=== PATIENT | female | born 1945 | race Caucasian/White ===

== ENCOUNTER 2019-02-04 02:02 | Inpatient (IN) | payer MEDICARE, OTHER ==
[2019-02-04] MEDS ORDERED: ACETAMINOPHEN TAB 500 MG TAB PO STA (02:26)
--- NOTE | 2019-02-04 02:30 | ED ---
SOB HPI - General Chief Complaint: Shortness of Breath Stated Complaint: SONJA Time Seen by Provider: 02/04/19 02:26 Source: patient, EMS - History of Present Illness Initial Comments: Bita is a 73 yo female with PMH of CHF and COPD since the emergency department this morning for evaluation of shortness of breath. Patient reports that yesterday should shortness breath progressively worsened throughout the night she developed a productive cough and was concerned that this may be CHF she decided called ambulance bring her in the ER for evaluation. EMS reports that upon their arrival the patient was wheezing and tachypneic. She is given Solu-Medrol and a breathing treatment in route to the hospital. Patient reports bleeding is improving after the breathing treatment. She denies any chest pain or palpitations. She denies any recent weight gain or lower extremity edema. She reports she sexual been losing weight. She denies any fevers chills nausea or vomiting. - Related Data Home Medications Medication Instructions Recorded Confirmed Metoprolol Tartrate [Lopressor] 100 mg PO DAILY 03/08/16 06/18/16 Sertraline [Zoloft] 100 mg PO BID 03/08/16 06/18/16 amLODIPine BESYLATE [Norvasc] 10 mg PO DAILY 03/08/16 06/18/16 ALPRAZolam [Xanax] 0.5 mg PO Q8H PRN 03/09/16 06/18/16 Albuterol Inhaler [Ventolin Hfa 2 puff INHALATION RT-Q6H PRN 03/09/16 06/18/16 Inhaler] Tiotropium 18 Mcg/Puff [Spiriva] 1 cap INHALATION RT-DAILY 03/09/16 06/18/16 Atorvastatin [Lipitor] 40 mg PO DAILY 05/26/16 06/18/16 Cholecalciferol [Vitamin D3 (25 5,000 unit PO DAILY 05/26/16 06/18/16 Mcg = 1000 Iu)] metFORMIN HCL [Glucophage] 500 mg PO BID 05/26/16 06/18/16 Previous Rx's Medication Instructions Recorded Aspirin 325 mg PO DAILY tab 06/19/16 Famotidine [Pepcid] 40 mg PO HS #30 tab 06/19/16 Furosemide [Lasix] 40 mg PO DAILY #30 tab 06/19/16 Lisinopril [Zestril] 10 mg PO BID #60 tab 06/19/16 Allergies Allergy/AdvReac Type Severity Reaction Status Date / Time codeine AdvReac Unknown agitation Verified 06/18/16 04:23 Review of Systems ROS Statement: Those systems with pertinent positive or pertinent negative responses have been documented in the HPI. ROS Other: All systems not noted in ROS Statement are negative. Past Medical History Past Medical History: Chest Pain / Angina, Heart Failure, Diabetes Mellitus, Hyperlipidemia, Hypertension Additional Past Medical History / Comment(s): pt states she has a "leaky heart valve" History of Any Multi-Drug Resistant Organisms: None Reported Past Surgical History: Heart Catheterization, Hysterectomy, Orthopedic Surgery Additional Past Surgical History / Comment(s): Right hip replacement. Lower 3 discs on back are fused together, bilat carpal tunnel Past Anesthesia/Blood Transfusion Reactions: No Reported Reaction Additional Past Anesthesia/Blood Transfusion Reaction / Comment(s): never had blood transfusion Past Psychological History: Depression Smoking Status: Former smoker Past Alcohol Use History: None Reported Past Drug Use History: None Reported - Past Family History Father Family Medical History: Cancer Additional Family Medical History / Comment(s): lung CA Mother Additional Family Medical History / Comment(s): Scolosis General Exam - General Exam Comments Initial Comments: Physical Exam GENERAL: Elderly female, mild respiratory distress HENT: Normocephalic, Atraumatic. EYES: PERRL, EOMI PULMONARY: Tachypnea Decreased breath sound at bilateral bases No crackles or rales CARDIOVASCULAR: RRR ABDOMEN: Obese SKIN: Skin is clear with no lesions or rashes and otherwise unremarkable. : Deferred NEUROLOGIC: Patient is alert and oriented x3. Moving all extremities spontaneously MUSCULOSKELETAL: Normal extremities with adequate strength and full range of motion. No lower extremity swelling or edema. No calf tenderness. PSYCHIATRIC: Normal psychiatric evaluation Course Vital Signs 02/04/19 02/04/19 02:06 02:10 Temperature 100 F H Pulse Rate 92 Respiratory 16 Rate Blood Pressure 202/107 O2 Sat by Pulse 98 95 Oximetry Medical Decision Making - Medical Decision Making Patient was seen and evaluated history was obtained from the patient Elderly female is tachypneic tachycardic oral temp is 100 there is concerned that she may have pneumonia sepsis workup was initiated Labs reveal a lactic acid is elevated, leukocytosis, chest x-ray concerning for pneumonia versus pulmonary vascular congestion given the patient's vital signs we will treat as a pneumonia with Rocephin and azithromycin. Next line patient will be admitted for sepsis secondary to community-acquired pneumonia. - Lab Data Result diagrams: 02/04/19 02:08 02/04/19 02:08 Lab Results 02/04/19 02/04/19 02/04/19 Range/Units 02:08 02:08 02:08 WBC 18.5 H (3.8-10.6) k/uL RBC 4.56 (3.80-5.40) m/uL Hgb 13.9 (11.4-16.0) gm/dL Hct 42.0 (34.0-46.0) % MCV 91.9 (80.0-100.0) fL MCH 30.5 (25.0-35.0) pg MCHC 33.2 (31.0-37.0) g/dL RDW 15.2 (11.5-15.5) % Plt Count 251 (150-450) k/uL Neutrophils % 83 % Lymphocytes % 11 % Monocytes % 4 % Eosinophils % 1 % Basophils % 1 % Neutrophils # 15.3 H (1.3-7.7) k/uL Lymphocytes # 2.0 (1.0-4.8) k/uL Monocytes # 0.8 (0-1.0) k/uL Eosinophils # 0.2 (0-0.7) k/uL Basophils # 0.1 (0-0.2) k/uL PT (9.0-12.0) sec INR (<1.2) APTT (22.0-30.0) sec Sodium 137 (137-145) mmol/L Potassium 4.3 (3.5-5.1) mmol/L Chloride 99 (98-107) mmol/L Carbon Dioxide 30 (22-30) mmol/L Anion Gap 8 mmol/L BUN 17 (7-17) mg/dL Creatinine 0.85 (0.52-1.04) mg/dL Est GFR (CKD-EPI)AfAm 80 (>60 ml/min/1.73 sqM) Est GFR (CKD-EPI)NonAf 69 (>60 ml/min/1.73 sqM) Glucose 182 H (74-99) mg/dL Plasma Lactic Acid Connor (0.7-2.0) mmol/L Calcium 9.5 (8.4-10.2) mg/dL Total Bilirubin 0.5 (0.2-1.3) mg/dL AST 25 (14-36) U/L ALT 19 (9-52) U/L Alkaline Phosphatase 67 (38-126) U/L NT-Pro-B Natriuret Pep 5550 pg/mL Total Protein 6.8 (6.3-8.2) g/dL Albumin 4.2 (3.5-5.0) g/dL Influenza Type A RNA (Not Detectd) Influenza Type B (PCR) (Not Detectd) 02/04/19 02/04/19 02/04/19 Range/Units 02:08 02:08 02:40 WBC (3.8-10.6) k/uL RBC (3.80-5.40) m/uL Hgb (11.4-16.0) gm/dL Hct (34.0-46.0) % MCV (80.0-100.0) fL MCH (25.0-35.0) pg MCHC (31.0-37.0) g/dL RDW (11.5-15.5) % Plt Count (150-450) k/uL Neutrophils % % Lymphocytes % % Monocytes % % Eosinophils % % Basophils % % Neutrophils # (1.3-7.7) k/uL Lymphocytes # (1.0-4.8) k/uL Monocytes # (0-1.0) k/uL Eosinophils # (0-0.7) k/uL Basophils # (0-0.2) k/uL PT 9.4 (9.0-12.0) sec INR 0.9 (<1.2) APTT 22.3 (22.0-30.0) sec Sodium (137-145) mmol/L Potassium (3.5-5.1) mmol/L Chloride (98-107) mmol/L Carbon Dioxide (22-30) mmol/L Anion Gap mmol/L BUN (7-17) mg/dL Creatinine (0.52-1.04) mg/dL Est GFR (CKD-EPI)AfAm (>60 ml/min/1.73 sqM) Est GFR (CKD-EPI)NonAf (>60 ml/min/1.73 sqM) Glucose (74-99) mg/dL Plasma Lactic Acid Connor 2.6 H* (0.7-2.0) mmol/L Calcium (8.4-10.2) mg/dL Total Bilirubin (0.2-1.3) mg/dL AST (14-36) U/L ALT (9-52) U/L Alkaline Phosphatase (38-126) U/L NT-Pro-B Natriuret Pep pg/mL Total Protein (6.3-8.2) g/dL Albumin (3.5-5.0) g/dL Influenza Type A RNA Not Detected (Not Detectd) Influenza Type B (PCR) Not Detected (Not Detectd) Disposition Clinical Impression: Sepsis, Pneumonia, CHF (congestive heart failure), COPD (chronic obstructive pulmonary disease), Obesity Disposition: ADMITTED IP TO THIS HOSP Condition: Stable Is patient prescribed a controlled substance at d/c from ED?: No Referrals: Nonstaff,Physician [REFERRING] - 1-2 days
[2019-02-04 02:44] LABS: Basophils # (A) 0.1 k/uL (0-0.2); Basophils % (A) 1 %; Eosinophils # (A) 0.2 k/uL (0-0.7); Eosinophils % (A) 1 %; HGB 13.9 gm/dL (11.4-16.0); Lymphocytes % (A) 11 %; MCH 30.5 pg (25.0-35.0); MCHC 33.2 g/dL (31.0-37.0); MCV 91.9 fL (80.0-100.0); Mean Platelet Volume 7.8; Monocytes # (A) 0.8 k/uL (0-1.0); Monocytes % (A) 4 %; Neutrophils # (A) 15.3 k/uL (1.3-7.7); Neutrophils % (A) 83 %; Platelet Count 251 k/uL (150-450); RBC 4.56 m/uL (3.80-5.40); RDW 15.2 % (11.5-15.5); WBC 18.5 k/uL (3.8-10.6)
--- NOTE | 2019-02-04 02:55 | XR ---
EXAM: XR Chest, 2 Views CLINICAL HISTORY: ITS.REASON XR Reason: Fever TECHNIQUE: Frontal and lateral views of the chest. COMPARISON: Chest radiograph on 06/18/2016 FINDINGS: Hardware: None. Lungs/pleura: Interstitial opacities throughout the lungs. Heart/mediastinum: Mild enlargement of the cardiac silhouette. Soft tissues: Unremarkable. Bones: No acute fracture. Degenerative changes of the acromio clavicular joints and spine. Upper abdomen: Normal. IMPRESSION: Interstitial opacities throughout the lungs may represent pulmonary vasculature congestion versus infectious/inflammatory process.
[2019-02-04 02:57] LABS: Albumin 4.2 g/dL (3.5-5.0); Calcium 9.5 mg/dL (8.4-10.2); Potassium 4.3 mmol/L (3.5-5.1); Total Bilirubin 0.5 mg/dL (0.2-1.3); Total Protein 6.8 g/dL (6.3-8.2)
[2019-02-04 03:16] LABS: INR 0.9 (<1.2); Prothrombin Time 9.4 sec (9.0-12.0)
[2019-02-04 03:17] LABS: Partial Thromboplastin Time 22.3 sec (22.0-30.0)
[2019-02-04] MEDS: SODIUM CHLORIDE 0.9% 500 ML 500 ML IV SCH ×2 (03:33→03:34)
[2019-02-04] MEDS ORDERED: cefTRIAXone IN SWFI 1,000 MG/10 ML SYRINGE IVP STA (04:18)
[2019-02-04] MEDS ORDERED: AZITHROMYCIN 500 MG in SODIUM CHLORIDE 0.9% 250 ML IVPB STA (04:18)
[2019-02-04] MEDS ORDERED: PNEUMONIA PROTOCOL UTILIZED 1 EACH MISC PO PRN (04:19)
[2019-02-04 04:32] LABS: Appearance,Urine Clear (Clear); Bacteria,Urine Rare /hpf; Bilirubin,Urine Negative (Negative); Blood,Urine Negative (Negative); Color,Urine Light Yellow; Glucose,Urine (UA) Trace (Negative); Ketones,Urine Negative (Negative); Leukocyte Esterase,Urine Negative (Negative); Mucus,Urine Rare /hpf; Nitrite,Urine Negative (Negative); Protein,Urine 1+ (Negative); RBC,Urine 1 /hpf (0-5); Specific Gravity,Urine 1.012 (1.001-1.035); Squamous Epithelial Cell,Urine 2 /hpf (0-4); Urobilinogen,Urine <2.0 mg/dL (<2.0); WBC,Urine 6 /hpf (0-5)
[2019-02-04 06:25] LABS: Glucose,Whole Blood 263 mg/dL (75-99)
[2019-02-04 06:30] VITALS: BMI 42.4
[2019-02-04] MEDS: INSULIN ASPART (NovoLOG) 100 UNIT/ML VIAL SQ SCH ×4 (06:33→20:48)
[2019-02-04] MEDS ORDERED: SODIUM CHLORIDE 0.9% 500 ML 500 ML IV ONE (07:42)
[2019-02-04] MEDS: amLODIPine 10 MG TAB PO SCH (09:03)
[2019-02-04 12:00] LABS: Glucose,Whole Blood 252 mg/dL (75-99)
[2019-02-04] MEDS: ALPRAZolam 0.5 MG TAB PO PRN (12:39)
[2019-02-04] MEDS ORDERED: SODIUM CHLORIDE 0.9% 1,000 ML IV ONE (13:40)
[2019-02-04] MEDS: SODIUM CHLORIDE 0.9% 1,000 ML IV SCH (15:04)
--- NOTE | 2019-02-04 15:26 | P.HPIM ---
History of Present Illness 73-year-old female with past medical history of COPD came in with complaints of cough shortness of breath. I do not have an echocardiogram available there is no history of CHF per the patient. Patient is having fever cough with the dark- colored sputum production patient was started on antibiotics. Blood cultures were obtain patient has elevated lactic acid which continued to go up patient as he didn't receive much of fluids believing that patient has CHF reasonably so as chest x-ray typically looks like CHF with elevated BNP although patient did not have any JVD or pedal edema. Because of which I relieved patient may have atypical pneumonia IV antibiotics will be continued patient will be given a bolus of IV fluid followed by IV fluids at 100 mL per hour that may help her lactic acid will also obtain echocardiogram. Patient shortness of breath improved. No wheezing on exam Review of Systems REVIEW OF SYSTEMS: CONSTITUTIONAL: No fever, no malaise, no fatigue. HEENT: No recent visual problems or hearing problems. Denied any sore throat. CARDIOVASCULAR: No chest pain, orthopnea, PND, no palpitations, no syncope. PULMONARY: no hemoptysis. GASTROINTESTINAL: No diarrhea, no nausea, no vomiting, no abdominal pain. NEUROLOGICAL: No headaches, no weakness, no numbness. HEMATOLOGICAL: Denies any bleeding or petechiae. GENITOURINARY: Denies any burning micturition, frequency, or urgency. MUSCULOSKELETAL/RHEUMATOLOGICAL: Denies any joint pain, swelling, or any muscle pain. ENDOCRINE: Denies any polyuria or polydipsia. The rest of the 14-point review of systems is negative. Past Medical History Past Medical History: Chest Pain / Angina, Heart Failure, Diabetes Mellitus, Hyperlipidemia, Hypertension Additional Past Medical History / Comment(s): pt states she has a "leaky heart valve" History of Any Multi-Drug Resistant Organisms: None Reported Past Surgical History: Heart Catheterization, Hysterectomy, Orthopedic Surgery Additional Past Surgical History / Comment(s): Right hip replacement. Lower 3 discs on back are fused together, bilat carpal tunnel Past Anesthesia/Blood Transfusion Reactions: No Reported Reaction Additional Past Anesthesia/Blood Transfusion Reaction / Comment(s): never had blood transfusion Past Psychological History: Depression Smoking Status: Former smoker Past Alcohol Use History: None Reported Past Drug Use History: None Reported - Past Family History Father Family Medical History: Cancer Additional Family Medical History / Comment(s): lung CA Mother Additional Family Medical History / Comment(s): Scolosis Medications and Allergies Home Medications Medication Instructions Recorded Confirmed Type Metoprolol Tartrate [Lopressor] 100 mg PO HS 03/08/16 02/04/19 History Sertraline [Zoloft] 100 mg PO HS 03/08/16 02/04/19 History amLODIPine BESYLATE [Norvasc] 10 mg PO DAILY 03/08/16 02/04/19 History ALPRAZolam [Xanax] 0.5 mg PO HS PRN 03/09/16 02/04/19 History Albuterol Inhaler [Ventolin Hfa 2 puff INHALATION RT-Q6H PRN 03/09/16 02/04/19 History Inhaler] Tiotropium 18 Mcg/Puff [Spiriva] 1 cap INHALATION RT-HS 03/09/16 02/04/19 History Aspirin EC [Ecotrin Low Dose] 81 mg PO HS 02/04/19 02/04/19 History Isosorbide Mononitrate ER [Imdur] 30 mg PO HS 02/04/19 02/04/19 History Loperamide [Imodium] 1 cap PO Q48H 02/04/19 02/04/19 History Allergies Allergy/AdvReac Type Severity Reaction Status Date / Time codeine AdvReac Unknown agitation Verified 02/04/19 08:01 Physical Exam Vitals: Vital Signs Temp Pulse Pulse Resp BP BP Pulse Ox 02/04/19 14:58 16 02/04/19 06:57 98.4 F 78 16 142/74 94 L 02/04/19 06:09 98.5 F 83 18 156/76 94 L 02/04/19 05:35 97.8 F 02/04/19 05:00 98.6 F 82 20 176/95 96 02/04/19 04:50 86 17 176/95 96 02/04/19 04:40 86 19 174/81 97 02/04/19 04:30 85 15 182/95 98 02/04/19 04:20 91 24 182/95 96 02/04/19 04:10 91 24 182/95 96 02/04/19 04:00 90 17 179/83 96 02/04/19 03:50 89 17 179/83 96 02/04/19 03:40 89 18 179/100 96 02/04/19 03:20 92 22 179/92 96 02/04/19 03:10 92 19 180/91 96 02/04/19 02:50 93 19 185/95 96 02/04/19 02:46 94 22 202/107 96 02/04/19 02:10 95 02/04/19 02:06 100 F H 92 16 202/107 98 Intake and Output 02/04/19 02/04/19 02/04/19 06:59 14:59 22:59 Intake Total 500 1140 Balance 500 1140 Intake: Intake, IV Titration 500 500 Amount Sodium Chloride 0.9% 500 500 ml 500 ml @ 1000 mls/hr IV Q35M [facility] Rx#:[id number] Sodium Chloride 0.9% 500 500 ml 500 ml @ 999 mls/hr IV .Q31M ONE Rx#:[id number] Oral 640 Other: Weight 115.7 kg PHYSICAL EXAMINATION: GENERAL: The patient is alert and oriented x3, not in any acute distress. Well developed, well nourished. HEENT: Pupils are round and equally reacting to light. EOMI. No scleral icterus. No conjunctival pallor. Normocephalic, atraumatic. No pharyngeal erythema. No thyromegaly. CARDIOVASCULAR: S1 and S2 present. No murmurs, rubs, or gallops. PULMONARY: Chest is clear to auscultation, no wheezing or crackles. ABDOMEN: Soft, nontender, nondistended, normoactive bowel sounds. No palpable organomegaly. MUSCULOSKELETAL: No joint swelling or deformity. EXTREMITIES: No cyanosis, clubbing, or pedal edema. NEUROLOGICAL: Gross neurological examination did not reveal any focal deficits. SKIN: No rashes. Results CBC & Chem 7: 02/04/19 02:08 02/04/19 02:08 Labs: Abnormal Lab Results - Last 24 Hours (Table) 02/04/19 02/04/19 02/04/19 Range/Units 02:08 02:08 02:08 WBC 18.5 H (3.8-10.6) k/uL Neutrophils # 15.3 H (1.3-7.7) k/uL Glucose 182 H (74-99) mg/dL POC Glucose (mg/dL) (75-99) mg/dL Plasma Lactic Acid Connor 2.6 H* (0.7-2.0) mmol/L Urine Protein (Negative) Urine Glucose (UA) (Negative) Urine WBC (0-5) /hpf Urine Bacteria (None) /hpf Urine Mucus (None) /hpf 02/04/19 02/04/19 02/04/19 Range/Units 04:16 06:15 06:29 WBC (3.8-10.6) k/uL Neutrophils # (1.3-7.7) k/uL Glucose (74-99) mg/dL POC Glucose (mg/dL) 263 H (75-99) mg/dL Plasma Lactic Acid Connor 4.5 H* (0.7-2.0) mmol/L Urine Protein 1+ H (Negative) Urine Glucose (UA) Trace H (Negative) Urine WBC 6 H (0-5) /hpf Urine Bacteria Rare H (None) /hpf Urine Mucus Rare H (None) /hpf 02/04/19 02/04/19 Range/Units 11:45 12:30 WBC (3.8-10.6) k/uL Neutrophils # (1.3-7.7) k/uL Glucose (74-99) mg/dL POC Glucose (mg/dL) 252 H (75-99) mg/dL Plasma Lactic Acid Connor 4.7 H* (0.7-2.0) mmol/L Urine Protein (Negative) Urine Glucose (UA) (Negative) Urine WBC (0-5) /hpf Urine Bacteria (None) /hpf Urine Mucus (None) /hpf Microbiology - Last 24 Hours (Table) 02/04/19 04:16 Urine Culture - Preliminary Urine,Voided Thrombosis Risk Factor Assmnt - Choose All That Apply Each Factor Represents 1 point: Abnormal pulmonary function (COPD), Heart failure (<1month), Obesity (BMI >25) Each Risk Factor Represents 2 Points: Age 61-74 years Thrombosis Risk Factor Assessment Total Risk Factor Score: 5 Thrombosis Risk Factor Assessment Level: High Risk Assessment and Plan Plan: - possible severe sepsis from pneumonia may be atypical pneumonia patient will be continue on Rocephin and is from azithromycin and IV fluids as mentioned above because of lactic acidosis. Echocardiogram will be obtained. Patient does take metformin may be contributing to lactic acidosis as well. -Hypertension next and-type 2 diabetes mellitus -Coronary artery disease -Depression -Patient will need the GI prophylaxis and DVT prophylaxis
[2019-02-04] MEDS: HEPARIN SODIUM,PORCINE 5,000 UNIT/ML 1 ML VIAL SQ SCH ×2 (16:10→23:35)
[2019-02-04 17:18] LABS: Glucose,Whole Blood 185 mg/dL (75-99)
[2019-02-04 20:48] LABS: Glucose,Whole Blood 175 mg/dL (75-99)
[2019-02-04] MEDS: ISOSORBIDE MONONITRATE ER 30 MG TAB.ER.24H PO SCH (20:48)
[2019-02-04] MEDS: FAMOTIDINE 20 MG TAB PO SCH (20:48)
[2019-02-04] MEDS: METOPROLOL TARTRATE 50 MG TAB PO SCH (20:48)
[2019-02-04] MEDS: SERTRALINE 100 MG TAB PO SCH (20:48)
[2019-02-04] MEDS: ASPIRIN 81 MG PO SCH (20:48)
[2019-02-05] MEDS: SODIUM CHLORIDE 0.9% 1,000 ML IV SCH (00:19)
[2019-02-05] MEDS: ALPRAZolam 0.5 MG TAB PO PRN (00:59)
[2019-02-05] MEDS: IPRATROPIUM-ALBUTEROL 3 ML NEB INHALATION PRN ×3 (01:16→11:52)
[2019-02-05] MEDS ORDERED: FUROSEMIDE 10 MG/ML 4 ML VIAL IV STA ×2 (01:39→11:47)
--- NOTE | 2019-02-05 06:50 | XR ---
EXAMINATION TYPE: XR chest 1V portable DATE OF EXAM: 02/05/2019 HISTORY: Increased Sob . REFERENCE: Previous study dated 02/04/2019. FINDINGS: Patient has taken a poor inspiration. Heart size projects upper limits of normal. There is vascular congestion and mild interstitial change. I could not exclude small effusions. IMPRESSION: 1. FINDINGS CONSISTENT WITH MILD HEART FAILURE. 2. I COULD NOT EXCLUDE SMALL EFFUSIONS.
[2019-02-05 07:05] LABS: Glucose,Whole Blood 177 mg/dL (75-99)
[2019-02-05] MEDS: INSULIN ASPART (NovoLOG) 100 UNIT/ML VIAL SQ SCH ×4 (08:22→22:10)
[2019-02-05] MEDS: amLODIPine 10 MG TAB PO SCH (08:23)
[2019-02-05] MEDS: FAMOTIDINE 20 MG TAB PO SCH ×2 (08:23→19:54)
[2019-02-05] MEDS: HEPARIN SODIUM,PORCINE 5,000 UNIT/ML 1 ML VIAL SQ SCH ×3 (08:23→23:26)
[2019-02-05] MEDS ORDERED: AZITHROMYCIN 500 MG in SODIUM CHLORIDE 0.9% 250 ML IVPB SCH (09:00)
[2019-02-05] MEDS: ACETAMINOPHEN TAB 325 MG TAB PO PRN ×2 (10:03→19:54)
[2019-02-05 11:36] LABS: Glucose,Whole Blood 173 mg/dL (75-99)
[2019-02-05 13:03] LABS: Basophils # (A) 0.1 k/uL (0-0.2); Basophils % (A) 0 %; Eosinophils # (A) 0.1 k/uL (0-0.7); Eosinophils % (A) 0 %; HCT 39.8 % (34.0-46.0); HGB 12.5 gm/dL (11.4-16.0); Lymphocytes # (A) 1.5 k/uL (1.0-4.8); Lymphocytes % (A) 9 %; MCH 30.3 pg (25.0-35.0); MCHC 31.5 g/dL (31.0-37.0); MCV 96.3 fL (80.0-100.0); Mean Platelet Volume 7.9; Monocytes # (A) 0.7 k/uL (0-1.0); Monocytes % (A) 4 %; Neutrophils # (A) 14.9 k/uL (1.3-7.7); Neutrophils % (A) 87 %; Platelet Count 236 k/uL (150-450); RBC 4.14 m/uL (3.80-5.40); RDW 14.3 % (11.5-15.5); WBC 17.3 k/uL (3.8-10.6)
--- NOTE | 2019-02-05 13:03 | P.PN ---
Subjective Patient was admitted for sepsis initially thought to have pneumonia although there is no evidence of focal infiltrate's demise will be discontinued patient urine cultures are positive for gram-negative bacilli patient probably has UTI Patient will be can you done ceftriaxone. Patient does have symmetric and pulmonary edema patient will be given a dose of Lasix, lactic acid is around 2.5 and repeated tomorrow morning. Patient is quite short short of breath because of which in spite of lactic acid outgoing give her Lasix and will monitor clini desmond. Cardiac exam is pending Constitutional: She is quite a bit weak short of breath Cardio vascular: denied any chest pain, palpitations Gastrointestinal denied any nausea vomiting Pulmonary: As mentioned above Neurologic denied any new focal deficits All inpatient medications were reviewed and appropriate changes in these medications as dictated in the interval history and assessment and plan. Objective - Vital Signs Vital signs: Vital Signs Temp 99.3 F 02/05/19 09:44 Pulse 88 02/05/19 12:05 Resp 18 02/05/19 07:00 BP 164/75 02/05/19 07:00 Pulse Ox 95 02/05/19 07:00 Intake & Output 02/04/19 02/05/19 02/05/19 18:59 06:59 18:59 Intake Total 1140 350 Output Total 225 Balance 1140 350 -225 Intake: Intake, IV Titration 500 350 Amount Sodium Chloride 0.9% 1, 350 000 ml @ 100 mls/hr IV . Q10H [facility] Rx#:[id number] Sodium Chloride 0.9% 500 500 ml 500 ml @ 999 mls/hr IV .Q31M [facility] Rx#:[id number] Oral 640 Output: Urine 225 Uretheral (Roe) 225 Other: Voiding Method Toilet Toilet # Voids 1 - Exam PHYSICAL EXAMINATION: GENERAL: The patient is alert and oriented x3, is in mild respiratory distress at rest. Well developed, well nourished. Obese HEENT: Pupils are round and equally reacting to light. EOMI. No scleral icterus. No conjunctival pallor. Normocephalic, atraumatic. No pharyngeal erythema. No thyromegaly. CARDIOVASCULAR: S1 and S2 present. No murmurs, rubs, . She does have elevated JVD PULMONARY: Crackles in posterior bilateral lung bases ABDOMEN: Soft, nontender, nondistended, normoactive bowel sounds. No palpable organomegaly. MUSCULOSKELETAL: No joint swelling or deformity. EXTREMITIES: No cyanosis, clubbing, 1+ pitting pedal edema extending up to both knees NEUROLOGICAL: Gross neurological examination did not reveal any focal deficits. SKIN: No rashes. - Labs CBC & Chem 7: 02/04/19 02:08 02/04/19 02:08 Labs: Abnormal Lab Results - Last 24 Hours (Table) 02/04/19 02/04/19 02/04/19 Range/Units 12:30 16:46 17:06 POC Glucose (mg/dL) 185 H (75-99) mg/dL Plasma Lactic Acid Connor 4.7 H* 2.4 H* (0.7-2.0) mmol/L 02/04/19 02/05/19 02/05/19 Range/Units 20:36 06:54 09:38 POC Glucose (mg/dL) 175 H 177 H (75-99) mg/dL Plasma Lactic Acid Connor 2.9 H* (0.7-2.0) mmol/L 02/05/19 Range/Units 11:25 POC Glucose (mg/dL) 173 H (75-99) mg/dL Plasma Lactic Acid Connor (0.7-2.0) mmol/L Microbiology - Last 24 Hours (Table) 02/04/19 04:16 Urine Culture - Preliminary Urine,Voided Gram Neg Bacilli 02/04/19 03:34 Blood Culture - Preliminary Blood No Growth after 24 hours Assessment and Plan Plan: - possible severe sepsis from urinary tract infection possibly of pneumonia is low azithromycin will be discontinued continue with the Rocephin echocardiac gram is pending . Continues to have mild lactic acidosis Patient does take metformin may be contributing to lactic acidosis as well. -Congestive heart failure ejection fraction is not known in acute exacerbation may have diastolic dysfunction patient will be started on Lasix in spite of lactic acidosis because of her acute respiratory failure from heart failure -Acute hypoxic respiratory failure secondary to CHF exacerbation -Hypertension -type 2 diabetes mellitus -Coronary artery disease -Depression -Patient will need the GI prophylaxis and DVT prophylaxis
[2019-02-05 13:08] LABS: Calcium 8.8 mg/dL (8.4-10.2); Potassium 4.1 mmol/L (3.5-5.1)
[2019-02-05 17:09] LABS: Glucose,Whole Blood 189 mg/dL (75-99)
[2019-02-05] MEDS: ISOSORBIDE MONONITRATE ER 30 MG TAB.ER.24H PO SCH (19:54)
[2019-02-05] MEDS: METOPROLOL TARTRATE 50 MG TAB PO SCH (19:54)
[2019-02-05] MEDS: ASPIRIN 81 MG PO SCH (19:54)
[2019-02-05] MEDS: SERTRALINE 100 MG TAB PO SCH (19:54)
[2019-02-05 22:05] LABS: Glucose,Whole Blood 134 mg/dL (75-99)
[2019-02-06] MEDS: IPRATROPIUM-ALBUTEROL 3 ML NEB INHALATION PRN ×2 (03:26→10:59)
[2019-02-06 06:23] LABS: Glucose,Whole Blood 151 mg/dL (75-99)
[2019-02-06 06:29] LABS: HCT 37.3 % (34.0-46.0); HGB 12.3 gm/dL (11.4-16.0); MCH 30.7 pg (25.0-35.0); MCHC 32.9 g/dL (31.0-37.0); MCV 93.5 fL (80.0-100.0); Mean Platelet Volume 7.9; Platelet Count 200 k/uL (150-450); RBC 3.99 m/uL (3.80-5.40); RDW 14.8 % (11.5-15.5); WBC 12.6 k/uL (3.8-10.6)
[2019-02-06 06:35] LABS: Calcium 8.9 mg/dL (8.4-10.2); Potassium 3.8 mmol/L (3.5-5.1)
[2019-02-06] MEDS: INSULIN ASPART (NovoLOG) 100 UNIT/ML VIAL SQ SCH ×4 (06:37→21:59)
[2019-02-06] MEDS: ACETAMINOPHEN TAB 325 MG TAB PO PRN (09:32)
[2019-02-06] MEDS: HEPARIN SODIUM,PORCINE 5,000 UNIT/ML 1 ML VIAL SQ SCH ×2 (09:33→16:58)
[2019-02-06] MEDS: FAMOTIDINE 20 MG TAB PO SCH ×2 (09:33→21:59)
[2019-02-06] MEDS: amLODIPine 10 MG TAB PO SCH (09:33)
--- NOTE | 2019-02-06 10:55 | P.PN ---
Subjective Patient was admitted for sepsis initially thought to have pneumonia although there is no evidence of focal infiltrate's demise will be discontinued patient urine cultures are positive for gram-negative bacilli patient probably has UTI Patient will be can you done ceftriaxone. Patient does have symmetric and pulmonary edema patient will be given a dose of Lasix, lactic acid is around 2.5 and repeated tomorrow morning. Patient is quite short short of breath because of which in spite of lactic acid outgoing give her Lasix and will monitor clini desmond. Echocardiogram pending 02/06/2019 Echocardiac M pending. Patient the heart failure significant improved lactic acidosis improved and can you with antibiotic patient blood pressure started go ing up because her sepsis is improving at this time. Patient will be started on Lasix for a day IV and will be switched to oral tomorrow we'll check the kidney function patient was started on low-dose of RYDER inhibitor as well and patient metoprolol will be changed to Coreg with these changes her blood pressure is expected to come down. Patient is feeling much better today. Constitutional: She is quite a bit weak short of breath Cardio vascular: denied any chest pain, palpitations Gastrointestinal denied any nausea vomiting Pulmonary: As mentioned above Neurologic denied any new focal deficits All inpatient medications were reviewed and appropriate changes in these medications as dictated in the interval history and assessment and plan. Objective - Vital Signs Vital signs: Vital Signs Temp 98.5 F 02/06/19 09:16 Pulse 87 02/06/19 09:16 Resp 18 02/06/19 09:16 BP 190/84 02/06/19 09:16 Pulse Ox 95 02/06/19 09:16 Intake & Output 02/05/19 02/06/19 02/06/19 18:59 06:59 18:59 Intake Total 300 120 Output Total 1475 1500 Balance -1175 -1380 Weight 110 kg Intake: Intake, IV Titration 300 Amount Azithromycin 500 mg In 250 Sodium Chloride 0.9% 250 ml @ 250 mls/hr IVPB DAILY [facility] Rx#:[id number] cefTRIAXone 1 gm In 50 Sodium Chloride 0.9% 50 ml @ 100 mls/hr IVPB Q24H [facility] Rx#:[id number] Oral 120 Output: Urine 1475 1500 Uretheral (Roe) 225 Other: Voiding Method Toilet Indwelling Catheter Indwelling Catheter # Voids 1 - Exam PHYSICAL EXAMINATION: GENERAL: The patient is alert and oriented x3, not in respiratory distress Well developed, well nourished. Obese HEENT: Pupils are round and equally reacting to light. EOMI. No scleral icterus. No conjunctival pallor. Normocephalic, atraumatic. No pharyngeal erythema. No thyromegaly. CARDIOVASCULAR: S1 and S2 present. No murmurs, rubs, . He'll have JVD with improved PULMONARY: Crackles in posterior bilateral lung bases ABDOMEN: Soft, nontender, nondistended, normoactive bowel sounds. No palpable organomegaly. MUSCULOSKELETAL: No joint swelling or deformity. EXTREMITIES: No cyanosis, clubbing, 1+ pitting pedal edema extending up to both knees NEUROLOGICAL: Gross neurological examination did not reveal any focal deficits. SKIN: No rashes. - Labs CBC & Chem 7: 02/06/19 06:02/06/19 06:09 Labs: Abnormal Lab Results - Last 24 Hours (Table) 02/05/19 02/05/19 02/05/19 Range/Units 10: 10: 11:25 WBC 17.3 H (3.8-10.6) k/uL Neutrophils # 14.9 H (1.3-7.7) k/uL BUN 19 H (7-17) mg/dL Glucose 186 H (74-99) mg/dL POC Glucose (mg/dL) 173 H (75-99) mg/dL Plasma Lactic Acid Connor (0.7-2.0) mmol/L 02/05/19 02/05/19 02/05/19 Range/Units 13:30 16:59 22:03 WBC (3.8-10.6) k/uL Neutrophils # (1.3-7.7) k/uL BUN (7-17) mg/dL Glucose (74-99) mg/dL POC Glucose (mg/dL) 189 H 134 H (75-99) mg/dL Plasma Lactic Acid Connor 4.3 H* (0.7-2.0) mmol/L 02/06/19 02/06/19 02/06/19 Range/Units 06:09 06:09 06:22 WBC 12.6 H (3.8-10.6) k/uL Neutrophils # (1.3-7.7) k/uL BUN (7-17) mg/dL Glucose 149 H (74-99) mg/dL POC Glucose (mg/dL) 151 H (75-99) mg/dL Plasma Lactic Acid Connor (0.7-2.0) mmol/L Microbiology - Last 24 Hours (Table) 02/04/19 04:16 Urine Culture - Final Urine,Voided Klebsiella pneumoniae 02/04/19 03:34 Blood Culture - Preliminary Blood No Growth after 48 hours Assessment and Plan Plan: - possible severe sepsis from urinary tract infection possibly of pneumonia is low azithromycin will be discontinued continue with the Rocephin echocardiac gram is pending . Because those resolved -Congestive heart failure ejection fraction is not known, in acute exacerbation may have diastolic dysfunction patient will be started on Lasix in spite of lactic acidosis because of her acute respiratory failure from heart failure -Acute hypoxic respiratory failure secondary to CHF exacerbation -Hypertension -blood pressure started going up above-mentioned medication c eli -type 2 diabetes mellitus -Coronary artery disease -Depression -Patient will need the GI prophylaxis and DVT prophylaxis
[2019-02-06 11:55] LABS: Glucose,Whole Blood 157 mg/dL (75-99)
[2019-02-06] MEDS: CARVEDILOL 6.25 MG TAB PO SCH ×2 (12:05→16:59)
[2019-02-06] MEDS: LISINOPRIL 5 MG TAB PO SCH (12:06)
[2019-02-06 17:13] LABS: Glucose,Whole Blood 120 mg/dL (75-99)
[2019-02-06] MEDS ORDERED: CARVEDILOL 6.25 MG TAB PO SCH (17:30)
--- NOTE | 2019-02-06 19:06 | ECHOF ---
Referral Reason:CHF MEASUREMENTS -------- HEIGHT: 165.1 cm WEIGHT: 109.8 kg BP: 131/65 IVSd: 2.0 cm (0.6 - 1.1) LVIDd: 2.7 cm (3.9 - 5.3) LVPWd: 1.9 cm (0.6 - 1.1) IVSs: 2.2 cm LVIDs: 1.6 cm LVPWs: 2.2 cm RVIDd: 2.4 cm (< 3.3) LAESV Index (A-L): 66.13 ml/m Ao Diam: 2.8 cm (2.0 - 3.7) LA Diam: 4.8 cm (2.7 - 3.8) AV Cusp: 1.8 cm (1.5 - 2.6) EPSS: 0.1 cm MV E Elivn: 1.51 m/s MV DecT: 188 ms MV A Elvin: 1.12 m/s MV E/A Ratio: 1.35 AV maxP.78 mmHg AV meanP.00 mmHg AR PHT: 643 ms RAP: 5.00 mmHg RVSP: 29.08 mmHg MV EF SLOPE: 41.79 mm/s (70 - 150) MV EXCURSION: 19.44 mm (> 18.000) FINDINGS -------- Sinus rhythm. This was a technically adequate study. The cavity size is decreased. There is severe concentric left ventricular hypertrophy. Overall le ft ventricular systolic function is normal with, an EF between 60 - 65 %. The right ventricle is normal in size. LA is severely dilated >40 ml/m2 The right atrial size is normal. Aortic valve is trileaflet and is mildly thickened. There is mild aortic valve sclerosis. There i s moderate aortic regurgitation. Peak/mean gradient across the Aortic Valve is 14.78mmHg / 7.00mmHg . Sdeemhwh-ku-wsgpch mitral regurgitation is present. Mild tricuspid regurgitation present. There is no evidence of pulmonary hypertension. The right v entricular systolic pressure, as measured by Doppler, is 29.08mmHg. Trace/mild (physiologic) pulmonic regurgitation. The aortic root size is normal. IVC Not well visulized. There is no pericardial effusion. CONCLUSIONS -------- 1. Sinus rhythm. 2. This was a technically adequate study. 3. The cavity size is decreased. 4. There is severe concentric left ventricular hypertrophy. 5. Overall left ventricular systolic function is normal with, an EF between 60 - 65 %. 6. The right ventricle is normal in size. 7. LA is severely dilated >40 ml/m2 8. The right atrial size is normal. 9. Aortic valve is trileaflet and is mildly thickened. 10. There is mild aortic valve sclerosis. 11. There is moderate aortic regurgitation. 12. Peak/mean gradient across the Aortic Valve is 14.78mmHg / 7.00mmHg. 13. Mboxumsv-tc-jyurgx mitral regurgitation is present. 14. Mild tricuspid regurgitation present. 15. There is no evidence of pulmonary hypertension. 16. The right ventricular systolic pressure, as measured by Doppler, is 29.08mmHg. 17. Trace/mild (physiologic) pulmonic regurgitation. 18. The aortic root size is normal. 19. IVC Not well visulized. 20. There is no pericardial effusion. BRIM PRESSER: Gila Marquis RDCS
[2019-02-06] MEDS ORDERED: METOPROLOL SUCCINATE (ER) 100 MG TAB.ER.24H PO SCH (21:00)
[2019-02-06 21:04] LABS: Glucose,Whole Blood 155 mg/dL (75-99)
[2019-02-06] MEDS ORDERED: SODIUM CHLORIDE 0.65% NASAL SPRAY 44 ML BTL NASAL PRN (21:28)
[2019-02-06] MEDS: ISOSORBIDE MONONITRATE ER 30 MG TAB.ER.24H PO SCH (21:59)
[2019-02-06] MEDS: ASPIRIN 81 MG PO SCH (21:59)
[2019-02-06] MEDS: FUROSEMIDE 10 MG/ML 4 ML VIAL IV SCH (21:59)
[2019-02-06] MEDS: SERTRALINE 100 MG TAB PO SCH (22:14)
[2019-02-07] MEDS: HEPARIN SODIUM,PORCINE 5,000 UNIT/ML 1 ML VIAL SQ SCH ×2 (00:43→08:11)
[2019-02-07 04:46] VITALS: BP 149/66; TEMP 98.1
[2019-02-07 07:02] LABS: Glucose,Whole Blood 163 mg/dL (75-99)
[2019-02-07] MEDS: FUROSEMIDE 10 MG/ML 4 ML VIAL IV SCH (08:08)
[2019-02-07] MEDS: INSULIN ASPART (NovoLOG) 100 UNIT/ML VIAL SQ SCH ×2 (08:10→12:54)
[2019-02-07] MEDS: LISINOPRIL 5 MG TAB PO SCH (08:11)
[2019-02-07] MEDS: CARVEDILOL 6.25 MG TAB PO SCH (08:11)
[2019-02-07] MEDS: FAMOTIDINE 20 MG TAB PO SCH (08:11)
[2019-02-07] MEDS: amLODIPine 10 MG TAB PO SCH (08:11)
[2019-02-07] MEDS: IPRATROPIUM-ALBUTEROL 3 ML NEB INHALATION PRN (08:51)
[2019-02-07 08:55] VITALS: RESP 16
[2019-02-07 09:04] VITALS: PULSE 74
[2019-02-07 09:36] LABS: Calcium 9.2 mg/dL (8.4-10.2); Potassium 3.7 mmol/L (3.5-5.1)
[2019-02-07 11:06] LABS: Glucose,Whole Blood 170 mg/dL (75-99)
--- NOTE | 2019-02-07 11:42 | P.DS ---
Providers Date of admission: 02/04/19 04:21 Attending physician: Ramírez Mandujano Primary care physician: Jacques Huizar MD Hospital Course: Patient was admitted for sepsis initially thought to have pneumonia although there is no evidence of focal infiltrate's demise will be discontinued patient urine cultures are positive for gram-negative bacilli patient probably has UTI Patient will be can you done ceftriaxone. Patient does have symmetric and pulmonary edema patient will be given a dose of Lasix, lactic acid is around 2.5 and repeated tomorrow morning. Patient is quite short short of breath because of which in spite of lactic acid outgoing give her Lasix and will monitor clinically. Echocardiogram pending 02/06/2019 Echocardiac M pending. Patient the heart failure significant improved lactic acidosis improved and can you with antibiotic patient blood pressure started going up because her sepsis is improving at this time. Patient will be started on Lasix for a day IV and will be switched to oral tomorrow we'll check the kidney function patient was started on low-dose of RYDER inhibitor as well and patient metoprolol will be changed to Coreg with these changes her blood pressure is expected to come down. Patient is feeling much better today. 02/07/2019 Patient is clinically doing well echocardiac exam showed possible diastolic dysfunction with concentric left ventricular hypertrophy multiple medication changes were made and patient is doing well and patient will be discharged on Ceftin for 5 more days. PHYSICAL EXAMINATION: GENERAL: The patient is alert and oriented x3, not in respiratory distress Well developed, well nourished. Obese HEENT: Pupils are round and equally reacting to light. EOMI. No scleral icterus. No conjunctival pallor. Normocephalic, atraumatic. No pharyngeal erythema. No thyromegaly. CARDIOVASCULAR: S1 and S2 present. No murmurs, rubs, . He'll have JVD with improved PULMONARY: Crackles in posterior bilateral lung bases ABDOMEN: Soft, nontender, nondistended, normoactive bowel sounds. No palpable organomegaly. MUSCULOSKELETAL: No joint swelling or deformity. EXTREMITIES: No cyanosis, clubbing, 1+ pitting pedal edema extending up to both knees NEUROLOGICAL: Gross neurological examination did not reveal any focal deficits. SKIN: No rashes. Assessment and Plan Plan: - possible severe sepsis from urinary tract infection possibly of pneumonia is low azithromycin will be discontinued continue with the Rocephin -Congestive heart failure ejection fraction 60-65%, in acute exacerbation may have diastolic dysfunction -Acute hypoxic respiratory failure secondary to CHF exacerbation -Hypertension -type 2 diabetes mellitus -Coronary artery disease -Depression Patient Condition at Discharge: Stable Plan - Discharge Summary Discharge Rx Participant: Yes New Discharge Prescriptions: New Carvedilol [Coreg] 6.25 mg PO BID-W/MEALS #60 tab Furosemide [Lasix] 40 mg PO BID #60 tablet Lisinopril [Zestril] 10 mg PO DAILY #30 tab Continue amLODIPine BESYLATE [Norvasc] 10 mg PO DAILY Sertraline [Zoloft] 100 mg PO HS Tiotropium 18 Mcg/Puff [Spiriva] 1 cap INHALATION RT-HS ALPRAZolam [Xanax] 0.5 mg PO HS PRN PRN Reason: Anxiety Albuterol Inhaler [Ventolin Hfa Inhaler] 2 puff INHALATION RT-Q6H PRN PRN Reason: Shortness Of Breath Loperamide [Imodium] 1 cap PO Q48H Aspirin EC [Ecotrin Low Dose] 81 mg PO HS Isosorbide Mononitrate ER [Imdur] 30 mg PO HS Discontinued Metoprolol Tartrate [Lopressor] 100 mg PO HS Discharge Medication List Sertraline [Zoloft] 100 mg PO HS 03/08/16 [History] amLODIPine BESYLATE [Norvasc] 10 mg PO DAILY 03/08/16 [History] ALPRAZolam [Xanax] 0.5 mg PO HS PRN 03/09/16 [History] Albuterol Inhaler [Ventolin Hfa Inhaler] 2 puff INHALATION RT-Q6H PRN 03/09/16 [History] Tiotropium 18 Mcg/Puff [Spiriva] 1 cap INHALATION RT-HS 03/09/16 [History] Aspirin EC [Ecotrin Low Dose] 81 mg PO HS 02/04/19 [History] Isosorbide Mononitrate ER [Imdur] 30 mg PO HS 02/04/19 [History] Loperamide [Imodium] 1 cap PO Q48H 02/04/19 [History] Carvedilol [Coreg] 6.25 mg PO BID-W/MEALS #60 tab 02/07/19 [Rx] Furosemide [Lasix] 40 mg PO BID #60 tablet 02/07/19 [Rx] Lisinopril [Zestril] 10 mg PO DAILY #30 tab 02/07/19 [Rx] Follow up Appointment(s)/Referral(s): Jacques Huizar MD [Primary Care Provider] - 1 Week Patient Instructions/Handouts: Lisinopril (By mouth), Furosemide (By mouth), Carvedilol (By mouth), Heart Failure (DC), Urinary Tract Infection in Women (DC), Sepsis (GEN) Discharge Disposition: HOME SELF-CARE
[2019-02-08] MEDS ORDERED: FAMOTIDINE 20 MG TAB PO SCH (09:00)
== END 2019-02-07 14:35 | disposition home or self-care (01) | DRG 871 ==
LOC: SUPCPDRO 02:02 → EC 02:02 → 4SSUR 04:21 → 3SCARD 02-05 16:24 → 3NMEDONC 02-06 12:29
PROVIDERS: ADMIT Hospitalist; ATTEND Hospitalist
DX: A41.9 Sepsis, unspecified organism (principal); J96.01 Acute respiratory failure with hypoxia; I50.33 Acute on chronic diastolic (congestive) heart failure; J44.0 Chronic obstructive pulmonary disease with (acute) lower respiratory infection; E87.2 Acidosis; N39.0 Urinary tract infection, site not specified; R65.20 Severe sepsis without septic shock; I25.10 Atherosclerotic heart disease of native coronary artery without angina pectoris; I11.0 Hypertensive heart disease with heart failure; E11.9 Type 2 diabetes mellitus without complications; F32.9 Major depressive disorder, single episode, unspecified; Z96.641 Presence of right artificial hip joint; B96.89 Other specified bacterial agents as the cause of diseases classified elsewhere; E66.9 Obesity, unspecified; E78.5 Hyperlipidemia, unspecified; Z79.82 Long term (current) use of aspirin; Z90.710 Acquired absence of both cervix and uterus; Z79.899 Other long term (current) drug therapy; Z80.1 Family history of malignant neoplasm of trachea, bronchus and lung; Z87.891 Personal history of nicotine dependence; Z79.84 Long term (current) use of oral hypoglycemic drugs; Z88.5 Allergy status to narcotic agent
CPT/HCPCS: 36415; 71045; 71046; 80048; 80053; 81001; 83605; 83880; 85025; 85027; 85610; 85730; 87040; 87077; 87086; 87186; 87502; 93005; 93306; 94640; 94760; 96361; 96374; 99285

== ENCOUNTER 2024-10-18 12:56 | Inpatient (IN) | payer MEDICARE ==
--- NOTE | 2024-10-18 13:21 | ED ---
General Adult HPI - General Chief complaint: Weakness Stated complaint: weakness Time Seen by Provider: 10/18/24 13:00 Source: patient, EMS, RN notes reviewed, old records reviewed Mode of arrival: EMS Limitations: no limitations - History of Present Illness Initial comments: 78-year-old female presents from home with generalized weakness. Patient was found by [facility] and paramedics were called for evaluation. There was no fall or trauma. The patient states that just today she has felt more weak and had difficult time getting up. She denies associated chest pain. No vomiting. No diarrhea. No fever. She reports a mild cough. No headache. No focal numbness or weakness. No difficulty breathing. Patient denies daily medication or chronic medical issues. - Related Data Home Medications Medication Instructions Recorded Confirmed No Known Home Medications 10/18/24 10/18/24 Allergies Allergy/AdvReac Type Severity Reaction Status Date / Time codeine AdvReac Unknown agitation Verified 10/18/24 13:42 Penicillins AdvReac "Makes me Verified 10/18/24 13:42 cranky" Review of Systems ROS Statement: Those systems with pertinent positive or pertinent negative responses have been documented in the HPI. ROS Other: All systems not noted in ROS Statement are negative. Past Medical History Past Medical History: Chest Pain / Angina, Heart Failure, Diabetes Mellitus, Hyperlipidemia, Hypertension Additional Past Medical History / Comment(s): pt states she has a "leaky heart valve", pacemaker History of Any Multi-Drug Resistant Organisms: None Reported Past Surgical History: Heart Catheterization, Hysterectomy, Orthopedic Surgery Additional Past Surgical History / Comment(s): Right hip replacement. Lower 3 discs on back are fused together, bilat carpal tunnel Past Anesthesia/Blood Transfusion Reactions: No Reported Reaction Additional Past Anesthesia/Blood Transfusion Reaction / Comment(s): never had blood transfusion Past Psychological History: Depression Smoking Status: Former smoker Past Alcohol Use History: None Reported Past Drug Use History: None Reported - Past Family History Father Family Medical History: Cancer Additional Family Medical History / Comment(s): lung CA Mother Family Medical History: Cancer Additional Family Medical History / Comment(s): Scolosis, colon cancer General Exam Limitations: no limitations General appearance: alert, in no apparent distress Head exam: Present: atraumatic, normocephalic Eye exam: Present: normal appearance, PERRL ENT exam: Present: mucous membranes dry Neck exam: Present: normal inspection. Absent: tenderness, meningismus Respiratory exam: Present: normal lung sounds bilaterally. Absent: respiratory distress, wheezes Cardiovascular Exam: Present: regular rate, normal rhythm GI/Abdominal exam: Present: soft. Absent: distended, tenderness, guarding Neurological exam: Present: alert, oriented X3, CN II-XII intact. Absent: motor sensory deficit Psychiatric exam: Present: normal affect, normal mood Skin exam: Present: warm, dry, intact. Absent: cyanosis, diaphoretic Course Vital Signs 10/18/24 12:58 Temperature 98.1 F Pulse Rate 62 Respiratory 18 Rate Blood Pressure 186/75 O2 Sat by Pulse 98 Oximetry Medical Decision Making - Medical Decision Making Was pt. sent in by a medical professional or institution (, JACEK, PHARMACY TEACHER, urgent care, hospital, or custodial...) When possible be specific @ -No Did you speak to anyone other than the patient for history (EMS, parent, family, police, friend...)? What history was obtained from this source @ -No Did you review nursing and triage notes (agree or disagree)? Why? @ -I reviewed and agree with nursing and triage notes Were old charts reviewed (outside hosp., previous admission, EMS record, old EKG, old radiological studies, urgent care reports/EKG's, custodial records)? Report findings @ -No old charts were reviewed Differential Weakness: Hypoglycemia, shock, sepsis, hyponatremia, anemia, infection, [place], ETOH, adverse medicine reaction, overdose, stroke, this is not meant to be an all-inclusive list. EKG interpreted by me (3pts min.). @ -[Paced rhythm rate 49, QRS duration 185, QTc 553 X-rays interpreted by me (1pt min.). @Chest x-ray negative for acute cardiopulmonary disease CT interpreted by me (1pt min.). @ -None done U/S interpreted by me (1pt. min.). @ -None done What testing was considered but not performed or refused? (CT, X-rays, U/S, labs)? Why? @ -None What meds were considered but not given or refused? Why? @ -None Did you discuss the management of the patient with other professionals (professionals i.e. , JACEK, PHARMACY TEACHER, lab, RT, psych nurse, social studies teacher, medical authorization specialist, teacher, special weapons and tactics officer, continuous pillowcase cutter)? Give summary @ -Case discussed with [facility]. Was smoking cessation discussed for >3mins.? @ -No Was critical care preformed (if so, how long)? @ -No Were there social determinants of health that impacted care today? How? (Homelessness, low income, unemployed, alcoholism, drug addiction, transportation, low edu. Level, literacy, decrease access to med. care, alf, rehab)? @ -No Was there de-escalation of care discussed even if they declined (Discuss DNR or withdrawal of care, Hospice)? DNR status @ -No What co-morbidities impacted this encounter? (DM, HTN, Smoking, COPD, CAD, Cancer, CVA, ARF, Chemo, Hep., AIDS, mental health diagnosis, sleep apnea, morbid obesity)? @ -None Was patient admitted / discharged? Hospital course, mention meds given and route, prescriptions, significant lab abnormalities, going to OR and other pertinent info. @ -year-old female with weakness, mild cough, no chest pain, no headache.78 Pat is in paced rhythm. Chest x-ray is clear. She has a mild leukocytosis. Urinalysis is positive for ketones without significant signs of infection. She has a minimally elevated troponin. This level will be trended. She will be admitted for IV hydration and serial cardiac enzymes ient Undiagnosed new problem with uncertain prognosis? @ -No Drug Therapy requiring intensive monitoring for toxicity (Heparin, Nitro, Insulin, Cardizem)? @ -No Were any procedures done? @ -No Diagnosis/symptom? @Generalized weakness, dehydration, troponin elevation Acute, or Chronic, or Acute on Chronic? @Acute Uncomplicated (without systemic symptoms) or Complicated (systemic symptoms)? @ -Default Side effects of treatment? @ -No Exacerbation, Progression, or Severe Exacerbation? @ -No Poses a threat to life or bodily function? How? (Chest pain, [place], [place], pneumonia, PE, COPD, DKA, ARF, appy, cholecystitis, CVA, Diverticulitis, Homicidal, Suicidal, threat to staff... and all critical care pts) @ low risk - Lab Data Result diagrams: 10/18/24 13:28 10/18/24 13:28 Lab Results 10/18/24 10/18/24 10/18/24 Range/Units 13:28 13:28 13:28 WBC 13.3 H (3.8-10.6) k/uL RBC 4.18 (3.80-5.40) m/uL Hgb 13.9 (11.4-16.0) gm/dL Hct 42.3 (34.0-46.0) % MCV 101.1 H (80.0-100.0) fL MCH 33.3 (25.0-35.0) pg MCHC 33.0 (31.0-37.0) g/dL RDW 13.2 (11.5-15.5) % Plt Count 312 (150-450) k/uL MPV 7.3 Neutrophils % 84 % Lymphocytes % 9 % Monocytes % 4 % Eosinophils % 1 % Basophils % 1 % Neutrophils # 11.2 H (1.3-7.7) k/uL Lymphocytes # 1.2 (1.0-4.8) k/uL Monocytes # 0.5 (0-1.0) k/uL Eosinophils # 0.1 (0-0.7) k/uL Basophils # 0.1 (0-0.2) k/uL Hypochromasia Slight PT 11.9 (10.0-12.5) sec INR 1.1 (<1.2) APTT 21.3 L (22.0-30.0) sec Sodium 143 (137-145) mmol/L Potassium 4.3 (3.5-5.1) mmol/L Chloride 106 (98-107) mmol/L Carbon Dioxide 18 L (22-30) mmol/L Anion Gap 19 mmol/L BUN 30 H (7-17) mg/dL Creatinine 1.13 H (0.52-1.04) mg/dL Est GFR (CKD-EPI)AfAm 55 (>60 ml/min/1.73 sqM) Est GFR (CKD-EPI)NonAf 47 (>60 ml/min/1.73 sqM) Glucose 78 (74-99) mg/dL Plasma Lactic Acid Connor (0.7-2.0) mmol/L Calcium 9.3 (8.4-10.2) mg/dL Magnesium 2.1 (1.6-2.3) mg/dL Total Bilirubin 1.0 (0.2-1.3) mg/dL AST 22 (14-36) U/L ALT 11 (4-34) U/L Alkaline Phosphatase 51 (38-126) U/L Troponin I (0.000-0.034) ng/mL Total Protein 7.0 (6.3-8.2) g/dL Albumin 4.2 (3.5-5.0) g/dL Urine Color Urine Appearance (Clear) Urine pH (5.0-8.0) Ur Specific [place] (1.001-1.035) Urine Protein (Negative) Urine Glucose (UA) (Negative) Urine Ketones (Negative) Urine Blood (Negative) Urine Nitrite (Negative) Urine Bilirubin (Negative) Urine Urobilinogen (<2.0) mg/dL Ur Leukocyte Esterase (Negative) Urine RBC (0-5) /hpf Urine WBC (0-5) /hpf Ur Squamous Epith Cells (0-4) /hpf Urine Bacteria (None) /hpf Hyaline Casts (0-2) /lpf Urine Mucus (None) /hpf Influenza Type A (PCR) (Not Detectd) Influenza Type B (PCR) (Not Detectd) RSV (PCR) (Not Detectd) SARS-CoV-2 (PCR) (Not Detectd) 10/18/24 10/18/24 10/18/24 Range/Units 13:28 13:28 13:28 WBC (3.8-10.6) k/uL RBC (3.80-5.40) m/uL Hgb (11.4-16.0) gm/dL Hct (34.0-46.0) % MCV (80.0-100.0) fL MCH (25.0-35.0) pg MCHC (31.0-37.0) g/dL RDW (11.5-15.5) % Plt Count (150-450) k/uL MPV Neutrophils % % Lymphocytes % % Monocytes % % Eosinophils % % Basophils % % Neutrophils # (1.3-7.7) k/uL Lymphocytes # (1.0-4.8) k/uL Monocytes # (0-1.0) k/uL Eosinophils # (0-0.7) k/uL Basophils # (0-0.2) k/uL Hypochromasia PT (10.0-12.5) sec INR (<1.2) APTT (22.0-30.0) sec Sodium (137-145) mmol/L Potassium (3.5-5.1) mmol/L Chloride (98-107) mmol/L Carbon Dioxide (22-30) mmol/L Anion Gap mmol/L BUN (7-17) mg/dL Creatinine (0.52-1.04) mg/dL Est GFR (CKD-EPI)AfAm (>60 ml/min/1.73 sqM) Est GFR (CKD-EPI)NonAf (>60 ml/min/1.73 sqM) Glucose (74-99) mg/dL Plasma Lactic Acid Connor 1.7 (0.7-2.0) mmol/L Calcium (8.4-10.2) mg/dL Magnesium (1.6-2.3) mg/dL Total Bilirubin (0.2-1.3) mg/dL AST (14-36) U/L ALT (4-34) U/L Alkaline Phosphatase (38-126) U/L Troponin I 0.059 H* (0.000-0.034) ng/mL Total Protein (6.3-8.2) g/dL Albumin (3.5-5.0) g/dL Urine Color Urine Appearance (Clear) Urine pH (5.0-8.0) Ur Specific [place] (1.001-1.035) Urine Protein (Negative) Urine Glucose (UA) (Negative) Urine Ketones (Negative) Urine Blood (Negative) Urine Nitrite (Negative) Urine Bilirubin (Negative) Urine Urobilinogen (<2.0) mg/dL Ur Leukocyte Esterase (Negative) Urine RBC (0-5) /hpf Urine WBC (0-5) /hpf Ur Squamous Epith Cells (0-4) /hpf Urine Bacteria (None) /hpf Hyaline Casts (0-2) /lpf Urine Mucus (None) /hpf Influenza Type A (PCR) Not Detected (Not Detectd) Influenza Type B (PCR) Not Detected (Not Detectd) RSV (PCR) Not Detected (Not Detectd) SARS-CoV-2 (PCR) Not Detected (Not Detectd) 10/18/24 Range/Units 14:50 WBC (3.8-10.6) k/uL RBC (3.80-5.40) m/uL Hgb (11.4-16.0) gm/dL Hct (34.0-46.0) % MCV (80.0-100.0) fL MCH (25.0-35.0) pg MCHC (31.0-37.0) g/dL RDW (11.5-15.5) % Plt Count (150-450) k/uL MPV Neutrophils % % Lymphocytes % % Monocytes % % Eosinophils % % Basophils % % Neutrophils # (1.3-7.7) k/uL Lymphocytes # (1.0-4.8) k/uL Monocytes # (0-1.0) k/uL Eosinophils # (0-0.7) k/uL Basophils # (0-0.2) k/uL Hypochromasia PT (10.0-12.5) sec INR (<1.2) APTT (22.0-30.0) sec Sodium (137-145) mmol/L Potassium (3.5-5.1) mmol/L Chloride (98-107) mmol/L Carbon Dioxide (22-30) mmol/L Anion Gap mmol/L BUN (7-17) mg/dL Creatinine (0.52-1.04) mg/dL Est GFR (CKD-EPI)AfAm (>60 ml/min/1.73 sqM) Est GFR (CKD-EPI)NonAf (>60 ml/min/1.73 sqM) Glucose (74-99) mg/dL Plasma Lactic Acid Connor (0.7-2.0) mmol/L Calcium (8.4-10.2) mg/dL Magnesium (1.6-2.3) mg/dL Total Bilirubin (0.2-1.3) mg/dL AST (14-36) U/L ALT (4-34) U/L Alkaline Phosphatase (38-126) U/L Troponin I (0.000-0.034) ng/mL Total Protein (6.3-8.2) g/dL Albumin (3.5-5.0) g/dL Urine Color Yellow Urine Appearance Clear (Clear) Urine pH 5.5 (5.0-8.0) Ur Specific [place] 1.028 (1.001-1.035) Urine Protein 1+ H (Negative) Urine Glucose (UA) Negative (Negative) Urine Ketones 3+ H (Negative) Urine Blood Negative (Negative) Urine Nitrite Negative (Negative) Urine Bilirubin 1+ H (Negative) Urine Urobilinogen 3.0 (<2.0) mg/dL Ur Leukocyte Esterase Negative (Negative) Urine RBC <1 (0-5) /hpf Urine WBC 1 (0-5) /hpf Ur Squamous Epith Cells 5 H (0-4) /hpf Urine Bacteria Rare H (None) /hpf Hyaline Casts 3 H (0-2) /lpf Urine Mucus Occasional H (None) /hpf Influenza Type A (PCR) (Not Detectd) Influenza Type B (PCR) (Not Detectd) RSV (PCR) (Not Detectd) SARS-CoV-2 (PCR) (Not Detectd) Disposition Clinical Impression: Weakness, Dehydration, Troponin level elevated Disposition: ADMITTED IP TO THIS [facility] Condition: Stable Is patient prescribed a controlled substance at d/c from ED?: No Referrals: None,Stated [Primary Care Provider] - 1-2 days Time of Disposition: 15:21
[2024-10-18] MEDS: SODIUM CHLORIDE 0.9% 1,000 ML IV STA (13:37)
[2024-10-18 13:55] LABS: ALT 11 U/L (4-34); AST 22 U/L (14-36); African American GFR (CKD) 55 (>60 ml/min/1.73 sqM); Albumin 4.2 g/dL (3.5-5.0); Alkaline Phosphatase 51 U/L (38-126); Anion Gap 19 mmol/L; Blood Urea Nitrogen 30 mg/dL (7-17); Calcium 9.3 mg/dL (8.4-10.2); Carbon Dioxide 18 mmol/L (22-30); Chloride 106 mmol/L (98-107); Glucose 78 mg/dL (74-99); Magnesium 2.1 mg/dL (1.6-2.3); Non-African American GFR(CKD) 47 (>60 ml/min/1.73 sqM); Potassium 4.3 mmol/L (3.5-5.1); Sodium 143 mmol/L (137-145)
[2024-10-18 14:00] LABS: Basophils # (A) 0.1 k/uL (0-0.2); Basophils % (A) 1 %; Eosinophils # (A) 0.1 k/uL (0-0.7); Eosinophils % (A) 1 %; HCT 42.3 % (34.0-46.0); HGB 13.9 gm/dL (11.4-16.0); Hypochromasia Slight; Lymphocytes # (A) 1.2 k/uL (1.0-4.8); Lymphocytes % (A) 9 %; MCH 33.3 pg (25.0-35.0); MCV 101.1 fL (80.0-100.0); Mean Platelet Volume 7.3; Monocytes # (A) 0.5 k/uL (0-1.0); Monocytes % (A) 4 %; Neutrophils # (A) 11.2 k/uL (1.3-7.7); Neutrophils % (A) 84 %; Platelet Count 312 k/uL (150-450); RBC 4.18 m/uL (3.80-5.40); RDW 13.2 % (11.5-15.5); WBC 13.3 k/uL (3.8-10.6)
[2024-10-18 14:08] LABS: INR 1.1 (<1.2); Prothrombin Time 11.9 sec (10.0-12.5)
[2024-10-18 14:15] LABS: Influenza A Not Detected (Not Detectd); Influenza B Not Detected (Not Detectd); RSV Not Detected (Not Detectd)
--- NOTE | 2024-10-18 14:16 | XR ---
EXAMINATION TYPE: XR chest 2V DATE OF EXAM: 10/18/2024 2:11 PM COMPARISON: Chest radiographs from 10/07/2022 TECHNIQUE: XR chest 2V Frontal and lateral views of the chest. CLINICAL INDICATION:Female, 78 years old with history of Weakness; FINDINGS: Lungs/Pleura: There is no evidence of pleural effusion, focal consolidation, or pneumothorax. Chroni c senescent parenchymal change. Pulmonary vascularity: Unremarkable. Heart/mediastinum: Cardiomediastinal silhouette is enlarged and stable. Two lead cardiac conduction d evice overlying the left hemithorax with lead tips projecting over the right ventricle and right atri um. Musculoskeletal: Multiple level degenerative disc disease changes seen throughout the spine. IMPRESSION: No acute cardiopulmonary disease/process. [facility], , 10/18/2024 2:13 PM
[2024-10-18 14:28] LABS: Partial Thromboplastin Time 21.3 sec (22.0-30.0)
[2024-10-18 15:05] LABS: Appearance,Urine Clear (Clear); Bacteria,Urine Rare /hpf; Bilirubin,Urine 1+ (Negative); Blood,Urine Negative (Negative); Color,Urine Yellow; Glucose,Urine (UA) Negative (Negative); Hyaline Casts,Urine 3 /lpf (0-2); Ketones,Urine 3+ (Negative); Leukocyte Esterase,Urine Negative (Negative); Mucus,Urine Occasional /hpf; Nitrite,Urine Negative (Negative); PH, Urine 5.5 (5.0-8.0); Protein,Urine 1+ (Negative); RBC,Urine <1 /hpf (0-5); Specific Gravity,Urine 1.028 (1.001-1.035); Squamous Epithelial Cell,Urine 5 /hpf (0-4); WBC,Urine 1 /hpf (0-5)
[2024-10-18] MEDS ORDERED: NALOXONE 0.4 MG/ML 1 ML VIAL IV PRN (15:16)
[2024-10-18] MEDS ORDERED: ACETAMINOPHEN TAB 325 MG TAB PO PRN (15:16)
--- NOTE | 2024-10-18 15:46 | P.HPIM ---
History of Present Illness H&P Date: 10/18/24 History of Presenting Illness: Patient is a pleasant 78-year-old female with a past medical history of CAD, symptomatic bradycardia with multiple cardiac pauses resulted in permanent pacemaker placement 10/07/2022, valvular heart disease, diastolic heart failure, hypertension, hyperlipidemia. 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 She presented to the emergency department today with a chief complaint of generalized weakness and fatigue. Patient reports generalized weakness progressively worsening over the past week and states she is no longer able to walk to the restroom without stopping to take a break. She reports today her weakness was so bad she was unable to even get up. She denies having any fevers, chills, diaphoresis, headache, lightheadedness, dizziness, chest pain, palpitations, shortness of breath, cough or congestion, abdominal pain, nausea, vomiting, experiencing any changes in or difficulties with her urinary or bowel function or having any focal weakness, numbness, or tingling. Patient reports normal appetite but does admit to possible decreased appetite over the past few days secondary to the worsening generalized weakness and fatigue.. Upon arrival to our facility, patient underwent evaluation in the emergency department. Vital signs upon arrival show blood pressure 186/75, heart rate 62, respiratory rate 18, temp 98.1 F, and SpO2 of 98% on room air. EKG completed showing a ventricular paced rhythm with underlying atrial flutter and T wave inversion in lateral leads I and aVL upon personal review and i nterpretation. Chest x-ray negative for acute cardiopulmonary process. Labs completed and reviewed. CBC showing leukocytosis with WBC count of 13.3 and mild macrocytosis with MCV of 101.1. Coagulation profile showing low PTT of 21.3 otherwise normal findings. BMP showing high anion gap metabolic acidosis with chloride of 106, bicarb of 18 and anion gap of 19 slightly elevated renal function with BUN of 30, creatinine 1.13, GFR 47 which appears to be at baseline. Blood glucose 78. Lactic acid 1.7. Magnesium 2.1. Liver profile unremarkable. Troponin was elevated at 0.059. Urinalysis negative for infection. Influenza A, influenza B, RSV, and COVID PCR negative. Patient admitted under services with consultation to cardiology. Review of systems: Pertinent positives and negatives as discussed in HPI, a complete review of systems was performed and all other systems are negative. Physical exam: Vital signs reviewed and stable. General: Nontoxic, no distress and appears stated age. Derm: Skin warm and dry, normal coloration for ethnicity. Head: Atraumatic, normocephalic and symmetric. Eyes: EOM's intact, no lid lag, and anicteric sclera Mouth: no lip lesions, mucus membranes moist Cardiovascular: regular rate and rhythm with normal S1S2, grade 4 systolic murmur, positive posterior tibial pulses bilaterally, and cap refill < 2 seconds. Lungs: Respirations even, regular, and unlabored on room air. Lungs CTA bilaterally, no rhonchi, no rales, no wheezing, and no accessory muscle usage. Abdominal: soft, nontender to palpation, no guarding, no appreciable organomegaly Ext: ROM intact. No gross muscle atrophy, no edema, no contractures Neuro: Speech clear, face symmetrical and CN II-XII grossly intact with no noted focal neuro deficits Psych: Alert and oriented to person, place, time, and situation. Appropriate and pleasant affect. Assessment and Plan of Care: NSTEMI Generalized weakness and fatigue Hypertension History of CAD Status post permanent pacemaker placement 10/07/2022 Valvular heart disease Chronic diastolic heart failure -Cardiology consulted, appreciate recommendations -Repeat troponin uptrending 0.071. Patient started on heparin infusion for treatment of NSTEMI and concerns of possible underlying atrial flutter, awaiting confirmation by cardiology.. -Low intensity heparin infusion with close monitoring of PTT every 6 hours for goal therapeutic range of 45 to 79 seconds. -Telemetry monitoring -Cardiac diet, NPO at midnight -Patient started on aspirin 81 mg daily, atorvastatin 40 mg nightly and will likely start patient on antihypertensive pending repeat vitals as patient was hypertensive upon arrival and does have history but will await for repeat vital signs. -Continue to trend troponins, obtain TSH with reflex free T4 and proBNP. Lipid profile with a.m. labs. -Echocardiogram to be completed. -Consult also placed to physical and Occupational Therapy secondary to reports of generalized weakness and fatigue. -Maintain fall precautions -Orthostatic vitals to be completed. Data and imaging reviewed: As stated above in HPI The patient is admitted with an anticipated greater than 2 midnight stay for evaluation of NSTEMI. CODE STATUS: Full code DVT prophylaxis: Heparin infusion Discussed with: Patient, RN, and ED physician Anticipated discharge date: Pending clinical course Anticipated discharge place: Pending clinical course Patient was seen independently by Nurse Practitioner. This document was prepared using [id number] dictation software. Please allow for errors in painter maintenance while rare they do occur. Enzo Pond NP rendered care for this patient independently, reviewed the findings and plan as documented in the note above and agree with plan. I did not physically speak with or examine the patient on this date. Past Medical History Past Medical History: Chest Pain / Angina, Heart Failure, Diabetes Mellitus, Hyperlipidemia, Hypertension Additional Past Medical History / Comment(s): pt states she has a "leaky heart valve", pacemaker History of Any Multi-Drug Resistant Organisms: None Reported Past Surgical History: Heart Catheterization, Hysterectomy, Orthopedic Surgery Additional Past Surgical History / Comment(s): Right hip replacement. Lower 3 discs on back are fused together, bilat carpal tunnel Past Anesthesia/Blood Transfusion Reactions: No Reported Reaction Additional Past Anesthesia/Blood Transfusion Reaction / Comment(s): never had blood transfusion Past Psychological History: Depression Smoking Status: Former smoker Past Alcohol Use History: None Reported Past Drug Use History: None Reported - Past Family History Father Family Medical History: Cancer Additional Family Medical History / Comment(s): lung CA Mother Family Medical History: Cancer Additional Family Medical History / Comment(s): Scolosis, colon cancer Medications and Allergies Home Medications Medication Instructions Recorded Confirmed Type No Known Home Medications 10/18/24 10/18/24 History Allergies Allergy/AdvReac Type Severity Reaction Status Date / Time codeine AdvReac Unknown agitation Verified 10/18/24 13:42 Penicillins AdvReac "Makes me Verified 10/18/24 13:42 cranky" Physical Exam Vitals: Vital Signs Temp Pulse Resp BP Pulse Ox 10/18/24 12:58 98.1 F 62 18 186/75 98 Intake and Output 10/18/24 10/18/24 10/18/24 06:59 14:59 22:59 Output Total 400 Balance -400 Output: Urine 400 Uretheral (Roe) 400 Other: Weight 72.575 kg Results CBC & Chem 7: 10/18/24 13:28 10/18/24 13:28 Labs: Abnormal Lab Results - Last 24 Hours (Table) 10/18/24 10/18/24 10/18/24 Range/Units 13:28 13:28 13:28 WBC 13.3 H (3.8-10.6) k/uL MCV 101.1 H (80.0-100.0) fL Neutrophils # 11.2 H (1.3-7.7) k/uL APTT 21.3 L (22.0-30.0) sec Carbon Dioxide 18 L (22-30) mmol/L BUN 30 H (7-17) mg/dL Creatinine 1.13 H (0.52-1.04) mg/dL Troponin I (0.000-0.034) ng/mL Urine Protein (Negative) Urine Ketones (Negative) Urine Bilirubin (Negative) Ur Squamous Epith Cells (0-4) /hpf Urine Bacteria (None) /hpf Hyaline Casts (0-2) /lpf Urine Mucus (None) /hpf 10/18/24 10/18/24 Range/Units 13:28 14:50 WBC (3.8-10.6) k/uL MCV (80.0-100.0) fL Neutrophils # (1.3-7.7) k/uL APTT (22.0-30.0) sec Carbon Dioxide (22-30) mmol/L BUN (7-17) mg/dL Creatinine (0.52-1.04) mg/dL Troponin I 0.059 H* (0.000-0.034) ng/mL Urine Protein 1+ H (Negative) Urine Ketones 3+ H (Negative) Urine Bilirubin 1+ H (Negative) Ur Squamous Epith Cells 5 H (0-4) /hpf Urine Bacteria Rare H (None) /hpf Hyaline Casts 3 H (0-2) /lpf Urine Mucus Occasional H (None) /hpf
[2024-10-18] MEDS: ASPIRIN 325 MG TAB PO STA (16:01)
[2024-10-18] MEDS: SODIUM CHLORIDE 0.9% 1,000 ML IV SCH (16:01)
[2024-10-18] MEDS ORDERED: HEPARIN SODIUM 1,000 UN/ML (10ML VL) IV PRN (18:20)
[2024-10-18] MEDS: HEPARIN SOD,PORK IN 0.45% NACL 25,000 UNIT in 0.45% NACL 1 250ML.BAG IV SCH (19:03)
[2024-10-18] MEDS: HEPARIN SODIUM 1,000 UN/ML (10ML VL) IV ONE (19:03)
[2024-10-18] MEDS: LOSARTAN 25 MG TAB PO SCH (22:15)
[2024-10-18] MEDS: amLODIPine 5 MG TAB PO SCH (22:15)
[2024-10-18] MEDS: ATORVASTATIN 40 MG TAB PO SCH (22:15)
[2024-10-19] MEDS: hydrALAZINE HCL 50 MG TAB PO STA (03:00)
[2024-10-19 06:38] LABS: Glucose,Whole Blood 55 mg/dL (70-110)
[2024-10-19] MEDS: DEXTROSE 50% SYRINGE 50 ML IVP STA (06:42)
[2024-10-19 06:57] LABS: Glucose,Whole Blood 92 mg/dL (70-110)
[2024-10-19 07:56] LABS: Glucose,Whole Blood 83 mg/dL (70-110)
[2024-10-19 08:23] LABS: Basophils # (A) 0.1 k/uL (0-0.2); Basophils % (A) 1 %; Eosinophils # (A) 0.3 k/uL (0-0.7); Eosinophils % (A) 2 %; HCT 39.9 % (34.0-46.0); HGB 12.9 gm/dL (11.4-16.0); Hypochromasia Moderate; Lymphocytes # (A) 1.7 k/uL (1.0-4.8); Lymphocytes % (A) 15 %; MCH 33.3 pg (25.0-35.0); MCHC 32.3 g/dL (31.0-37.0); MCV 103.3 fL (80.0-100.0); Macrocytosis Slight; Mean Platelet Volume 7.4; Monocytes # (A) 0.7 k/uL (0-1.0); Monocytes % (A) 6 %; Neutrophils # (A) 8.6 k/uL (1.3-7.7); Neutrophils % (A) 74 %; Platelet Count 324 k/uL (150-450); RBC 3.86 m/uL (3.80-5.40); RDW 13.3 % (11.5-15.5); WBC 11.6 k/uL (3.8-10.6)
[2024-10-19 08:33] LABS: INR 1.1 (<1.2); Partial Thromboplastin Time 41.7 sec (22.0-30.0); Prothrombin Time 12.2 sec (10.0-12.5)
[2024-10-19 08:38] LABS: ALT 10 U/L (4-34); AST 25 U/L (14-36); African American GFR (CKD) 64 (>60 ml/min/1.73 sqM); Albumin 4.1 g/dL (3.5-5.0); Alkaline Phosphatase 47 U/L (38-126); Anion Gap 16 mmol/L; Blood Urea Nitrogen 28 mg/dL (7-17); Calcium 8.8 mg/dL (8.4-10.2); Carbon Dioxide 17 mmol/L (22-30); Chloride 106 mmol/L (98-107); Glucose 93 mg/dL (74-99); Magnesium 2.2 mg/dL (1.6-2.3); Non-African American GFR(CKD) 55 (>60 ml/min/1.73 sqM); Potassium 4.1 mmol/L (3.5-5.1); Sodium 139 mmol/L (137-145); Total Bilirubin 0.9 mg/dL (0.2-1.3); Total Protein 6.8 g/dL (6.3-8.2)
[2024-10-19 08:57] LABS: Glucose,Whole Blood 77 mg/dL (70-110)
[2024-10-19] MEDS: ASPIRIN 81 MG PO SCH (09:15)
[2024-10-19] MEDS: LOSARTAN 50 MG TAB PO SCH (09:34)
[2024-10-19] MEDS: FUROSEMIDE 10 MG/ML 4 ML VIAL IV STA (09:47)
[2024-10-19] MEDS: LOSARTAN 25 MG TAB PO STA (09:47)
--- NOTE | 2024-10-19 11:08 | P.CRDCN ---
History of Present Illness History of present illness: HISTORY OF PRESENT ILLNESS: This is a 78-year-old female with a past medical history significant for hypertension, severe LVH, valvular heart disease, and dual-chamber pacemaker implantation in 2022 ([employer]). Patient follows in the office with Dr. Rosenberg but has not been seen since September 2022. We have been asked to see the patient in consultation for weakness and elevated troponin. Patient examined at the bedside in the emergency room. Patient presented to the hospital to chief complaint of generalized weakness for the past 2 months. She denies any chest pain or pressure. She denies any shortness of breath. No episodes of syncope. Patient does report she has not followed up with a physician in a few years. She also reports she has not been taking any of her medications. DIAGNOSTICS: - EKG reveals paced rhythm with underlying atrial flutter. - Chest xray negative for acute process. - Laboratory data: WBC 11.6. Hemoglobin 12.9. Platelet count 324. Sodium 139. Potassium 4.1. BUN 28. Creatinine 1.0. Troponin 0.059. 0.071. 0.074. BNP 7670. - Current home cardiac medications include none - Most recent echocardiogram obtained in September 2022 revealed ejection fraction 55 to 60%, moderate MR, moderate AI, mild , mild TR - Cardiac catheterization history: Unknown REVIEW OF SYSTEMS: At the time of my exam: CONSTITUTIONAL: Denies fever or chills. HEENT: Denies blurred vision, vision changes, or eye pain. Denies hemoptysis CARDIOVASCULAR: Denies chest pain. Denies orthopnea. Denies PND. Denies palpitations RESPIRATORY: Denies shortness of breath. GASTROINTESTINAL: Denies abdominal pain. Denies nausea or vomiting. HEMATOLOGIC: Denies bleeding disorders. GENITOURINARY: Denies any blood in urine. SKIN: Denies pruitis. Denies rash. PHYSICAL EXAM: VITAL SIGNS: Reviewed. GENERAL: Well-developed in no acute distress. HEENT: Head is normocephalic. Pupils are equal, round. Sclerae anicteric. Mucous membranes of the mouth are moist. Neck supple. No JVD or thyromegaly. Left carotid bruit auscultated. LUNGS: Respirations even and unlabored. Lungs essentially clear to auscultation bilaterally. HEART: Bradycardic. Regular rate and rhythm. S1 and S2 heard. Holosystolic murmur noted and systolic ejection murmur noted. ABDOMEN: Soft. Nondistended. Nontender. EXTREMITIES: Normal range of motion. No clubbing or cyanosis. Peripheral pulse s intact. No lower extremity edema NEUROLOGIC: Awake and alert. Oriented x 3. ASSESSMENT: Generalized weakness New onset atrial flutter with slow ventricular rate History of dual-chamber pacemaker implantation, 2022, currently pacemaker dependent Severe concentric LVH Hypertension Acute heart failure with preserved EF Elevated troponins, likely type II OK secondary to oxygen supply and demand mismatch Valvular heart disease including moderate MR, moderate AI, mild , mild TR Medication noncompliance PLAN: Obtain 2D echo to assess cardiac structure and function Continue IV heparin Discontinue amlodipine Increase losartan to 50 mg daily Give 1 dose of IV Lasix 40 mg now then begin 20 mg oral starting tomorrow Interrogate pacemaker Avoid any AV alejandro blocking agents Check TSH Continue to monitor blood pressure Repeat labs in a.m. Further recommendations pending patient course Nurse practitioner note has been reviewed by physician. Signing provider agrees with the documented findings, assessment, and plan of care documented by [employer] as a scribe. Past Medical History Past Medical History: Chest Pain / Angina, Heart Failure, Diabetes Mellitus, Hyperlipidemia, Hypertension Additional Past Medical History / Comment(s): pt states she has a "leaky heart valve", pacemaker History of Any Multi-Drug Resistant Organisms: None Reported Past Surgical History: Heart Catheterization, Hysterectomy, Orthopedic Surgery Additional Past Surgical History / Comment(s): Right hip replacement. Lower 3 discs on back are fused together, bilat carpal tunnel Past Anesthesia/Blood Transfusion Reactions: No Reported Reaction Additional Past Anesthesia/Blood Transfusion Reaction / Comment(s): never had blood transfusion Past Psychological History: Depression Smoking Status: Former smoker Past Alcohol Use History: None Reported Past Drug Use History: None Reported - Past Family History Father Family Medical History: Cancer Additional Family Medical History / Comment(s): lung CA Mother Family Medical History: Cancer Additional Family Medical History / Comment(s): Scolosis, colon cancer Medications and Allergies Home Medications Medication Instructions Recorded Confirmed Type No Known Home Medications 10/18/24 10/18/24 History Allergies Allergy/AdvReac Type Severity Reaction Status Date / Time codeine AdvReac Unknown agitation Verified 10/18/24 13:42 Penicillins AdvReac "Makes me Verified 10/18/24 13:42 cranky" Physical Exam Vitals: Vital Signs Temp Pulse Resp BP Pulse Ox 10/19/24 08:23 95 10/19/24 07:56 49 L 21 163/64 100 10/19/24 06:00 49 L 15 180/72 99 10/19/24 05:00 49 L 19 171/63 99 10/19/24 04:24 49 L 17 195/63 99 10/19/24 03:00 49 L 16 178/67 100 10/19/24 02:00 49 L 16 173/73 95 10/19/24 01:00 49 L 16 192/66 95 10/19/24 00:00 49 L 16 190/74 95 10/18/24 22:00 49 L 16 194/73 97 10/18/24 20:00 49 L 16 181/71 97 10/18/24 19:06 49 L 18 179/86 10/18/24 16:00 97.8 F 50 L 17 187/72 98 10/18/24 12:58 98.1 F 62 18 186/75 98 Intake and Output 10/18/24 10/19/24 10/19/24 22:59 06:59 14:59 Intake Total 64.882 Balance 64.882 Intake: Intake, IV Titration 64.882 Amount Heparin Sod,Pork in 0.45% 64.882 NaCl 25,000 unit In 0.45 % NaCl 1 250ml.bag @ 12 UNITS/KG/HR 8.709 mls/hr IV .Q24H [facility] Rx#: [id number] Results 10/19/24 08:00 10/19/24 08:00 Cardiac Enzymes 10/18/24 10/18/24 10/18/24 Range/Units 13:28 13:28 16:48 AST 22 (14-36) U/L Troponin I 0.059 H* 0.071 H* (0.000-0.034) ng/mL 10/18/24 10/19/24 Range/Units 20:27 08:00 AST 25 (14-36) U/L Troponin I 0.074 H* (0.000-0.034) ng/mL Coagulation 10/18/24 10/19/24 10/19/24 Range/Units 13:28 00:27 08:00 PT 11.9 12.2 (10.0-12.5) sec APTT 21.3 L 146.4 H* 41.7 H (22.0-30.0) sec CBC 10/18/24 10/19/24 Range/Units 13:28 08:00 WBC 13.3 H 11.6 H (3.8-10.6) k/uL RBC 4.18 3.86 (3.80-5.40) m/uL Hgb 13.9 12.9 (11.4-16.0) gm/dL Hct 42.3 39.9 (34.0-46.0) % Plt Count 312 324 (150-450) k/uL Comprehensive Metabolic Panel 10/18/24 10/19/24 Range/Units 13: 08:00 Sodium 143 139 (137-145) mmol/L Potassium 4.3 4.1 (3.5-5.1) mmol/L Chloride 106 106 (98-107) mmol/L Carbon Dioxide 18 L 17 L (22-30) mmol/L BUN 30 H 28 H (7-17) mg/dL Creatinine 1.13 H 1.00 (0.52-1.04) mg/dL Glucose 78 93 (74-99) mg/dL Calcium 9.3 8.8 (8.4-10.2) mg/dL AST 22 25 (14-36) U/L ALT 11 10 (4-34) U/L Alkaline Phosphatase 51 47 (38-126) U/L Total Protein 7.0 6.8 (6.3-8.2) g/dL Albumin 4.2 4.1 (3.5-5.0) g/dL Current Medications Generic Name Dose Route Start Last Admin Trade Name Freq PRN Reason Stop Dose Admin Acetaminophen 650 mg 10/18/24 15:16 Acetaminophen Tab 325 Mg Tab PO Q6HR PRN Mild Pain or Fever > 100.5 Amlodipine Besylate 5 mg 10/18/24 22:00 10/18/24 22:15 Amlodipine 5 Mg Tab PO 5 mg DAILY [facility] Administration Aspirin 81 mg 10/19/24 09:00 Aspirin 81 Mg PO DAILY [facility] Atorvastatin Calcium 40 mg 10/18/24 21:00 10/18/24 22:15 Atorvastatin 40 Mg Tab PO 40 mg HS [facility] Administration Dextrose/Water 25 ml 10/19/24 08:11 Dextrose 50% Syringe 50 Ml IVP PER PROTOCOL PRN Hypoglycemia Protocol Dextrose/Water 50 ml 10/19/24 08:11 Dextrose 50% Syringe 50 Ml IVP PER PROTOCOL PRN Hypoglycemia Protocol Heparin Sodium (Porcine) 0 unit 10/18/24 18:20 Heparin Sodium 1,000 Un/Ml (10ml Vl) IV PER PROTOCOL PRN Low PTT Protocol Heparin Sodium/Sodium Chloride 250 mls @ 8.709 mls/hr 10/18/24 18:30 10/19/24 03:30 25,000 unit/ Sodium Chloride IV 9 units/kg/hr .Q24H [facility] 6.532 mls/hr Titration Protocol 12 UNITS/KG/HR Losartan Potassium 25 mg 10/18/24 22:00 10/18/24 22:15 Losartan 25 Mg Tab PO 25 mg DAILY [facility] Administration Naloxone HCl 0.2 mg 10/18/24 15:16 Naloxone 0.4 Mg/Ml 1 Ml Vial IV Q2M PRN Opioid Reversal Intake and Output 10/18/24 10/19/24 10/19/24 22:59 06:59 14:59 Intake Total 64.882 Balance 64.882 Intake: Intake, IV Titration 64.882 Amount Heparin Sod,Pork in 0.45% 64.882 NaCl 25,000 unit In 0.45 % NaCl 1 250ml.bag @ 12 UNITS/KG/HR 8.709 mls/hr IV .Q24H [facility] Rx#: [id number] 10/19/24 08:00 10/19/24 08:00
[2024-10-19 13:04] LABS: Glucose,Whole Blood 49 mg/dL (70-110)
[2024-10-19] MEDS: DEXTROSE 50% SYRINGE 50 ML IVP PRN (13:08)
--- NOTE | 2024-10-19 13:19 | CA ---
Transthoracic Echo Report Name: Bita Pelayo Age: 78 Gender: F : 1945 Exam Date: 10/19/2024 11:51 Exam Location: [facility] Ht (in): 60 Wt (lb): 160 Ordering Physician: Enzo Pond Attending/Referring Phys: Recapper Ricarda Sanders RDCS Procedure CPT: Indications: elevated trop, weakness hx HFpEF perm pacemaker Cardiac Hx: pacemaker Technical Quality: Fair Contrast 1: Total Dose (mL): Contrast 2: Total Dose (mL): MEASUREMENTS (Male / Female) Normal Values 2D ECHO LV Diastolic Diameter PLAX 3.5 cm 4.2 - 5.9 / 3.9 - 5.3 cm LV Systolic Diameter PLAX 2.9 cm IVS Diastolic Thickness 1.7 cm 0.6 - 1.0 / 0.6 - 0.9 cm LVPW Diastolic Thickness 1.8 cm 0.6 - 1.0 / 0.6 - 0.9 cm LV Relative Wall Thickness 1.0 RV Internal Dim ED PLAX 3.3 cm LVOT Diameter 2.1 cm LA Systolic Diameter LX 3.8 cm 3.0 - 4.0 / 2.7 - 3.8 cm LV Diastolic Volume MOD 4C 73.7 cm??? LV Systolic Volume MOD 4C 30.8 cm??? LV Ejection Fraction MOD 4C 58.2 % LV Cardiac Index MOD 4C 1203.4 cm???/min???m??? LV Diastolic Length 4C 7.5 cm LV Systolic Length 4C 6.9 cm LV Diastolic Volume MOD 2C 147.7 cm??? LV Systolic Volume MOD 2C 74.6 cm??? LV Ejection Fraction MOD 2C 49.5 % LV Cardiac Index MOD 2C 2048.7 cm???/min???m??? LV Diastolic Length 2C 8.0 cm LV Systolic Length 2C 7.5 cm LA Volume 140.7 cm??? 18 - 58 / 22 - 52 cm??? LA Volume Index 78.9 cm???/m??? 16 - 28 cm???/m??? M-MODE Aortic Root Diameter MM 3.4 cm DOPPLER AV Peak Velocity 381.5 cm/s AV Peak Gradient 58.2 mmHg AV Mean Velocity 287.5 cm/s AV Mean Gradient 36.1 mmHg AV Velocity Time Integral 76.9 cm AI Peak Velocity 475.0 cm/s AI Peak Gradient 90.2 mmHg AI Pressure Half Time 744.0 ms LVOT Peak Velocity 144.0 cm/s LVOT Peak Gradient 8.3 mmHg LVOT Velocity Time Integral 29.2 cm LVOT Stroke Volume 101.8 cm??? LVOT Stroke Volume Index 59.9 ml/m??? LVOT Cardiac Index 2854.5 cm???/min???m??? AV Area Cont Eq vti 1.3 cm??? AV Area Cont Eq pk 1.3 cm??? TR Peak Velocity 213.8 cm/s TR Peak Gradient 18.3 mmHg Right Ventricular Systolic Press 23.3 mmHg FINDINGS Left Ventricle Left ventricular ejection fraction is estimated at 55-60 %. Severely increased septal wall thickness. Severely increased posterior wall thickness. Small left ventricular cavity. Right Ventricle Mild right ventricular dilatation. Right ventricular systolic pressure within normal limits. Right Atrium Normal right atrial size. No right atrial thrombus or mass seen. Left Atrium Severely increased left atrial volume. Moderately increased left atrial area. No left atrial thrombus or mass present. Mitral Valve Moderate thickening/calcification of the anterior mitral valve leaflet. Moderate thickening/calcification of the posterior mitral valve leaflet. Mild mitral annular calcification. Aortic Valve Trileaflet aortic valve. Aortic valve sclerosis. Moderate aortic stenosis with a peak gradient of 58__ mmHg and a mean gradient of 36 mmHg. Moderate aortic regurgitation. Tricuspid Valve Structurally normal tricuspid valve. Mild tricuspid regurgitation. Pulmonic Valve Pulmonic valve not well visualized. No pulmonic regurgitation. Pericardium No pericardial effusion. Aorta Normal size aortic root and proximal ascending aorta. CONCLUSIONS Normal LV systolic function. Left ventricular hypertrophy Trileaflet aortic valve with severe aortic sclerosis and moderate to severe stenosis with a mean gradient of 36 mmHg with moderate AI Thickened mitral valve leaflets Normal pulmonary artery systolic pressure Mildly enlarged RV No pericardial effusion Previewed by: Dr. Jh Torres MD (Electronically Signed) Final Date: 19 October 2024 13:18
[2024-10-19 13:31] LABS: Glucose,Whole Blood 89 mg/dL (70-110)
[2024-10-19 14:36] LABS: Glucose,Whole Blood 97 mg/dL (70-110)
--- NOTE | 2024-10-19 16:42 | P.PN ---
Subjective Progress Note Date: 10/19/24 Hospital course: Patient is a pleasant 78-year-old female with a past medical history of CAD, symptomatic bradycardia with multiple cardiac pauses resulted in permanent pacemaker placement 10/07/2022, valvular heart disease, diastolic heart failure, hypertension, hyperlipidemia. Patient reports she does not take any home medications, does not follow with a primary care doctor, and has not seen her human resources representative in years. She presented to the emergency department today with a chief complaint of generalized weakness and fatigue. Patient reports generalized weakness progressively worsening over the past week and states she is no longer able to walk to the restroom without stopping to take a break. She reports today her weakness was so bad she was unable to even get up. She denies having any fevers, chills, diaphoresis, headache, lightheadedness, dizziness, chest pain, palpitations, shortness of breath, cough or congestion, abdominal pain, nausea, vomiting, experiencing any changes in or difficulties with her urinary or bowel function or having any focal weakness, numbness, or tingling. Patient reports normal appetite but does admit to possible decreased appetite over the past few days secondary to the worsening generalized weakness and fatigue.. Upon arrival to our facility, patient underwent evaluation in the emergency department. Vital signs upon arrival show blood pressure 186/75, heart rate 62, respiratory rate 18, temp 98.1 F, and SpO2 of 98% on room air. EKG completed showing a ventricular paced rhythm with underlying atrial flutter and T wave inversion in lateral leads I and aVL upon personal review and interpretation. Chest x-ray negative for acute cardiopulmonary process. Labs completed and reviewed. CBC showing leukocytosis with WBC count of 13.3 and mild macrocytosis with MCV of 101.1. Coagulation profile showing low PTT of 21.3 otherwise normal findings. BMP showing high anion gap metabolic acidosis with chloride of 106, bicarb of 18 and anion gap of 19 slightly elevated renal function with BUN of 30, creatinine 1.13, GFR 47 which appears to be at baseline. Blood glucose 78. Lactic acid 1.7. Magnesium 2.1. Liver profile unremarkable. Troponin was elevated at 0.059. Urinalysis negative for infectio n. Influenza A, influenza B, RSV, and COVID PCR negative. Patient admitted under services with consultation to cardiology. Physical exam: Patient seen and fully evaluated at bedside this morning, she reports continued fatigue/weakness. Echocardiogram currently being completed at this time. Patient continues to deny having any chest pain, palpitations, shortness of breath, or any other complaints at this time. She did have episode of hypoglycemia this morning but has been n.p.o. pending cardiology evaluation. Discussed with human resources representative, no plans for cardiac cath at this time continue heparin infusion and diet being advanced to heart healthy. Vital signs reviewed and stable. General: Nontoxic, no distress and appears stated age. Derm: Skin warm and dry, normal coloration for ethnicity. Head: Atraumatic, normocephalic and symmetric. Eyes: EOM's intact, no lid lag, and anicteric sclera Mouth: no lip lesions, mucus membranes moist Cardiovascular: regular rate and rhythm with normal S1S2, grade 4 systolic murmur, positive posterior tibial pulses bilaterally, and cap refill < 2 seconds. Lungs: Respirations even, regular, and unlabored on room air. Lungs CTA bilaterally, no rhonchi, no rales, no wheezing, and no accessory muscle usage. Abdominal: soft, nontender to palpation, no guarding, no appreciable organomegaly Ext: ROM intact. No gross muscle atrophy, no edema, no contractures Neuro: Speech clear, face symmetrical and CN II-XII grossly intact with no noted focal neuro deficits Psych: Alert and oriented to person, place, time, and situation. Appropriate and pleasant affect. Assessment and Plan of Care: NSTEMI Newly diagnosed atrial flutter Generalized weakness and fatigue, likely secondary to atrial flutter with a slowed ventricular rate Hypertension History of CAD Status post permanent pacemaker placement 10/07/2022 Valvular heart disease Chronic diastolic heart failure -Cardiology following, discussed plan of care with cardiac RN X RAY. Patient being given a single dose of IV Lasix and states per [employer] report patient has been in persistent atrial flutter for the last month. Pacemaker setting is set at minimum of 45 and [employer] hospital insurance representative to come to facility later this evening to increase minimum rate to 65. -Troponins trended resulting at 0.059, 0.071, and 0.074. proBNP 7670 -Continue low intensity heparin infusion with close monitoring of PTT every 6 hours for goal therapeutic range of 45 to 79 seconds. -Patient to remain on continuous telemetry monitoring -Resume cardiac diet. -Continue daily medication regimen with aspirin 81 mg daily, atorvastatin 40 mg nightly and patient started on losartan 50 mg daily and Lasix 20 mg daily. -TSH normal findings at 1.400. Lipid profile pending. -Echocardiogram completed and pending results. -Consult also placed to physical and Occupational Therapy secondary to reports of generalized weakness and fatigue. -Maintain fall precautions -Orthostatic vitals to be completed. Hypoglycemia -Patient had isolated episode of hypoglycemia with blood glucose of 55, likely secondary to n.p.o. status. Patient placed on [id number] Accu-Cheks every 4 hours with glycemic protocol in place. Diet also being advanced at this time by human resources representative to heart healthy as no plans for interventions at this time. Data and imaging reviewed: Labs completed and reviewed. Troponins trended resulting at 0.059, 0.071, and 0.074. proBNP 7670. TSH 1.400. CBC showing WBC count of 11.6 and macrocytosis with MCV of 103.3. PTT showing subtherapeutic INR of 41.7. BMP showing bicarb of 17 and elevated anion gap of 16 with BUN of 28. Blood glucose currently 93. Vital signs reviewed. Blood pressure 163/64, heart rate 49, respiratory rate 20, and SpO2 of 100% on room air. Patient's temperature not updated in chart as of this time. CODE STATUS: Full code DVT prophylaxis: Heparin infusion Discussed with: Patient, RN, and cardiology RN X RAY Anticipated discharge date: Pending clinical course Anticipated discharge place: Pending clinical course Patient was seen independently by Nurse Practitioner. This document was prepared using [employer] dictation software. Please allow for errors in sweater designer while rare they do occur. Enzo Pond NP rendered care for this patient independently, reviewed the find ings and plan as documented in the note above and agree with plan. I did not physically speak with or examine the patient on this date. Objective - Vital Signs Vital signs: Vital Signs Temp 97.8 F 10/18/24 16:00 Pulse 49 L 10/19/24 07:56 Resp 21 10/19/24 07:56 BP 163/64 10/19/24 07:56 Pulse Ox 95 10/19/24 08:23 FiO2 Intake & Output 10/18/24 10/19/24 10/19/24 18:59 06:59 18:59 Intake Total 64.882 Output Total 400 Balance -400 64.882 Weight 72.575 kg Intake: Intake, IV Titration 64.882 Amount Heparin Sod,Pork in 0.45% 64.882 NaCl 25,000 unit In 0.45 % NaCl 1 250ml.bag @ 12 UNITS/KG/HR 8.709 mls/hr IV .Q24H [facility] Rx#: [id number] Output: Urine 400 Uretheral (Roe) 400 - Labs CBC & Chem 7: 10/19/24 08:00 10/19/24 08:00 Labs: Abnormal Lab Results - Last 24 Hours (Table) 10/18/24 10/18/24 10/18/24 Range/Units 13:28 13:28 13:28 WBC 13.3 H (3.8-10.6) k/uL MCV 101.1 H (80.0-100.0) fL Neutrophils # 11.2 H (1.3-7.7) k/uL APTT 21.3 L (22.0-30.0) sec Carbon Dioxide 18 L (22-30) mmol/L BUN 30 H (7-17) mg/dL Creatinine 1.13 H (0.52-1.04) mg/dL POC Glucose (mg/dL) (70-110) mg/dL Troponin I (0.000-0.034) ng/mL Urine Protein (Negative) Urine Ketones (Negative) Urine Bilirubin (Negative) Ur Squamous Epith Cells (0-4) /hpf Urine Bacteria (None) /hpf Hyaline Casts (0-2) /lpf Urine Mucus (None) /hpf 10/18/24 10/18/24 10/18/24 Range/Units 13:28 14:50 16:48 WBC (3.8-10.6) k/uL MCV (80.0-100.0) fL Neutrophils # (1.3-7.7) k/uL APTT (22.0-30.0) sec Carbon Dioxide (22-30) mmol/L BUN (7-17) mg/dL Creatinine (0.52-1.04) mg/dL POC Glucose (mg/dL) (70-110) mg/dL Troponin I 0.059 H* 0.071 H* (0.000-0.034) ng/mL Urine Protein 1+ H (Negative) Urine Ketones 3+ H (Negative) Urine Bilirubin 1+ H (Negative) Ur Squamous Epith Cells 5 H (0-4) /hpf Urine Bacteria Rare H (None) /hpf Hyaline Casts 3 H (0-2) /lpf Urine Mucus Occasional H (None) /hpf 10/18/24 10/19/24 10/19/24 Range/Units 20:27 00:27 06:26 WBC (3.8-10.6) k/uL MCV (80.0-100.0) fL Neutrophils # (1.3-7.7) k/uL APTT 146.4 H* (22.0-30.0) sec Carbon Dioxide (22-30) mmol/L BUN (7-17) mg/dL Creatinine (0.52-1.04) mg/dL POC Glucose (mg/dL) 55 L (70-110) mg/dL Troponin I 0.074 H* (0.000-0.034) ng/mL Urine Protein (Negative) Urine Ketones (Negative) Urine Bilirubin (Negative) Ur Squamous Epith Cells (0-4) /hpf Urine Bacteria (None) /hpf Hyaline Casts (0-2) /lpf Urine Mucus (None) /hpf 10/19/24 10/19/24 10/19/24 Range/Units 08:00 08:00 08:00 WBC 11.6 H (3.8-10.6) k/uL MCV 103.3 H (80.0-100.0) fL Neutrophils # 8.6 H (1.3-7.7) k/uL APTT 41.7 H (22.0-30.0) sec Carbon Dioxide 17 L (22-30) mmol/L BUN 28 H (7-17) mg/dL Creatinine (0.52-1.04) mg/dL POC Glucose (mg/dL) (70-110) mg/dL Troponin I (0.000-0.034) ng/mL Urine Protein (Negative) Urine Ketones (Negative) Urine Bilirubin (Negative) Ur Squamous Epith Cells (0-4) /hpf Urine Bacteria (None) /hpf Hyaline Casts (0-2) /lpf Urine Mucus (None) /hpf
[2024-10-19 17:28] LABS: LDL Cholesterol,Calculated 140.7 mg/dL (0.0-131.0)
[2024-10-19 18:40] LABS: Glucose,Whole Blood 83 mg/dL (70-110)
[2024-10-19 20:05] LABS: Glucose,Whole Blood 100 mg/dL (70-110)
[2024-10-20 01:54] LABS: Glucose,Whole Blood 87 mg/dL (70-110)
[2024-10-20 06:12] LABS: Glucose,Whole Blood 66 mg/dL (70-110)
[2024-10-20 06:45] LABS: Glucose,Whole Blood 65 mg/dL (70-110)
[2024-10-20] MEDS: DEXTROSE 50% SYRINGE 50 ML IVP PRN (06:50)
[2024-10-20 06:59] LABS: HCT 44.8 % (34.0-46.0); HGB 14.5 gm/dL (11.4-16.0); Hypochromasia Slight; MCH 32.6 pg (25.0-35.0); MCHC 32.4 g/dL (31.0-37.0); MCV 100.6 fL (80.0-100.0); Mean Platelet Volume 7.5; Platelet Count 368 k/uL (150-450); RBC 4.45 m/uL (3.80-5.40); RDW 13.4 % (11.5-15.5); WBC 12.5 k/uL (3.8-10.6)
[2024-10-20 07:09] LABS: ALT 11 U/L (4-34); AST 30 U/L (14-36); African American GFR (CKD) 72 (>60 ml/min/1.73 sqM); Albumin 4.5 g/dL (3.5-5.0); Alkaline Phosphatase 50 U/L (38-126); Anion Gap 13 mmol/L; Blood Urea Nitrogen 24 mg/dL (7-17); Calcium 9.3 mg/dL (8.4-10.2); Carbon Dioxide 25 mmol/L (22-30); Chloride 103 mmol/L (98-107); Glucose 94 mg/dL (74-99); Magnesium 1.9 mg/dL (1.6-2.3); Non-African American GFR(CKD) 62 (>60 ml/min/1.73 sqM); Potassium 3.7 mmol/L (3.5-5.1); Sodium 141 mmol/L (137-145); Total Bilirubin 0.9 mg/dL (0.2-1.3); Total Protein 7.5 g/dL (6.3-8.2)
[2024-10-20 07:16] LABS: Glucose,Whole Blood 112 mg/dL (70-110)
[2024-10-20 07:17] LABS: NT-Pro-B-Type Natriuretic Pept 6220 pg/mL
[2024-10-20] MEDS: FUROSEMIDE 20 MG TAB PO SCH (09:14)
[2024-10-20] MEDS: LOSARTAN 50 MG TAB PO STA (11:11)
[2024-10-20 11:33] LABS: Glucose,Whole Blood 115 mg/dL (70-110)
[2024-10-20] MEDS: APIXABAN 5 MG TAB PO SCH (12:09)
--- NOTE | 2024-10-20 12:42 | P.PN ---
Subjective HISTORY OF PRESENT ILLNESS: This is a 78-year-old female with a past medical history significant for hypertension, severe LVH, valvular heart disease, and dual-chamber pacemaker implantation in 2022 ([employer]). Patient follows in the office with Dr. Rosenberg but has not been seen since September 2022. We have been asked to see the patient in consultation for weakness and elevated troponin. Patient examined at the bedside in the emergency room. Patient presented to the hospital to chief complaint of generalized weakness for the past 2 months. She denies any chest pain or pressure. She denies any shortness of breath. No episodes of syncope. Patient does report she has not followed up with a physician in a few years. She also reports she has not been taking any of her medications. DIAGNOSTICS: - EKG reveals paced rhythm with underlying atrial flutter. - Chest xray negative for acute process. - Laboratory data: WBC 11.6. Hemoglobin 12.9. Platelet count 324. Sodium 139. Potassium 4.1. BUN 28. Creatinine 1.0. Troponin 0.059. 0.071. 0.074. BNP 7670. - Current home cardiac medications include none - Most recent echocardiogram obtained in September 2022 revealed ejection fraction 55 to 60%, moderate MR, moderate AI, mild , mild TR - Cardiac catheterization history: Unknown 10/20/2024 Patient examined this morning at the bedside. Patient is more awake at the time of examination today compared to yesterday. She denies chest pain or pressure. Denies shortness of breath. Patient's pacemaker was interrogated yesterday revealing that patient has been in atrial flutter almost 100% of the time since August. [employer] rep adjusted patient's pacemaker yesterday and increased heart rate to 70. Patient's blood pressures are elevated with a systolic tween [id number]. Echocardiogram completed revealing ejection fraction 55 to 60%, moderate aortic stenosis with peak gradient 58 mmHg and mean gradient 36 mmHg, moderate aortic regurgitation, mild tricuspid regurgitation PHYSICAL EXAM: VITAL SIGNS: Reviewed. GENERAL: Well-developed in no acute distress. HEENT: Head is normocephalic. Pupils are equal, round. Sclerae anicteric. Mucous membranes of the mouth are moist. Neck supple. No JVD or thyromegaly. Left car otid bruit auscultated. LUNGS: Respirations even and unlabored. Lungs essentially clear to auscultation bilaterally. HEART: Regular rate and rhythm. S1 and S2 heard. Holosystolic murmur noted and systolic ejection murmur noted. ABDOMEN: Soft. Nondistended. Nontender. EXTREMITIES: Normal range of motion. No clubbing or cyanosis. Peripheral pulses intact. No lower extremity edema NEUROLOGIC: Awake and alert. Oriented x 3. ASSESSMENT: Generalized weakness New onset atrial flutter with slow ventricular rate History of dual-chamber pacemaker implantation, 2022, currently pacemaker dependent Severe concentric LVH Hypertension Acute heart failure with preserved EF Elevated troponins, likely type II CT secondary to oxygen supply and demand mismatch Valvular heart disease including moderate aortic stenosis, moderate aortic regurgitation and mild tricuspid regurgitation Medication noncompliance PLAN: Increase losartan to 100 mg daily. Given additional 50 mg now. Continue additional cardiac medications Continue to monitor blood pressure Continue telemetry monitoring Discontinue IV heparin. Begin Eliquis 5 mg twice a day. Discontinue aspirin. Further recommendations pending patient course Nurse practitioner note has been reviewed by physician. Signing provider agrees with the documented findings, assessment, and plan of care documented by PRODUCTION SUPERINTENDENT HYDRO as a scribe. Objective - Vital Signs Vital signs: Vital Signs Temp 97.8 F 10/20/24 07:50 Pulse 76 10/20/24 07:50 Resp 17 10/20/24 07:50 BP 173/75 10/20/24 07:50 Pulse Ox 99 10/20/24 04:00 FiO2 Intake & Output 10/19/24 10/20/24 10/20/24 18:59 06:59 18:59 Weight 61.5 kg Other: Voiding Method External Catheter External Catheter - Labs CBC & Chem 7: 10/20/24 06:38 10/20/24 06:38 Labs: Abnormal Lab Results - Last 24 Hours (Table) 10/19/24 10/19/24 10/20/24 Range/Units 08:00 13:02 06:08 WBC (3.8-10.6) k/uL MCV (80.0-100.0) fL APTT (22.0-30.0) sec BUN (7-17) mg/dL POC Glucose (mg/dL) 49 L* 66 L (70-110) mg/dL Triglycerides 212.00 H (0.00-149.00) mg/dL Cholesterol 237.00 H (0.00-200.00) mg/dL LDL Cholesterol, Calc 140.7 H (0.0-131.0) mg/dL VLDL Cholesterol, Calc 42.40 H (5.00-40.00) mg/dL 10/20/24 10/20/24 10/20/24 Range/Units 06:38 06:38 06:42 WBC 12.5 H (3.8-10.6) k/uL MCV 100.6 H (80.0-100.0) fL APTT (22.0-30.0) sec BUN 24 H (7-17) mg/dL POC Glucose (mg/dL) 65 L (70-110) mg/dL Triglycerides (0.00-149.00) mg/dL Cholesterol (0.00-200.00) mg/dL LDL Cholesterol, Calc (0.0-131.0) mg/dL VLDL Cholesterol, Calc (5.00-40.00) mg/dL 10/20/24 10/20/24 Range/Units 07:14 07:22 WBC (3.8-10.6) k/uL MCV (80.0-100.0) fL APTT 49.1 H (22.0-30.0) sec BUN (7-17) mg/dL POC Glucose (mg/dL) 112 H (70-110) mg/dL Triglycerides (0.00-149.00) mg/dL Cholesterol (0.00-200.00) mg/dL LDL Cholesterol, Calc (0.0-131.0) mg/dL VLDL Cholesterol, Calc (5.00-40.00) mg/dL
--- NOTE | 2024-10-20 14:03 | P.PN ---
Progress Note - Text Progress Note Date: 10/20/24 Received notification from spring encaser at 1:40 pm that patient with new f inding of left-sided weakness. Patient initially presented with general weakness but was initially moving bilateral lower extremities and now unable to move left lower extremity it was also reported that physical therapy stated patient with a coughing episode after drinking some water earlier. Up until this point patient has been swallowing pills and food without reported difficulties. Order placed for stat CT scan head, [id number] glucose, CTA head and neck, consult to neurology, NIH stroke scale to be completed, and consult to speech and language pathology. Patient seen and examined again at bedside. Patient leaning towards the right side of the bed. Her speech was clear and she was answering questions appropriately. Patient did have noted left lower extremity weakness as she was unable to bend her leg up in bed like she was previously. Patient with slight weakness in left upper extremity but sensation and movement remains intact. Vital signs reviewed and stable. General: Nontoxic, no distress and appears stated age. Derm: Skin warm and dry, normal coloration for ethnicity. Head: Atraumatic, normocephalic and symmetric. Eyes: EOM's intact, no lid lag, and anicteric sclera Mouth: no lip lesions, mucus membranes moist Cardiovascular: regular rate and rhythm with normal S1S2, grade 4 systolic murmur, positive posterior tibial pulses bilaterally, and cap refill < 2 seconds. Lungs: Respirations even, regular, and unlabored on room air. Lungs CTA bilaterally, no rhonchi, no rales, no wheezing, and no accessory muscle usage. Abdominal: soft, nontender to palpation, no guarding, no appreciable organomegaly Ext: No gross muscle atrophy, scant edema, no contractures. Sensation intact in upper and lower extremities. Patient with left lower extremity weakness. She is able to wiggle toes and move foot but unable to lift leg as she was previously. Left upper extremity slightly weaker than right. Neuro: Speech clear, face symmetrical and CN II-XII grossly intact with no noted focal neuro deficits Psych: Alert and oriented to person, place, time, and situation. Appropriate and pleasant affect. Assessment and plan: Acute left lower extremity weakness, concerns for acute CVA Concerns of dysphagia secondary to reports of episode of coughing on water -Consult neurology -CT brain and stat CTA head and neck -NIH stroke scale with neuro checks as directed -Daily aspirin and atorvastatin. -Resume {BP medication} tomorrow a.m, as we will allow for permissive hypertension over next 24 hours. -PT/OT following -Speech and language pathologist consulted for swallow evaluation. -Fall precautions and provide pt with assistance as needed Called and discussed findings with neurologist, Dr. Amato stated he is on the unit and will go to bedside to evaluate prior to making the determination of whether or not to hold any further administration of anticoagulant and antihypertensive medications. A Total of 31 minutes of critical care time was spent on the complex care of this patient.
[2024-10-20 14:24] LABS: Glucose,Whole Blood 117 mg/dL (70-110)
--- NOTE | 2024-10-20 14:31 | CT ---
EXAMINATION TYPE: CT brain wo con DATE OF EXAM: 10/20/2024 2:14 PM COMPARISON: 10/05/2022. CLINICAL INDICATION: Female, 79 years old with history of r/o CVA, Code stroke. TECHNIQUE: Brain: Axial CT images of the brain were obtained with coronal and sagittal reformats created and rev iewed. Contrast used: None. Oral contrast used: None. CT DLP: 1232.9 mGycm, Automated exposure control for dose reduction was used. FINDINGS: Brain: Extra-axial spaces: No abnormal extra-axial fluid collections. Ventricular system: Within normal limits Cerebral parenchyma: Hypodense area in the right thalamus and left marshall radiata are more conspicuou s compared to prior on 10/05/2022..No acute intraparenchymal hemorrhage or mass effect. The remainder of the persaud-white junctions are well differentiated. Scattered hypoattenuating areas are seen within the white matter. Cerebellum: Unremarkable. Mass effect: No evidence of midline shift. Intracranial vasculature: Atherosclerotic calcifications of the intracranial vessels. Soft tissues: Normal. Calvarium/osseous structures: No depressed skull fracture. Paranasal sinuses and mastoid air cells: Mild scattered paranasal sinus disease. Visualized orbits: Orbital contents are intact. IMPRESSION: Hypodense area in the right thalamus/basal ganglia and left marshall radiata are new findings could rep resent acute/subacute CVA correlate with MRI. Findings communicated to [facility] team on 10/20/2024 2:[address] Ha Plata. [facility], , 10/20/2024 2:28 PM
--- NOTE | 2024-10-20 14:32 | P.PN ---
Subjective Progress Note Date: 10/20/24 Hospital course: Patient is a pleasant 78-year-old female with a past medical history of CAD, symptomatic bradycardia with multiple cardiac pauses resulted in permanent pacemaker placement 10/07/2022, valvular heart disease, diastolic heart failure, hypertension, hyperlipidemia. Patient reports she does not take any home medications, does not follow with a primary care doctor, and has not seen her luggage attendant in years. She presented to the emergency department today with a chief complaint of generalized weakness and fatigue. Patient reports generalized weakness progressively worsening over the past week and states she is no longer able to walk to the restroom without stopping to take a break. She reports today her weakness was so bad she was unable to even get up. She denies having any fevers, chills, diaphoresis, headache, lightheadedness, dizziness, chest pain, palpitations, shortness of breath, cough or congestion, abdominal pain, nausea, vomiting, experiencing any changes in or difficulties with her urinary or bowel function or having any focal weakness, numbness, or tingling. Patient reports normal appetite but does admit to possible decreased appetite over the past few days secondary to the worsening generalized weakness and fatigue.. Upon arrival to our facility, patient underwent evaluation in the emergency department. Vital signs upon arrival show blood pressure 186/75, heart rate 62, respiratory rate 18, temp 98.1 F, and SpO2 of 98% on room air. EKG completed showing a ventricular paced rhythm with underlying atrial flutter and T wave inversion in lateral leads I and aVL upon personal review and interpretation. Chest x-ray negative for acute cardiopulmonary process. Labs completed and reviewed. CBC showing leukocytosis with WBC count of 13.3 and mild macrocytosis with MCV of 101.1. Coagulation profile showing low PTT of 21.3 otherwise normal findings. BMP showing high anion gap metabolic acidosis with chloride of 106, bicarb of 18 and anion gap of 19 slightly elevated renal function with BUN of 30, creatinine 1.13, GFR 47 which appears to be at baseline. Blood glucose 78. Lactic acid 1.7. Magnesium 2.1. Liver profile unremarkable. Troponin was elevated at 0.059. Urinalysis negative for infectio n. Influenza A, influenza B, RSV, and COVID PCR negative. Patient admitted under services with consultation to cardiology. Physical exam: Patient seen and fully evaluated at bedside this morning, she reports continued fatigue/weakness. She does admit to decreased appetite but states that she is trying to eat her applesauce this morning. Patient continues to deny having any dizziness, lightheadedness, chest pain, palpitations, shortness of breath, n ausea, vomiting or any other complaints at this time. Patient did have another episode of asymptomatic hypoglycemia this morning. Encouraged oral intake and patient verbalized understanding. Will also consult silk screen processor and placed patient on protein supplements 3 times daily between meals. Vital signs reviewed and stable. General: Nontoxic, no distress and appears stated age. Derm: Skin warm and dry, normal coloration for ethnicity. Head: Atraumatic, normocephalic and symmetric. Eyes: EOM's intact, no lid lag, and anicteric sclera Mouth: no lip lesions, mucus membranes moist Cardiovascular: regular rate and rhythm with normal S1S2, grade 4 systolic murmur, positive posterior tibial pulses bilaterally, and cap refill < 2 seconds. Lungs: Respirations even, regular, and unlabored on room air. Lungs CTA bilaterally, no rhonchi, no rales, no wheezing, and no accessory muscle usage. Abdominal: soft, nontender to palpation, no guarding, no appreciable organomegaly Ext: ROM intact. No gross muscle atrophy, no edema, no contractures Neuro: Speech clear, face symmetrical and CN II-XII grossly intact with no noted focal neuro deficits Psych: Alert and oriented to person, place, time, and situation. Appropriate and pleasant affect. Assessment and Plan of Care: NSTEMI Newly diagnosed atrial flutter Generalized weakness and fatigue, likely secondary to atrial flutter with a slowed ventricular rate Hypertension History of CAD Status post permanent pacemaker placement 10/07/2022 Valvular heart disease Chronic diastolic heart failure -Cardiology following, discussed plan of care with cardiac SIMPLEX OPERATOR. -Troponins trended resulting at 0.059, 0.071, and 0.074. proBNP 7670. TSH normal findings at 1.400. Lipid profile showing elevated triglycerides of 212, total cholesterol of 237, LDL of 140.7, and VLDL of 42.40. -Echocardiogram showing a preserved EF of 55 to 60% with severe aortic sclerosis and moderate to severe stenosis with a near gradient of 36 mmHg with moderate aortic insufficiency reported, thickened mitral valve leaflets, mildly enlarged right ventricle, and no pericardial effusion. -Continue low intensity heparin infusion with close monitoring of PTT every 6 hours for goal therapeutic range of 45 to 79 seconds. PTT currently therapeutic at 49.1 seconds. -Patient to remain on continuous telemetry monitoring -Continue daily medication regimen with aspirin 81 mg daily, atorvastatin 40 mg nightly and patient started on losartan 50 mg daily and Lasix 20 mg daily. -Consult also placed to physical and Occupational Therapy secondary to reports of generalized weakness and fatigue. -Maintain fall precautions -Orthostatic vitals to be completed. -PT/OT consulted secondary to generalized weakness Hypoglycemia -Continue atlyp-zf-zegl Accu-Cheks every 6 hours with glycemic protocol in place. -Cardiac diet with protein supplements 3 times daily between meals. -Consult placed to dietary for poor oral intake Data and imaging reviewed: Labs completed and reviewed. CBC showing mild leukocytosis with WBC count of 12.5 and macrocytosis with MCV of 100.6. BMP showing mild prerenal azotemia with BUN of 24 otherwise normal findings. Blood glucose 94. Magnesium 1.9. proBNP was 6220. Liver profile unremarkable. Patient did have episode of hypoglycemia this morning with blood glucose resulting at 65. Vital signs reviewed. Blood pressure 173/75, heart rate 76, respiratory rate 17, temp 97.8 F, and SpO2 of 95% on room air. CODE STATUS: Full code DVT prophylaxis: Heparin infusion Discussed with: Patient, RN, and cardiology SIMPLEX OPERATOR Anticipated discharge date: Pending clinical course Anticipated discharge place: Pending clinical course Patient was seen independently by Nurse Practitioner. This document was prepared using [employer] dictation software. Please allow for errors in intake worker while rare they do occur. Enzo Pond NP rendered care for this patient independently, reviewed the findings and plan as documented in the note above and agree with plan. I did not physically speak with or examine the patient on this date. Objective - Vital Signs Vital signs: Vital Signs Temp 97.8 F 10/20/24 07:50 Pulse 76 10/20/24 07:50 Resp 17 10/20/24 07:50 BP 173/75 10/20/24 07:50 Pulse Ox 99 10/20/24 04:00 FiO2 Intake & Output 10/19/24 10/20/24 10/20/24 18:59 06:59 18:59 Weight 61.5 kg Other: Voiding Method External Catheter External Catheter - Labs CBC & Chem 7: 10/20/24 06:38 10/20/24 06:38 Labs: Abnormal Lab Results - Last 24 Hours (Table) 10/19/24 10/19/24 10/20/24 Range/Units 08:00 13:02 06:08 WBC (3.8-10.6) k/uL MCV (80.0-100.0) fL APTT (22.0-30.0) sec BUN (7-17) mg/dL POC Glucose (mg/dL) 49 L* 66 L (70-110) mg/dL Triglycerides 212.00 H (0.00-149.00) mg/dL Cholesterol 237.00 H (0.00-200.00) mg/dL LDL Cholesterol, Calc 140.7 H (0.0-131.0) mg/dL VLDL Cholesterol, Calc 42.40 H (5.00-40.00) mg/dL 10/20/24 10/20/24 10/20/24 Range/Units 06:38 06:38 06:42 WBC 12.5 H (3.8-10.6) k/uL MCV 100.6 H (80.0-100.0) fL APTT (22.0-30.0) sec BUN 24 H (7-17) mg/dL POC Glucose (mg/dL) 65 L (70-110) mg/dL Triglycerides (0.00-149.00) mg/dL Cholesterol (0.00-200.00) mg/dL LDL Cholesterol, Calc (0.0-131.0) mg/dL VLDL Cholesterol, Calc (5.00-40.00) mg/dL 10/20/24 10/20/24 Range/Units 07:14 07:22 WBC (3.8-10.6) k/uL MCV (80.0-100.0) fL APTT 49.1 H (22.0-30.0) sec BUN (7-17) mg/dL POC Glucose (mg/dL) 112 H (70-110) mg/dL Triglycerides (0.00-149.00) mg/dL Cholesterol (0.00-200.00) mg/dL LDL Cholesterol, Calc (0.0-131.0) mg/dL VLDL Cholesterol, Calc (5.00-40.00) mg/dL
--- NOTE | 2024-10-20 14:58 | CT ---
EXAMINATION TYPE: CODE STROKE: CTA head neck DATE OF EXAM: 10/20/2024 2:31 PM COMPARISON: 10/20/2024. CLINICAL INDICATION: Female, 79 years old with history of Rule out CVA, left-sided deficits; PHH, Rul e out CVA, left-sided deficits. TECHNIQUE: Axially acquired helical CT angiogram of the head and neck was obtained with contrast. Axi al images are supplemented with 3D reconstructions and MIP images which were post-processed at an in dependent workstation. NASCET criteria used. Contrast used:65 ml mL of Isovue 370 with IV Contrast, Oral contrast used: None. CT DLP: 389.90 mGycm, Automated exposure control for dose reduction was used. FINDINGS: CTA HEAD: No evidence of acute intracranial hemorrhage, mass effect, or midline shift. The ventricles, sulci, a nd cisterns are unremarkable. Vertebral arteries: Left vertebral artery is patent. Vertebral artery dominance: Left dominant, the right is occluded with reconstitution from backflow. Basilar artery: The basilar artery is intact. The basilar artery bifurcation is normal. Internal Carotid arteries: The cervical, petrous, cavernous and supraclinoid segments are normal. YANI: Patent with no evidence of aneurysm. ACOM: Present without evidence of aneurysm. MCA: Patent with no evidence of aneurysm. DOWNSTREAM BIOMANUFACTURING TECHNICIAN: Patent with no evidence of aneurysm. PCOM: Hypoplastic bilaterally. Dural sinuses: Patent. CTA NECK: Right Carotid System: The common carotid and external carotid arteries are patent. There 50 stenosis at the carotid bifurca tion secondary to calcified/noncalcified plaque. The rest of the internal carotid artery is patent. Left Carotid System: The common carotid artery and external carotid artery are patent. The carotid bifurcation demonstrate s no evidence of hemodynamically significant stenosis. The remaining portions of the internal carotid artery demonstrate normal size without significant narrowing. The left vertebral artery is dominant. The right vertebral artery is occluded with nonvisualization f rom its origin to the superior [id number]. Backflow reconstitution series 9 image 13 near the orig in of the basilar artery. There is a three-vessel aortic arch. The origins of the great vessels are patent. No evidence of hemo dynamically significant stenosis. Upper thorax: Cardiac conduction leads terminating in the superior vena cava out of the [id number] inferiorly. IMPRESSION: 1. 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 2. Calcified plaque at the proximal right internal carotid artery with 50% stenosis. 3. No evidence of dissection of the cervical internal carotid arteries or vertebral arteries. 4. No evidence of intracranial high-grade stenosis or intracranial aneurysm. 5. No evidence for high-grade stenosis of the left carotid bifurcation. [facility], , 10/20/2024 2:55 PM
[2024-10-20 15:52] VITALS: BMI 26.4
[2024-10-20 18:18] LABS: Glucose,Whole Blood 114 mg/dL (70-110)
[2024-10-20 20:11] LABS: Glucose,Whole Blood 118 mg/dL (70-110)
[2024-10-20] MEDS: MELATONIN 5 MG TABLET PO SCH (20:49)
[2024-10-21 00:05] LABS: Glucose,Whole Blood 150 mg/dL (70-110)
[2024-10-21 06:10] LABS: Glucose,Whole Blood 131 mg/dL (70-110)
[2024-10-21 08:34] LABS: HCT 39.9 % (34.0-46.0); HGB 12.8 gm/dL (11.4-16.0); Hypochromasia Slight; MCH 32.5 pg (25.0-35.0); MCHC 32.1 g/dL (31.0-37.0); Mean Platelet Volume 7.6; Platelet Count 275 k/uL (150-450); RBC 3.95 m/uL (3.80-5.40); RDW 13.4 % (11.5-15.5); WBC 10.3 k/uL (3.8-10.6)
[2024-10-21 08:44] LABS: ALT 10 U/L (4-34); AST 22 U/L (14-36); African American GFR (CKD) 68 (>60 ml/min/1.73 sqM); Albumin 3.6 g/dL (3.5-5.0); Alkaline Phosphatase 46 U/L (38-126); Anion Gap 8 mmol/L; Blood Urea Nitrogen 21 mg/dL (7-17); Calcium 9.2 mg/dL (8.4-10.2); Carbon Dioxide 30 mmol/L (22-30); Chloride 101 mmol/L (98-107); Glucose 99 mg/dL (74-99); Magnesium 1.9 mg/dL (1.6-2.3); Non-African American GFR(CKD) 59 (>60 ml/min/1.73 sqM); Potassium 3.4 mmol/L (3.5-5.1); Sodium 139 mmol/L (137-145); Total Bilirubin 0.6 mg/dL (0.2-1.3); Total Protein 6.1 g/dL (6.3-8.2)
[2024-10-21] MEDS: LOSARTAN 50 MG TAB PO SCH (08:49)
--- NOTE | 2024-10-21 09:25 | P.CNNES ---
History of Present Illness Consult date: 10/20/24 Requesting physician: Enzo Pond Reason for Consult: r/o cva History of Present Illness: Patient is a 79-year-old right-handed female with history of hypertension, came to the hospital by ambulance 2 days ago, 10/18/2024 at 12:56 PM with chief complaints of tiredness, generalized weakness. Patient was found to have elevated cardiac enzymes. Patient has history of dual-chamber pacemaker implantation 2022, currently pacemaker dependent. Interrogation of the pacemaker revealed new onset atrial flutter with slow ventricular rate. Patient was started on IV heparin. Patient has been on heparin drip for last 2 days since she came to the hospital. Just today it was switched from heparin to Eliquis patient received the first dose today at 12:09 PM. Heparin infusion was discontinued an hour later after she started Eliquis. Apparently physical therapy worked with the patient, who noticed patient has left-sided neglect. Physical therapist informed this piece of information to the counter caser, not t o the patient's nurse. At 12:30 PM today, the nurse went and saw patient eating and drinking as usual and her speech was clear. She did not do a full assessment as patient was okay otherwise. At 1:40 PM the counter caser informed the patient's nurse of the physical therapist report. She went in to see the patient, and noticed patient has left arm and leg drift, with NIH SS of 4. Patient was not a candidate for TPA, as she was on heparin drip, and started Eliquis. CT, CTA of head and neck was initiated by primary team. Neurology was consulted. I came to see the patient immediately. Patient denied any numbness, tingling, focal weakness, any headache, dizziness, diplopia, speech difficulty any nausea or vomiting. Patient says that she had a stroke in fall of 2023 when she came with chest pain and was called "mild stroke". Patient states she has trouble walking, as she fall so much and legs are weak for last 1 year. Vital signs on arrival blood pressure 173/73, pulse rate 49 temperature 97.6. Blood test showed WBC 13.3, hemoglobin 13.9 with elevated MCV 101.1. Platelets are normal. PT PTT normal. Electrolytes normal, BUN 30 creatinine 1.13. Hepatic panel normal troponin was elevated. UA negative. Influenza, RSV and coronavirus PCR negative. Chest x-ray showed no acute cardiopulmonary process. EKG showed electronic ventricular pacemaker. CT head performed today showed hypodense area in the right thalamus/basal ganglia and left marshall radiator are new findings, could represent acute/subacute CVA. Correlate with MRI. This comparison was from 10/05/2022 CAT scan. I personally reviewed CT head, agree with the findings regarding comparison, however to me these appear somewhat late subacute to chronic Patient denies diabetes. She has history of hypertension about 5 years ago. She used to be on medication for hypertension and hyperlipidemia, but patient states she stopped taking medication for hypertension and hyperlipidemia about a year ago, because she could not afford it. At home she is not on any medications. She smoked about 1-1-1/2 pack per day for 1 year, quit 5 years ago. Denies any alcohol use. Patient states that she takes aspirin full dose, but twice a week for chest pain. She has been having off and on chest pain for last 1 year and takes aspirin as needed. Denies any alcohol use. She lives by herself and has no children. She walks by herself and uses cane only occasionally. Also has a walker but does not use it. Review of Systems All pertinent positive and negative review of systems mentioned in the HPI. Past Medical History Past Medical History: Chest Pain / Angina, Heart Failure, Hyperlipidemia, Hypertension Additional Past Medical History / Comment(s): pt states she has a "leaky heart valve", pacemaker History of Any Multi-Drug Resistant Organisms: None Reported Past Surgical History: Heart Catheterization, Hysterectomy, Orthopedic Surgery Additional Past Surgical History / Comment(s): Right hip replacement. Lower 3 discs on back are fused together, bilat carpal tunnel Past Anesthesia/Blood Transfusion Reactions: No Reported Reaction Additional Past Anesthesia/Blood Transfusion Reaction / Comment(s): never had blood transfusion Past Psychological History: Depression Smoking Status: Former smoker Past Alcohol Use History: None Reported Past Drug Use History: None Reported - Past Family History Father Family Medical History: Cancer Additional Family Medical History / Comment(s): lung CA Mother Family Medical History: Cancer Additional Family Medical History / Comment(s): Scolosis, colon cancer Medications and Allergies Home Medications Medication Instructions Recorded Confirmed Type No Known Home Medications 10/18/24 10/18/24 History Allergies Allergy/AdvReac Type Severity Reaction Status Date / Time codeine AdvReac Unknown agitation Verified 10/18/24 13:42 Penicillins AdvReac "Makes me Verified 10/18/24 13:42 cranky" Physical Examination - Vital Signs Vital Signs: Vital Signs Temp Pulse Pulse Resp BP BP Pulse Ox 10/20/24 14:27 70 16 131/60 98 10/20/24 11:12 97.3 F L 71 17 137/73 95 10/20/24 07:50 97.8 F 76 17 173/75 10/20/24 04:00 97.6 F 70 16 157/78 99 10/20/24 02:00 16 10/20/24 00:00 97.8 F 71 16 160/83 97 10/19/24 20:00 97.8 F 68 15 156/75 98 10/19/24 19:10 70 15 164/77 98 10/19/24 18:40 71 20 155/90 97 10/19/24 17:11 97.6 F 70 20 159/83 99 Intake and Output 10/20/24 10/20/24 10/20/24 06:59 14:59 22:59 Other: Voiding Method External Catheter External Catheter Weight 61.5 kg Patient is an elderly female, in no acute distress. Patient is not hygienically in best shape. Patient is alert awake oriented to time place and person. Speech and language functions are normal. Patient can name all objects presented and repeat very well. No aphasia or dysarthria. Attention, concentration and fund of knowledge is adequate. Patient was able to provide very adequate history as above. On cranial nerve examination, pupils are equal, round and reacting to light, visual ellis are full on confrontation, with no neglect on double simultaneous stimulation. Extraocular muscles are intact with no nystagmus. Face is symmetric, tongue protrudes to the midline. Palatal elevation and sensation normal, hearing and shoulder shrug normal, facial sensation normal. On muscle strength testing, there is left pronator drift about 30 and the strength is normal in arms distally and proximally. In the lower limbs, (right/left) hip flexion 4-/2, knee extension 5/5, ankle dorsiflexion 5/5. Patient able to lift her right leg off the bed about 30 and give minimal resistance. The left leg not able to lift off the bed. Deep tendon reflexes are (right/left) biceps 2/2, brachioradialis 2/1, knees 2/2 and plantar is downgoing on the right, up on the left. Sensory to touch is equal with no neglect on double simultaneous stimulation. Cerebellar function showed no ataxia for [id number] testing. No dysdiadochokinesia. Cannot check for ataxia in the lower limbs. Tone and bulk of muscles normal. Gait deferred.. On general examination, there is no carotid bruit or murmur, S1-S2 audible. Chest is clear on auscultation. Abdomen is soft nontender. No organomegaly, bowel sounds present. Peripheral pulses are present. No peripheral edema. Results - Laboratory Findings CBC and BMP: 10/21/24 07:37 10/21/24 07:37 Abnormal Lab Findings: Abnormal Labs 10/18/24 10/18/24 10/18/24 13:28 13:28 13:28 WBC 13.3 H MCV 101.1 H Neutrophils # 11.2 H APTT 21.3 L Carbon Dioxide 18 L BUN 30 H Creatinine 1.13 H POC Glucose (mg/dL) Troponin I Triglycerides Cholesterol LDL Cholesterol, Calc VLDL Cholesterol, Calc Urine Protein Urine Ketones Urine Bilirubin Ur Squamous Epith Cells Urine Bacteria Hyaline Casts Urine Mucus 10/18/24 10/18/24 10/18/24 13:28 14:50 16:48 WBC MCV Neutrophils # APTT Carbon Dioxide BUN Creatinine POC Glucose (mg/dL) Troponin I 0.059 H* 0.071 H* Triglycerides Cholesterol LDL Cholesterol, Calc VLDL Cholesterol, Calc Urine Protein 1+ H Urine Ketones 3+ H Urine Bilirubin 1+ H Ur Squamous Epith Cells 5 H Urine Bacteria Rare H Hyaline Casts 3 H Urine Mucus Occasional H 10/18/24 10/19/24 10/19/24 20:27 00:27 06:26 WBC MCV Neutrophils # APTT 146.4 H* Carbon Dioxide BUN Creatinine POC Glucose (mg/dL) 55 L Troponin I 0.074 H* Triglycerides Cholesterol LDL Cholesterol, Calc VLDL Cholesterol, Calc Urine Protein Urine Ketones Urine Bilirubin Ur Squamous Epith Cells Urine Bacteria Hyaline Casts Urine Mucus 10/19/24 10/19/24 10/19/24 08:00 08:00 08:00 WBC 11.6 H MCV 103.3 H Neutrophils # 8.6 H APTT 41.7 H Carbon Dioxide 17 L BUN 28 H Creatinine POC Glucose (mg/dL) Troponin I Triglycerides 212.00 H Cholesterol 237.00 H LDL Cholesterol, Calc 140.7 H VLDL Cholesterol, Calc 42.40 H Urine Protein Urine Ketones Urine Bilirubin Ur Squamous Epith Cells Urine Bacteria Hyaline Casts Urine Mucus 10/19/24 10/20/24 10/20/24 13:02 06:08 06:38 WBC 12.5 H MCV 100.6 H Neutrophils # APTT Carbon Dioxide BUN Creatinine POC Glucose (mg/dL) 49 L* 66 L Troponin I Triglycerides Cholesterol LDL Cholesterol, Calc VLDL Cholesterol, Calc Urine Protein Urine Ketones Urine Bilirubin Ur Squamous Epith Cells Urine Bacteria Hyaline Casts Urine Mucus 10/20/24 10/20/24 10/20/24 06:38 06:42 07:14 WBC MCV Neutrophils # APTT Carbon Dioxide BUN 24 H Creatinine POC Glucose (mg/dL) 65 L 112 H Troponin I Triglycerides Cholesterol LDL Cholesterol, Calc VLDL Cholesterol, Calc Urine Protein Urine Ketones Urine Bilirubin Ur Squamous Epith Cells Urine Bacteria Hyaline Casts Urine Mucus 10/20/24 10/20/24 10/20/24 07:22 11:29 14:23 WBC MCV Neutrophils # APTT 49.1 H Carbon Dioxide BUN Creatinine POC Glucose (mg/dL) 115 H 117 H Troponin I Triglycerides Cholesterol LDL Cholesterol, Calc VLDL Cholesterol, Calc Urine Protein Urine Ketones Urine Bilirubin Ur Squamous Epith Cells Urine Bacteria Hyaline Casts Urine Mucus Assessment and Plan Assessment: * Possible stroke/TIA manifesting with left-sided weakness. * New onset atrial flutter with slow ventricular response * Elevated cardiac enzymes * Heart failure * Hypertension * Hyperlipidemia * Noncompliance (stopped taking medication year ago because of not able to afford) Plan: * Patient cannot have MRI because of presence of pacemaker. * 2-D echo revealed normal LV systolic function, LDH with LV EF 55-60%. Severely increased septal wall thickness. Severely increased posterior wall thickness. Severely increased left atrial volume. No left atrial thrombus or mass present. Moderate thickening/calcification of the anterior and the posterior mitral valve leaflet. Trileaflet aortic valve with severe aortic sclerosis and moderate to severe stenosis the mean gradient of 36 mm edgy. Moderate AI. * Cardiology on board. We will defer to cardiology. 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 Slight plaque at the proximal right ICA with 50% stenosis. No evidence of dissection of the cervical internal carotid arteries or vertebral arteries. No evidence of intracranial high-grade stenosis or intracranial aneurysm. No evidence of high-grade stenosis in the left carotid bifurcation. * Fasting a.m. lipid panel with cholesterol 237, LDL 140, HDL 53 and triglycerides 212. Agree with starting high-intensity statins with Lipitor 40 mg. * Hemoglobin A1c * Permissive hypertension for next 24-48 hours * Continue Eliquis 5 mg twice a day for atrial flutter. Consider adding aspirin 81 mg daily, if no medical contraindications for vascular disease. * Neuro checks every 4 hours. * Telemetry monitoring rule out any arrhythmia * PT, OT, speech therapy * DVT prophylaxis: Patient on Eliquis * Discussed with primary team. * Neurology will continue to follow. Thank you for the consult. Time with Patient: Greater than 30
[2024-10-21] MEDS: POTASSIUM CHLORIDE ER 20 MEQ TAB.ER PO STA (11:33)
[2024-10-21 11:50] LABS: Glucose,Whole Blood 96 mg/dL (70-110)
--- NOTE | 2024-10-21 13:26 | P.PN ---
Subjective HISTORY OF PRESENT ILLNESS: This is a 78-year-old female with a past medical history significant for hypertension, severe LVH, valvular heart disease, and dual-chamber pacemaker implantation in 2022 ([employer]). Patient follows in the office with Dr. Rosenberg but has not been seen since September 2022. We have been asked to see the patient in consultation for weakness and elevated troponin. Patient examined at the bedside in the emergency room. Patient presented to the hospital to chief complaint of generalized weakness for the past 2 months. She denies any chest pain or pressure. She denies any shortness of breath. No episodes of syncope. Patient does report she has not followed up with a physician in a few years. She also reports she has not been taking any of her medications. DIAGNOSTICS: - EKG reveals paced rhythm with underlying atrial flutter. - Chest xray negative for acute process. - Laboratory data: WBC 11.6. Hemoglobin 12.9. Platelet count 324. Sodium 139. Potassium 4.1. BUN 28. Creatinine 1.0. Troponin 0.059. 0.071. 0.074. BNP 7670. - Current home cardiac medications include none - Most recent echocardiogram obtained in September 2022 revealed ejection fraction 55 to 60%, moderate MR, moderate AI, mild , mild TR - Cardiac catheterization history: Unknown 10/20/2024 Patient examined this morning at the bedside. Patient is more awake at the time of examination today compared to yesterday. She denies chest pain or pressure. Denies shortness of breath. Patient's pacemaker was interrogated yesterday revealing that patient has been in atrial flutter almost 100% of the time since August. [employer] rep adjusted patient's pacemaker yesterday and increased heart rate to 70. Patient's blood pressures are elevated with a systolic tween [id number]. Echocardiogram completed revealing ejection fraction 55 to 60%, moderate aortic stenosis with peak gradient 58 mmHg and mean gradient 36 mmHg, moderate aortic regurgitation, mild tricuspid regurgitation 10/21/2024 Patient examined this morning at the bedside. Patient currently denies chest pain or pressure. She denies shortness of breath. Telemetry reveals paced rhythm at 70. Vital signs stable. Blood pressure ranging with a systolic between [id number]. Patient developed left-sided weakness yesterday. She underwent CT of the brain revealing hypodense area in the right thalamus/basal ganglia and left coronary radiata which are new findings. Neurology has been consulted for evaluation. PHYSICAL EXAM: VITAL SIGNS: Reviewed. GENERAL: Well-developed in no acute distress. HEENT: Head is normocephalic. Pupils are equal, round. Sclerae anicteric. Mucous membranes of the mouth are moist. Neck supple. No JVD or thyromegaly. Left carotid bruit auscultated. LUNGS: Respirations even and unlabored. Lungs essentially clear to auscultation bilaterally. HEART: Regular rate and rhythm. S1 and S2 heard. Holosystolic murmur noted and systolic ejection murmur noted. ABDOMEN: Soft. Nondistended. Nontender. EXTREMITIES: Normal range of motion. No clubbing or cyanosis. Peripheral pulses intact. No lower extremity edema NEUROLOGIC: Awake and alert. Oriented x 3. ASSESSMENT: Generalized weakness New onset atrial flutter with slow ventricular rate New onset left-sided weakness, CT of the brain revealing hypodense area in the right thalamus/basal ganglia and left coronary radiata History of dual-chamber pacemaker implantation, 2022, currently pacemaker dependent Severe concentric LVH Hypertension Acute heart failure with preserved EF Elevated troponins, likely type II NV secondary to oxygen supply and demand mismatch Valvular heart disease including moderate aortic stenosis, moderate aortic regurgitation and mild tricuspid regurgitation Medication noncompliance PLAN: Continue anticoagulation with Eliquis Continue additional cardiac medications Continue telemetry monitoring Continue to monitor blood pressure Further recommendations pending patient course Nurse practitioner note has been reviewed by physician. Signing provider agrees with the documented findings, assessment, and plan of care documented by [facility] as a scribe. Objective - Vital Signs Vital signs: Vital Signs Temp 97.8 F 10/21/24 08:44 Pulse 75 10/21/24 11:31 Resp 15 10/21/24 11:31 BP 160/66 10/21/24 11:31 Pulse Ox 93 L 10/21/24 11:31 FiO2 Intake & Output 10/20/24 10/21/24 10/21/24 18:59 06:59 18:59 Intake Total 118 Output Total 300 Balance -300 118 Weight 61.5 kg Intake: Oral 118 Output: Urine 300 Other: Voiding Method External Catheter External Catheter External Catheter - Labs CBC & Chem 7: 10/21/24 07:37 10/21/24 07:37 Labs: Abnormal Lab Results - Last 24 Hours (Table) 02/10/20/24 10/20/24 Range/Units 14:23 18:16 20:09 MCV (80.0-100.0) fL Potassium (3.5-5.1) mmol/L BUN (7-17) mg/dL POC Glucose (mg/dL) 117 H 114 H 118 H (70-110) mg/dL Total Protein (6.3-8.2) g/dL 10/21/24 10/21/24 10/21/24 Range/Units 00:04 06:08 07:37 MCV 101.0 H (80.0-100.0) fL Potassium (3.5-5.1) mmol/L BUN (7-17) mg/dL POC Glucose (mg/dL) 150 H 131 H (70-110) mg/dL Total Protein (6.3-8.2) g/dL 10/21/24 Range/Units 07:37 MCV (80.0-100.0) fL Potassium 3.4 L (3.5-5.1) mmol/L BUN 21 H (7-17) mg/dL POC Glucose (mg/dL) (70-110) mg/dL Total Protein 6.1 L (6.3-8.2) g/dL
[2024-10-21] MEDS ORDERED: ZINC OXIDE PASTE (Z-GUARD) 1 APPLIC TOPICAL PRN (15:18)
--- NOTE | 2024-10-21 18:32 | P.PN ---
Subjective Progress Note Date: 10/21/24 Hospital course: Patient is a pleasant 78-year-old female with a past medical history of CAD, symptomatic bradycardia with multiple cardiac pauses resulted in permanent pacemaker placement 10/07/2022, valvular heart disease, diastolic heart failure, hypertension, hyperlipidemia. Patient reports she does not take any home medications, does not follow with a primary care doctor, and has not seen her human resources executive in years. She presented to the emergency department today with a chief complaint of generalized weakness and fatigue. Patient reports generalized weakness progressively worsening over the past week and states she is no longer able to walk to the restroom without stopping to take a break. She reports today her weakness was so bad she was unable to even get up. She denies having any fevers, chills, diaphoresis, headache, lightheadedness, dizziness, chest pain, palpitations, shortness of breath, cough or congestion, abdominal pain, nausea, vomiting, experiencing any changes in or difficulties with her urinary or bowel function or having any focal weakness, numbness, or tingling. Patient reports normal appetite but does admit to possible decreased appetite over the past few days secondary to the worsening generalized weakness and fatigue.. Upon arrival to our facility, patient underwent evaluation in the emergency department. Vital signs upon arrival show blood pressure 186/75, heart rate 62, respiratory rate 18, temp 98.1 F, and SpO2 of 98% on room air. EKG completed showing a ventricular paced rhythm with underlying atrial flutter and T wave inversion in lateral leads I and aVL upon personal review and interpretation. Chest x-ray negative for acute cardiopulmonary process. Labs completed and reviewed. CBC showing leukocytosis with WBC count of 13.3 and mild macrocytosis with MCV of 101.1. Coagulation profile showing low PTT of 21.3 otherwise normal findings. BMP showing high anion gap metabolic acidosis with chloride of 106, bicarb of 18 and anion gap of 19 slightly elevated renal function with BUN of 30, creatinine 1.13, GFR 47 which appears to be at baseline. Blood glucose 78. Lactic acid 1.7. Magnesium 2.1. Liver profile unremarkable. Troponin was elevated at 0.059. Urinalysis negative for infectio n. Influenza A, influenza B, RSV, and COVID PCR negative. Patient admitted under services with consultation to cardiology. Troponins trended resulting at 0.059, 0.071, and 0.074. proBNP 7670. TSH normal findings at 1.400. Lipid profile showing elevated triglycerides of 212, total cholesterol of 237, LDL of 140.7, and VLDL of 42.40. Echocardiogram showing a preserved EF of 55 to 60% with severe aortic sclerosis and moderate to severe stenosis with a near gradient of 36 mmHg with moderate aortic insufficiency reported, thickened mitral valve leaflets, mildly enlarged right ventricle, and no pericardial effusion. On 10/20/2024 was notified that patient now with concerns of left-sided deficits. CT brain was completed showing a new finding of hypodense area in the right thalamus/basal ganglia and left marshall radiata concerning for acute/subacute CVA. 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 Physical exam: Patient seen and fully evaluated at bedside this morning, she was sleeping but easily awoken via verbal stimuli. Patient has much more movement today of left lower extremity and left upper extremity. She does still have noted left arm droop and bilateral lower extremities are weak but left is slightly weaker. Patient continues to deny having any headache, lightheadedness, dizziness, chest pain, palpitations, or any other complaints at this time. Vital signs reviewed and stable. General: Nontoxic, no distress and appears stated age. Derm: Skin warm and dry, normal coloration for ethnicity. Head: Atraumatic, normocephalic and symmetric. Eyes: EOM's intact, no lid lag, and anicteric sclera Mouth: no lip lesions, mucus membranes moist Cardiovascular: regular rate and rhythm with normal S1S2, grade 4 systolic murmur, positive posterior tibial pulses bilaterally, and cap refill < 2 seconds. Lungs: Respirations even, regular, and unlabored on room air. Lungs CTA bilaterally, no rhonchi, no rales, no wheezing, and no accessory muscle usage. Abdominal: soft, nontender to palpation, no guarding, no appreciable organomegaly Ext: ROM intact. No gross muscle atrophy, no edema, no contractures Neuro: Speech clear, face symmetrical and CN II-XII grossly intact with no noted focal neuro deficits Psych: Alert and oriented to person, place, time, and situation. Appropriate and pleasant affect. Assessment and Plan of Care: Acute ischemic CVA -Neurology consulted and discussed CT and CTA results in detail with neurologist Dr. Amato. -NIH stroke scale with neuro checks every 4 hours and as needed -Daily aspirin and atorvastatin. -PT/OT consult -Swallow evaluation. -Fall precautions and provide pt with assistance as needed NSTEMI Newly diagnosed atrial flutter Generalized weakness and fatigue, likely secondary to atrial flutter with a slowed ventricular rate Hypertension History of CAD Status post permanent pacemaker placement 10/07/2022 Valvular heart disease Chronic diastolic heart failure -Cardiology following, discussed plan of care with cardiac SOFTWARE ENGINEER INTERN. -Echocardiogram showing a preserved EF of 55 to 60% with severe aortic sclerosis and moderate to severe stenosis with a near gradient of 36 mmHg with moderate aortic insufficiency reported, thickened mitral valve leaflets, mildly enlarged right ventricle, and no pericardial effusion. -Patient to remain on continuous telemetry monitoring -Continue daily medication regimen with atorvastatin 40 mg nightly, losartan 100 mg daily, and Lasix 20 mg daily. Discussed with neurologist and patient cleared to continue Eliquis 5 mg twice daily at this time. -Consult also placed to physical and Occupational Therapy secondary to reports of generalized weakness and fatigue. -Maintain fall precautions -PT/OT following, speech and language pathologist following, and consult placed for evaluation for [facility] for rehab Hypoglycemia -No further episodes of hypoglycemia over the past 24 hours. Will continue to monitor closely. -Continue [id number] Accu-Cheks every 6 hours with glycemic protocol in place. -Cardiac diet with protein supplements 3 times daily between meals. -Consult placed to dietary for poor oral intake Data and imaging reviewed: Labs completed and reviewed. CBC showing mild macrocytosis with MCV of 101.0. BMP showing mild hypokalemia with potassium of 3.4 otherwise normal findings. Magnesium 1.9. Liver profile unremarkable. Blood glucose 99. Vital signs reviewed. Blood pressure 156/72, heart rate 77, respiratory rate 15, temp 97.8 F, and SpO2 of 97% on room air. CODE STATUS: Full code DVT prophylaxis: Heparin infusion Discussed with: Patient, RN, and cardiology SOFTWARE ENGINEER INTERN Anticipated discharge date: Pending clinical course Anticipated discharge place: Pending clinical course Patient was seen independently by Nurse Practitioner. This document was prepared using Dragon dictation software. Please allow for errors in venture capital analyst while rare they do occur. Enzo Pond NP rendered care for this patient independently, reviewed the findings and plan as documented in the note above and agree with plan. I did not physically speak with or examine the patient on this date. Objective - Vital Signs Vital signs: Vital Signs Temp 97.8 F 10/21/24 08:44 Pulse 77 10/21/24 08:44 Resp 15 10/21/24 08:44 BP 156/72 10/21/24 08:44 Pulse Ox 97 10/21/24 08:44 FiO2 Intake & Output 10/20/24 10/21/24 10/21/24 18:59 06:59 18:59 Output Total 300 Balance -300 Weight 61.5 kg Output: Urine 300 Other: Voiding Method External Catheter External Catheter - Labs CBC & Chem 7: 10/21/24 07:37 10/21/24 07:37 Labs: Abnormal Lab Results - Last 24 Hours (Table) 10/20/24 10/20/24 10/20/24 Range/Units 11:29 14:23 18:16 MCV (80.0-100.0) fL Potassium (3.5-5.1) mmol/L BUN (7-17) mg/dL POC Glucose (mg/dL) 115 H 117 H 114 H (70-110) mg/dL Total Protein (6.3-8.2) g/dL 10/20/24 10/21/24 10/21/24 Range/Units 20:09 00:04 06:08 MCV (80.0-100.0) fL Potassium (3.5-5.1) mmol/L BUN (7-17) mg/dL POC Glucose (mg/dL) 118 H 150 H 131 H (70-110) mg/dL Total Protein (6.3-8.2) g/dL 10/21/24 10/21/24 Range/Units 07:37 07:37 MCV 101.0 H (80.0-100.0) fL Potassium 3.4 L (3.5-5.1) mmol/L BUN 21 H (7-17) mg/dL POC Glucose (mg/dL) (70-110) mg/dL Total Protein 6.1 L (6.3-8.2) g/dL
[2024-10-21 18:39] LABS: Glucose,Whole Blood 80 mg/dL (70-110)
[2024-10-22 00:06] LABS: Glucose,Whole Blood 78 mg/dL (70-110)
[2024-10-22 06:02] LABS: Glucose,Whole Blood 87 mg/dL (70-110)
[2024-10-22 07:16] LABS: ALT 10 U/L (4-34); AST 27 U/L (14-36); African American GFR (CKD) 74 (>60 ml/min/1.73 sqM); Albumin 3.4 g/dL (3.5-5.0); Alkaline Phosphatase 35 U/L (38-126); Anion Gap 7 mmol/L; Blood Urea Nitrogen 21 mg/dL (7-17); Calcium 9.3 mg/dL (8.4-10.2); Carbon Dioxide 28 mmol/L (22-30); Chloride 105 mmol/L (98-107); Glucose 82 mg/dL (74-99); Magnesium 1.8 mg/dL (1.6-2.3); Non-African American GFR(CKD) 64 (>60 ml/min/1.73 sqM); Potassium 3.9 mmol/L (3.5-5.1); Sodium 140 mmol/L (137-145); Total Bilirubin 0.8 mg/dL (0.2-1.3)
[2024-10-22 07:24] LABS: HGB 12.1 gm/dL (11.4-16.0); Hypochromasia Slight; MCH 33.2 pg (25.0-35.0); MCHC 32.7 g/dL (31.0-37.0); MCV 101.5 fL (80.0-100.0); Macrocytosis Slight; Mean Platelet Volume 8.1; Platelet Count 261 k/uL (150-450); RBC 3.64 m/uL (3.80-5.40); WBC 7.2 k/uL (3.8-10.6)
--- NOTE | 2024-10-22 11:08 | P.PN ---
Subjective Progress Note Date: 10/21/24 Patient was seen for follow-up. Patient is sleeping at this time. Offers no complaints. Objective - Vital Signs Vital signs: Vital Signs Temp 97.9 F 10/21/24 16:19 Pulse 71 10/21/24 16:19 Resp 17 10/21/24 16:19 BP 158/68 10/21/24 16:19 Pulse Ox 95 10/21/24 16:19 FiO2 Intake & Output 10/20/24 10/21/24 10/21/24 18:59 06:59 18:59 Intake Total 118 Output Total 300 Balance -300 118 Weight 61.5 kg Intake: Oral 118 Output: Urine 300 Other: Voiding Method External Catheter External Catheter External Catheter - Exam Patient was asleep. On waking her up, she did cooperate, and examination remains unchanged. - Labs CBC & Chem 7: 10/22/24 06:05 10/22/24 06:05 Labs: Abnormal Lab Results - Last 24 Hours (Table) 10/20/24 10/20/24 10/21/24 Range/Units 18:16 20:09 00:04 MCV (80.0-100.0) fL Potassium (3.5-5.1) mmol/L BUN (7-17) mg/dL POC Glucose (mg/dL) 114 H 118 H 150 H (70-110) mg/dL Total Protein (6.3-8.2) g/dL 10/21/24 10/21/24 10/21/24 Range/Units 06:08 07:37 07:37 MCV 101.0 H (80.0-100.0) fL Potassium 3.4 L (3.5-5.1) mmol/L BUN 21 H (7-17) mg/dL POC Glucose (mg/dL) 131 H (70-110) mg/dL Total Protein 6.1 L (6.3-8.2) g/dL Assessment and Plan Assessment: * Possible stroke/TIA manifesting with left-sided weakness. * New onset atrial flutter with slow ventricular response * Elevated cardiac enzymes * Heart failure * Hypertension * Hyperlipidemia * Noncompliance (stopped taking medication year ago because of not able to afford) Plan: * Patient cannot have MRI because of presence of pacemaker. * 2-D echo revealed normal LV systolic function, LDH with LV EF 55-60%. Severely increased septal wall thickness. Severely increased posterior wall thickness. Severely increased left atrial volume. No left atrial thrombus or mass present. Moderate thickening/calcification of the anterior and the posterior mitral valve leaflet. Trileaflet aortic valve with severe aortic sclerosis and moderate to severe stenosis the mean gradient of 36 mm edgy. Moderate AI. * Cardiology on board. We will defer to cardiology. 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 Slight plaque at the proximal right ICA with 50% stenosis. No evidence of dissection of the cervical internal carotid arteries or vertebral arteries. No evidence of intracranial high-grade stenosis or intracranial aneurysm. No evidence of high-grade stenosis in the left carotid bifurcation. * Fasting a.m. lipid panel with cholesterol 237, LDL 140, HDL 53 and triglycerides 212. Agree with starting high-intensity statins with Lipitor 40 mg. * Hemoglobin A1c 5.1 * Permissive hypertension for next 24-48 hours * Continue Eliquis 5 mg twice a day for atrial flutter. Consider adding aspirin 81 mg daily, if no medical contraindications for vascular disease. * Neuro checks every 4 hours. * Telemetry monitoring rule out any arrhythmia * PT, OT, speech therapy * DVT prophylaxis: Patient on Eliquis * Dr. Sathya Win to start neurology service from Wednesday.
[2024-10-22 11:51] LABS: Glucose,Whole Blood 78 mg/dL (70-110)
--- NOTE | 2024-10-22 12:29 | P.PN ---
Subjective HISTORY OF PRESENT ILLNESS: This is a 78-year-old female with a past medical history significant for hypertension, severe LVH, valvular heart disease, and dual-chamber pacemaker implantation in 2022 ([employer]). Patient follows in the office with Dr. Rosenberg but has not been seen since September 2022. We have been asked to see the patient in consultation for weakness and elevated troponin. Patient examined at the bedside in the emergency room. Patient presented to the hospital to chief complaint of generalized weakness for the past 2 months. She denies any chest pain or pressure. She denies any shortness of breath. No episodes of syncope. Patient does report she has not followed up with a physician in a few years. She also reports she has not been taking any of her medications. DIAGNOSTICS: - EKG reveals paced rhythm with underlying atrial flutter. - Chest xray negative for acute process. - Laboratory data: WBC 11.6. Hemoglobin 12.9. Platelet count 324. Sodium 139. Potassium 4.1. BUN 28. Creatinine 1.0. Troponin 0.059. 0.071. 0.074. BNP 7670. - Current home cardiac medications include none - Most recent echocardiogram obtained in September 2022 revealed ejection fraction 55 to 60%, moderate MR, moderate AI, mild , mild TR - Cardiac catheterization history: Unknown 10/20/2024 Patient examined this morning at the bedside. Patient is more awake at the time of examination today compared to yesterday. She denies chest pain or pressure. Denies shortness of breath. Patient's pacemaker was interrogated yesterday revealing that patient has been in atrial flutter almost 100% of the time since August. [employer] rep adjusted patient's pacemaker yesterday and increased heart rate to 70. Patient's blood pressures are elevated with a systolic tween [id number]. Echocardiogram completed revealing ejection fraction 55 to 60%, moderate aortic stenosis with peak gradient 58 mmHg and mean gradient 36 mmHg, moderate aortic regurgitation, mild tricuspid regurgitation 10/21/2024 Patient examined this morning at the bedside. Patient currently denies chest pain or pressure. She denies shortness of breath. Telemetry reveals paced rhythm at 70. Vital signs stable. Blood pressure ranging with a systolic between [id number]. Patient developed left-sided weakness yesterday. She underwent CT of the brain revealing hypodense area in the right thalamus/basal ganglia and left coronary radiata which are new findings. Neurology has been consulted for evaluation. 10/22/2024 Patient examined this morning at the bedside. Patient currently denies chest pain or pressure. She denies shortness of breath. Vital signs are stable. Blood pressure 149/84. PHYSICAL EXAM: VITAL SIGNS: Reviewed. GENERAL: Well-developed in no acute distress. HEENT: Head is normocephalic. Pupils are equal, round. Sclerae anicteric. Mucous membranes of the mouth are moist. Neck supple. No JVD or thyromegaly. Left carotid bruit auscultated. LUNGS: Respirations even and unlabored. Lungs essentially clear to auscultation bilaterally. HEART: Regular rate and rhythm. S1 and S2 heard. Holosystolic murmur noted and systolic ejection murmur noted. ABDOMEN: Soft. Nondistended. Nontender. EXTREMITIES: Normal range of motion. No clubbing or cyanosis. Peripheral pulses intact. No lower extremity edema NEUROLOGIC: Awake and alert. Oriented x 3. ASSESSMENT: Generalized weakness New onset atrial flutter with slow ventricular rate, PPM rate increased from 50 to 70 New onset left-sided weakness, CT of the brain revealing hypodense area in the right thalamus/basal ganglia and left coronary radiata History of dual-chamber pacemaker implantation, 2022, currently pacemaker dependent Severe concentric LVH Hypertension Acute heart failure with preserved EF Elevated troponins, likely type II PA secondary to oxygen supply and demand mismatch Valvular heart disease including moderate aortic stenosis, moderate aortic regurgitation and mild tricuspid regurgitation Medication noncompliance PLAN: Continue anticoagulation with Eliquis Continue additional cardiac medications Continue telemetry monitoring Continue to monitor blood pressure Further recommendations pending patient course Nurse practitioner note has been reviewed by physician. Signing provider agrees with the documented findings, assessment, and plan of care documented by DIRECTOR SALES as a scribe. Objective - Vital Signs Vital signs: Vital Signs Temp 97.6 F 10/22/24 11:06 Pulse 72 10/22/24 11:06 Resp 16 10/22/24 11:06 BP 149/84 10/22/24 11:06 Pulse Ox 93 L 10/22/24 11:06 FiO2 Intake & Output 10/21/24 10/22/24 10/22/24 18:59 06:59 18:59 Intake Total 118 240 Balance 118 240 Intake: Oral 118 240 Other: Voiding Method External Catheter External Catheter External Catheter # Voids 2 - Labs CBC & Chem 7: 10/22/24 06:05 10/22/24 06:05 Labs: Abnormal Lab Results - Last 24 Hours (Table) 10/22/24 10/22/24 Range/Units 06:05 06:05 RBC 3.64 L (3.80-5.40) m/uL MCV 101.5 H (80.0-100.0) fL BUN 21 H (7-17) mg/dL Alkaline Phosphatase 35 L (38-126) U/L Total Protein 6.0 L (6.3-8.2) g/dL Albumin 3.4 L (3.5-5.0) g/dL
[2024-10-22 16:49] LABS: Glucose,Whole Blood 113 mg/dL (70-110)
--- NOTE | 2024-10-22 16:54 | P.PN ---
Subjective Progress Note Date: 10/22/24 Hospital course: Patient is a pleasant 78-year-old female with a past medical history of CAD, symptomatic bradycardia with multiple cardiac pauses resulted in permanent pacemaker placement 10/07/2022, valvular heart disease, diastolic heart failure, hypertension, hyperlipidemia. 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 She presented to the emergency department today with a chief complaint of generalized weakness and fatigue. Patient reports generalized weakness progressively worsening over the past week and states she is no longer able to walk to the restroom without stopping to take a break. She reports today her weakness was so bad she was unable to even get up. She denies having any fevers, chills, diaphoresis, headache, lightheadedness, dizziness, chest pain, palpitations, shortness of breath, cough or congestion, abdominal pain, nausea, vomiting, experiencing any changes in or difficulties with her urinary or bowel function or having any focal weakness, numbness, or tingling. Patient reports normal appetite but does admit to possible decreased appetite over the past few days secondary to the worsening generalized weakness and fatigue.. Upon arrival to our facility, patient underwent evaluation in the emergency department. Vital signs upon arrival show blood pressure 186/75, heart rate 62, respiratory rate 18, temp 98.1 F, and SpO2 of 98% on room air. EKG completed showing a ventricular paced rhythm with underlying atrial flutter and T wave inversion in lateral leads I and aVL upon personal review and interpretation. Chest x-ray negative for acute cardiopulmonary process. Labs completed and reviewed. CBC showing leukocytosis with WBC count of 13.3 and mild macrocytosis with MCV of 101.1. Coagulation profile showing low PTT of 21.3 otherwise normal findings. BMP showing high anion gap metabolic acidosis with chloride of 106, bicarb of 18 and anion gap of 19 slightly elevated renal function with BUN of 30, creatinine 1.13, GFR 47 which appears to be at baseline. Blood glucose 78. Lactic acid 1.7. Magnesium 2.1. Liver profile unremarkable. Troponin was elevated at 0.059. Urinalysis negative for infectio n. Influenza A, influenza B, RSV, and COVID PCR negative. Patient admitted under services with consultation to cardiology. Troponins trended resulting at 0.059, 0.071, and 0.074. proBNP 7670. TSH normal findings at 1.400. Lipid profile showing elevated triglycerides of 212, total cholesterol of 237, LDL of 140.7, and VLDL of 42.40. Echocardiogram showing a preserved EF of 55 to 60% with severe aortic sclerosis and moderate to severe stenosis with a near gradient of 36 mmHg with moderate aortic insufficiency reported, thickened mitral valve leaflets, mildly enlarged right ventricle, and no pericardial effusion. On 10/20/2024 was notified that patient now with concerns of left-sided deficits. CT brain was completed showing a new finding of hypodense area in the right thalamus/basal ganglia and left marshall radiata concerning for acute/subacute CVA. 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 Physical exam: Patient seen and fully evaluated at bedside this morning. She was lying in bed awake and reports no complaints this morning. Left-sided deficits continue to improve. Patient with full movement of left upper extremity but continues to have mild left arm drop. Vital signs reviewed and stable. General: Nontoxic, no distress and appears stated age. Derm: Skin warm and dry, normal coloration for ethnicity. Head: Atraumatic, normocephalic and symmetric. Eyes: EOM's intact, no lid lag, and anicteric sclera Mouth: no lip lesions, mucus membranes moist Cardiovascular: regular rate and rhythm with normal S1S2, grade 4 systolic murmur, positive posterior tibial pulses bilaterally, and cap refill < 2 seconds. Lungs: Respirations even, regular, and unlabored on room air. Lungs CTA bilaterally, no rhonchi, no rales, no wheezing, and no accessory muscle usage. Abdominal: soft, nontender to palpation, no guarding, no appreciable organomeg maryanne Ext: ROM intact. No gross muscle atrophy, no edema, no contractures Neuro: Speech clear, face symmetrical and CN II-XII grossly intact with no noted focal neuro deficits Psych: Alert and oriented to person, place, time, and situation. Appropriate and pleasant affect. Assessment and Plan of Care: Acute ischemic CVA left-sided deficits deficits are improving -Neurology following, reviewed documentation in chart. -NIH stroke scale with neuro checks every 4 hours and as needed -Daily aspirin and atorvastatin. 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 -Echocardiogram showing a preserved EF of 55 to 60% with severe aortic sclerosis and moderate to severe stenosis with a near gradient of 36 mmHg with moderate aortic insufficiency reported, thickened mitral valve leaflets, mildly enlarged right ventricle, and no pericardial effusion. -Patient to remain on continuous telemetry monitoring -Continue daily medication regimen with atorvastatin 40 mg nightly, losartan 100 mg daily, and Lasix 20 mg daily. Discussed with neurologist and patient cleared to continue Eliquis 5 mg twice daily at this time. -Maintain fall precautions Hypoglycemia -No further episodes of hypoglycemia over the past 48 hours. Will continue to monitor closely. -Continue [id number] Accu-Cheks every 6 hours with glycemic protocol in place. -Cardiac diet with protein supplements 3 times daily between meals. -Consult placed to dietary for poor oral intake Data and imaging reviewed: Labs completed and reviewed. CBC showing mild macrocytosis with MCV of 101.5. BMP unremarkable with exception of mild prerenal azotemia with BUN of 21. Blood glucose 82. Magnesium 1.8. Liver profile showing a low alkaline phosphatase of 35 and low albumin of 3.4. Vital signs reviewed. Blood pressure 143/83, heart rate 70, respiratory rate 15, temp 98.0 F, and SpO2 of 96% on room air. CODE STATUS: Full code DVT prophylaxis: Eliquis Anticipated discharge date: Pending clinical course Anticipated discharge place: Inpatient rehab versus SNF Patient was seen independently by Nurse Practitioner. This document was prepared using [employer] dictation software. Please allow for errors in sponge packer while rare they do occur. Enzo Pond AUTOMOBILE SERVICE STATION MECHANIC rendered care for this patient independently, reviewed the findings and plan as documented in the note above and agree with plan. I did not physically speak with or examine the patient on this date. Objective - Vital Signs Vital signs: Vital Signs Temp 98.0 F 10/22/24 07:44 Pulse 70 10/22/24 07:44 Resp 15 10/22/24 07:44 BP 143/83 10/22/24 07:44 Pulse Ox 96 10/22/24 07:44 FiO2 Intake & Output 10/21/24 10/22/24 10/22/24 18:59 06:59 18:59 Intake Total 118 Balance 118 Intake: Oral 118 Other: Voiding Method External Catheter External Catheter External Catheter # Voids 2 - Labs CBC & Chem 7: 10/22/24 06:05 10/22/24 06:05 Labs: Abnormal Lab Results - Last 24 Hours (Table) 10/22/24 10/22/24 Range/Units 06:05 06:05 RBC 3.64 L (3.80-5.40) m/uL MCV 101.5 H (80.0-100.0) fL BUN 21 H (7-17) mg/dL Alkaline Phosphatase 35 L (38-126) U/L Total Protein 6.0 L (6.3-8.2) g/dL Albumin 3.4 L (3.5-5.0) g/dL
[2024-10-22 19:57] LABS: Glucose,Whole Blood 121 mg/dL (70-110)
[2024-10-22 21:07] VITALS: RESP 16
--- NOTE | 2024-10-22 22:45 | P.PN ---
Subjective Progress Note Date: 10/22/24 Patient was seen for follow-up. Patient is alert and awake. Patient is having dinner at this time. Patient offers no new complaints. Objective - Vital Signs Vital signs: Vital Signs Temp 98 F 10/22/24 20:00 Pulse 70 10/22/24 20:00 Resp 16 10/22/24 20:00 BP 139/85 10/22/24 20:00 Pulse Ox 97 10/22/24 20:00 FiO2 Intake & Output 10/22/24 10/22/24 10/23/24 06:59 18:59 06:59 Intake Total 476 Balance 476 Intake: Oral 476 Other: Voiding Method External Catheter External Catheter External Catheter # Voids 2 - Exam Patient is alert and awake. Speech and language functions are normal. Visual ellis are full. On muscle strength testing, is left-sided drift. The muscle strength is normal in the arms. Sensations are equal with no neglect. - Labs CBC & Chem 7: 10/22/24 06:05 10/22/24 06:05 Labs: Abnormal Lab Results - Last 24 Hours (Table) 10/22/24 10/22/24 10/22/24 Range/Units 06:05 06:05 16:47 RBC 3.64 L (3.80-5.40) m/uL MCV 101.5 H (80.0-100.0) fL BUN 21 H (7-17) mg/dL POC Glucose (mg/dL) 113 H (70-110) mg/dL Alkaline Phosphatase 35 L (38-126) U/L Total Protein 6.0 L (6.3-8.2) g/dL Albumin 3.4 L (3.5-5.0) g/dL 10/22/24 Range/Units 19:56 RBC (3.80-5.40) m/uL MCV (80.0-100.0) fL BUN (7-17) mg/dL POC Glucose (mg/dL) 121 H (70-110) mg/dL Alkaline Phosphatase (38-126) U/L Total Protein (6.3-8.2) g/dL Albumin (3.5-5.0) g/dL Assessment and Plan Assessment: * Possible stroke/TIA manifesting with left-sided weakness. * New onset atrial flutter with slow ventricular response * Elevated cardiac enzymes * Heart failure * Hypertension * Hyperlipidemia * Noncompliance (stopped taking medication year ago because of not able to afford) Plan: * Patient cannot have MRI because of presence of pacemaker. * 2-D echo revealed normal LV systolic function, LDH with LV EF 55-60%. Severely increased septal wall thickness. Severely increased posterior wall thickness. Severely increased left atrial volume. No left atrial thrombus or mass present. Moderate thickening/calcification of the anterior and the posterior mitral valve leaflet. Trileaflet aortic valve with severe aortic sclerosis and moderate to severe stenosis the mean gradient of 36 mm edgy. Moderate AI. * Cardiology on board. We will defer to cardiology. 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 Slight plaque at the proximal right ICA with 50% steno sis. No evidence of dissection of the cervical internal carotid arteries or vertebral arteries. No evidence of intracranial high-grade stenosis or intracranial aneurysm. No evidence of high-grade stenosis in the left carotid bifurcation. * Fasting a.m. lipid panel with cholesterol 237, LDL 140, HDL 53 and triglycerides 212. Agree with starting high-intensity statins with Lipitor 40 mg. * Hemoglobin A1c 5.1 * Permissive hypertension for next 24-48 hours * Continue Eliquis 5 mg twice a day for atrial flutter. Consider adding aspirin 81 mg daily, if no medical contraindications for vascular disease. * Neuro checks every 4 hours. * Telemetry monitoring rule out any arrhythmia * PT, OT, speech therapy * DVT prophylaxis: Patient on Eliquis * Neurologically clear. Dr. Sathya Win to start neurology service from Wednesday.
[2024-10-23 00:21] LABS: Glucose,Whole Blood 111 mg/dL (70-110)
[2024-10-23 05:59] LABS: Glucose,Whole Blood 95 mg/dL (70-110)
[2024-10-23 06:41] LABS: HCT 38.6 % (34.0-46.0); HGB 12.5 gm/dL (11.4-16.0); MCH 32.4 pg (25.0-35.0); MCHC 32.3 g/dL (31.0-37.0); MCV 100.2 fL (80.0-100.0); Mean Platelet Volume 8.4; Platelet Count 258 k/uL (150-450); RBC 3.85 m/uL (3.80-5.40); RDW 13.9 % (11.5-15.5); WBC 7.4 k/uL (3.8-10.6)
[2024-10-23 06:50] LABS: ALT 11 U/L (4-34); AST 31 U/L (14-36); African American GFR (CKD) 79 (>60 ml/min/1.73 sqM); Albumin 3.3 g/dL (3.5-5.0); Alkaline Phosphatase 37 U/L (38-126); Anion Gap 5 mmol/L; Blood Urea Nitrogen 22 mg/dL (7-17); Calcium 9.3 mg/dL (8.4-10.2); Carbon Dioxide 28 mmol/L (22-30); Chloride 103 mmol/L (98-107); Glucose 85 mg/dL (74-99); Magnesium 1.8 mg/dL (1.6-2.3); Non-African American GFR(CKD) 69 (>60 ml/min/1.73 sqM); Potassium 3.9 mmol/L (3.5-5.1); Sodium 136 mmol/L (137-145); Total Bilirubin 0.7 mg/dL (0.2-1.3); Total Protein 5.8 g/dL (6.3-8.2)
[2024-10-23 09:21] VITALS: TEMP 97.9
--- NOTE | 2024-10-23 10:32 | P.CONS ---
History of Present Illness - Reason for Consult Consult date: 10/23/24 rehab recommendations - Chief Complaint weakness, CVA - History of Present Illness Ms Bita Pelayo is a 79 y/o right handed female who lives alone in an apartment. She ambulates with a walker. She cooks, she gets assistance from friends for driving. Her sister lives near by. Gets Meals on wheels. She has a cane and a walker. She cannot Patient presented to the Hospital on 10/18/24 from home with generalized weakness. Patient was found at home by meals on wheels and they called paramedics for assistance. Troponins were elevated, cardiology consulted. EKG with paced rhythm with underlying atrial flutter. BNP 7670. UA negative, Influenza B, RSV, and COVID negative. Patient was transitioned from heparin drip to Eliquis. Therapy noted that patient had left side neglect. CT, CTA of head and neck ordered. Neurology consulted. Per neurology, patient had a stroke in fall of 2023. CT head showed hypodense area in the right thalamus/basal ganglia and left marshall radiata suggesting acute/subacute CVA. MRI recommended but cannot undergo due to pacemaker. Per records, patient stopped taking her medication for HTN and HLD due to cost. PM&R consulted for rehab recommendations. Patient was seen by therapy on 10/20/24; needing max assist with bathing, total assist with dressing, mod assist with eating, bed mobility total assist, sit to stand total assist, not able to ambulate. BORING MACHINE SET UP OPERATOR JIG noted mild to moderate dysphagia and recommended Dysphagia 2 diet with thin liquids. 10/23/24: Patient states she is doing 'ok'. She denies CP,SOB,and abdominal pain. She had a BM on admission. She has a mendez catheter. She has no complaints of pain. She denies numbness and tingling. She admits to generalized weakness, left side greater than right. She denies changes to vision. Review of Systems Reviewed, negative unless stated above in HPI Past Medical History Past Medical History: Chest Pain / Angina, Heart Failure, Hyperlipidemia, Hypertension Additional Past Medical History / Comment(s): pt states she has a "leaky heart valve", pacemaker History of Any Multi-Drug Resistant Organisms: None Reported Past Surgical History: Heart Catheterization, Hysterectomy, Orthopedic Surgery Additional Past Surgical History / Comment(s): Right hip replacement. Lower 3 discs on back are fused together, bilat carpal tunnel Past Anesthesia/Blood Transfusion Reactions: No Reported Reaction Additional Past Anesthesia/Blood Transfusion Reaction / Comm: never had blood transfusion Past Psychological History: Depression Smoking Status: Former smoker Past Alcohol Use History: None Reported Past Drug Use History: None Reported - Past Family History Father Family Medical History: Cancer Additional Family Medical History / Comment(s): lung CA Mother Family Medical History: Cancer Additional Family Medical History / Comment(s): Scolosis, colon cancer Medications and Allergies Home Medications Medication Instructions Recorded Confirmed Type No Known Home Medications 10/18/24 10/18/24 History Allergies Allergy/AdvReac Type Severity Reaction Status Date / Time codeine AdvReac Unknown agitation Verified 10/18/24 13:42 Penicillins AdvReac "Makes me Verified 10/18/24 13:42 cranky" Physical Exam Vitals: Vital Signs Temp Pulse Resp BP Pulse Ox 10/23/24 03:31 97.8 F 67 16 154/84 96 10/22/24 23:03 71 16 134/85 98 10/22/24 20:00 98 F 70 16 139/85 97 10/22/24 16:00 86 18 156/84 97 10/22/24 11:06 97.6 F 72 16 149/84 93 L Intake and Output 10/22/24 10/23/24 10/23/24 22:59 06:59 14:59 Intake Total 118 Balance 118 Intake: Oral 118 Other: Voiding Method External Catheter External Catheter Weight 50.5 kg General: alert, WDWN elderly female, laying in bed, NAD HEENT: head normocephalic, atraumatic; moist mucous membranes, external ears intact with hearing intact to conversational speech, left ear lobe mass Neck: supple CV: no acute cardiac distress Lungs: even and non labored respirations on RA Abdomen: soft, NT, ND MSK: generalized weakness, left hemiparesis LE > UE MMT: R SABD/EF/EE/HG 4+/5; L SABD/EF/EE/HG 4/5 R HF/KE 4/5, DF and EHL 5/5; L HF, KE 2/5, DF 3/5 Neuro: Alert, conversational, speech is clear and fluent CN 2-12 grossly intact Sensation intact to light touch bilateral UE and LEs Psych: mood calm, affect appropriate, A&O x 3 Extremities: calves supple, non tender, no LE edema Skin: intact where exposed, ecchymosis UE Results CBC & Chem 7: 10/23/24 05:36 10/23/24 05:36 Labs: Abnormal Lab Results - Last 24 Hours (Table) 10/22/24 10/22/24 10/23/24 Range/Units 16:47 19:56 00:20 MCV (80.0-100.0) fL Sodium (137-145) mmol/L BUN (7-17) mg/dL POC Glucose (mg/dL) 113 H 121 H 111 H (70-110) mg/dL Alkaline Phosphatase (38-126) U/L Total Protein (6.3-8.2) g/dL Albumin (3.5-5.0) g/dL 10/23/24 10/23/24 Range/Units 05:36 05:36 MCV 100.2 H (80.0-100.0) fL Sodium 136 L (137-145) mmol/L BUN 22 H (7-17) mg/dL POC Glucose (mg/dL) (70-110) mg/dL Alkaline Phosphatase 37 L (38-126) U/L Total Protein 5.8 L (6.3-8.2) g/dL Albumin 3.3 L (3.5-5.0) g/dL Assessment and Plan Assessment: #Left hemiparesis and neglect secondary to acute ischemic CVA affecting right thalamus/basal ganglia and left marshall radiata, dominant side -Lipitor, Eliquis # New onset Atrial flutter with slow ventricular rate #acute heart failure with preserved EF #NSTEMI #Dysphagia -Dysphagia II, thin liquids #Severe concentric LVH #History of CVA in Fall 2023 #Pain Management -Tylenol prn #DVT Proph-Eliquis 5 mg BID #Comorbidities: HTN. Valvular heart disease, history of pacemaker placement in 2022, HTN #Your medical dx and management Dispo: Patient seen and examined. She is performing below her baseline level of function, recommending IPR for rehab but patient prefers [facility]. Patient seen and examined in coordination with Dr Cronin. Thank you for consulting our services.
[2024-10-23 11:29] LABS: Glucose,Whole Blood 108 mg/dL (70-110)
--- NOTE | 2024-10-23 11:29 | CDI ---
Documentation Clarification Form Date: 10/23/2024 10:52:25 AM From: Angi Rainey RN, CCDS Phone: [phone] Admit Date: 10/18/2024 03:17:00 PM Patient Name: Bita Pelayo Visit Number: [id number] Discharge Date: ATTENTION: The Clinical Documentation Specialists (CDI) and [facility] Coding Staff appreciate your assistance in clarifying documentation. Please respond to the clarification below the line at the bottom and electronically sign. The CDI & [facility] Coding staff will review the response and follow-up if needed. Please note: Queries are made part of the Legal Health Record. If you have any questions, please contact the author of this message via ITS. Doctor. Ericka Dave Conflicting documentation has been found in the medical record. As attending physician, please provide clarification. 10/19 Cardiology consult and subsequent progress notes: Elevated troponins, likely type II MT secondary to oxygen supply and demand mismatch. 2. H/P and subsequent progress notes: NSTEMI History/Risk Factors: dual-chamber pacemaker implantation, 2022, currently pacemaker dependent Clinical Indicators: New onset atrial flutter with slow ventricular rate, Valvular heart disease including moderate MR, moderate AI, mild , mild TR, Medication noncompliance 10/18 Troponin I 0.059, 0.071, 0.074 ECHO: revealing ejection fraction 55 to 60%, moderate aortic stenosis with peak gradient 58 mmHg and mean gradient 36 mmHg, moderate aortic regurgitation, mild tricuspid regurgitation Treatment: Cardiac Monitoring/Telemetry IV Lasix 40MG x1 THE 40 MG PO Daily Eliquis 5 MG PO BID, Cozaar 100 MG PO Daily, Lipitor 40MG PO HS Interrogate pacemaker, avoid any AV alejandro blocking agents Monitor blood pressure Please clarify which diagnosis is most appropriate: [ x ] Elevated troponins, likely type II MT secondary to oxygen supply and demand mismatch. [ ] NSTEMI (non-ST elevated MT) [ ] Other (please specify) [ ] Unable to determine (Template Last Revised: October 2020) MTDD
--- NOTE | 2024-10-23 11:58 | P.DS ---
Providers Date of admission: 10/18/24 15:17 Expected date of discharge: 10/23/24 Attending physician: Chan Alvarado Consults: 10/18/24 15:16 Consult Physician Routine Consulting Provider: Bairon Blakely Consult Reason/Comments: weakness, troponin elevation Do you want consulting provider notified?: Yes 10/20/24 13:39 Consult Physician Routine Consulting Provider: Ector Amato Consult Reason/Comments: r/o cva Do you want consulting provider notified?: Yes 10/21/24 09:25 Consult Physician Routine Consulting Provider: Daron Kline Consult Reason/Comments: in patient rehab, pt lives independently admitted with NSTEMI later had CVA Do you want consulting provider notified?: Yes Primary care physician: Stated None Hospital Course: Discharge Diagnosis: Acute ischemic CVA left-sided deficits deficits are improving NSTEMI, likely type II NSTEMI secondary to oxygen supply/demand mismatch Newly diagnosed persistent atrial flutter Generalized weakness and fatigue, likely secondary to above Hypertension History of CAD Status post permanent pacemaker placement 10/07/2022 Valvular heart disease Chronic diastolic heart failure Hypoglycemia, resolved Hospital course: Patient is a pleasant 78-year-old female with a past medical history of CAD, symptomatic bradycardia with multiple cardiac pauses resulted in permanent pacemaker placement 10/07/2022, valvular heart disease, diastolic heart failure, hypertension, hyperlipidemia. Patient reports she does not take any home medications, does not follow with a primary care doctor, and has not seen her estate planner in years. She presented to the emergency department today with a chief complaint of generalized weakness and fatigue. Patient reports generalized weakness progressively worsening over the past week and states she is no longer able to walk to the restroom without stopping to take a break. She reports today her weakness was so bad she was unable to even get up. She denies having any fevers, chills, diaphoresis, headache, lightheadedness, dizziness, chest pain, palpitations, shortness of breath, cough or congestion, abdominal pain, nausea, vomiting, experiencing any changes in or difficulties with her urinary or bowel function or having any focal weakness, numbness, or tingling. Patient reports normal appetite but does admit to possible decreased appetite over the past few days secondary to the worsening generalized weakness and fatigue.. Upon arrival to our facility, patient underwent evaluation in the emergency department. Vital signs upon arrival show blood pressure 186/75, heart rate 62, respiratory rate 18, temp 98.1 F, and SpO2 of 98% on room air. EKG completed showing a ventricular paced rhythm with underlying atrial flutter and T wave inversion in lateral leads I and aVL upon personal review and interpretation. Chest x-ray negative for acute cardiopulmonary process. Labs completed and reviewed. CBC showing leukocytosis with WBC count of 13.3 and mild macrocytosis with MCV of 101.1. Coagulation profile showing low PTT of 21.3 otherwise normal findings. BMP showing high anion gap metabolic acidosis with chloride of 106, bicarb of 18 and anion gap of 19 slightly elevated renal function with BUN of 30, creatinine 1.13, GFR 47 which appears to be at baseline. Blood glucose 78. Lactic acid 1.7. Magnesium 2.1. Liver profile unremarkable. Troponin was elevated at 0.059. Urinalysis negative for infection. Influenza A, influenza B, RSV, and COVID PCR negative. Patient admitted under services with consultation to cardiology. Troponins trended resulting at 0.059, 0.071, and 0.074. proBNP 7670. TSH normal findings at 1.400. Lipid profile showing elevated triglycerides of 212, total cholesterol of 237, LDL of 140.7, and VLDL of 42.40. Echocardiogram showing a preserved EF of 55 to 60% with severe aortic sclerosis and moderate to severe stenosis with a near gradient of 36 mmHg with moderate aortic insufficiency reported, thickened mitral valve leaflets, mildly enlarged right ventricle, and no pericardial effusion. On 10/20/2024 was notified that patient now with concerns of left-sided deficits. CT brain was completed showing a new finding of hypodense area in the right thalamus/basal ganglia and left marshall radiata concerning for acute/subacute CVA. 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 Multiple medication changes made during this admission as patient was started on Lasix 20 mg daily, atorvastatin 40 mg daily, losartan 100 mg daily, and Eliquis 5 mg twice daily. She was evaluated and cleared both by cardiology and neurology. Patient is medically optimized at this time and was evaluated by PT/OT recommending SNF placement. Patient was accepted to [facility] and medically optimized for discharge at this time. Physical exam: Vital signs reviewed and stable. General: Nontoxic, no distress and appears stated age. Derm: Skin warm and dry, normal coloration for ethnicity. Head: Atraumatic, normocephalic and symmetric. Eyes: EOM's intact, no lid lag, and anicteric sclera Mouth: no lip lesions, mucus membranes moist Cardiovascular: regular rate and rhythm with normal S1S2, grade 4 systolic murmur, positive posterior tibial pulses bilaterally, and cap refill < 2 seconds. Lungs: Respirations even, regular, and unlabored on room air. Lungs CTA bilaterally, no rhonchi, no rales, no wheezing, and no accessory muscle usage. Abdominal: soft, nontender to palpation, no guarding, no appreciable organomegaly Ext: ROM intact. No gross muscle atrophy, no edema, no contractures Neuro: Speech clear, face symmetrical and CN II-XII grossly intact. Continues to have mild left arm drop, but strength is improved. Slightly decreased strength in left lower extremity when compared to right. Psych: Alert and oriented to person, place, time, and situation. Appropriate and pleasant affect. A total of 37 minutes of time were spent preparing this complex discharge summary. Pt was discharged on 10/23/2024 at 11:53 AM. Patient was seen independently by Nurse Practitioner. This document was prepared using [employer] dictation software. Please allow for errors in transplant registered nurse while rare they do occur. Enzo Pond NP rendered care for this patient independently, reviewed the findings and plan as documented in the note above. I did not physically speak with or examine the patient on this date. Patient Condition at Discharge: Stable Plan - Discharge Summary New Discharge Prescriptions: New Furosemide [Lasix] 20 mg PO DAILY tab Atorvastatin [Lipitor] 40 mg PO HS tab Losartan [Cozaar] 100 mg PO DAILY tab Apixaban [Eliquis] 5 mg PO BID tab Melatonin 5 mg PO HS tab Acetaminophen Tab [Tylenol] 650 mg PO Q6HR PRN tab PRN Reason: Mild Pain Or Fever > 100.5 Discharge Medication List Acetaminophen Tab [Tylenol] 650 mg PO Q6HR PRN tab 02/24/25 [Rx] Apixaban [Eliquis] 5 mg PO BID tab 10/23/24 [Rx] Atorvastatin [Lipitor] 40 mg PO HS tab 10/23/24 [Rx] Furosemide [Lasix] 20 mg PO DAILY tab 10/23/24 [Rx] Losartan [Cozaar] 100 mg PO DAILY tab 10/23/24 [Rx] Melatonin 5 mg PO HS tab 10/23/24 [Rx] Follow up Appointment(s)/Referral(s): Desirae Rosenberg MD [STAFF PHYSICIAN] - 1 Week Pool Internal Med,[facility] [NON-STAFF] - 1-2 Days (Please call and schedule first available appointment as patient will need to establish care with PCP and needs to be evaluated post discharge.) Vanessa Mercado MD [REFERRING] - 1 Week Patient Instructions/Handouts: Atrial Flutter (DC), Ischemic Stroke (DC) Activity/Diet/Wound Care/Special Instructions: Patient is medically optimized for discharge to [facility] Activity: As tolerated. Take breaks as needed. Diet: Heart healthy and carb consistent diet. Avoid salts, or foods with hidden salts such as canned or boxed foods and frozen dinners. Extra salt makes your heart work harder and traps the fluid in your body for longer. Special Instructions: Take all of your medications as directed and remember to keep all of your doctor's appointments and follow-up as needed. Thank you for allowing us to participate in your care, it was truly a pleasure having you for our patient!!! Discharge Disposition: TRANSFER TO SNF/ECF
--- NOTE | 2024-10-23 12:06 | CDI ---
Documentation Clarification Form Date: 10/23/2024 11:31:08 AM From: Angi Rainey RN, CCDS Phone: [phone] Admit Date: 10/18/2024 03:17:00 PM Patient Name: Bita Pelayo Visit Number: [id number] Discharge Date: ATTENTION: The Clinical Documentation Specialists (CDI) and [facility] Coding Staff appreciate your assistance in clarifying documentation. Please respond to the clarification below the line at the bottom and electronically sign. The CDI & [facility] Coding staff will review the response and follow-up if needed. Please note: Queries are made part of the Legal Health Record. If you have any questions, please contact the author of this message via ITS. Doctor. Ericka Dave Conflicting documentation has been found in the medical record. As attending physician, please provide clarification. 10/19 Cardiology consult and subsequent progress note: Acute heart failure with preserved EF H/P and subsequent progress notes: Chronic diastolic heart failure History/Risk Factors: dual-chamber pacemaker implantation, 2022, currently pacemaker dependent Clinical Indicators: New onset atrial flutter with slow ventricular rate, Valvular heart disease including moderate MR, moderate AI, mild , mild TR, Medication noncompliance. Hypertension 10/18 Troponin I 0.059, 0.071, 0.074 10/18 BNP: 7670 10/18 CXR: No acute cardiopulmonary disease/process. ECHO: revealing ejection fraction 55 to 60%, moderate aortic stenosis with peak gradient 58 mmHg and mean gradient 36 mmHg, moderate aortic regurgitation, mild tricuspid regurgitation Treatment: Cardiac Monitoring/Telemetry IV Lasix 40MG x1 THE 40 MG PO Daily Eliquis 5 MG PO BID, Cozaar 100 MG PO Daily, Lipitor 40MG PO HS Interrogate pacemaker, avoid any AV alejandro blocking agents Monitor blood pressure Please clarify which diagnosis is most appropriate: [ x ] Acute heart failure with preserved EF [ ] Chronic diastolic heart failure [ ] Acute on Chronic Diastolic heart failure [ ] Other (please specify) [ ] Unable to determine (Template Last Revised: October 2020) MTDD
[2024-10-23 12:25] VITALS: BP 151/76; PULSE 75
--- NOTE | 2024-10-23 13:36 | P.PN ---
Subjective Progress Note Date: 10/23/24 HISTORY OF PRESENT ILLNESS: This is a 78-year-old female with a past medical history significant for hy pertension, severe LVH, valvular heart disease, and dual-chamber pacemaker implantation in 2022 ([employer]). Patient follows in the office with Dr. Rosenberg but has not been seen since September 2022. We have been asked to see the patient in consultation for weakness and elevated troponin. Patient examined at the bedside in the emergency room. Patient presented to the hospital to chief complaint of generalized weakness for the past 2 months. She denies any chest pain or pressure. She denies any shortness of breath. No episodes of syncope. Patient does report she has not followed up with a physician in a few years. She also reports she has not been taking any of her medications. DIAGNOSTICS: - EKG reveals paced rhythm with underlying atrial flutter. - Chest xray negative for acute process. - Laboratory data: WBC 11.6. Hemoglobin 12.9. Platelet count 324. Sodium 139. Potassium 4.1. BUN 28. Creatinine 1.0. Troponin 0.059. 0.071. 0.074. BNP 7670. - Current home cardiac medications include none - Most recent echocardiogram obtained in September 2022 revealed ejection fraction 55 to 60%, moderate MR, moderate AI, mild , mild TR - Cardiac catheterization history: Unknown 10/20/2024 Patient examined this morning at the bedside. Patient is more awake at the time of examination today compared to yesterday. She denies chest pain or pressure. Denies shortness of breath. Patient's pacemaker was interrogated yesterday revealing that patient has been in atrial flutter almost 100% of the time since August. [employer] rep adjusted patient's pacemaker yesterday and increased heart rate to 70. Patient's blood pressures are elevated with a systolic tween [id number]. Echocardiogram completed revealing ejection fraction 55 to 60%, moderate aortic stenosis with peak gradient 58 mmHg and mean gradient 36 mmHg, moderate aortic regurgitation, mild tricuspid regurgitation 10/21/2024 Patient examined this morning at the bedside. Patient currently denies chest pain or pressure. She denies shortness of breath. Telemetry reveals paced rhythm at 70. Vital signs stable. Blood pressure ranging with a systolic between [id number]. Patient developed left-sided weakness yesterday. She underwent CT of the brain revealing hypodense area in the right thalamus/basal ganglia and left coronary radiata which are new findings. Neurology has been consulted for evaluation. 10/22/2024 Patient examined this morning at the bedside. Patient currently denies chest pain or pressure. She denies shortness of breath. Vital signs are stable. Blood pressure 149/84. 10/23 Patient seen and exmined. She denies chest pain or pressure. The left-sided weakness is improving. Blood pressure 152/70, heart rate 73, pulse ox 97% on room air. Repeat blood work reveals WBC 7.4, hemoglobin 12.5, sodium 136, potassium 3.9, BUN 22 and creatinine 0.55. No medication changes made today. PHYSICAL EXAM: VITAL SIGNS: Reviewed. GENERAL: Well-developed in no acute distress. HEENT: Head is normocephalic. Pupils are equal, round. Sclerae anicteric. Mucous membranes of the mouth are moist. Neck supple. No JVD or thyromegaly. Left carotid bruit auscultated. LUNGS: Respirations even and unlabored. Lungs essentially clear to auscultation bilaterally. HEART: Regular rate and rhythm. S1 and S2 heard. Holosystolic murmur noted and systolic ejection murmur noted. ABDOMEN: Soft. Nondistended. Nontender. EXTREMITIES: Normal range of motion. No clubbing or cyanosis. Peripheral pulses intact. No lower extremity edema NEUROLOGIC: Awake and alert. Oriented x 3. ASSESSMENT: Generalized weakness New onset atrial flutter with slow ventricular rate, PPM rate increased from 50 to 70 New onset left-sided weakness, CT of the brain revealing hypodense area in the right thalamus/basal ganglia and left coronary radiata History of dual-chamber pacemaker implantation, 2022, currently pacemaker dependent Severe concentric LVH Hypertension Acute heart failure with preserved EF Elevated troponins, likely type II OH secondary to oxygen supply and demand mismatch Valvular heart disease including moderate aortic stenosis, moderate aortic regurgitation and mild tricuspid regurgitation Medication noncompliance PLAN: Continue anticoagulation with Eliquis Continue additional cardiac medications No further cardiac workup at this time Cardiology will sign off this case and follow on an as-needed basis. Please reconsult for any new concerns. Patient may follow-up in the office in one to 2 weeks. Nurse practitioner note has been reviewed by physician. Signing provider agrees with the documented findings, assessment, and plan of care documented by CRYSTAL MOUNTER as a scribe. Objective - Vital Signs Vital signs: Vital Signs Temp 97.9 F 10/23/24 08:00 Pulse 73 10/23/24 08:00 Resp 16 10/23/24 08:00 BP 152/70 10/23/24 08:00 Pulse Ox 97 10/23/24 08:00 FiO2 Intake & Output 10/22/24 10/23/24 10/23/24 18:59 06:59 18:59 Intake Total 476 Balance 476 Weight 50.5 kg Intake: Oral 476 Other: Voiding Method External Catheter External Catheter - Labs CBC & Chem 7: 10/23/24 05:36 10/23/24 05:36 Labs: Abnormal Lab Results - Last 24 Hours (Table) 10/22/24 10/22/24 10/23/24 Range/Units 16:47 19:56 00:20 MCV (80.0-100.0) fL Sodium (137-145) mmol/L BUN (7-17) mg/dL POC Glucose (mg/dL) 113 H 121 H 111 H (70-110) mg/dL Alkaline Phosphatase (38-126) U/L Total Protein (6.3-8.2) g/dL Albumin (3.5-5.0) g/dL 10/23/24 10/23/24 Range/Units 05:36 05:36 MCV 100.2 H (80.0-100.0) fL Sodium 136 L (137-145) mmol/L BUN 22 H (7-17) mg/dL POC Glucose (mg/dL) (70-110) mg/dL Alkaline Phosphatase 37 L (38-126) U/L Total Protein 5.8 L (6.3-8.2) g/dL Albumin 3.3 L (3.5-5.0) g/dL
[2024-10-23 13:46] LABS: Glucose,Whole Blood 70 mg/dL (70-110)
== END 2024-10-23 13:39 | DRG 64 ==
LOC: EC 12:56 → 3SCARD 15:17
PROVIDERS: ADMIT Student in an Organized Health Care Education/Training Program; ATTEND Student in an Organized Health Care Education/Training Program
DX: I63.9 Cerebral infarction, unspecified (principal); I21.A1 Myocardial infarction type 2; I50.31 Acute diastolic (congestive) heart failure; E87.20 Acidosis, unspecified; G81.94 Hemiplegia, unspecified affecting left nondominant side; R13.10 Dysphagia, unspecified; I11.0 Hypertensive heart disease with heart failure; E11.649 Type 2 diabetes mellitus with hypoglycemia without coma; I70.0 Atherosclerosis of aorta; I08.2 Rheumatic disorders of both aortic and tricuspid valves; I65.01 Occlusion and stenosis of right vertebral artery; I48.92 Unspecified atrial flutter; I25.10 Atherosclerotic heart disease of native coronary artery without angina pectoris; E86.0 Dehydration; E78.1 Pure hyperglyceridemia; Z95.0 Presence of cardiac pacemaker; Z88.5 Allergy status to narcotic agent; Z88.0 Allergy status to penicillin; Z91.128 Patient's intentional underdosing of medication regimen for other reason; Z91.148 Patient's other noncompliance with medication regimen for other reason; Z87.891 Personal history of nicotine dependence; Z91.09 Other allergy status, other than to drugs and biological substances; Z79.82 Long term (current) use of aspirin; Z79.899 Other long term (current) drug therapy; Z90.710 Acquired absence of both cervix and uterus; Z96.641 Presence of right artificial hip joint
CPT/HCPCS: 36415; 51702; 70450; 70496; 70498; 71046; 80053; 80061; 81001; 83036; 83605; 83735; 83880; 84443; 84484; 85025; 85027; 85610; 85730; 87636; 93005; 93306; 94760; 96361; 96365; 96366; 96375; 99285

== ENCOUNTER 2024-11-05 10:17 | Inpatient (IN) | payer MEDICARE ==
[2024-11-05 10:25] LABS: Glucose,Whole Blood 189 mg/dL (70-110)
[2024-11-05] MEDS: ONDANSETRON 4 MG/2 ML VIAL IVP STA (10:25)
--- NOTE | 2024-11-05 10:36 | XR ---
EXAMINATION TYPE: XR chest 1V portable DATE OF EXAM: 11/05/2024 COMPARISON: 10/18/2024 CLINICAL INDICATION: Female, 79 years old with history of respiratory distress; TECHNIQUE: Single frontal view of the chest is obtained. FINDINGS: There is a 2-lead cardiac pacemaker unchanged in position There is mild prominence of cardiac silhouette. There is stable mild diffuse interstitial opacity likely reflecting mild chronic interstitial changes . There is no airspace consolidation There is no pleural effusion or pneumothorax. The pulmonary vasculature does not appear congested. IMPRESSION: 1. Possibly mild cardiomegaly with 2-lead cardiac pacemaker. 2. Probable mild chronic interstitial changes throughout both lungs. 3. No definite acute cardiopulmonary disease. [facility], , 11/05/2024 10:34 AM
[2024-11-05] MEDS ORDERED: VANCOMYCIN IV PER PHARMACY 1 EACH MISC MISCELLANE PRN (10:37)
[2024-11-05 10:44] LABS: Basophils # (A) 0.1 k/uL (0-0.2); Basophils % (A) 1 %; Eosinophils # (A) 0.1 k/uL (0-0.7); Eosinophils % (A) 0 %; HCT 43.4 % (34.0-46.0); HGB 13.5 gm/dL (11.4-16.0); Lymphocytes # (A) 1.3 k/uL (1.0-4.8); Lymphocytes % (A) 7 %; MCH 31.7 pg (25.0-35.0); MCHC 31.1 g/dL (31.0-37.0); MCV 101.9 fL (80.0-100.0); Macrocytosis Slight; Mean Platelet Volume 9.1; Monocytes % (A) 5 %; Neutrophils # (A) 16.8 k/uL (1.3-7.7); Neutrophils % (A) 87 %; Platelet Count 147 k/uL (150-450); RBC 4.26 m/uL (3.80-5.40); RDW 14.4 % (11.5-15.5); WBC 19.4 k/uL (3.8-10.6)
--- NOTE | 2024-11-05 10:46 | ED ---
General Adult HPI - General Chief complaint: Shortness of Breath Stated complaint: respiratory distress Time Seen by Provider: 11/05/24 10:18 Source: patient, EMS, RN notes reviewed, old records reviewed Mode of arrival: EMS Limitations: altered mental status - History of Present Illness Initial comments: Patient is a 79-year-old female presents emergency department complaining of shortness of breath, altered mental status. Has a history of heart failure, hypertension, hyperlipidemia, stroke. Currently being treated for UTI apparently at her nursing facility. Patient was found this morning hypoxic. Was placed on a nonrebreather but patient was lethargic and not responding much. EMS gave the patient nitro, DuoNeb, Atrovent and route. When the EMS called, I did instruct them to place patient on CPAP. Patient is unable to provide much history. Presents for further evaluation at this time. Patient is on blood thinners. - Related Data Home Medications Medication Instructions Recorded Confirmed Acetaminophen Tab [Tylenol] 650 mg PO Q6HR PRN 11/05/24 11/05/24 Apixaban [Eliquis] 5 mg PO BID@0700,1900 11/05/24 11/05/24 Atorvastatin [Lipitor] 40 mg PO HS@199911/05/24 11/05/24 Melatonin 5 mg PO HS@199911/05/24 11/05/24 Nitrofurantoin Monohyd/M-Cryst 100 mg PO BID@0700,1600 11/05/24 11/05/24 [Macrobid] Potassium Chloride ER [K-Dur 20] 20 meq PO DAILY 11/05/24 11/05/24 Previous Rx's Medication Instructions Recorded Furosemide [Lasix] 20 mg PO DAILY tab 10/23/24 Losartan [Cozaar] 100 mg PO DAILY tab 10/23/24 Allergies Allergy/AdvReac Type Severity Reaction Status Date / Time codeine AdvReac Unknown agitation Verified 11/05/24 13:38 Penicillins AdvReac "Makes me Verified 11/05/24 13:38 cranky" Review of Systems ROS Statement: Those systems with pertinent positive or pertinent negative responses have been documented in the HPI. ROS Other: All systems not noted in ROS Statement are negative. Past Medical History Past Medical History: Chest Pain / Angina, Heart Failure, Hyperlipidemia, Hypertension Additional Past Medical History / Comment(s): pt states she has a "leaky heart valve", pacemaker History of Any Multi-Drug Resistant Organisms: None Reported Past Surgical History: Heart Catheterization, Hysterectomy, Orthopedic Surgery Additional Past Surgical History / Comment(s): Right hip replacement. Lower 3 discs on back are fused together, bilat carpal tunnel Past Anesthesia/Blood Transfusion Reactions: No Reported Reaction Additional Past Anesthesia/Blood Transfusion Reaction / Comment(s): never had blood transfusion Past Psychological History: Depression Smoking Status: Former smoker Past Alcohol Use History: None Reported Past Drug Use History: None Reported - Past Family History Father Family Medical History: Cancer Additional Family Medical History / Comment(s): lung CA Mother Family Medical History: Cancer Additional Family Medical History / Comment(s): Scolosis, colon cancer General Exam - General Exam Comments Initial Comments: General: Appears in no acute distress. HEAD: Normal with no signs of head trauma. EYES: PERRLA, EOMI, conjunctiva normal, no discharge. ENT: Hearing grossly intact, normal oropharynx. RESPIRATORY: Coarse breath sounds bilaterally. Increased work of breathing. Hypoxic to 90% on CPAP as we are transitioning to BiPAP. Improved on BiPAP to mid 90%. C/V: Regular rate and rhythm. S1 and S2 auscultated,No significant peripheral edema, peripheral pulses 2+ and intact throughout ABD: Abd is soft, nontender, nondistended EXT: Normal range of motion, no obvious deformity SKIN: No rashes or lesions observed on exposed skin. NEURO: And oriented x 1. No focal acute deficits. Does have residual left- sided deficits from prior stroke. Limitations: altered mental status Course Vital Signs 11/05/24 11/05/24 11/05/24 10:18 10:23 11:50 Temperature 97.9 F Pulse Rate 87 Respiratory 34 H Rate Blood Pressure 95/60 O2 Sat by Pulse 90 L Oximetry Fraction of 100 100 Inspired Oxygen (FIO2) 11/05/24 11/05/24 11/05/24 12:00 14:00 15:00 Temperature 97.5 F L Pulse Rate 74 75 76 Respiratory 34 H 30 H 30 H Rate Blood Pressure 98/73 122/75 139/67 O2 Sat by Pulse 100 100 100 Oximetry Fraction of Inspired Oxygen (FIO2) 11/05/24 16:00 Temperature Pulse Rate 79 Respiratory 30 H Rate Blood Pressure 125/71 O2 Sat by Pulse 100 Oximetry Fraction of Inspired Oxygen (FIO2) Medical Decision Making - Medical Decision Making Was pt. sent in by a medical professional or institution (JACEK Quiroz, [facility], urgent care, hospital, or skilled nursing...) When possible be specific @ -Sent from [facility]. Did you speak to anyone other than the patient for history (EMS, parent, family, police, friend...)? What history was obtained from this source @ -No Did you review nursing and triage notes (agree or disagree)? Why? @ -I reviewed and agree with nursing and triage notes Were old charts reviewed (outside hosp., previous admission, EMS record, old EKG, old radiological studies, urgent care reports/EKG's, skilled nursing records)? Report findings @ -Reviewed charts from nursing facility showing patient recently diagnosed with UTI and placed on antibiotics. Differential Diagnosis (chest pain, altered mental status, abdominal pain women, abdominal pain men, vaginal bleeding, weakness, fever, dyspnea, syncope, headache, dizziness, GI bleed, back pain, seizure, CVA, palpatations, mental health, musculoskeletal)? @ -Differential Dyspnea: Coronary syndrome, arrhythmia, tamponade, asthma, COPD, pulmonary embolism, pneumonia, pneumothorax, pulmonary effusion, anaphylaxis, diabetic ketoacidosis, flailed chest, pulmonary contusion, diaphragmatic rupture, anemia, neuromuscular, this is not meant to be an all-inclusive list. EKG interpreted by me (3pts min.). @ -As above X-rays interpreted by me (1pt min.). @ -Chest x-ray shows no significant pulmonary vascular congestion. Chronic in terstitial changes throughout both lungs. Pacemaker in place. CT interpreted by me (1pt min.). @ -CT brain shows no obvious acute intracranial process. Chest CT angiogram shows no evidence of PE but does show bilateral lower lobe pneumonia. Patient does have old stable lacunar infarcts present on CT brain. CT abdomen pelvis shows no obvious acute intra-abdominal process. U/S interpreted by me (1pt. min.). @ -None done What testing was considered but not performed or refused? (CT, X-rays, U/S, labs)? Why? @ -None What meds were considered but not given or refused? Why? @ -None Did you discuss the management of the patient with other professionals (professionals i.e. JACEK Quiroz, [facility], lab, RT, psych nurse, social worker school, steward/stewardess railroad dining car, teacher, chief innovation officer, major case detective)? Give summary @ -Spoke with pulmonology, Dr. Win who is in agreement management in agreement with admission to the ICU. Spoke with admitting team, MARLENE Giraldo [facility] who accepted the admission. Was smoking cessation discussed for >3mins.? @ -No Was critical care preformed (if so, how long)? @ -Yes, 43 minutes. Were there social determinants of health that impacted care today? How? (Homelessness, low income, unemployed, alcoholism, drug addiction, transportation, low edu. Level, literacy, decrease access to med. care, snf, rehab)? @ -No Was there de-escalation of care discussed even if they declined (Discuss DNR or withdrawal of care, Hospice)? DNR status @ -Nursing staff discussed with lizett who is unaware of CODE STATUS for the patient. Patient's documentation from nursing facility shows that she is a full code at this time. What co-morbidities impacted this encounter? (DM, HTN, Smoking, COPD, CAD, Cancer, CVA, ARF, Chemo, Hep., AIDS, mental health diagnosis, sleep apnea, morbi d obesity)? @ -CHF, recently diagnosed UTI on antibiotics, left-sided deficits that are chronic from prior CVA Was patient admitted / discharged? Hospital course, mention meds given and route, prescriptions, significant lab abnormalities, going to OR and other pertinent info. @ -Patient presents emergency department for lethargy, hypoxic respiratory failure. Has a history of CHF. Apparently was found this morning with these findings. Patient immediately placed on BiPAP upon arrival. Oxygenation improved. Was hypoxic to 50%'s per EMS at her facility. She presents tachypneic. Stable blood pressures. Coarse breath sounds on evaluation. Will obtain broad workup. Will monitor for any improvement. According to paperwork, patient is a full code. EKG shows a paced rhythm with chronic findings. With Sgarbossa's criteria, does not meet minimum threshold for STEMI, and does have chronic nonspecific ST segment elevations and depressions in the paced rhythm based on prior EKGs from September 2024. Chest x-ray revealed no obvious acute cardiopulmonary process. No significant CHF present. Clinically does not present like CHF either. At this time, patient does meet criteria for sepsis. Patient meets sepsis criteria at 1035. Blood cultures obtained and sent. Patient placed on broad- spectrum vancomycin and cefepime. Urinalysis and urine culture will be obtained and sent. With her history of CHF, as well as her hypoxic respiratory failure, as well as concern for this possibly being CHF as the source of her hypoxic respiratory failure patient will not receive the 30 cc/kg fluid bolus but rather we will closely watch the patient's IV fluid hydration. Laboratory studies returned remarkable for leukocytosis of 19.4. Patient has a slight TAYLOR with elevated BUN and creatinine 34 and 1.29. Lactic acid is elevated 3.9 likely probably factorial from hypoxia as well as infection, troponin is elevated to 0.395 also likely secondary to an underlying infection. BNP is elevated however I do believe this is likely secondary to pneumonia, as patient clinically does not present as CHF. Urinalysis is significant for UTI. CT PE was obtained which showed bilateral lower lobe pneumonia and CT abdomen pelvis revealed no obvious acute intra-abdominal process. CT brain was obtained due to her altered mental status which revealed no evidence of any acute intracranial process. ABG is significant for hypoxia with a decreased PaO2 however otherwise is adequate considering her presentation. Will continue with BiPAP therapy. Patient's mentation is also improved as she is communicating well. Is now alert and oriented x 2-3 rather than alert and oriented x 1. At this time, patient will be admitted for her sepsis likely secondary from pneumonia and UTI. Patient is placed on maintenance lactated ringer fluids however we will not provide any more boluses at that this time. Will continue IV hydration with the maintenance fluids, IV antibiotics. Patient was in agre ement this plan. Cardiology consulted. Will trend the troponin.Patient given rectal aspirin. Spoke with pulmonology, Dr. Win who is in agreement management in agreement with admission to the ICU. Spoke with admitting team, MARLENE Giraldo [facility] who accepted the admission. Undiagnosed new problem with uncertain prognosis? @ -No Drug Therapy requiring intensive monitoring for toxicity (Heparin, Nitro, Insulin, Cardizem)? @ -No Were any procedures done? @ -No Diagnosis/symptom? @ -Hypoxic respiratory failure likely secondary to septic pneumonia, UTI. Encephalopathy from septic pneumonia and UTI as well as hypoxia. NSTEMI. Acute, or Chronic, or Acute on Chronic? @ -Acute Uncomplicated (without systemic symptoms) or Complicated (systemic symptoms)? @ -Complicated Side effects of treatment? @ -No Exacerbation, Progression, or Severe Exacerbation? @ -No Poses a threat to life or bodily function? How? (Chest pain, [place], [place], pneumonia, PE, COPD, DKA, ARF, appy, cholecystitis, CVA, Diverticulitis, Homicidal, Suicidal, threat to staff... and all critical care pts) @ -Yes - Lab Data Result diagrams: 11/05/24 10:28 11/05/24 10:28 Lab Results 11/05/24 11/05/24 11/05/24 Range/Units 10:23 10:28 10:28 WBC 19.4 H (3.8-10.6) k/uL RBC 4.26 (3.80-5.40) m/uL Hgb 13.5 (11.4-16.0) gm/dL Hct 43.4 (34.0-46.0) % MCV 101.9 H (80.0-100.0) fL MCH 31.7 (25.0-35.0) pg MCHC 31.1 (31.0-37.0) g/dL RDW 14.4 (11.5-15.5) % Plt Count 147 L (150-450) k/uL MPV 9.1 Neutrophils % 87 % Lymphocytes % 7 % Monocytes % 5 % Eosinophils % 0 % Basophils % 1 % Neutrophils # 16.8 H (1.3-7.7) k/uL Lymphocytes # 1.3 (1.0-4.8) k/uL Monocytes # 1.0 (0-1.0) k/uL Eosinophils # 0.1 (0-0.7) k/uL Basophils # 0.1 (0-0.2) k/uL Macrocytosis Slight PT 12.7 H (10.0-12.5) sec INR 1.2 H (<1.2) APTT 28.0 (22.0-30.0) sec Sample Site ABG pH (7.35-7.45) ABG pCO2 (35-45) mmHg ABG pO2 (83-108) mmHg ABG HCO3 (21-25) mmol/L ABG Total CO2 (19-24) mmol/L ABG O2 Saturation (94-97) % ABG Base Excess mmol/L Finn Test Hemoglobin (11.4-16.0) gm/dL FiO2 % Sodium (137-145) mmol/L Potassium (3.5-5.1) mmol/L Chloride (98-107) mmol/L Carbon Dioxide (22-30) mmol/L Anion Gap mmol/L BUN (7-17) mg/dL Creatinine (0.52-1.04) mg/dL Est GFR (CKD-EPI)AfAm (>60 ml/min/1.73 sqM) Est GFR (CKD-EPI)NonAf (>60 ml/min/1.73 sqM) Glucose (74-99) mg/dL POC Glucose (mg/dL) 189 H (70-110) mg/dL POC Glu Slate Splitter ID MEDIC MIK Lactic Ac Sepsis Rflx Plasma Lactic Acid Connor (0.7-2.0) mmol/L Calcium (8.4-10.2) mg/dL Magnesium (1.6-2.3) mg/dL Total Bilirubin (0.2-1.3) mg/dL AST (14-36) U/L ALT (4-34) U/L Alkaline Phosphatase (38-126) U/L Troponin I (0.000-0.034) ng/mL NT-Pro-B Natriuret Pep pg/mL Total Protein (6.3-8.2) g/dL Albumin (3.5-5.0) g/dL Urine Color Urine Appearance (Clear) Urine pH (5.0-8.0) Ur Specific [place] (1.001-1.035) Urine Protein (Negative) Urine Glucose (UA) (Negative) Urine Ketones (Negative) Urine Blood (Negative) Urine Nitrite (Negative) Urine Bilirubin (Negative) Urine Urobilinogen (<2.0) mg/dL Ur Leukocyte Esterase (Negative) Urine RBC (0-5) /hpf Urine WBC (0-5) /hpf Urine WBC Clumps (None) /hpf Ur Squamous Epith Cells (0-4) /hpf Urine Bacteria (None) /hpf Urine Mucus (None) /hpf Influenza Type A (PCR) (Not Detectd) Influenza Type B (PCR) (Not Detectd) RSV (PCR) (Not Detectd) SARS-CoV-2 (PCR) (Not Detectd) 11/05/24 11/05/24 11/05/24 Range/Units 10:28 10:28 10:28 WBC (3.8-10.6) k/uL RBC (3.80-5.40) m/uL Hgb (11.4-16.0) gm/dL Hct (34.0-46.0) % MCV (80.0-100.0) fL MCH (25.0-35.0) pg MCHC (31.0-37.0) g/dL RDW (11.5-15.5) % Plt Count (150-450) k/uL MPV Neutrophils % % Lymphocytes % % Monocytes % % Eosinophils % % Basophils % % Neutrophils # (1.3-7.7) k/uL Lymphocytes # (1.0-4.8) k/uL Monocytes # (0-1.0) k/uL Eosinophils # (0-0.7) k/uL Basophils # (0-0.2) k/uL Macrocytosis PT (10.0-12.5) sec INR (<1.2) APTT (22.0-30.0) sec Sample Site ABG pH (7.35-7.45) ABG pCO2 (35-45) mmHg ABG pO2 (83-108) mmHg ABG HCO3 (21-25) mmol/L ABG Total CO2 (19-24) mmol/L ABG O2 Saturation (94-97) % ABG Base Excess mmol/L Finn Test Hemoglobin (11.4-16.0) gm/dL FiO2 % Sodium 138 (137-145) mmol/L Potassium 3.9 (3.5-5.1) mmol/L Chloride 102 (98-107) mmol/L Carbon Dioxide 21 L (22-30) mmol/L Anion Gap 15 mmol/L BUN 34 H (7-17) mg/dL Creatinine 1.29 H (0.52-1.04) mg/dL Est GFR (CKD-EPI)AfAm 46 (>60 ml/min/1.73 sqM) Est GFR (CKD-EPI)NonAf 40 (>60 ml/min/1.73 sqM) Glucose 192 H (74-99) mg/dL POC Glucose (mg/dL) (70-110) mg/dL POC Glu Slate Splitter ID Lactic Ac Sepsis Rflx Plasma Lactic Acid Connor 3.9 H* (0.7-2.0) mmol/L Calcium 9.0 (8.4-10.2) mg/dL Magnesium 2.1 (1.6-2.3) mg/dL Total Bilirubin 1.4 H (0.2-1.3) mg/dL AST 272 H (14-36) U/L ALT 116 H (4-34) U/L Alkaline Phosphatase 76 (38-126) U/L Troponin I 0.395 H* (0.000-0.034) ng/mL NT-Pro-B Natriuret Pep 59017 pg/mL Total Protein 6.8 (6.3-8.2) g/dL Albumin 4.0 (3.5-5.0) g/dL Urine Color Urine Appearance (Clear) Urine pH (5.0-8.0) Ur Specific [place] (1.001-1.035) Urine Protein (Negative) Urine Glucose (UA) (Negative) Urine Ketones (Negative) Urine Blood (Negative) Urine Nitrite (Negative) Urine Bilirubin (Negative) Urine Urobilinogen (<2.0) mg/dL Ur Leukocyte Esterase (Negative) Urine RBC (0-5) /hpf Urine WBC (0-5) /hpf Urine WBC Clumps (None) /hpf Ur Squamous Epith Cells (0-4) /hpf Urine Bacteria (None) /hpf Urine Mucus (None) /hpf Influenza Type A (PCR) (Not Detectd) Influenza Type B (PCR) (Not Detectd) RSV (PCR) (Not Detectd) SARS-CoV-2 (PCR) (Not Detectd) 11/05/24 11/05/24 11/05/24 Range/Units 10:28 10:44 11:08 WBC (3.8-10.6) k/uL RBC (3.80-5.40) m/uL Hgb (11.4-16.0) gm/dL Hct (34.0-46.0) % MCV (80.0-100.0) fL MCH (25.0-35.0) pg MCHC (31.0-37.0) g/dL RDW (11.5-15.5) % Plt Count (150-450) k/uL MPV Neutrophils % % Lymphocytes % % Monocytes % % Eosinophils % % Basophils % % Neutrophils # (1.3-7.7) k/uL Lymphocytes # (1.0-4.8) k/uL Monocytes # (0-1.0) k/uL Eosinophils # (0-0.7) k/uL Basophils # (0-0.2) k/uL Macrocytosis PT (10.0-12.5) sec INR (<1.2) APTT (22.0-30.0) sec Sample Site Right Brachial ABG pH 7.32 L (7.35-7.45) ABG pCO2 46 H (35-45) mmHg ABG pO2 72 L (83-108) mmHg ABG HCO3 24 (21-25) mmol/L ABG Total CO2 25 H (19-24) mmol/L ABG O2 Saturation 92.9 L (94-97) % ABG Base Excess -2.8 mmol/L Finn Test Yes Hemoglobin 12.7 (11.4-16.0) gm/dL FiO2 100 % Sodium (137-145) mmol/L Potassium (3.5-5.1) mmol/L Chloride (98-107) mmol/L Carbon Dioxide (22-30) mmol/L Anion Gap mmol/L BUN (7-17) mg/dL Creatinine (0.52-1.04) mg/dL Est GFR (CKD-EPI)AfAm (>60 ml/min/1.73 sqM) Est GFR (CKD-EPI)NonAf (>60 ml/min/1.73 sqM) Glucose (74-99) mg/dL POC Glucose (mg/dL) (70-110) mg/dL POC Glu Slate Splitter ID Lactic Ac Sepsis Rflx Plasma Lactic Acid Connor (0.7-2.0) mmol/L Calcium (8.4-10.2) mg/dL Magnesium (1.6-2.3) mg/dL Total Bilirubin (0.2-1.3) mg/dL AST (14-36) U/L ALT (4-34) U/L Alkaline Phosphatase (38-126) U/L Troponin I (0.000-0.034) ng/mL NT-Pro-B Natriuret Pep pg/mL Total Protein (6.3-8.2) g/dL Albumin (3.5-5.0) g/dL Urine Color Dark Brown Urine Appearance Turbid H (Clear) Urine pH 5.5 (5.0-8.0) Ur Specific [place] 1.017 (1.001-1.035) Urine Protein 2+ H (Negative) Urine Glucose (UA) Negative (Negative) Urine Ketones Trace H (Negative) Urine Blood Large H (Negative) Urine Nitrite Negative (Negative) Urine Bilirubin Negative (Negative) Urine Urobilinogen <2.0 (<2.0) mg/dL Ur Leukocyte Esterase Moderate H (Negative) Urine RBC >182 H (0-5) /hpf Urine WBC >182 H (0-5) /hpf Urine WBC Clumps Many H (None) /hpf Ur Squamous Epith Cells 27 H (0-4) /hpf Urine Bacteria Few H (None) /hpf Urine Mucus Many H (None) /hpf Influenza Type A (PCR) Not Detected (Not Detectd) Influenza Type B (PCR) Not Detected (Not Detectd) RSV (PCR) Not Detected (Not Detectd) SARS-CoV-2 (PCR) Not Detected (Not Detectd) 11/05/24 Range/Units 11:51 WBC (3.8-10.6) k/uL RBC (3.80-5.40) m/uL Hgb (11.4-16.0) gm/dL Hct (34.0-46.0) % MCV (80.0-100.0) fL MCH (25.0-35.0) pg MCHC (31.0-37.0) g/dL RDW (11.5-15.5) % Plt Count (150-450) k/uL MPV Neutrophils % % Lymphocytes % % Monocytes % % Eosinophils % % Basophils % % Neutrophils # (1.3-7.7) k/uL Lymphocytes # (1.0-4.8) k/uL Monocytes # (0-1.0) k/uL Eosinophils # (0-0.7) k/uL Basophils # (0-0.2) k/uL Macrocytosis PT (10.0-12.5) sec INR (<1.2) APTT (22.0-30.0) sec Sample Site ABG pH (7.35-7.45) ABG pCO2 (35-45) mmHg ABG pO2 (83-108) mmHg ABG HCO3 (21-25) mmol/L ABG Total CO2 (19-24) mmol/L ABG O2 Saturation (94-97) % ABG Base Excess mmol/L Finn Test Hemoglobin (11.4-16.0) gm/dL FiO2 % Sodium (137-145) mmol/L Potassium (3.5-5.1) mmol/L Chloride (98-107) mmol/L Carbon Dioxide (22-30) mmol/L Anion Gap mmol/L BUN (7-17) mg/dL Creatinine (0.52-1.04) mg/dL Est GFR (CKD-EPI)AfAm (>60 ml/min/1.73 sqM) Est GFR (CKD-EPI)NonAf (>60 ml/min/1.73 sqM) Glucose (74-99) mg/dL POC Glucose (mg/dL) (70-110) mg/dL POC Glu Slate Splitter ID Lactic Ac Sepsis Rflx Y Plasma Lactic Acid Connor (0.7-2.0) mmol/L Calcium (8.4-10.2) mg/dL Magnesium (1.6-2.3) mg/dL Total Bilirubin (0.2-1.3) mg/dL AST (14-36) U/L ALT (4-34) U/L Alkaline Phosphatase (38-126) U/L Troponin I (0.000-0.034) ng/mL NT-Pro-B Natriuret Pep pg/mL Total Protein (6.3-8.2) g/dL Albumin (3.5-5.0) g/dL Urine Color Urine Appearance (Clear) Urine pH (5.0-8.0) Ur Specific [place] (1.001-1.035) Urine Protein (Negative) Urine Glucose (UA) (Negative) Urine Ketones (Negative) Urine Blood (Negative) Urine Nitrite (Negative) Urine Bilirubin (Negative) Urine Urobilinogen (<2.0) mg/dL Ur Leukocyte Esterase (Negative) Urine RBC (0-5) /hpf Urine WBC (0-5) /hpf Urine WBC Clumps (None) /hpf Ur Squamous Epith Cells (0-4) /hpf Urine Bacteria (None) /hpf Urine Mucus (None) /hpf Influenza Type A (PCR) (Not Detectd) Influenza Type B (PCR) (Not Detectd) RSV (PCR) (Not Detectd) SARS-CoV-2 (PCR) (Not Detectd) - EKG Data -: EKG Interpreted by Me EKG Comments: 12-lead Electrocardiogram Interpretation Note EKG was reviewed and interpreted by myself. 12-lead ECG performed at 1052 is interpreted by me as revealing paced rhythm at a rate of 69 beats per minute. Indeterminate axis. CA interval is 180 ms, QRS durations 176 ms, QTc is 481 ms.. Patient does have some mild ST segment elevations however per Sgarbossa's criteria, does not meet threshold for STEMI.. R wave progression across the precordium was delayed. By my interpretation this EKG is non-diagnostic for acute ischemia. Overall this EKG does have a baseline artifact which does make interpretation somewhat difficult. Critical Care Time Critical Care Time: Yes Total Critical Care Time: 43 Disposition Clinical Impression: Sepsis, Pneumonia, UTI (urinary tract infection), Hypoxic respiratory failure, Encephalopathy, NSTEMI (non-ST elevated myocardial infarction) Disposition: ADMITTED IP TO THIS HOSP Condition: Serious Time of Disposition: 14:10
[2024-11-05 10:48] LABS: ABG Base Excess -2.8 mmol/L; ABG HCO3 24 mmol/L (21-25); ABG Oxygen Saturation 92.9 % (94-97); ABG PCO2 46 mmHg (35-45); ABG PH 7.32 (7.35-7.45); ABG PO2 72 mmHg (83-108); ABG TCO2 25 mmol/L (19-24); Allen Test Performed? Yes
[2024-11-05 10:53] LABS: ALT 116 U/L (4-34); AST 272 U/L (14-36); African American GFR (CKD) 46 (>60 ml/min/1.73 sqM); Alkaline Phosphatase 76 U/L (38-126); Anion Gap 15 mmol/L; Blood Urea Nitrogen 34 mg/dL (7-17); Carbon Dioxide 21 mmol/L (22-30); Chloride 102 mmol/L (98-107); Magnesium 2.1 mg/dL (1.6-2.3); Non-African American GFR(CKD) 40 (>60 ml/min/1.73 sqM); Potassium 3.9 mmol/L (3.5-5.1); Sodium 138 mmol/L (137-145); Total Bilirubin 1.4 mg/dL (0.2-1.3); Total Protein 6.8 g/dL (6.3-8.2)
[2024-11-05] MEDS: CEFEPIME 2 GM in SODIUM CHLORIDE 0.9% 100 ML IVPB SCH ×2 (10:57→23:11)
[2024-11-05 11:03] LABS: INR 1.2 (<1.2); Prothrombin Time 12.7 sec (10.0-12.5)
[2024-11-05] MEDS: VANCOMYCIN 1,000 MG in SODIUM CHLORIDE 0.9% 250 ML IVPB ONE (11:13)
[2024-11-05 11:20] LABS: Influenza A Not Detected (Not Detectd); Influenza B Not Detected (Not Detectd); RSV Not Detected (Not Detectd)
[2024-11-05 11:24] LABS: Appearance,Urine Turbid (Clear); Bacteria,Urine Few /hpf; Bilirubin,Urine Negative (Negative); Blood,Urine Large (Negative); Color,Urine Dark Brown; Glucose,Urine (UA) Negative (Negative); Ketones,Urine Trace (Negative); Leukocyte Esterase,Urine Moderate (Negative); Mucus,Urine Many /hpf; Nitrite,Urine Negative (Negative); PH, Urine 5.5 (5.0-8.0); Protein,Urine 2+ (Negative); RBC,Urine >182 /hpf (0-5); Specific Gravity,Urine 1.017 (1.001-1.035); Squamous Epithelial Cell,Urine 27 /hpf (0-4); Urobilinogen,Urine <2.0 mg/dL (<2.0); WBC,Urine >182 /hpf (0-5)
[2024-11-05 11:28] LABS: Glucose 192 mg/dL (74-99)
[2024-11-05 11:38] LABS: NT-Pro-B-Type Natriuretic Pept 29200 pg/mL
--- NOTE | 2024-11-05 11:52 | CT ---
EXAMINATION TYPE: CT brain wo con DATE OF EXAM: 11/05/2024 COMPARISON: 10/20/2024 CLINICAL INDICATION: Female, 79 years old with history of dyspnea; PHH, AMS CT DLP: 1230.4 mGycm Automated exposure control for dose reduction was used. Findings: Ventricles, basal cisterns and sulci with convexities are moderately enlarged consistent with moderat e generalized atrophy. There is mild decreased density in the periventricular white matter consistent with mild chronic isch emic white matter demyelination. There are stable remote lacunar infarcts in the left centrum semiovale and in the region of the right basal ganglia. There is no acute intra or extra-axial hemorrhage. The posterior fossa including the brainstem, fourth ventricle and cerebellopontine angles appear norm al. The intraorbital contents appear normal and symmetric. Visualized paranasal sinuses and mastoid air cells are well aerated. Impression: 1. No acute bleed or mass effect. 2. Stable remote lacunar infarcts as described above. 3. Moderate generalized age-appropriate atrophy [facility], Workstation: [email or web address] 11/05/2024 11:50 AM
--- NOTE | 2024-11-05 12:27 | CT ---
EXAMINATION TYPE: CT chest angio for PE DATE OF EXAM: 11/05/2024 COMPARISON: None CLINICAL INDICATION: Female, 79 years old with history of dyspnea; PHH, DYSPNEA, SOB or PAIN TECHNIQUE: Ct angiogram of the chest performed with with IV Contrast, patient injected with 80 mL of Isovue 370. MIP images are created and reviewed. 3-D postprocessing was performed. CT DLP: 308.[address] CTDI: mGy Automated exposure control for dose reduction was used. FINDINGS: There are scattered partially consolidative opacities primarily in the lower lobes posteriorly suspic ious for acute pneumonia. There is a small left pleural effusion. There are no filling defects within the pulmonary arterial circulation to suggest pulmonary emboli. There is no mediastinal, hilar or axillary adenopathy. There is no thoracic aortic aneurysm. Limited scanning through the upper abdomen reveals multiple large gallstones. There is a small nonobs tructing right renal calculus. There are no focal osseous lesions. IMPRESSION: 1. No evidence of pulmonary embolism. 2. Bilateral consolidative opacities primarily in the lower lobes suspicious for acute pneumonia. 3. Small left pleural effusion. 4. Cholelithiasis. [facility], , 11/05/2024 12:24 PM
--- NOTE | 2024-11-05 12:32 | CT ---
EXAMINATION TYPE: CT abdomen pelvis w con DATE OF EXAM: 11/05/2024 COMPARISON: None CLINICAL INDICATION: Female, 79 years old with history of dyspnea; PHH, DYSPNEA/ ABD PAIN TECHNIQUE: Performed without Oral Contrast and with IV Contrast, patient injected with 80 mL of Isovue 370. CT DLP: 946.[address] CTDI: mGy Automated exposure control for dose reduction was used. FINDINGS: There are moderate bibasilar consolidation suspicious for pneumonia. There is a small left pleural ef fusion. There are multiple large gallstones but no gallbladder distention or pericholecystic fluid. There is no biliary ductal dilatation. There is no focal mass or organomegaly involving the liver, pancreas, spleen or adrenal glands. There is no solid renal mass or hydronephrosis and there is homogeneous contrast enhancement of the r enal parenchyma. The caliber the abdominal aorta is normal is no retroperitoneal adenopathy or hemorrhage. The bowel loops are normal in caliber and there is no evidence of dilatation or obstruction. No infla mmatory changes are identified in the bowel wall or mesentery. There is a large amount of stool withi n the rectum and sigmoid colon. There is no free intraperitoneal air or fluid. No pelvic mass, free fluid, abscess or adenopathy. 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 There is wide laminectomy and posterior metallic fusion from L4 through S1. There is a grade 2 pasha listhesis of L5 on S1 and grade 1 anterolisthesis of L4 on L5. There is a right hip prosthesis. There are no focal osseous lesions. IMPRESSION: 1. Bibasilar pneumonias and small left effusion. 2. Cholelithiasis. 3. No bowel obstruction but a large amount stool within the rectum and sigmoid colon. 4. Extensive postsurgical changes and degenerative changes in the lower lumbar spine as described abo ve [facility], , 11/05/2024 12:30 PM
[2024-11-05] MEDS: LACTATED RINGERS 500 ML IV ONE (12:39)
[2024-11-05] MEDS: LACTATED RINGERS 1,000 ML IV SCH ×2 (12:40→21:24)
[2024-11-05] MEDS ORDERED: PNEUMONIA PROTOCOL UTILIZED 1 EACH MISC PO PRN (13:49)
[2024-11-05] MEDS ORDERED: IPRATROPIUM-ALBUTEROL 3 ML NEB INHALATION PRN (13:49)
--- NOTE | 2024-11-05 14:13 | P.HPIM ---
History of Present Illness H&P Date: 11/05/24 Patient is on continuous BiPAP. Communication is limited. Most information is obtained from chart review. 78-year-old female with history of CAD, symptomatic bradycardia with multiple cardiac pauses resulted in permanent pacemaker placement 10/07/2022, valvular heart disease, diastolic heart failure, hypertension, hyperlipidemia, atrial flutter on Eliquis presents to the ED for lethargy and shortness of breath. Recently hospitalized for CVA and discharged to [facility] on 10/23. In the ED she underwent extensive evaluation. BP 95/60, RR 34, T 97.9F, HR 87, 90% on BiPAP FiO2 of 100%. CBC, Coag panel, CMP significant for WBC 19.4, MCV 101.9, Plt 149, PT 12.7, INR 1.2, bicarb 21, BUN 34, Cr 1.29, glu 192, T. Bili 1.4, AST 272, ALT 116. BNP 84804. Trop 0.395. Lactic acid 3.9. Mag 2.1. ABG pH 7.32, pCO2 46, pO2 72 on FiO2 100%. UA moderate LE and large blood. COVID, RSV, Flu neg. CXR cardiomegaly with pacemaker, chronic interstitial changes with no acute process. CT brain no acute process. CTA chest no PE, bilateral opacities, small L pleural effusion, cholelithiasis. CT AP large stool burden, post surgical lumbar spine changes. EKG atrial and ventricular paced rhythm. Patient is ad mitted to ICU secondary to sepsis due to PNA and need for continuous BiPAP. General: toxic, severe distress, appears at stated age, on BiPAP Derm: warm, dry Head: atraumatic, normocephalic, symmetric Eyes: EOMI, no lid lag, anicteric sclera Mouth: no lip lesion, mucus membranes moist Cardiovascular: S1S2 reg, no murmur Lungs: Coarse BS bilateral, no rhonchi, no rales , + accessory muscle use Abdominal: soft, nontender to palpation, no guarding, no appreciable organomegaly Ext: no gross muscle atrophy, no edema, no contractures Neuro: no focal neuro deficits Psych: lethargic Based on my assessment of this patient, this patient meets a high complexity level of care. Acute hypoxic respiratory failure and sepsis secondary to PNA: Start Vancomycin dosed per pharmacy and Cefepime 2g IV TID for HCAP. Procal ordered. Sputum + BCx ordered. Legionella Ag ordered. LR at 100 cc/hr. Supplemental O2 to maintain O2 sat > 92%. Telemetry monitoring. Pulmonary on board. NSTEMI: Likely Type II. Eliquis and Lipitor as below. No beta russ due to symptomatic bradycardia. Trend Trop/EKG to rule out ACS. Echo ordered. Cardiology consulted. TAYLOR on CKD with metabolic acidosis: Likely prerenal from hypotension and sepsis. Hold Losartan and Lasix. IV hydration as above. Transaminitis: Obtain Liver and GB US. History of CVA: Eliquis and Lipitor as above. Severe : As per previous Echo. Cardiology consulted. Diastolic CHF: Status post Lasix 40 mg IV x 1. Not in acute exacerbation. Repeat Echo ordered. Cardiology consulted. Hypertension: Now hypotensive. Hold Losartan and Lasix. Dyslipidemia: Lipitor 40 mg PO QHS. Atrial flutter: Eliquis 5 mg PO BID. CODE STATUS: FULL CODE DVT Prophylaxis: Eliquis. GI Prophylaxis: Protonix IV Designated medical POA if patient is not able to make medical decisions for themselves: I have reviewed the following organizational development consultant notes: ED note I have reviewed the results of the following tests: above. I have ordered the following tests: As above. I have discussed the care of this patient with the following independent historian: I have independently interpreted the following test below: EKG I have discussed the management of this patient with the following physician: Past Medical History Past Medical History: Chest Pain / Angina, Heart Failure, Hyperlipidemia, Hypertension Additional Past Medical History / Comment(s): pt states she has a "leaky heart valve", pacemaker History of Any Multi-Drug Resistant Organisms: None Reported Past Surgical History: Heart Catheterization, Hysterectomy, Orthopedic Surgery Additional Past Surgical History / Comment(s): Right hip replacement. Lower 3 discs on back are fused together, bilat carpal tunnel Past Anesthesia/Blood Transfusion Reactions: No Reported Reaction Additional Past Anesthesia/Blood Transfusion Reaction / Comment(s): never had blood transfusion Past Psychological History: Depression Smoking Status: Former smoker Past Alcohol Use History: None Reported Past Drug Use History: None Reported - Past Family History Father Family Medical History: Cancer Additional Family Medical History / Comment(s): lung CA Mother Family Medical History: Cancer Additional Family Medical History / Comment(s): Sawyersis, colon cancer Medications and Allergies Home Medications Medication Instructions Recorded Confirmed Type Furosemide [Lasix] 20 mg PO DAILY tab 10/23/24 11/05/24 Rx Losartan [Cozaar] 100 mg PO DAILY tab 10/23/24 11/05/24 Rx Acetaminophen Tab [Tylenol] 650 mg PO Q6HR PRN 11/05/24 11/05/24 History Apixaban [Eliquis] 5 mg PO BID@0700,1900 11/05/24 11/05/24 History Atorvastatin [Lipitor] 40 mg PO HS@199911/05/24 11/05/24 History Melatonin 5 mg PO HS@199911/05/24 11/05/24 History Nitrofurantoin Monohyd/M-Cryst 100 mg PO BID@0700,1600 11/05/24 11/05/24 History [Macrobid] Potassium Chloride ER [K-Dur 20] 20 meq PO DAILY 11/05/24 11/05/24 History Allergies Allergy/AdvReac Type Severity Reaction Status Date / Time codeine AdvReac Unknown agitation Verified 11/05/24 13:38 Penicillins AdvReac "Makes me Verified 11/05/24 13:38 cranky" Physical Exam Vitals: Vital Signs Temp Pulse Resp BP Pulse Ox FiO2 11/05/24 12:00 74 34 H 98/73 100 11/05/24 11:50 100 11/05/24 10:23 100 11/05/24 10:18 97.9 F 87 34 H 95/60 90 L Intake and Output 11/04/24 11/05/24 11/05/24 21:59 06:59 14:59 Other: Weight 60.01 kg Results CBC & Chem 7: 11/05/24 10:28 11/05/24 10:28 Labs: Abnormal Lab Results - Last 24 Hours (Table) 11/05/24 11/05/24 11/05/24 Range/Units 10:23 10:28 10:28 WBC 19.4 H (3.8-10.6) k/uL MCV 101.9 H (80.0-100.0) fL Plt Count 147 L (150-450) k/uL Neutrophils # 16.8 H (1.3-7.7) k/uL PT 12.7 H (10.0-12.5) sec INR 1.2 H (<1.2) ABG pH (7.35-7.45) ABG pCO2 (35-45) mmHg ABG pO2 (83-108) mmHg ABG Total CO2 (19-24) mmol/L ABG O2 Saturation (94-97) % Carbon Dioxide (22-30) mmol/L BUN (7-17) mg/dL Creatinine (0.52-1.04) mg/dL Glucose (74-99) mg/dL POC Glucose (mg/dL) 189 H (70-110) mg/dL Plasma Lactic Acid Connor (0.7-2.0) mmol/L Total Bilirubin (0.2-1.3) mg/dL AST (14-36) U/L ALT (4-34) U/L Troponin I (0.000-0.034) ng/mL Urine Appearance (Clear) Urine Protein (Negative) Urine Ketones (Negative) Urine Blood (Negative) Ur Leukocyte Esterase (Negative) Urine RBC (0-5) /hpf Urine WBC (0-5) /hpf Urine WBC Clumps (None) /hpf Ur Squamous Epith Cells (0-4) /hpf Urine Bacteria (None) /hpf Urine Mucus (None) /hpf 11/05/24 11/05/24 11/05/24 Range/Units 10:28 10:28 10:28 WBC (3.8-10.6) k/uL MCV (80.0-100.0) fL Plt Count (150-450) k/uL Neutrophils # (1.3-7.7) k/uL PT (10.0-12.5) sec INR (<1.2) ABG pH (7.35-7.45) ABG pCO2 (35-45) mmHg ABG pO2 (83-108) mmHg ABG Total CO2 (19-24) mmol/L ABG O2 Saturation (94-97) % Carbon Dioxide 21 L (22-30) mmol/L BUN 34 H (7-17) mg/dL Creatinine 1.29 H (0.52-1.04) mg/dL Glucose 192 H (74-99) mg/dL POC Glucose (mg/dL) (70-110) mg/dL Plasma Lactic Acid Connor 3.9 H* (0.7-2.0) mmol/L Total Bilirubin 1.4 H (0.2-1.3) mg/dL AST 272 H (14-36) U/L ALT 116 H (4-34) U/L Troponin I 0.395 H* (0.000-0.034) ng/mL Urine Appearance (Clear) Urine Protein (Negative) Urine Ketones (Negative) Urine Blood (Negative) Ur Leukocyte Esterase (Negative) Urine RBC (0-5) /hpf Urine WBC (0-5) /hpf Urine WBC Clumps (None) /hpf Ur Squamous Epith Cells (0-4) /hpf Urine Bacteria (None) /hpf Urine Mucus (None) /hpf 11/05/24 11/05/24 Range/Units 10:44 11:08 WBC (3.8-10.6) k/uL MCV (80.0-100.0) fL Plt Count (150-450) k/uL Neutrophils # (1.3-7.7) k/uL PT (10.0-12.5) sec INR (<1.2) ABG pH 7.32 L (7.35-7.45) ABG pCO2 46 H (35-45) mmHg ABG pO2 72 L (83-108) mmHg ABG Total CO2 25 H (19-24) mmol/L ABG O2 Saturation 92.9 L (94-97) % Carbon Dioxide (22-30) mmol/L BUN (7-17) mg/dL Creatinine (0.52-1.04) mg/dL Glucose (74-99) mg/dL POC Glucose (mg/dL) (70-110) mg/dL Plasma Lactic Acid Connor (0.7-2.0) mmol/L Total Bilirubin (0.2-1.3) mg/dL AST (14-36) U/L ALT (4-34) U/L Troponin I (0.000-0.034) ng/mL Urine Appearance Turbid H (Clear) Urine Protein 2+ H (Negative) Urine Ketones Trace H (Negative) Urine Blood Large H (Negative) Ur Leukocyte Esterase Moderate H (Negative) Urine RBC >182 H (0-5) /hpf Urine WBC >182 H (0-5) /hpf Urine WBC Clumps Many H (None) /hpf Ur Squamous Epith Cells 27 H (0-4) /hpf Urine Bacteria Few H (None) /hpf Urine Mucus Many H (None) /hpf
[2024-11-05] MEDS: ASPIRIN 300 MG SUPP RECTAL STA (14:44)
[2024-11-05] MEDS: IPRATROPIUM-ALBUTEROL 3 ML NEB INHALATION SCH (17:07)
[2024-11-05] MEDS: HEPARIN SODIUM 1,000 UN/ML (10ML VL) IV ONE (17:43)
[2024-11-05] MEDS: HEPARIN SOD,PORK IN 0.45% NACL 25,000 UNIT in 0.45% NACL 1 250ML.BAG IV SCH (17:47)
[2024-11-05 18:35] LABS: Basophils # (A) 0.1 k/uL (0-0.2); Basophils % (A) 0 %; Eosinophils # (A) 0.1 k/uL (0-0.7); Eosinophils % (A) 1 %; HCT 37.8 % (34.0-46.0); Hypochromasia Slight; Lymphocytes # (A) 0.8 k/uL (1.0-4.8); Lymphocytes % (A) 4 %; MCH 32.5 pg (25.0-35.0); MCHC 31.7 g/dL (31.0-37.0); MCV 102.4 fL (80.0-100.0); Macrocytosis Slight; Mean Platelet Volume 9.5; Monocytes # (A) 0.9 k/uL (0-1.0); Monocytes % (A) 5 %; Neutrophils % (A) 89 %; Platelet Count 116 k/uL (150-450); RBC 3.69 m/uL (3.80-5.40); RDW 14.2 % (11.5-15.5); WBC 18.1 k/uL (3.8-10.6)
[2024-11-05 18:55] LABS: INR 1.3 (<1.2); Prothrombin Time 13.4 sec (10.0-12.5)
[2024-11-05] MEDS ORDERED: APIXABAN 5 MG TAB PO SCH (19:00)
[2024-11-05 19:09] LABS: Partial Thromboplastin Time >200.0 sec (22.0-30.0)
[2024-11-05] MEDS: FUROSEMIDE 10 MG/ML 4 ML VIAL IV STA (21:24)
[2024-11-05] MEDS: ASPIRIN 81 MG PO STA (21:24)
[2024-11-05] MEDS: ATORVASTATIN 40 MG TAB PO SCH (23:10)
[2024-11-06 03:48] LABS: INR 1.2 (<1.2); Prothrombin Time 12.9 sec (10.0-12.5)
[2024-11-06 04:09] LABS: Basophils # (A) 0.1 k/uL (0-0.2); Basophils % (A) 0 %; Eosinophils # (A) 0.1 k/uL (0-0.7); Eosinophils % (A) 0 %; HCT 33.9 % (34.0-46.0); HGB 10.7 gm/dL (11.4-16.0); Hypochromasia Slight; Lymphocytes # (A) 1.3 k/uL (1.0-4.8); Lymphocytes % (A) 9 %; MCH 32.2 pg (25.0-35.0); MCHC 31.6 g/dL (31.0-37.0); MCV 101.9 fL (80.0-100.0); Macrocytosis Slight; Mean Platelet Volume 9.1; Monocytes # (A) 0.7 k/uL (0-1.0); Monocytes % (A) 5 %; Neutrophils # (A) 11.2 k/uL (1.3-7.7); Neutrophils % (A) 83 %; Platelet Count 105 k/uL (150-450); RBC 3.33 m/uL (3.80-5.40); RDW 14.1 % (11.5-15.5); WBC 13.5 k/uL (3.8-10.6)
--- NOTE | 2024-11-06 04:56 | P.CNPUL ---
History of Present Illness Consult date: 11/06/24 Requesting physician: Jeyson Mosquera Reason for consult: pneumonia Chief complaint: Shortness of breath History of present illness: Patient is 79 female with past medical history significant for hypertension, hyperlipidemia, CAD, heart failure, permanent pacemaker, atrial flutter anticoagulated on Eliquis, and CVA/TIA. Of note, recently hospitalized 10/18/24- 10/23/24 for CVA/TIA and new onset A.flutter. She was discharged on Eliquis to [facility]. Patient was sent in from her ECF, yesterday morning with a chief concern of increasing work of breathing, hypoxia, and altered mental st atus. Originally, placed on CPAP by EMS, this was transitioned to BiPAP in the ED. Of note, patient reported to be treating for UTI at outside facility. Workup in the emergency department including a brain CT which did not show any acute intracranial bleed or mass effect. Stable remote lacunar infarcts. Chest CTA did not show any evidence of filling defects consistent with pulmonary embolism. Bilateral consolidative opacities, predominantly in the lower lobes, suspicious for bilateral pneumonia. Small left pleural effusion. CT abdomen/pelvis did not show any evidence of acute intra-abdominal process. Large stool burden within the rectum and sigmoid colon. Postsurgical changes and degenerative changes in the lower lumbar spine. CBC: WBC count 13.5, hemoglobin 10.7, platelets 105. CMP: Sodium 138, potassium 3.9, chloride 102, serum bicarb 21, BUN 34, creatinine 1.29, glucose 192. Lactic peaked at 4.2 and is down to 2.6. LFTs mildly elevated. Serial troponins elevated 0.4, 0.41, and 0.38 respectively. NT proBNP significantly elevated at 29,200. EKG: Paced rhythm, 69 bpm. Echocardiogram from 10/18/2024 estimating left ventricular ejection fraction of 55 to 60%. Moderate to severe aortic stenosis. UA appears contaminated. Viral screen negative for influenza A/B, RSV, COVID. Patient started on empiric antibiotics in the form of cefepime and vancomycin in the ED. LR infusing at 130 mL/h. Also, previously systemically anticoagulated on heparin. Patient currently being evaluated in the ED. She appears comfortable on BiPAP with settings 12/5 and FiO2 80%. SpO2 is reading 99% on bedside monitor. ABG done previously with a PaO2 of 72, pCO2 of 46, pH of 7.32. Lethargic, however, awakens to verbal questioning then falls back asleep. Communication is limited by BiPAP. Has been afebrile. Blood pressure normotensive. Review of Systems Limited communication due to noninvasive ventilation Past Medical History Past Medical History: Chest Pain / Angina, Heart Failure, Hyperlipidemia, Hypert ension Additional Past Medical History / Comment(s): pt states she has a "leaky heart valve", pacemaker History of Any Multi-Drug Resistant Organisms: None Reported Past Surgical History: Heart Catheterization, Hysterectomy, Orthopedic Surgery Additional Past Surgical History / Comment(s): Right hip replacement. Lower 3 discs on back are fused together, bilat carpal tunnel Past Anesthesia/Blood Transfusion Reactions: No Reported Reaction Additional Past Anesthesia/Blood Transfusion Reaction / Comment(s): never had blood transfusion Past Psychological History: Depression Smoking Status: Former smoker Past Alcohol Use History: None Reported Past Drug Use History: None Reported - Past Family History Father Family Medical History: Cancer Additional Family Medical History / Comment(s): lung CA Mother Family Medical History: Cancer Additional Family Medical History / Comment(s): Scolosis, colon cancer Medications and Allergies Home Medications Medication Instructions Recorded Confirmed Type Furosemide [Lasix] 20 mg PO DAILY tab 10/23/24 11/05/24 Rx Losartan [Cozaar] 100 mg PO DAILY tab 10/23/24 11/05/24 Rx Acetaminophen Tab [Tylenol] 650 mg PO Q6HR PRN 11/05/24 11/05/24 History Apixaban [Eliquis] 5 mg PO BID@0700,1900 11/05/24 11/05/24 History Atorvastatin [Lipitor] 40 mg PO HS@199911/05/24 11/05/24 History Melatonin 5 mg PO HS@199911/05/24 11/05/24 History Nitrofurantoin Monohyd/M-Cryst 100 mg PO BID@0700,1600 11/05/24 11/05/24 History [Macrobid] Potassium Chloride ER [K-Dur 20] 20 meq PO DAILY 11/05/24 11/05/24 History Allergies Allergy/AdvReac Type Severity Reaction Status Date / Time codeine AdvReac Unknown agitation Verified 11/05/24 13:38 Penicillins AdvReac "Makes me Verified 11/05/24 13:38 cranky" Physical Exam Vitals: Vital Signs Temp Pulse Resp BP Pulse Ox FiO2 11/06/24 02:17 80 20 98/54 96 11/06/24 01:00 71 20 92/53 98 11/06/24 00:31 80 11/05/24 23:45 98 20 96/57 98 11/05/24 22:00 83 22 95/55 100 11/05/24 21:22 87 11/05/24 21:12 88 80 11/05/24 20:40 71 20 93/55 11/05/24 20:04 97.7 F 85 30 H 97/61 89 L 11/05/24 19:22 70 22 100/53 11/05/24 17:50 98 26 H 104/61 11/05/24 17:17 87 11/05/24 17:10 80 11/05/24 17:07 90 11/05/24 17:03 90 11/05/24 17:00 86 28 H 109/63 100 11/05/24 16:00 79 30 H 125/71 100 11/05/24 15:00 76 30 H 139/67 100 11/05/24 14:00 97.5 F L 75 30 H 122/75 100 11/05/24 12:00 74 34 H 98/73 100 11/05/24 11:50 100 11/05/24 10:23 100 11/05/24 10:18 97.9 F 87 34 H 95/60 90 L Intake and Output 11/05/24 11/05/24 11/06/24 14:59 22:59 06:59 Intake Total 10.561 Balance 10.561 Intake: Intake, IV Titration 10.561 Amount Heparin Sod,Pork in 0.45% 10.561 NaCl 25,000 unit In 0.45 % NaCl 1 250ml.bag @ 12 UNITS/KG/HR 7.201 mls/hr IV .Q24H [facility] Rx#: [id number] Other: Weight 60.01 kg GENERAL EXAM: Lethargic, 79-year-old female on BiPAP, nonlabored breathing, awakens to verbal questioning then falls back asleep. HEAD: Normocephalic and atraumatic EYES: Normal reaction of pupils, equal size. NOSE: Clear with pink turbinates. THROAT: No erythema or exudates. NECK: No masses, no JVD. CHEST: No chest wall deformity. LUNGS: Equal air entry with diminished bibasilar lung sounds. On BiPAP with settings 12/5 FiO2 80%. Respiratory rate 18 breaths/min. Achieving tidal vol umes around 500 mL. SpO2 reading 99% on bedside monitor. No conversational dyspnea or accessory muscle use.. CVS: S1 and S2 normal with no audible murmur, regular rhythm. No extra heart sounds ABDOMEN: No hepatosplenomegaly, active bowel sounds, no guarding or rigidity. SPINE: No scoliosis or deformity SKIN: No rashes CENTRAL NERVOUS SYSTEM: No focal deficits, tone is normal in all 4 extremities. EXTREMITIES: There is no peripheral edema, clubbing, or cyanosis. Peripheral pulses are intact. Results - Laboratory Findings CBC and BMP: 11/06/24 03:11 11/06/24 06:40 ABG ABG pH 7.32 (7.35-7.45) L 11/05/24 10:44 ABG pCO2 46 mmHg (35-45) H 11/05/24 10:44 ABG pO2 72 mmHg (83-108) L 11/05/24 10:44 ABG O2 Saturation 92.9 % (94-97) L 11/05/24 10:44 PT/INR, D-dimer PT 12.9 sec (10.0-12.5) H 11/06/24 03:11 INR 1.2 (<1.2) H 11/06/24 03:11 Abnormal lab findings: Abnormal Labs 11/05/24 11/05/24 11/05/24 10:23 10:28 10:28 WBC 19.4 H RBC MCV 101.9 H Plt Count 147 L Neutrophils # 16.8 H Lymphocytes # PT 12.7 H INR 1.2 H APTT ABG pH ABG pCO2 ABG pO2 ABG Total CO2 ABG O2 Saturation Carbon Dioxide BUN Creatinine Glucose POC Glucose (mg/dL) 189 H Plasma Lactic Acid Connor Total Bilirubin AST ALT Troponin I Urine Appearance Urine Protein Urine Ketones Urine Blood Ur Leukocyte Esterase Urine RBC Urine WBC Urine WBC Clumps Ur Squamous Epith Cells Urine Bacteria Urine Mucus 11/05/24 11/05/24 11/05/24 10:28 10:28 10:28 WBC RBC MCV Plt Count Neutrophils # Lymphocytes # PT INR APTT ABG pH ABG pCO2 ABG pO2 ABG Total CO2 ABG O2 Saturation Carbon Dioxide 21 L BUN 34 H Creatinine 1.29 H Glucose 192 H POC Glucose (mg/dL) Plasma Lactic Acid Connor 3.9 H* Total Bilirubin 1.4 H AST 272 H ALT 116 H Troponin I 0.395 H* Urine Appearance Urine Protein Urine Ketones Urine Blood Ur Leukocyte Esterase Urine RBC Urine WBC Urine WBC Clumps Ur Squamous Epith Cells Urine Bacteria Urine Mucus 11/05/24 11/05/24 11/05/24 10:44 11:08 15:02 WBC RBC MCV Plt Count Neutrophils # Lymphocytes # PT INR APTT ABG pH 7.32 L ABG pCO2 46 H ABG pO2 72 L ABG Total CO2 25 H ABG O2 Saturation 92.9 L Carbon Dioxide BUN Creatinine Glucose POC Glucose (mg/dL) Plasma Lactic Acid Connor Total Bilirubin AST ALT Troponin I 0.414 H* Urine Appearance Turbid H Urine Protein 2+ H Urine Ketones Trace H Urine Blood Large H Ur Leukocyte Esterase Moderate H Urine RBC >182 H Urine WBC >182 H Urine WBC Clumps Many H Ur Squamous Epith Cells 27 H Urine Bacteria Few H Urine Mucus Many H 11/05/24 11/05/24 11/05/24 15:43 18:15 18:15 WBC 18.1 H RBC 3.69 L MCV 102.4 H Plt Count 116 L Neutrophils # 16.0 H Lymphocytes # 0.8 L PT INR APTT ABG pH ABG pCO2 ABG pO2 ABG Total CO2 ABG O2 Saturation Carbon Dioxide BUN Creatinine Glucose POC Glucose (mg/dL) Plasma Lactic Acid Connor 4.2 H* Total Bilirubin AST ALT Troponin I 0.384 H* Urine Appearance Urine Protein Urine Ketones Urine Blood Ur Leukocyte Esterase Urine RBC Urine WBC Urine WBC Clumps Ur Squamous Epith Cells Urine Bacteria Urine Mucus 11/05/24 11/05/24 11/05/24 18:15 19:44 23:19 WBC RBC MCV Plt Count Neutrophils # Lymphocytes # PT 13.4 H INR 1.3 H APTT >200.0 H* 55.2 H ABG pH ABG pCO2 ABG pO2 ABG Total CO2 ABG O2 Saturation Carbon Dioxide BUN Creatinine Glucose POC Glucose (mg/dL) Plasma Lactic Acid Connor 3.8 H* Total Bilirubin AST ALT Troponin I Urine Appearance Urine Protein Urine Ketones Urine Blood Ur Leukocyte Esterase Urine RBC Urine WBC Urine WBC Clumps Ur Squamous Epith Cells Urine Bacteria Urine Mucus 11/05/24 11/06/24 11/06/24 23:19 03:11 03:11 WBC RBC MCV Plt Count Neutrophils # Lymphocytes # PT 12.9 H INR 1.2 H APTT 40.5 H ABG pH ABG pCO2 ABG pO2 ABG Total CO2 ABG O2 Saturation Carbon Dioxide BUN Creatinine Glucose POC Glucose (mg/dL) Plasma Lactic Acid Connor 3.0 H* Total Bilirubin AST ALT Troponin I Urine Appearance Urine Protein Urine Ketones Urine Blood Ur Leukocyte Esterase Urine RBC Urine WBC Urine WBC Clumps Ur Squamous Epith Cells Urine Bacteria Urine Mucus - Diagnostic Findings Chest x-ray: image reviewed CT scan - chest: image reviewed Assessment and Plan Assessment: Acute hypoxemic and hypercapnic respiratory failure, currently on BiPAP, Chest CTA did not show any evidence of filling defects consistent with pulmonary embolism. Bilateral consolidative opacities, predominantly in the lower lobes, suspicious for bilateral pneumonia. Small left pleural effusion. Valvular heart disease with moderate to severe aortic stenosis and moderate aortic insufficiency Bilateral healthcare associated pneumonia Acute leukocytosis, secondary to above Lactic acidosis, improving Elevated troponins, flat, likely secondary to type II NE Acute kidney injury Recent treatment for UTI at outside facility Hypertension History of hyperlipidemia Permanent pacemaker, currently with paced rhythm History of atrial flutter, previously anticoagulated on Eliquis, currently on IV heparin History of CVA/TIA Plan: Continue on BiPAP with current settings, wean FiO2 as tolerated Continue empiric antibiotics Blood cultures and urine cultures pending Urine Legionella antigen ordered Procalcitonin level pending Viral screen negative for influenza A/B, RSV, COVID. Previously started on IV heparin which can likely be discontinued. Eliquis can be restarted. Patient to be admitted to the intensive care unit once bed available, we will continue to follow, and additional recommendations are forthcoming. I have personally seen and examined the patient, performed the documentation and the assessment and plan as written. Number of minutes spent on the visit:20 This is a joint evaluation that was done along with the nurse practitioner. This evaluation was done and 32 minutes. The patient was transferred to us from [facility] for worsening shortness of breath. The patient is known to have coronary artery disease, a flutter and the patient has a permanent pacemaker in place. The patient is also known to have hypertension hyperlipidemia and previous history of CVA. She was hospitalized on 10/18/2024 through 10/23/2024 for complications of a CVA. The patient was quite lethargic and had diminished level of consciousness at time of admission. The patient had a CT of the chest that showed infiltrative process and consolidation in the lung bases and small oral effusions. CAT scan of the abdomen showed no acute intra-abdominal process and the patient had a large stool burden in the rectum and the sigmoid. Accord ingly, the patient was placed on a BiPAP. This morning, the patient remains on BiPAP at a pressure of 12 over 5 cm of water and FiO2 of 60%. Cardiac rhythm is paced. She did have abnormal troponins in the placed on that the patient was started on IV heparin. The lactic acid level is at 3.3. The troponin levels were noted. proBNP level is 29,200. The patient has history of valvular heart disease with moderate degree of aortic stenosis based on earlier echocardiograms. The patient's white cell count of 13.5, it was 10.7. BUN is 42 with a creatinine of 1.2 and a sodium is at 138 with a potassium level of 4.4. Blood gases while on the BiPAP showed a pH of 7.32 with a pCO2 of 46 and pO2 of 72 at the time of admission. Chest x-ray from this morning shows flattening of the diaphragm with increased lucency of the lungs. No evidence of any focal consolidation or airspace disease. The patient was started on IV cefepime and vancomycin as empiric antibiotic coverage. She remains on lactated Ringer at 130 cc an hour. She is on IV heparin. More arousable and the patient will be transferred to the intensive care unit. The viral screen was negative. Time with Patient: Greater than 30
--- NOTE | 2024-11-06 06:17 | P.PN ---
Subjective Progress Note Date: 11/06/24 Patient is on continuous BiPAP. Communication is limited. Most information is obtained from chart review. 78-year-old female with history of CAD, symptomatic bradycardia with multiple cardiac pauses resulted in permanent pacemaker placement 10/07/2022, valvular heart disease, diastolic heart failure, hypertension, hyperlipidemia, atrial flutter on Eliquis presents to the ED for lethargy and shortness of breath. Recently hospitalized for CVA and discharged to [facility] on 10/23. In the ED she underwent extensive evaluation. BP 95/60, RR 34, T 97.9F, HR 87, 90% on BiPAP FiO2 of 100%. CBC, Coag panel, CMP significant for WBC 19.4, MCV 101.9, Plt 149, PT 12.7, INR 1.2, bicarb 21, BUN 34, Cr 1.29, glu 192, T. Bili 1.4, AST 272, ALT 116. BNP 26346. Trop 0.395. Lactic acid 3.9. Mag 2.1. ABG pH 7.32, pCO2 46, pO2 72 on FiO2 100%. UA moderate LE and large blood. COVID, RSV, Flu neg. CXR cardiomegaly with pacemaker, chronic interstitial changes with no acute process. CT brain no acute process. CTA chest no PE, bilateral opacities, small L pleural effusion, cholelithiasis. CT AP large stool burden, post surgical lumbar spine changes. EKG atrial and ventricular paced rhythm. Patient is admitted to ICU secondary to sepsis due to PNA and need for continuous BiPAP. Started on Vancomycin and Cefepime along with heparin drip. 11/06 Patient was seen and examined. Lethargic. Maintained on BiPAP 12/5 FiO2 60%. Started on heparin drip for NSTEMI currently running at 8 units/kg/hr. Antibiotics include Vancomycin dosed per pharmacy and Cefepime 2g IV BID. Fluids include LR at 130 cc/hr. CBC and Coag panel significant for WBC 13.5, RBC 3.33, Hg 10.7, Hct 33.9, MCV 101.9, Plt 105, PT 12.9, INR 1.2, APTT 40.5. Lactic acid 2.6. Trop 0.414, 0.384. Vitals: BP 98/54, HR 80, RR 20, T 97.7F, 96% on BiPAP FiO2 60%. General: toxic, moderate distress, appears at stated age, on BiPAP Derm: warm, dry Head: atraumatic, normocephalic, symmetric Eyes: EOMI, no lid lag, anicteric sclera Mouth: no lip lesion, mucus membranes moist Cardiovascular: S1S2 reg, no murmur Lungs: Coarse BS bilateral, no rhonchi, no rales , + accessory muscle use Ext: no gross muscle atrophy, no edema, no contractures Neuro: no focal neuro deficits Psych: lethargic Based on my assessment of this patient, this patient meets a high complexity level of care. Acute hypoxic respiratory failure and sepsis secondary to PNA: Vancomycin dosed per pharmacy and Cefepime 2g IV TID for HCAP. Procal, Sputum + BCx, Legionella Ag pending. LR at 130 cc/hr. Supplemental O2 to maintain O2 sat > 92%. Telemetry monitoring. Pulmonary on board. NSTEMI: Likely Type II. Continue low intensity heparin drip, monitor APTT. Lipitor as below. No beta russ due to symptomatic bradycardia. Echo pending. Cardiology consulted. TAYLOR on CKD with metabolic acidosis: Likely prerenal from hypotension and sepsis. Hold Losartan and Lasix. IV hydration as above. Transaminitis: Likely due to hypotension and sepsis. CT AP no biliary duct dilatation. Monitor. History of CVA: Heparin drip and Lipitor. Severe : As per previous Echo. Cardiology consulted. Diastolic CHF: Status post Lasix 40 mg IV x 1 11/05. Not in acute exacerbation. Repeat Echo pending. Cardiology consulted. Hypertension: Now hypotensive. Hold Losartan and Lasix. Dyslipidemia: Lipitor 40 mg PO QHS. Atrial flutter: Eliquis 5 mg PO BID. CODE STATUS: FULL CODE DVT Prophylaxis: Heparin drip. GI Prophylaxis: Protonix IV Designated medical POA if patient is not able to make medical decisions for themselves: I have reviewed the following microsoft dynamics ax consultant notes: Pulmonary note I have reviewed the results of the following tests: Trop x 2, Lactic acid, CBC, Coag panel. I have ordered the following tests: As above. I have discussed the care of this patient with the following independent historian: I have independently interpreted the following test below: I have discussed the management of this patient with the following physician: Objective - Vital Signs Vital signs: Vital Signs Temp 97.7 F 11/05/24 20:04 Pulse 80 11/06/24 02:17 Resp 20 11/06/24 02:17 BP 98/54 11/06/24 02:17 Pulse Ox 96 11/06/24 02:17 FiO2 60 11/06/24 04:40 Intake & Output 11/05/24 11/05/24 11/06/24 06:59 18:59 06:59 Intake Total 10.561 Balance 10.561 Weight 60.01 kg Intake: Intake, IV Titration 10.561 Amount Heparin Sod,Pork in 0.45% 10.561 NaCl 25,000 unit In 0.45 % NaCl 1 250ml.bag @ 12 UNITS/KG/HR 7.201 mls/hr IV .Q24H [facility] Rx#: [id number] - Labs CBC & Chem 7: 11/06/24 03:11 11/05/24 10:28 Labs: Abnormal Lab Results - Last 24 Hours (Table) 11/05/24 11/05/24 11/05/24 Range/Units 10:23 10:28 10:28 WBC 19.4 H (3.8-10.6) k/uL RBC (3.80-5.40) m/uL Hgb (11.4-16.0) gm/dL Hct (34.0-46.0) % MCV 101.9 H (80.0-100.0) fL Plt Count 147 L (150-450) k/uL Neutrophils # 16.8 H (1.3-7.7) k/uL Lymphocytes # (1.0-4.8) k/uL PT 12.7 H (10.0-12.5) sec INR 1.2 H (<1.2) APTT (22.0-30.0) sec ABG pH (7.35-7.45) ABG pCO2 (35-45) mmHg ABG pO2 (83-108) mmHg ABG Total CO2 (19-24) mmol/L ABG O2 Saturation (94-97) % Carbon Dioxide (22-30) mmol/L BUN (7-17) mg/dL Creatinine (0.52-1.04) mg/dL Glucose (74-99) mg/dL POC Glucose (mg/dL) 189 H (70-110) mg/dL Plasma Lactic Acid Connor (0.7-2.0) mmol/L Total Bilirubin (0.2-1.3) mg/dL AST (14-36) U/L ALT (4-34) U/L Troponin I (0.000-0.034) ng/mL Urine Appearance (Clear) Urine Protein (Negative) Urine Ketones (Negative) Urine Blood (Negative) Ur Leukocyte Esterase (Negative) Urine RBC (0-5) /hpf Urine WBC (0-5) /hpf Urine WBC Clumps (None) /hpf Ur Squamous Epith Cells (0-4) /hpf Urine Bacteria (None) /hpf Urine Mucus (None) /hpf 11/05/24 11/05/24 11/05/24 Range/Units 10:28 10:28 10:28 WBC (3.8-10.6) k/uL RBC (3.80-5.40) m/uL Hgb (11.4-16.0) gm/dL Hct (34.0-46.0) % MCV (80.0-100.0) fL Plt Count (150-450) k/uL Neutrophils # (1.3-7.7) k/uL Lymphocytes # (1.0-4.8) k/uL PT (10.0-12.5) sec INR (<1.2) APTT (22.0-30.0) sec ABG pH (7.35-7.45) ABG pCO2 (35-45) mmHg ABG pO2 (83-108) mmHg ABG Total CO2 (19-24) mmol/L ABG O2 Saturation (94-97) % Carbon Dioxide 21 L (22-30) mmol/L BUN 34 H (7-17) mg/dL Creatinine 1.29 H (0.52-1.04) mg/dL Glucose 192 H (74-99) mg/dL POC Glucose (mg/dL) (70-110) mg/dL Plasma Lactic Acid Connor 3.9 H* (0.7-2.0) mmol/L Total Bilirubin 1.4 H (0.2-1.3) mg/dL AST 272 H (14-36) U/L ALT 116 H (4-34) U/L Troponin I 0.395 H* (0.000-0.034) ng/mL Urine Appearance (Clear) Urine Protein (Negative) Urine Ketones (Negative) Urine Blood (Negative) Ur Leukocyte Esterase (Negative) Urine RBC (0-5) /hpf Urine WBC (0-5) /hpf Urine WBC Clumps (None) /hpf Ur Squamous Epith Cells (0-4) /hpf Urine Bacteria (None) /hpf Urine Mucus (None) /hpf 11/05/24 11/05/24 11/05/24 Range/Units 10:44 11:08 15:02 WBC (3.8-10.6) k/uL RBC (3.80-5.40) m/uL Hgb (11.4-16.0) gm/dL Hct (34.0-46.0) % MCV (80.0-100.0) fL Plt Count (150-450) k/uL Neutrophils # (1.3-7.7) k/uL Lymphocytes # (1.0-4.8) k/uL PT (10.0-12.5) sec INR (<1.2) APTT (22.0-30.0) sec ABG pH 7.32 L (7.35-7.45) ABG pCO2 46 H (35-45) mmHg ABG pO2 72 L (83-108) mmHg ABG Total CO2 25 H (19-24) mmol/L ABG O2 Saturation 92.9 L (94-97) % Carbon Dioxide (22-30) mmol/L BUN (7-17) mg/dL Creatinine (0.52-1.04) mg/dL Glucose (74-99) mg/dL POC Glucose (mg/dL) (70-110) mg/dL Plasma Lactic Acid Connor (0.7-2.0) mmol/L Total Bilirubin (0.2-1.3) mg/dL AST (14-36) U/L ALT (4-34) U/L Troponin I 0.414 H* (0.000-0.034) ng/mL Urine Appearance Turbid H (Clear) Urine Protein 2+ H (Negative) Urine Ketones Trace H (Negative) Urine Blood Large H (Negative) Ur Leukocyte Esterase Moderate H (Negative) Urine RBC >182 H (0-5) /hpf Urine WBC >182 H (0-5) /hpf Urine WBC Clumps Many H (None) /hpf Ur Squamous Epith Cells 27 H (0-4) /hpf Urine Bacteria Few H (None) /hpf Urine Mucus Many H (None) /hpf 11/05/24 11/05/24 11/05/24 Range/Units 15:43 18:15 18:15 WBC 18.1 H (3.8-10.6) k/uL RBC 3.69 L (3.80-5.40) m/uL Hgb (11.4-16.0) gm/dL Hct (34.0-46.0) % MCV 102.4 H (80.0-100.0) fL Plt Count 116 L (150-450) k/uL Neutrophils # 16.0 H (1.3-7.7) k/uL Lymphocytes # 0.8 L (1.0-4.8) k/uL PT (10.0-12.5) sec INR (<1.2) APTT (22.0-30.0) sec ABG pH (7.35-7.45) ABG pCO2 (35-45) mmHg ABG pO2 (83-108) mmHg ABG Total CO2 (19-24) mmol/L ABG O2 Saturation (94-97) % Carbon Dioxide (22-30) mmol/L BUN (7-17) mg/dL Creatinine (0.52-1.04) mg/dL Glucose (74-99) mg/dL POC Glucose (mg/dL) (70-110) mg/dL Plasma Lactic Acid Connor 4.2 H* (0.7-2.0) mmol/L Total Bilirubin (0.2-1.3) mg/dL AST (14-36) U/L ALT (4-34) U/L Troponin I 0.384 H* (0.000-0.034) ng/mL Urine Appearance (Clear) Urine Protein (Negative) Urine Ketones (Negative) Urine Blood (Negative) Ur Leukocyte Esterase (Negative) Urine RBC (0-5) /hpf Urine WBC (0-5) /hpf Urine WBC Clumps (None) /hpf Ur Squamous Epith Cells (0-4) /hpf Urine Bacteria (None) /hpf Urine Mucus (None) /hpf 11/05/24 11/05/24 11/05/24 Range/Units 18:15 19:44 23:19 WBC (3.8-10.6) k/uL RBC (3.80-5.40) m/uL Hgb (11.4-16.0) gm/dL Hct (34.0-46.0) % MCV (80.0-100.0) fL Plt Count (150-450) k/uL Neutrophils # (1.3-7.7) k/uL Lymphocytes # (1.0-4.8) k/uL PT 13.4 H (10.0-12.5) sec INR 1.3 H (<1.2) APTT >200.0 H* 55.2 H (22.0-30.0) sec ABG pH (7.35-7.45) ABG pCO2 (35-45) mmHg ABG pO2 (83-108) mmHg ABG Total CO2 (19-24) mmol/L ABG O2 Saturation (94-97) % Carbon Dioxide (22-30) mmol/L BUN (7-17) mg/dL Creatinine (0.52-1.04) mg/dL Glucose (74-99) mg/dL POC Glucose (mg/dL) (70-110) mg/dL Plasma Lactic Acid Connor 3.8 H* (0.7-2.0) mmol/L Total Bilirubin (0.2-1.3) mg/dL AST (14-36) U/L ALT (4-34) U/L Troponin I (0.000-0.034) ng/mL Urine Appearance (Clear) Urine Protein (Negative) Urine Ketones (Negative) Urine Blood (Negative) Ur Leukocyte Esterase (Negative) Urine RBC (0-5) /hpf Urine WBC (0-5) /hpf Urine WBC Clumps (None) /hpf Ur Squamous Epith Cells (0-4) /hpf Urine Bacteria (None) /hpf Urine Mucus (None) /hpf 11/05/24 11/06/24 11/06/24 Range/Units 23:19 03:11 03:11 WBC 13.5 H (3.8-10.6) k/uL RBC 3.33 L (3.80-5.40) m/uL Hgb 10.7 L (11.4-16.0) gm/dL Hct 33.9 L (34.0-46.0) % MCV 101.9 H (80.0-100.0) fL Plt Count 105 L (150-450) k/uL Neutrophils # 11.2 H (1.3-7.7) k/uL Lymphocytes # (1.0-4.8) k/uL PT 12.9 H (10.0-12.5) sec INR 1.2 H (<1.2) APTT (22.0-30.0) sec ABG pH (7.35-7.45) ABG pCO2 (35-45) mmHg ABG pO2 (83-108) mmHg ABG Total CO2 (19-24) mmol/L ABG O2 Saturation (94-97) % Carbon Dioxide (22-30) mmol/L BUN (7-17) mg/dL Creatinine (0.52-1.04) mg/dL Glucose (74-99) mg/dL POC Glucose (mg/dL) (70-110) mg/dL Plasma Lactic Acid Connor 3.0 H* (0.7-2.0) mmol/L Total Bilirubin (0.2-1.3) mg/dL AST (14-36) U/L ALT (4-34) U/L Troponin I (0.000-0.034) ng/mL Urine Appearance (Clear) Urine Protein (Negative) Urine Ketones (Negative) Urine Blood (Negative) Ur Leukocyte Esterase (Negative) Urine RBC (0-5) /hpf Urine WBC (0-5) /hpf Urine WBC Clumps (None) /hpf Ur Squamous Epith Cells (0-4) /hpf Urine Bacteria (None) /hpf Urine Mucus (None) /hpf 11/06/24 11/06/24 Range/Units 03:11 03:11 WBC (3.8-10.6) k/uL RBC (3.80-5.40) m/uL Hgb (11.4-16.0) gm/dL Hct (34.0-46.0) % MCV (80.0-100.0) fL Plt Count (150-450) k/uL Neutrophils # (1.3-7.7) k/uL Lymphocytes # (1.0-4.8) k/uL PT (10.0-12.5) sec INR (<1.2) APTT 40.5 H (22.0-30.0) sec ABG pH (7.35-7.45) ABG pCO2 (35-45) mmHg ABG pO2 (83-108) mmHg ABG Total CO2 (19-24) mmol/L ABG O2 Saturation (94-97) % Carbon Dioxide (22-30) mmol/L BUN (7-17) mg/dL Creatinine (0.52-1.04) mg/dL Glucose (74-99) mg/dL POC Glucose (mg/dL) (70-110) mg/dL Plasma Lactic Acid Connor 2.6 H* (0.7-2.0) mmol/L Total Bilirubin (0.2-1.3) mg/dL AST (14-36) U/L ALT (4-34) U/L Troponin I (0.000-0.034) ng/mL Urine Appearance (Clear) Urine Protein (Negative) Urine Ketones (Negative) Urine Blood (Negative) Ur Leukocyte Esterase (Negative) Urine RBC (0-5) /hpf Urine WBC (0-5) /hpf Urine WBC Clumps (None) /hpf Ur Squamous Epith Cells (0-4) /hpf Urine Bacteria (None) /hpf Urine Mucus (None) /hpf
[2024-11-06 07:29] LABS: African American GFR (CKD) 48 (>60 ml/min/1.73 sqM); Anion Gap 9 mmol/L; Blood Urea Nitrogen 42 mg/dL (7-17); Calcium 8.5 mg/dL (8.4-10.2); Carbon Dioxide 24 mmol/L (22-30); Chloride 105 mmol/L (98-107); Glucose 82 mg/dL (74-99); Non-African American GFR(CKD) 42 (>60 ml/min/1.73 sqM); Potassium 4.4 mmol/L (3.5-5.1); Sodium 138 mmol/L (137-145)
--- NOTE | 2024-11-06 07:49 | XR ---
EXAMINATION TYPE: XR chest 1V portable DATE OF EXAM: 11/06/2024 4:56 AM COMPARISON: Chest radiographs from 11/05/2024 CLINICAL INDICATION: Female, 79 years old with history of pneumonia; TECHNIQUE: XR chest 1V portable Frontal view of the chest. FINDINGS: Lungs/Pleura: There is flattening of the diaphragm with increased lucency of the lungs. No evidence o f pneumothorax, pleural effusion or focal consolidation. Pulmonary vascularity: Unremarkable. Heart/mediastinum: Cardiomediastinal silhouette is unremarkable. Two lead cardiac conduction device o verlying the left hemithorax with lead tips projecting over the right ventricle and right atrium. Musculoskeletal: No acute osseous pathology. IMPRESSION: No acute cardiopulmonary disease/process. [facility], , 11/06/2024 7:46 AM
--- NOTE | 2024-11-06 08:44 | CONS ---
CONSULTATION HISTORY OF PRESENT ILLNESS: This is a 79-year-old lady with complex and multiple medical problems including hypertension, dyslipidemia, coronary artery disease, prior congestive heart failure that was probably diastolic, history of permanent pacemaker and atrial flutter, and prior CVA. She is currently a resident of [facility]. From there, she was brought to the [facility] Emergency Room with symptoms of altered mental status, hypoxia, and shortness of breath. We have been consulted for congestive heart failure. The patient is a poor historian and her mental status is impaired. One of the reasons for the consultation is mildly elevated troponin. She underwent extensive workup in the emergency room including a CT scan of the chest that was negative for pulmonary embolism, but had shown bilateral pneumonia. There is mild troponin elevation. EKG shows paced rhythm. BNP is elevated at 29,000. She is currently being treated with antibiotics and IV heparin. The patient was on Eliquis as outpatient for history of atrial fibrillation. The mild elevation in troponin I believe is related to supply-demand mismatch that is a type 2 myocardial infarction related to the pneumonia, heart failure, and other problems. The patient has acute exacerbation of chronic diastolic heart failure. I am going to leave her on heparin for now and once overall clinical condition improves, transitioned her to Eliquis. I will obtain a 2D echo to evaluate her LV function. EKG shows paced rhythm. LABORATORY DATA: Shows that the hemoglobin is 10.7. Potassium is 4.4, creatinine is 1.2, and the lactic acid is elevated. PAST MEDICAL HISTORY: Significant for hypertension, valvular heart disease, permanent pacemaker. MEDICATIONS: At home included; 1. Eliquis. 2. Atorvastatin. 3. Lasix. 4. Cozaar. 5. Macrobid. 6. K-Dur. 7. Tylenol. ALLERGIES: To codeine and penicillin. FAMILY HISTORY: I am unable to obtain from the patient. SOCIAL HISTORY: I am unable to obtain from the patient. REVIEW OF SYSTEMS: I am unable to obtain from the patient. PHYSICAL EXAMINATION: VITAL SIGNS: Heart rate is 70 beats per minute, blood pressure is 120/53, respiratory rate is 18. She is on a BiPAP with O2 saturation of 98%. CHEST: Reveals occasional rhonchi and diminished air entry at the bases. HEART: Reveals first and second heart sounds. Grade 4/6 ejection systolic murmur at the right parasternal border. ABDOMEN: Soft. EXTREMITIES: Reveals mild edema. ASSESSMENT: 1. Altered mental status, probably related to pneumonia. 2. History of atrial fibrillation. 3. Acute on chronic congestive heart failure. 4. Valvular heart disease in the form of aortic stenosis and regurgitation. PLAN: I will start the patient on IV Lasix. The recent echocardiogram showed moderate to severe stenosis with moderate aortic regurgitation and left ventricular hypertrophy. I will alter treatments based on her response. MMJOSHUA / SHOBHAN: [id number] /
[2024-11-06] MEDS: PANTOPRAZOLE 40 MG/10 ML VIAL IVP SCH (09:01)
[2024-11-06] MEDS: VANCOMYCIN 1,000 MG in SODIUM CHLORIDE 0.9% 250 ML IVPB SCH (09:03)
[2024-11-06] MEDS: HEPARIN SODIUM 1,000 UN/ML (10ML VL) IV PRN (14:55)
[2024-11-07 06:27] LABS: HCT 31.2 % (34.0-46.0); HGB 10.1 gm/dL (11.4-16.0); Hypochromasia Slight; MCHC 32.3 g/dL (31.0-37.0); MCV 102.3 fL (80.0-100.0); Macrocytosis Slight; Mean Platelet Volume 8.9; Platelet Count 122 k/uL (150-450); RBC 3.05 m/uL (3.80-5.40); RDW 14.2 % (11.5-15.5); WBC 8.3 k/uL (3.8-10.6)
[2024-11-07 06:54] LABS: ALT 52 U/L (4-34); AST 44 U/L (14-36); African American GFR (CKD) 57 (>60 ml/min/1.73 sqM); Albumin 2.9 g/dL (3.5-5.0); Alkaline Phosphatase 54 U/L (38-126); Anion Gap 8 mmol/L; Blood Urea Nitrogen 37 mg/dL (7-17); Calcium 8.3 mg/dL (8.4-10.2); Carbon Dioxide 23 mmol/L (22-30); Chloride 107 mmol/L (98-107); Glucose 66 mg/dL (74-99); Non-African American GFR(CKD) 50 (>60 ml/min/1.73 sqM); Sodium 138 mmol/L (137-145); Total Bilirubin 1.1 mg/dL (0.2-1.3); Total Protein 5.2 g/dL (6.3-8.2)
[2024-11-07] MEDS ORDERED: DEXTROSE 50% SYRINGE 50 ML IVP PRN ×2 (08:12)
--- NOTE | 2024-11-07 08:22 | XR ---
EXAMINATION TYPE: XR chest 1V portable DATE OF EXAM: 11/07/2024 5:47 AM COMPARISON: Chest radiographs from 11/06/2024 CLINICAL INDICATION: Female, 79 years old with history of acute hypoxemic respiratory failure; [facility] TECHNIQUE: XR chest 1V portable Frontal view of the chest. FINDINGS: Lungs/Pleura: Airspace opacities in the lung bases better appreciated on CT. There is no evidence of pleural effusion, focal consolidation, or pneumothorax. Pulmonary vascularity: Unremarkable. Heart/mediastinum: Cardiomediastinal silhouette is unremarkable. Atherosclerotic calcifications are seen in the aorta. Two lead cardiac conduction device overlying the left hemithorax with lead tips pr ojecting over the right ventricle and right atrium. Musculoskeletal: No acute osseous pathology. Other findings: None IMPRESSION: Airspace opacities in the lung bases better appreciated on CT. [facility], , 11/07/2024 8:19 AM
[2024-11-07] MEDS: FUROSEMIDE 20 MG TAB PO SCH (08:53)
[2024-11-07] MEDS: LOSARTAN 50 MG TAB PO SCH (08:54)
[2024-11-07] MEDS: DEXTROSE 5%-0.9% NACL 1,000 ML IV SCH ×2 (09:12→11:21)
--- NOTE | 2024-11-07 11:02 | PN ---
PROGRESS NOTE SUBJECTIVE: Bita is a 79-year-old lady, who is admitted to hospital with altered mental status. She was on a BiPAP that has improved. This morning, she appears more awake and alert. Her heparin is on hold because of hematuria. Hemoglobin this morning is 10.1, it was 13.5 on the initial admission. The patient was on Eliquis prior to coming in. OBJECTIVE: VITAL SIGNS: Heart rate is 76 beats per minute. Blood pressure is 150/72, respiratory rate is 18. CHEST: Reveals good air entry bilaterally. HEART: Reveals first and second heart sounds. No gallop. EXTREMITIES: Did not reveal any edema. Peripheral pulses are felt. ASSESSMENT AND PLAN: 1. Uncontrolled hypertension. I am going to resume the losartan that she was on. 2. History of atrial fibrillation. 3. Moderate to severe aortic stenosis. PLAN: We will hold the heparin at this stage because of hematuria and anemia. Once those resolved, we will resume the heparin or the Eliquis that she was on. MMODL / IJN: [id number] /
[2024-11-07] MEDS: HEPARIN SODIUM,PORCINE 5,000 UNIT/ML 1 ML VIAL SQ SCH (11:22)
[2024-11-07 13:01] LABS: Glucose,Whole Blood 96 mg/dL (70-110)
--- NOTE | 2024-11-07 13:49 | P.PN ---
Subjective Progress Note Date: 11/07/24 Hospital Course: 78-year-old female with history of CAD, symptomatic bradycardia with multiple cardiac pauses resulted in permanent pacemaker placement 10/07/2022, valvular heart disease, diastolic heart failure, hypertension, hyperlipidemia, atrial flutter on Eliquis presents to the ED for lethargy and shortness of breath. Recently hospitalized for CVA and discharged to [facility] on 10/23. In the ED she underwent extensive evaluation. BP 95/60, RR 34, T 97.9F, HR 87, 90% on BiPAP FiO2 of 100%. CBC, Coag panel, CMP significant for WBC 19.4, MCV 101.9, Plt 149, PT 12.7, INR 1.2, bicarb 21, BUN 34, Cr 1.29, glu 192, T. Bili 1.4, AST 272, ALT 116. BNP 59311. Trop 0.395. Lactic acid 3.9. Mag 2.1. ABG pH 7.32, pCO2 46, pO2 72 on FiO2 100%. UA moderate LE and large blood. COVID, RSV, Flu neg. CXR cardiomegaly with pacemaker, chronic interstitial changes with no acute process. CT brain no acute process. CTA chest no PE, bilateral opacities, small L pleural effusion, cholelithiasis. CT AP large stool burden, post surgical lumbar spine changes. EKG atrial and ventricular paced rhythm. Patient is admitted to ICU secondary to sepsis due to PNA and need for continuous BiPAP. Started on Vancomycin and Cefepime along with heparin. Cardiology consulted. Patient started on losartan 50 daily, Lasix 20 daily oral, D5 normal saline for glucose of 66. TTE pending. Pertinent Imaging: Chest x-ray with bibasilar opacities Subjective: She was seen and examined at bedside, she feels tired, short of breath, denied chest pain, abdominal pain Pertinent positives and negatives as discussed above, a complete review of systems was performed and all other systems are negative. Vitals Signs Reviewed. General: [nontoxic], [no distress], [appears at stated age] Derm: [warm], [dry] Head: [atraumatic], [normocephalic], [symmetric] Eyes: [EOMI], [no lid lag], [anicteric sclera] Mouth: [no lip lesion], [mucus membranes moist] Cardiovascular: [S1S2 reg], [no murmur] Lungs: bibasilar rhonchi , [no accessory muscle use] Abdominal: [soft], [ nontender to palpation], [no guarding], [no appreciable organomegaly] Ext: [no gross muscle atrophy], [no edema], [no contractures] Neuro: [ CN II-XI grossly intact], [no focal neuro deficits] Psych: [Alert], [oriented], [appropriate affect] Data Reviewed Today: Pertinent Labs: No leukocytosis, hemoglobin 10.1, platelet count 122, sodium, p otassium, bicarb normal, creatinine 1.08, glucose 66, AST 44, ALT 52 Assessment and Plan: Acute hypoxic respiratory failure secondary to HCAP -Pulmonology: -Procalcitonin positive -Urine Legionella negative -Continue cefepime and vancomycin, follow-up blood cultures preliminary negative, urine cultures negative NSTEMI: Likely Type II. Continue low intensity heparin drip, monitor APTT. Lipitor as below. No beta russ due to symptomatic bradycardia. Echo pending. Cardiology consulted. TAYLOR on CKD with metabolic acidosis: Likely prerenal from hypotension and sepsis. Hold Losartan and Lasix. IV hydration as above. Transaminitis: Likely due to hypotension and sepsis. CT AP no biliary duct dil atation. Monitor. History of CVA: Heparin drip and Lipitor. Severe : As per previous Echo. Cardiology consulted. Diastolic CHF: Status post Lasix 40 mg IV x 1 11/05. Not in acute exacerbation. Repeat Echo pending. Cardiology consulted. Hypertension: Now hypotensive. Hold Losartan and Lasix. Dyslipidemia: Lipitor 40 mg PO QHS. Atrial flutter: Eliquis 5 mg PO BID. NSTEMI: Likely Type II. Continue low intensity heparin drip, monitor APTT. Lipitor as below. No beta russ due to symptomatic bradycardia. Echo pending. Cardiology consulted. TAYLOR on CKD with metabolic acidosis: Likely prerenal from hypotension and sepsis. Hold Losartan and Lasix. IV hydration as above. Transaminitis: Likely due to hypotension and sepsis. CT AP no biliary duct dilatation. Monitor. History of CVA: Lipitor. Severe : As per previous Echo. Cardiology consulted. Diastolic CHF: Status post Lasix 40 mg IV x 1 11/05.Repeat Echo pending. Cardiology consulted. Lasix 20 oral daily Hypertension: Losartan resumed 50 mg daily Dyslipidemia: Lipitor 40 mg PO QHS. Atrial flutter: Eliquis 5 mg PO BID. Hypoglycemia, continue D5 normal saline, Accu-Cheks Chronic anemia Thrombocytopenia Elevated AST and ALT Code status: full code Anticipated discharge place: tbd Anticipated discharge time: tbd Objective - Vital Signs Vital signs: Vital Signs Temp 98.1 F 11/07/24 13:02 Pulse 86 11/07/24 13:02 Resp 18 11/07/24 13:02 BP 140/75 11/07/24 13:02 Pulse Ox 97 11/07/24 13:02 FiO2 40 11/07/24 09:23 Intake & Output 11/06/24 11/07/24 11/07/24 18:59 06:59 18:59 Intake Total 84.098 1365.511 Output Total 490 340 Balance 84.098 875.511 -340 Intake: Intake, IV Titration 84.098 1365.511 Amount Heparin Sod,Pork in 0.45% 84.098 65.511 NaCl 25,000 unit In 0.45 % NaCl 1 250ml.bag @ 12 UNITS/KG/HR 7.201 mls/hr IV .Q24H [facility] Rx#: [id number] Lactated Ringers 1,000 ml 1300 @ 130 mls/hr IV .Q7H42M [facility] Rx#:[id number] Output: Urine 490 340 Other: Voiding Method Indwelling Catheter # Bowel Movements 1 - Labs CBC & Chem 7: 11/07/24 05:52 11/07/24 05:52 Labs: Abnormal Lab Results - Last 24 Hours (Table) 11/06/24 11/06/24 11/07/24 Range/Units 14:44 21:00 05:52 RBC (3.80-5.40) m/uL Hgb (11.4-16.0) gm/dL Hct (34.0-46.0) % MCV (80.0-100.0) fL Plt Count (150-450) k/uL APTT 53.3 H (22.0-30.0) sec BUN 37 H (7-17) mg/dL Creatinine 1.08 H (0.52-1.04) mg/dL Glucose 66 L (74-99) mg/dL Plasma Lactic Acid Connor 2.4 H* (0.7-2.0) mmol/L Calcium 8.3 L (8.4-10.2) mg/dL AST 44 H (14-36) U/L ALT 52 H (4-34) U/L Total Protein 5.2 L (6.3-8.2) g/dL Albumin 2.9 L (3.5-5.0) g/dL 11/07/24 Range/Units 05:52 RBC 3.05 L (3.80-5.40) m/uL Hgb 10.1 L (11.4-16.0) gm/dL Hct 31.2 L (34.0-46.0) % MCV 102.3 H (80.0-100.0) fL Plt Count 122 L (150-450) k/uL APTT (22.0-30.0) sec BUN (7-17) mg/dL Creatinine (0.52-1.04) mg/dL Glucose (74-99) mg/dL Plasma Lactic Acid Connor (0.7-2.0) mmol/L Calcium (8.4-10.2) mg/dL AST (14-36) U/L ALT (4-34) U/L Total Protein (6.3-8.2) g/dL Albumin (3.5-5.0) g/dL Microbiology - Last 24 Hours (Table) 11/05/24 10:28 Blood Culture - Preliminary Blood 11/05/24 11:08 Urine Culture - Final Urine,Catheterized
[2024-11-07 16:55] LABS: Glucose,Whole Blood 56 mg/dL (70-110)
[2024-11-07 17:31] LABS: Glucose,Whole Blood 66 mg/dL (70-110)
--- NOTE | 2024-11-07 18:18 | P.PN ---
Subjective Progress Note Date: 11/07/24 Patient is 79 female with past medical history significant for hypertension, hyperlipidemia, CAD, heart failure, permanent pacemaker, atrial flutter anticoagulated on Eliquis, and CVA/TIA. Of note, recently hospitalized 10/18/24- 10/23/24 for CVA/TIA and new onset A.flutter. She was discharged on Eliquis to [facility]. Patient was sent in from her ECF, yesterday morning with a chief concern of increasing work of breathing, hypoxia, and altered mental status. Originally, placed on CPAP by EMS, this was transitioned to BiPAP in the ED. Of note, patient reported to be treating for UTI at outside facility. Workup in the emergency department including a brain CT which did not show any acute intracranial bleed or mass effect. Stable remote lacunar infarcts. Chest CTA did not show any evidence of filling defects consistent with pulmonary embolism. Bilateral consolidative opacities, predominantly in the lower lobes, suspicious for bilateral pneumonia. Small left pleural effusion. CT abd omen/pelvis did not show any evidence of acute intra-abdominal process. Large stool burden within the rectum and sigmoid colon. Postsurgical changes and degenerative changes in the lower lumbar spine. CBC: WBC count 13.5, hemoglobin 10.7, platelets 105. CMP: Sodium 138, potassium 3.9, chloride 102, serum bicarb 21, BUN 34, creatinine 1.29, glucose 192. Lactic peaked at 4.2 and is down to 2.6. LFTs mildly elevated. Serial troponins elevated 0.4, 0.41, and 0.38 respectively. NT proBNP significantly elevated at 29,200. EKG: Paced rhythm, 69 bpm. Echocardiogram from 10/18/2024 estimating left ventricular ejection fraction of 55 to 60%. Moderate to severe aortic stenosis. UA appears con taminated. Viral screen negative for influenza A/B, RSV, COVID. Patient started on empiric antibiotics in the form of cefepime and vancomycin in the ED. LR infusing at 130 mL/h. Also, previously systemically anticoagulated on heparin. Patient currently being evaluated in the ED. She appears comfortable on BiPAP with settings 12/5 and FiO2 80%. SpO2 is reading 99% on bedside monitor. ABG done previously with a PaO2 of 72, pCO2 of 46, pH of 7.32. Lethargic, however, awakens to verbal questioning then falls back asleep. Communication is limited by BiPAP. Has been afebrile. Blood pressure normotensive. On 11/07/2024, the patient is being seen for a follow-up. The patient is improved considerably since yesterday. The patient was taken off the BiPAP and the patient is currently on 2 L of oxygen by nasal cannula with a pulse ox of 94%. Repeat chest x-ray was done earlier this morning and it shows airspace opacities in lung bases bilaterally and the patient remains on broad-spectrum antibiotics and the patient is currently on a combination of cefepime and vancomycin. Remains on DuoNeb updrafts. The white cell count is at 8.3 with a hemoglobin of 10.1 and a platelet count of 122. BUN 37 with a creatinine of 1 and a sodium levels at 138 with a potassium level of 4. No other significant events overnight. Based on this significant clinical improvement, the patient is going to be downgraded and sent to a medical floor. She is awake and communicating. She is afebrile and hemodynamically stable. Objective - Vital Signs Vital signs: Vital Signs Temp 98.5 F 11/07/24 07:57 Pulse 76 11/07/24 09:32 Resp 18 11/07/24 07:57 BP 154/73 11/07/24 07:57 Pulse Ox 94 L 11/07/24 09:26 FiO2 40 11/07/24 09:23 Intake & Output 11/06/24 11/07/24 11/07/24 18:59 06:59 18:59 Intake Total 84.098 1365.511 Output Total 490 Balance 84.098 875.511 Intake: Intake, IV Titration 84.098 1365.511 Amount Heparin Sod,Pork in 0.45% 84.098 65.511 NaCl 25,000 unit In 0.45 % NaCl 1 250ml.bag @ 12 UNITS/KG/HR 7.201 mls/hr IV .Q24H ROSCOE Rx#: [id number] Lactated Ringers 1,000 ml 1300 @ 130 mls/hr IV .Q7H42M ROSCOE Rx#:[id number] Output: Urine 490 Other: Voiding Method Indwelling Catheter # Bowel Movements 1 - Exam GENERAL EXAM: Lethargic, 79-year-old female awake and alert and currently on 2 L of oxygen by nasal cannula HEAD: Normocephalic and atraumatic EYES: Normal reaction of pupils, equal size. NOSE: Clear with pink turbinates. THROAT: No erythema or exudates. NECK: No masses, no JVD. CHEST: No chest wall deformity. LUNGS: Equal air entry with diminished bibasilar lung sounds. CVS: S1 and S2 normal with no audible murmur, regular rhythm. No extra heart sounds ABDOMEN: No hepatosplenomegaly, active bowel sounds, no guarding or rigidity. SPINE: No scoliosis or deformity SKIN: No rashes CENTRAL NERVOUS SYSTEM: No focal deficits, tone is normal in all 4 extremities. EXTREMITIES: There is no peripheral edema, clubbing, or cyanosis. Peripheral pulses are intact. - Labs CBC & Chem 7: 11/07/24 05:52 11/07/24 05:52 Labs: Abnormal Lab Results - Last 24 Hours (Table) 11/06/24 11/06/24 11/06/24 Range/Units 10:50 10:50 14:44 RBC (3.80-5.40) m/uL Hgb (11.4-16.0) gm/dL Hct (34.0-46.0) % MCV (80.0-100.0) fL Plt Count (150-450) k/uL APTT 37.9 H (22.0-30.0) sec BUN (7-17) mg/dL Creatinine (0.52-1.04) mg/dL Glucose (74-99) mg/dL Plasma Lactic Acid Connor 2.9 H* 2.4 H* (0.7-2.0) mmol/L Calcium (8.4-10.2) mg/dL AST (14-36) U/L ALT (4-34) U/L Total Protein (6.3-8.2) g/dL Albumin (3.5-5.0) g/dL 11/06/24 11/07/24 11/07/24 Range/Units 21:00 05:52 05:52 RBC 3.05 L (3.80-5.40) m/uL Hgb 10.1 L (11.4-16.0) gm/dL Hct 31.2 L (34.0-46.0) % MCV 102.3 H (80.0-100.0) fL Plt Count 122 L (150-450) k/uL APTT 53.3 H (22.0-30.0) sec BUN 37 H (7-17) mg/dL Creatinine 1.08 H (0.52-1.04) mg/dL Glucose 66 L (74-99) mg/dL Plasma Lactic Acid Connor (0.7-2.0) mmol/L Calcium 8.3 L (8.4-10.2) mg/dL AST 44 H (14-36) U/L ALT 52 H (4-34) U/L Total Protein 5.2 L (6.3-8.2) g/dL Albumin 2.9 L (3.5-5.0) g/dL Microbiology - Last 24 Hours (Table) 11/05/24 10:28 Blood Culture - Preliminary Blood 11/05/24 11:08 Urine Culture - Final Urine,Catheterized Assessment and Plan Assessment: Acute hypoxemic and hypercapnic respiratory failure, consistent with pneumonia. Chest CTA did not show any evidence of filling defects consistent with pulmonary embolism. Bilateral consolidative opacities, predominantly in the lower lobes, suspicious for bilateral pneumonia. Small left pleural effusion. The patient is currently on a combination of cefepime and vancomycin. After BiPAP and the patient is currently on 2 L of O2 nasal cannula. Procalcitonin level was elevated at 4.2 Valvular heart disease with moderate to severe aortic stenosis and moderate aortic insufficiency Bilateral healthcare associated pneumonia Acute leukocytosis, secondary to above, improving Lactic acidosis, improving Elevated troponins, flat, likely secondary to type II RI Acute kidney injury, improving Recent treatment for UTI at outside facility Hypertension History of hyperlipidemia Permanent pacemaker, currently with paced rhythm History of atrial flutter, previously anticoagulated on Eliquis, currently off IV heparin History of CVA/TIA Plan: Discontinue the BiPAP and the patient is currently on 2 L of oxygen nasal cannula Chest x-ray shows stable lower lobe pulmonary infiltrates and consolidations Continue cefepime and vancomycin Procalcitonin level elevated Blood cultures and urine cultures pending Viral screen negative for influenza A/B, RSV, COVID. Discontinuing the IV heparin and hold anticoagulation for now as the patient was having some limited hematuria and put the patient on heparin subcu for DVT prophylaxis Clinically improved and the patient is more awake and comfortable on 2 L of oxygen nasal cannula. The patient will be downgraded to medical floor. Cut down the IV fluids for now and the patient is on D5 half-normal saline at rate of 30 cc an hour Will continue to follow
[2024-11-07 18:26] LABS: Glucose,Whole Blood 94 mg/dL (70-110)
[2024-11-07 20:13] LABS: Glucose,Whole Blood 85 mg/dL (70-110)
[2024-11-08 06:16] LABS: Glucose,Whole Blood 84 mg/dL (70-110)
[2024-11-08] MEDS: METOPROLOL SUCCINATE (ER) 25 MG TAB.ER.24H PO SCH (09:33)
[2024-11-08 10:15] LABS: Basophils # (A) 0.08 X 10*3/uL (0.00-0.10); Basophils % (A) 1.1 %; Eosinophils # (A) 0.31 X 10*3/uL (0.04-0.35); Eosinophils % (A) 4.3 %; HCT 29.7 % (37.2-46.3); HGB 9.6 g/dL (12.0-15.0); Lymphocytes # (A) 0.69 X 10*3/uL (0.90-5.00); Lymphocytes % (A) 9.6 %; MCHC 32.3 g/dL (32.0-37.0); Mean Platelet Volume 11.6 FL (9.5-12.2); Monocytes # (A) 0.59 X 10*3/uL (0.20-1.00); Monocytes % (A) 8.2 %; NRBC Per 100 WBC 0 X 10*3/uL (0.00-0.01); Neutrophils # (A) 5.47 X 10*3/uL (1.80-7.70); Neutrophils % (A) 76.1 %; Platelet Count 124 X 10*3/uL (140-440); RDW 14.1 % (11.5-14.5); WBC 7.19 X 10*3/uL (4.50-10.00)
[2024-11-08 10:27] LABS: Blood Urea Nitrogen 22.4 mg/dL (9.0-27.0); Carbon Dioxide 23.4 mmol/L (21.6-31.8); Chloride 110 mmol/L (96-109); Glucose 104 mg/dL (70-110); Magnesium 1.8 mg/dL (1.5-2.4); Potassium 3.6 mmol/L (3.5-5.5); Sodium 143 mmol/L (135-145)
[2024-11-08] MEDS: VANCOMYCIN 1,250 MG in SODIUM CHLORIDE 0.9% 250 ML IVPB SCH (10:42)
--- NOTE | 2024-11-08 11:01 | P.PN ---
Subjective HISTORY OF PRESENT ILLNESS: Patient examined this morning at the bedside. Patient currently denies shortness of breath. She does report having some occasional wheezing. She denies any cough or fever. She denies any chest pain or pressure. She continues to have indwelling urinary catheter. It appears that her hematuria has resolved this morning. However she remains anemic with a hemoglobin of 9.6, down from 13.5 on admission. Her anticoagulation remains on hold. Patient gives additional history that she has not been taking any of her medications on an outpatient basis. Echocardiogram performed last month revealed ejection fraction 55 to 60%, LVH, moderate to severe aortic stenosis with mean gradient 36 mmHg, moderate aortic insufficiency, mild TR PHYSICAL EXAM: VITAL SIGNS: Reviewed. GENERAL: Well-developed in no acute distress. NECK: Supple. No JVD or thyromegaly LUNGS: Respirations even and unlabored. Lungs essentially clear to auscultation bilaterally. HEART: Regular rate and rhythm. S1 and S2 heard. Systolic murmur noted. EXTREMITIES: Normal range of motion. No clubbing or cyanosis. Peripheral pulses intact. No lower extremity edema ASSESSMENT: Bilateral pneumonia Acute hypoxic and hypercapnic respiratory failure Hematuria with acute blood loss anemia 13.5 on admission, 9.6 today History of typical atrial flutter with slow ventricular rate History of dual-chamber pacemaker implantation, 2022 Severe concentric LVH Hypertension Valvular heart disease including moderate to severe aortic stenosis and moderate AI History of medication noncompliance PLAN: Add metoprolol succinate 25 mg daily Continue additional cardiac medications including atorvastatin, Lasix, and losartan Recommend resuming Eliquis. Will defer to primary medicine. Further recommendations pending patient course Nurse practitioner note has been reviewed by physician. Signing provider agrees with the documented findings, assessment, and plan of care documented by CUSTODIAL OFFICER as a scribe. Objective - Vital Signs Vital signs: Vital Signs Temp 98.9 F 11/08/24 06:59 Pulse 76 11/08/24 09:56 Resp 18 11/08/24 06:59 BP 153/69 11/08/24 06:59 Pulse Ox 94 L 11/08/24 09:48 FiO2 21 11/08/24 09:48 Intake & Output 11/07/24 11/08/24 11/08/24 18:59 06:59 18:59 Intake Total 120 Output Total 740 550 Balance -740 -430 Weight 60.01 kg 70 kg Intake: Oral 120 Output: Urine 740 550 Other: Voiding Method Indwelling Catheter Indwelling Catheter # Bowel Movements 1 1 - Labs CBC & Chem 7: 11/08/24 07:40 11/08/24 07:40 Labs: Abnormal Lab Results - Last 24 Hours (Table) 11/07/24 11/07/24 11/08/24 Range/Units 16:53 17:30 07:40 RBC 3.00 L (4.10-5.20) X 10*6/uL Hgb 9.6 L (12.0-15.0) g/dL Hct 29.7 L (37.2-46.3) % MCV 99.0 H (80.0-97.0) FL Plt Count 124 L (140-440) X 10*3/uL Immature Gran # 0.05 H (0.00-0.04) X 10*3/uL Lymphocytes # 0.69 L (0.90-5.00) X 10*3/uL Chloride (96-109) mmol/L Est GFR (CKD-EPI) (>=60) BUN/Creatinine Ratio (12.00-20.00) Ratio POC Glucose (mg/dL) 56 L 66 L (70-110) mg/dL Calcium (8.7-10.3) mg/dL 11/08/24 Range/Units 07:40 RBC (4.10-5.20) X 10*6/uL Hgb (12.0-15.0) g/dL Hct (37.2-46.3) % MCV (80.0-97.0) FL Plt Count (140-440) X 10*3/uL Immature Gran # (0.00-0.04) X 10*3/uL Lymphocytes # (0.90-5.00) X 10*3/uL Chloride 110 H (96-109) mmol/L Est GFR (CKD-EPI) 58 L (>=60) BUN/Creatinine Ratio 22.40 H (12.00-20.00) Ratio POC Glucose (mg/dL) (70-110) mg/dL Calcium 8.0 L (8.7-10.3) mg/dL Microbiology - Last 24 Hours (Table) 11/05/24 10:28 Blood Culture - Preliminary Blood
[2024-11-08 11:11] LABS: Glucose,Whole Blood 101 mg/dL (70-110)
--- NOTE | 2024-11-08 11:57 | P.PN ---
Subjective Progress Note Date: 11/08/24 Hospital Course: 78-year-old female with history of CAD, symptomatic bradycardia with multiple cardiac pauses resulted in permanent pacemaker placement 10/07/2022, valvular heart disease, diastolic heart failure, hypertension, hyperlipidemia, atrial flutter on Eliquis presents to the ED for lethargy and shortness of breath. Recently hospitalized for CVA and discharged to [facility] on 10/23. In the ED she underwent extensive evaluation. BP 95/60, RR 34, T 97.9F, HR 87, 90% on BiPAP FiO2 of 100%. CBC, Coag panel, CMP significant for WBC 19.4, MCV 101.9, Plt 149, PT 12.7, INR 1.2, bicarb 21, BUN 34, Cr 1.29, glu 192, T. Bili 1.4, AST 272, ALT 116. BNP 03480. Trop 0.395. Lactic acid 3.9. Mag 2.1. ABG pH 7.32, pCO2 46, pO2 72 on FiO2 100%. UA moderate LE and large blood. COVID, RSV, Flu neg. CXR cardiomegaly with pacemaker, chronic interstitial changes with no acute process. CT brain no acute process. CTA chest no PE, bilateral opacities, small L pleural effusion, cholelithiasis. CT AP large stool burden, post surgical lumbar spine changes. EKG atrial and ventricular paced rhythm. Patient is admitted to ICU secondary to sepsis due to PNA and need for continuous BiPAP. Started on Vancomycin and Cefepime along with heparin. Cardiology consulted. Patient started on losartan 50 daily, Lasix 20 daily oral, added metoprolol 25 daily D5 normal saline for glucose of 66. TTE pending. she was noted to have hematuria, hemoglobin dropped to 9.6. Eliquis currently on hold until hemoglobin stabilized, anemia workup requested, urine is clear on 11/08 per mendez. Pertinent Imaging: Subjective: She was seen and examined at bedside, she feels tired, denied shortness of breath today, no chest pain no abdominal pain Pertinent positives and negatives as discussed above, a complete review of systems was performed and all other systems are negative. Vitals Signs Reviewed. General: [nontoxic], [no distress], [appears at stated age] Derm: [warm], [dry] Head: [atraumatic], [normocephalic], [symmetric] Eyes: [EOMI], [no lid lag], [anicteric sclera] Mouth: [no lip lesion], [mucus membranes moist] Cardiovascular: [S1S2 reg], [no murmur] Lungs: bibasilar rhonchi , [no accessory muscle use] Abdominal: [soft], [ nontender to palpation], [no guarding], [no appreciable organomegaly], Mendez in place Ext: [no gross muscle atrophy], [no edema], [no contractures] Neuro: [ CN II-XI grossly intact], [no focal neuro deficits] Psych: [Alert], [oriented], [appropriate affect] Data Reviewed Today: Pertinent Labs: No leukocytosis, hemoglobin 11.6, platelet count 124, sodium and potassium normal, bicarb normal, creatinine 1.0, glucose 100s Assessment and Plan: Acute hypoxic respiratory failure secondary to HCAP -Pulmonology consulted -Procalcitonin positive -Urine Legionella negative -Continue cefepime and vancomycin, follow-up blood cultures preliminary negative, urine cultures negative; MRSA swab pending, plan to deescalate antibiotics once cx are finalized NSTEMI: Likely Type II Cardiology consulted, started on metoprolol succinate 25 daily Lipitor as below. Resumed Lasix 20 daily, losartan 50 daily Acute macrocitic anemia Hematuria Thrombocytopenia -hold eliquis for now, if Hb stable-can resume -urine in clear per Mendez 11/08 -anemia work up orederd: Iron, folate, B12 TAYLOR on CKD with metabolic acidosis: Likely prerenal from hypotension and sepsis, resolved -Resumed Lasix 20 daily, losartan 50 daily Transaminitis: Likely due to hypotension and sepsis. CT AP no biliary duct dilatation. Monitor. History of CVA: Lipitor. Severe : As per previous Echo. Cardiology consulted. Diastolic CHF, not in exacerbation Hypertension -Repeat Echo pending. Cardiology consulted. -Resumed Lasix 20 daily, losartan 50 daily, metoprolol succinate 25 daily Dyslipidemia: Lipitor 40 mg PO QHS. Atrial flutter: Eliquis 5 mg PO BID on hold, if Hb stable-resume. Hypoglycemia, continue D5 normal saline, Accu-Cheks Code status: full code Anticipated discharge place: tbd Anticipated discharge time: tbd Objective - Vital Signs Vital signs: Vital Signs Temp 98.9 F 11/08/24 06:59 Pulse 76 11/08/24 09:56 Resp 18 11/08/24 06:59 BP 153/69 11/08/24 06:59 Pulse Ox 94 L 11/08/24 09:48 FiO2 21 11/08/24 09:48 Intake & Output 11/07/24 11/08/24 11/08/24 18:59 06:59 18:59 Intake Total 120 Output Total 740 550 Balance -740 -430 Weight 60.01 kg 70 kg Intake: Oral 120 Output: Urine 740 550 Other: Voiding Method Indwelling Catheter Indwelling Catheter # Bowel Movements 1 1 - Labs CBC & Chem 7: 11/08/24 07:40 11/08/24 07:40 Labs: Abnormal Lab Results - Last 24 Hours (Table) 11/07/24 11/07/24 11/08/24 Range/Units 16:53 17:30 07:40 RBC 3.00 L (4.10-5.20) X 10*6/uL Hgb 9.6 L (12.0-15.0) g/dL Hct 29.7 L (37.2-46.3) % MCV 99.0 H (80.0-97.0) FL Plt Count 124 L (140-440) X 10*3/uL Immature Gran # 0.05 H (0.00-0.04) X 10*3/uL Lymphocytes # 0.69 L (0.90-5.00) X 10*3/uL Chloride (96-109) mmol/L Est GFR (CKD-EPI) (>=60) BUN/Creatinine Ratio (12.00-20.00) Ratio POC Glucose (mg/dL) 56 L 66 L (70-110) mg/dL Calcium (8.7-10.3) mg/dL 11/08/24 Range/Units 07:40 RBC (4.10-5.20) X 10*6/uL Hgb (12.0-15.0) g/dL Hct (37.2-46.3) % MCV (80.0-97.0) FL Plt Count (140-440) X 10*3/uL Immature Gran # (0.00-0.04) X 10*3/uL Lymphocytes # (0.90-5.00) X 10*3/uL Chloride 110 H (96-109) mmol/L Est GFR (CKD-EPI) 58 L (>=60) BUN/Creatinine Ratio 22.40 H (12.00-20.00) Ratio POC Glucose (mg/dL) (70-110) mg/dL Calcium 8.0 L (8.7-10.3) mg/dL Microbiology - Last 24 Hours (Table) 11/05/24 10:28 Blood Culture - Preliminary Blood
[2024-11-08 14:15] LABS: HCT 33.8 % (34.0-46.0); HGB 10.6 gm/dL (11.4-16.0); MCH 31.7 pg (25.0-35.0); MCHC 31.3 g/dL (31.0-37.0); MCV 101.2 fL (80.0-100.0); Macrocytosis Slight; Platelet Count 142 k/uL (150-450); RBC 3.34 m/uL (3.80-5.40); RDW 14.3 % (11.5-15.5); WBC 7.5 k/uL (3.8-10.6)
[2024-11-08 15:26] LABS: % Iron Saturation 13.97 (12.00-45.00)
[2024-11-08] MEDS: VANCOMYCIN TROUGH DUE 1 EACH MISC MISCELLANE ONE (16:03)
--- NOTE | 2024-11-08 16:12 | CA ---
Transthoracic Echo Report Name: Bita Pelayo Age: 79 Gender: F : 1945 Exam Date: 11/08/2024 14:20 Exam Location: [place] [facility] Ht (in): 63 Wt (lb): 132 Ordering Physician: Karie Rucker MD Attending/Referring Phys: Camp Nurse Dianne Pierson RDCS Procedure CPT: Indications: nstemi Cardiac Hx: Technical Quality: Fair Contrast 1: Total Dose (mL): Contrast 2: Total Dose (mL): MEASUREMENTS (Male / Female) Normal Values 2D ECHO LV Diastolic Diameter PLAX 3.8 cm 4.2 - 5.9 / 3.9 - 5.3 cm LV Systolic Diameter PLAX 1.8 cm IVS Diastolic Thickness 1.6 cm 0.6 - 1.0 / 0.6 - 0.9 cm LVPW Diastolic Thickness 1.6 cm 0.6 - 1.0 / 0.6 - 0.9 cm LV Relative Wall Thickness 0.8 RV Internal Dim ED PLAX 2.6 cm LA Systolic Diameter LX 4.8 cm 3.0 - 4.0 / 2.7 - 3.8 cm LV Diastolic Volume MOD BP 63.9 cm??? 67 - 155 / 56 - 104 cm??? LV Systolic Volume MOD BP 29.2 cm??? 22 - 58 / 19 - 49 cm??? LV Ejection Fraction MOD BP 54.3 % >= 55 % LV Cardiac Index MOD BP 1843.6 cm???/min???m??? LV Diastolic Volume MOD 4C 63.3 cm??? LV Systolic Volume MOD 4C 32.2 cm??? LV Ejection Fraction MOD 4C 49.2 % LV Cardiac Index MOD 4C 1652.9 cm???/min???m??? LV Diastolic Length 4C 6.6 cm LV Systolic Length 4C 6.7 cm LV Diastolic Volume MOD 2C 62.1 cm??? LV Systolic Volume MOD 2C 27.1 cm??? LV Ejection Fraction MOD 2C 56.4 % LV Cardiac Index MOD 2C 1857.7 cm???/min???m??? LV Diastolic Length 2C 6.9 cm LV Systolic Length 2C 6.5 cm LA Volume 180.6 cm??? 18 - 58 / 22 - 52 cm??? LA Volume Index 110.2 cm???/m??? 16 - 28 cm???/m??? DOPPLER AV Peak Velocity 384.6 cm/s AV Peak Gradient 59.2 mmHg AV Mean Velocity 266.3 cm/s AV Mean Gradient 32.1 mmHg AV Velocity Time Integral 71.0 cm LVOT Peak Velocity 96.2 cm/s LVOT Peak Gradient 3.7 mmHg LVOT Velocity Time Integral 18.8 cm FINDINGS Left Ventricle Left ventricular ejection fraction is estimated at 40-45 %. Anteroapical and apical septal severe hypokinesis.Severely increased left ventricular wall thickness. Left ventricular cavity size normal. Right Ventricle Right Atrium Catheter/pacemaker wire in the right atrial cavity. Left Atrium Severely increased left atrial diameter. Severely increased left atrial volume. Severely increased left atrial area. Mitral Valve Mitral annular calcification. Aortic Valve Aortic valve sclerosis. Tricuspid Valve Pulmonic Valve Pericardium No pericardial or pleural effusion. Aorta CONCLUSIONS 1. Moderately impaired left ventricular systolic function with segmental wall motion abnormality consistent with CAD 2. A wire was noted in the right ventricle Limited echo. Previewed by: Dr. Erendira Silver MD (Electronically Signed) Final Date: 08 November 2024 16:11
[2024-11-08 16:53] LABS: Glucose,Whole Blood 139 mg/dL (70-110)
--- NOTE | 2024-11-08 19:45 | P.PN ---
Subjective Progress Note Date: 11/08/24 Patient is 79 female with past medical history significant for hypertension, hyperlipidemia, CAD, heart failure, permanent pacemaker, atrial flutter anticoagulated on Eliquis, and CVA/TIA. Of note, recently hospitalized 10/18/24- 10/23/24 for CVA/TIA and new onset A.flutter. She was discharged on Eliquis to [facility]. Patient was sent in from her ECF, yesterday morning with a chief concern of increasing work of breathing, hypoxia, and altered mental status. Originally, placed on CPAP by EMS, this was transitioned to BiPAP in the ED. Of note, patient reported to be treating for UTI at outside facility. Workup in the emergency department including a brain CT which did not show any acute intracranial bleed or mass effect. Stable remote lacunar infarcts. Chest CTA did not show any evidence of filling defects consistent with pulmonary embolism. Bilateral consolidative opacities, predominantly in the lower lobes, suspicious for bilateral pneumonia. Small left pleural effusion. CT abd omen/pelvis did not show any evidence of acute intra-abdominal process. Large stool burden within the rectum and sigmoid colon. Postsurgical changes and degenerative changes in the lower lumbar spine. CBC: WBC count 13.5, hemoglobin 10.7, platelets 105. CMP: Sodium 138, potassium 3.9, chloride 102, serum bicarb 21, BUN 34, creatinine 1.29, glucose 192. Lactic peaked at 4.2 and is down to 2.6. LFTs mildly elevated. Serial troponins elevated 0.4, 0.41, and 0.38 respectively. NT proBNP significantly elevated at 29,200. EKG: Paced rhythm, 69 bpm. Echocardiogram from 10/18/2024 estimating left ventricular ejection fraction of 55 to 60%. Moderate to severe aortic stenosis. UA appears con taminated. Viral screen negative for influenza A/B, RSV, COVID. Patient started on empiric antibiotics in the form of cefepime and vancomycin in the ED. LR infusing at 130 mL/h. Also, previously systemically anticoagulated on heparin. Patient currently being evaluated in the ED. She appears comfortable on BiPAP with settings 12/5 and FiO2 80%. SpO2 is reading 99% on bedside monitor. ABG done previously with a PaO2 of 72, pCO2 of 46, pH of 7.32. Lethargic, however, awakens to verbal questioning then falls back asleep. Communication is limited by BiPAP. Has been afebrile. Blood pressure normotensive. On 11/07/2024, the patient is being seen for a follow-up. The patient is improved considerably since yesterday. The patient was taken off the BiPAP and the patient is currently on 2 L of oxygen by nasal cannula with a pulse ox of 94%. Repeat chest x-ray was done earlier this morning and it shows airspace opacities in lung bases bilaterally and the patient remains on broad-spectrum antibiotics and the patient is currently on a combination of cefepime and vancomycin. Remains on DuoNeb updrafts. The white cell count is at 8.3 with a hemoglobin of 10.1 and a platelet count of 122. BUN 37 with a creatinine of 1 and a sodium levels at 138 with a potassium level of 4. No other significant events overnight. Based on this significant clinical improvement, the patient is going to be downgraded and sent to a medical floor. She is awake and communicating. She is afebrile and hemodynamically stable. On 11/08/2024, patient is being seen for a follow-up. The patient presented with significant hypoxic respiratory failure with bilateral lower lobe pneumonia, possibly hospital-acquired and the patient was started on a combination of cefepime and vancomycin. The chest x-ray also showed cardiomegaly, and a component of pulmonary vascular congestion was noted. Accordingly, the patient was started on DuoNeb nebulized treatments [id number], cefepime and vancomycin and the patient was also maintained on Lasix 20 mg p.o. daily. Clinically, she is awake and alert and communicating. She is currently on 2 L of oxygen by nasal cannula. She is obviously off the BiPAP. Her blood work shows a WBC count of 7.5, hemoglobin of 10.6 and platelet count of 142. BUN is 22 with a creatinine of 1.0 and a sodium level is at 143 with a potassium level of 3.6, bicarb level is at 23. The viral screen at time of admission was negative. Legionella urine antigen was also negative. Objective - Vital Signs Vital signs: Vital Signs Temp 98.9 F 11/08/24 06:59 Pulse 76 11/08/24 09:56 Resp 18 11/08/24 06:59 BP 153/69 11/08/24 06:59 Pulse Ox 94 L 11/08/24 09:48 FiO2 21 11/08/24 09:48 Intake & Output 11/07/24 11/08/24 11/08/24 18:59 06:59 18:59 Intake Total 120 Output Total 740 550 Balance -740 -430 Weight 60.01 kg 70 kg Intake: Oral 120 Output: Urine 740 550 Other: Voiding Method Indwelling Catheter Indwelling Catheter # Bowel Movements 1 1 - Exam GENERAL EXAM: Lethargic, 79-year-old female awake and alert and currently on 2 L of oxygen by nasal cannula HEAD: Normocephalic and atraumatic EYES: Normal reaction of pupils, equal size. NOSE: Clear with pink turbinates. THROAT: No erythema or exudates. NECK: No masses, no JVD. CHEST: No chest wall deformity. LUNGS: Equal air entry with diminished bibasilar lung sounds. CVS: S1 and S2 normal with no audible murmur, regular rhythm. No extra heart sounds ABDOMEN: No hepatosplenomegaly, active bowel sounds, no guarding or rigidity. SPINE: No scoliosis or deformity SKIN: No rashes CENTRAL NERVOUS SYSTEM: No focal deficits, tone is normal in all 4 extremities. EXTREMITIES: There is no peripheral edema, clubbing, or cyanosis. Peripheral pulses are intact. - Labs CBC & Chem 7: 11/08/24 14:02 11/08/24 07:40 Labs: Abnormal Lab Results - Last 24 Hours (Table) 11/07/24 11/07/24 11/08/24 Range/Units 16:53 17:30 07:40 RBC 3.00 L (4.10-5.20) X 10*6/uL Hgb 9.6 L (12.0-15.0) g/dL Hct 29.7 L (37.2-46.3) % MCV 99.0 H (80.0-97.0) FL Plt Count 124 L (140-440) X 10*3/uL Immature Gran # 0.05 H (0.00-0.04) X 10*3/uL Lymphocytes # 0.69 L (0.90-5.00) X 10*3/uL Chloride (96-109) mmol/L Est GFR (CKD-EPI) (>=60) BUN/Creatinine Ratio (12.00-20.00) Ratio POC Glucose (mg/dL) 56 L 66 L (70-110) mg/dL Calcium (8.7-10.3) mg/dL 11/08/24 Range/Units 07:40 RBC (4.10-5.20) X 10*6/uL Hgb (12.0-15.0) g/dL Hct (37.2-46.3) % MCV (80.0-97.0) FL Plt Count (140-440) X 10*3/uL Immature Gran # (0.00-0.04) X 10*3/uL Lymphocytes # (0.90-5.00) X 10*3/uL Chloride 110 H (96-109) mmol/L Est GFR (CKD-EPI) 58 L (>=60) BUN/Creatinine Ratio 22.40 H (12.00-20.00) Ratio POC Glucose (mg/dL) (70-110) mg/dL Calcium 8.0 L (8.7-10.3) mg/dL Microbiology - Last 24 Hours (Table) 11/05/24 10:28 Blood Culture - Preliminary Blood Assessment and Plan Assessment: Acute hypoxemic and hypercapnic respiratory failure, consistent with pneumonia. Chest CTA did not show any evidence of filling defects consistent with pulmonary embolism. Bilateral consolidative opacities, predominantly in the lower lobes, suspicious for bilateral pneumonia. Small left pleural effusion. The patient is currently on a combination of cefepime and vancomycin. Procalcitonin level was elevated at 4.2. The patient remains on oxygen 2 L/min nasal cannula Valvular heart disease with moderate to severe aortic stenosis and moderate aortic insufficiency Bilateral healthcare associated pneumonia Acute leukocytosis, secondary to above, improving Lactic acidosis, improving Elevated troponins, flat, likely secondary to type II OH Acute kidney injury, improving Recent treatment for UTI at outside facility Hypertension History of hyperlipidemia Permanent pacemaker, currently with paced rhythm History of atrial flutter, previously anticoagulated on Eliquis, currently off IV heparin History of CVA/TIA Plan: Keep the patient on O2 at 2 L/min nasal cannula Continue cefepime and vancomycin Procalcitonin level elevated and this needs to be further monitored Blood cultures and urine cultures pending, negative thus far Viral screen negative for influenza A/B, RSV, COVID. Heparin subcu for DVT prophylaxis Clinically improved and the patient is more awake and comfortable on 2 L of oxygen nasal cannula. b Cut down the IV fluids to KVO Continue oral Lasix Will continue to follow Time with Patient: Greater than 30
[2024-11-08 20:24] LABS: Glucose,Whole Blood 99 mg/dL (70-110)
[2024-11-09 06:13] LABS: Glucose,Whole Blood 99 mg/dL (70-110)
[2024-11-09 08:49] LABS: Blood Urea Nitrogen 18.1 mg/dL (9.0-27.0); Carbon Dioxide 24.5 mmol/L (21.6-31.8); Chloride 110 mmol/L (96-109); Glucose 115 mg/dL (70-110); Magnesium 1.8 mg/dL (1.5-2.4); Potassium 3.7 mmol/L (3.5-5.5); Sodium 144 mmol/L (135-145)
[2024-11-09 09:11] LABS: Basophils # (A) 0.08 X 10*3/uL (0.00-0.10); Basophils % (A) 0.7 %; Eosinophils # (A) 0.53 X 10*3/uL (0.04-0.35); Eosinophils % (A) 4.7 %; HCT 30.2 % (37.2-46.3); HGB 9.6 g/dL (12.0-15.0); Lymphocytes # (A) 1.16 X 10*3/uL (0.90-5.00); Lymphocytes % (A) 10.3 %; MCH 32.2 pg (27.0-32.0); MCHC 31.8 g/dL (32.0-37.0); MCV 101.3 FL (80.0-97.0); Mean Platelet Volume 11.2 FL (9.5-12.2); NRBC Per 100 WBC 0 X 10*3/uL (0.00-0.01); Neutrophils # (A) 8.38 X 10*3/uL (1.80-7.70); Neutrophils % (A) 74.6 %; Platelet Count 145 X 10*3/uL (140-440); RBC 2.98 X 10*6/uL (4.10-5.20); RDW 14.1 % (11.5-14.5); WBC 11.24 X 10*3/uL (4.50-10.00)
[2024-11-09 11:30] LABS: Glucose,Whole Blood 157 mg/dL (70-110)
--- NOTE | 2024-11-09 12:04 | P.PN ---
Subjective HISTORY OF PRESENT ILLNESS: Patient examined this morning at the bedside. Patient currently denies shortness of breath. She does report having some occasional wheezing. She denies any cough or fever. She denies any chest pain or pressure. She continues to have indwelling urinary catheter. It appears that her hematuria has resolved this morning. However she remains anemic with a hemoglobin of 9.6, down from 13.5 on admission. Her anticoagulation remains on hold. Patient gives additional history that she has not been taking any of her medications on an outpatient basis. Echocardiogram performed last month revealed ejection fraction 55 to 60%, LVH, moderate to severe aortic stenosis with mean gradient 36 mmHg, moderate aortic insufficiency, mild TR 11/09/2024 Patient examined this morning the bedside. Patient currently denies chest pain or pressure. She denies shortness of breath. Denies dizziness or lightheadedness. Echocardiogram completed revealing ejection fraction 40 to 45%, anterior apical and apical septal severe hypokinesis, and no pericardial or pleural effusion. PHYSICAL EXAM: VITAL SIGNS: Reviewed. GENERAL: Well-developed in no acute distress. NECK: Supple. No JVD or thyromegaly LUNGS: Respirations even and unlabored. Lungs essentially clear to auscultation bilaterally. HEART: Regular rate and rhythm. S1 and S2 heard. Systolic murmur noted. EXTREMITIES: Normal range of motion. No clubbing or cyanosis. Peripheral pulses intact. No lower extremity edema ASSESSMENT: Bilateral pneumonia Acute hypoxic and hypercapnic respiratory failure Hematuria with acute blood loss anemia 13.5 on admission, 9.6 today History of typical atrial flutter with slow ventricular rate History of dual-chamber pacemaker implantation, 2022 Severe concentric LVH Hypertension Valvular heart disease including moderate to severe aortic stenosis and moderate AI History of medication noncompliance New onset cardiomyopathy, 40 to 45%, ischemic versus nonischemic PLAN: Continue current cardiac medications including atorvastatin, Lasix, metoprolol, and losartan Recommend resuming Eliquis. Will defer to primary medicine. Case discussed yesterday with Dr. Tabby Key. CBC this morning remains pending. Recommend outpatient ischemic evaluation due to cardiomyopathy along with close outpatient follow up regarding aortic valve. No indication for inpatient workup at this time. Further recommendations pending patient course Nurse practitioner note has been reviewed by physician. Signing provider agrees with the documented findings, assessment, and plan of care documented by RIBBON WINDER as a scribe. Objective - Vital Signs Vital signs: Vital Signs Temp 97.9 F 11/09/24 07:05 Pulse 80 11/09/24 09:43 Resp 23 11/09/24 08:56 BP 176/86 11/09/24 07:05 Pulse Ox 97 11/09/24 07:05 FiO2 21 11/08/24 09:48 Intake & Output 11/08/24 11/09/24 11/09/24 18:59 06:59 18:59 Weight 70 kg 70 kg Other: Voiding Method Indwelling Catheter Indwelling Catheter - Labs CBC & Chem 7: 11/09/24 04:35 11/09/24 04:35 Labs: Abnormal Lab Results - Last 24 Hours (Table) 11/08/24 11/08/24 11/08/24 Range/Units 07:24 14:02 16:44 WBC (4.50-10.00) X 10*3/uL RBC 3.34 L (3.80-5.40) m/uL Hgb 10.6 L (11.4-16.0) gm/dL Hct 33.8 L (34.0-46.0) % MCV 101.2 H (80.0-100.0) fL MCH (27.0-32.0) pg MCHC (32.0-37.0) g/dL Plt Count 142 L (150-450) k/uL Immature Gran # (0.00-0.04) X 10*3/uL Neutrophils # (1.80-7.70) X 10*3/uL Eosinophils # (0.04-0.35) X 10*3/uL Chloride (96-109) mmol/L Est GFR (CKD-EPI) (>=60) Glucose (70-110) mg/dL POC Glucose (mg/dL) 139 H (70-110) mg/dL Calcium (8.7-10.3) mg/dL Iron 25 L (50-170) UG/DL TIBC 179 L (228-460) UG/DL Transferrin 128.0 L (204.0-354.0) mg/dL 11/09/24 11/09/24 11/09/24 Range/Units 04:35 04:35 11:28 WBC 11.24 H (4.50-10.00) X 10*3/uL RBC 2.98 L (3.80-5.40) m/uL Hgb 9.6 L (11.4-16.0) gm/dL Hct 30.2 L (34.0-46.0) % MCV 101.3 H (80.0-100.0) fL MCH 32.2 H (27.0-32.0) pg MCHC 31.8 L (32.0-37.0) g/dL Plt Count (150-450) k/uL Immature Gran # 0.19 H (0.00-0.04) X 10*3/uL Neutrophils # 8.38 H (1.80-7.70) X 10*3/uL Eosinophils # 0.53 H (0.04-0.35) X 10*3/uL Chloride 110 H (96-109) mmol/L Est GFR (CKD-EPI) 58 L (>=60) Glucose 115 H (70-110) mg/dL POC Glucose (mg/dL) 157 H (70-110) mg/dL Calcium 8.0 L (8.7-10.3) mg/dL Iron (50-170) UG/DL TIBC (228-460) UG/DL Transferrin (204.0-354.0) mg/dL Microbiology - Last 24 Hours (Table) 11/05/24 10:28 Blood Culture - Preliminary Blood 11/07/24 14:00 Nasal Screen MRSA/MSSA - Final Nasal Swab
--- NOTE | 2024-11-09 13:42 | P.CN ---
Psychiatric Consult - . Consult date: 11/09/24 Consult:: 11/09/24 13:12 IDENTIFYING DATA: This patient is a 79-year-old female, was coming from [facility], she is she has no kids REASON FOR REFERRAL: Psychiatry was consulted for capacity medications, noncompliance HISTORY OF PRESENT ILLNESS: The patient presented to the hospital and was seen initially on 11/05 for shortness of breath altered mental status was found to be hypoxic. Patient has several medical comorbidities including heart failure hypertension stroke. Patient is currently receiving treatment for UTI. White blood cell count was elevated at 19.4, absolute neutrophil count was elevated at 16.8, LFTs were elevated, troponins were also elevated. Patient was admitted to the medical floors for sepsis pneumonia UTI respiratory failure encephalopathy and also NSTEMI. Patient was seen by marketing underwriter today at the bedside, she knew her name and age, did not know her current location believe that it was "October 24". She did not really know why she is in the hospital. Claims that she had a "fall" before coming into the hospital. She was a rather poor historian, cannot give further details. Poor insight into her condition. Claims that she has been feeling "lousy" when asked about her depression and mood. Claims that she is also endorsing anxiety at this time. Her concentration was rather poor. She is endorsing suicidal thoughts at this time however no specific plan, she was peeling off a sticker for her Roe catheter while talking to marketing underwriter, did not listen to directions regarding this. She is also claiming that she hears voices and this is chronic, claims that they are "no good". She denies any visual hallucinations. Denies any homicidal ideations. Claims that her sleep is poor appetite is fair. Any recreational drug use. Due to patient's altered mental status, very little psychiatric history was obtained and very little social history as well. PAST PSYCHIATRIC HISTORY: Patient has a a history of mental illness. Claims that she has been on several different medications in the past. Patient denies any previous psychiatric hospitalizations. Patient denies any psychiatric outpatient follow-up. Claims that she attempted to overdose several times in the past. Past Medical History Past Medical History: Chest Pain / Angina, Heart Failure, Hyperlipidemia, Hypertension Additional Past Medical History / Comment(s): pt states she has a "leaky heart valve", pacemaker History of Any Multi-Drug Resistant Organisms: None Reported Past Surgical History: Heart Catheterization, Hysterectomy, Orthopedic Surgery Additional Past Surgical History / Comment(s): Right hip replacement. Lower 3 discs on back are fused together, bilat carpal tunnel Past Anesthesia/Blood Transfusion Reactions: No Reported Reaction Additional Past Anesthesia/Blood Transfusion Reaction / Comment(s): never had blood transfusion Past Psychological History: Depression Smoking Status: Former smoker Past Alcohol Use History: None Reported Past Drug Use History: None Reported ALLERGIES: as per EMR. CHEMICAL DEPENDENCY HISTORY: as per HPI. FAMILY PSYCHIATRIC/SUBSTANCE USE HISTORY: Unable to obtain SOCIAL HISTORY: Patient currently lives at [facility], she is she has no kids. MENTAL STATUS EXAM: General Appearance: Patient appears to be thin, sitting on bed, getting stated age is alert, limited cooperative. Patient appears to have fair hygiene and grooming wearing hospital gown with poor eye contact. Behavior: Patient is calmly lying in bed without any agitated behavior. Superficial, does not follow directions Speech: Patient's speech is fluent and nonpressured. [place], minimal Mood/Affect: Patient reports their mood is "depressed and lousy", affect is congruent constricted Suicidality/Homicidality: Patient mitts to having suicidal thoughts, no specific plan denies any homicidal ideations Perceptions: Patient denies any visual hallucinations and admits to auditory hallucinations Though content/process: There is no evidence of any delusional thought. No paranoia, fairly concrete, poor historian Memory and concentration: AOX1-2, grossly impaired concentration. Cannot spell "WORLD" backwards Judgment and insight: Poor IMPRESSIONS: Delirium likely etiology multifactorial including infection and toxic metabolic Psychosis unspecified, rule out schizoaffective disorder Suicidal ideations PLAN: -At this time patient DOES NOT meet criteria for inpatient psychiatric admission due to patient's multiple medical comorbidities, she will need to be treated psychiatrically while on the medical floors. -Patient DOES NOT have decision making capacity at this time and is unable to reason through and communicate/appreciate the risks, benefits and alternatives to treatment. -Delirium precautions recommended with patient including - avoiding use of narcotics and BANDING MACHINE OPERATOR sedatives, limit anticholinergic medications when possible, frequent re-orientation, minimize use of restraints, open window shades during the day and close them at night -Would recommend the following medication changes/additions: Zoloft 25 mg daily for mood/anxiety, melatonin 3 mg nightly for sleep, Risperdal 0.5 mg now once with 0.25 mg twice daily for psychosis -Continue 1:1 sitter for safety and suicide precautions -Cannot leave AMA at this time. Patient will need a petition and certification if attempting to leave AMA. -vegetable farmworker to provide patient with outpatient mental health/psychiatry resources for appropriate follow up upon discharge -Communicated plan to patient's nurse -Will continue to follow along as needed -Please contact with any questions. 11/09/24 13:35
[2024-11-09] MEDS: SERTRALINE 25 MG TAB PO SCH (14:32)
[2024-11-09] MEDS: risperiDONE 0.5 MG TAB PO STA (14:33)
--- NOTE | 2024-11-09 14:44 | P.PN ---
Subjective Progress Note Date: 11/09/24 Hospital Course: 78-year-old female with history of CAD, symptomatic bradycardia with multiple cardiac pauses resulted in permanent pacemaker placement 10/07/2022, valvular heart disease, diastolic heart failure, hypertension, hyperlipidemia, atrial flutter on Eliquis presents to the ED for lethargy and shortness of breath. Recently hospitalized for CVA and discharged to [facility] on 10/23. In the ED she underwent extensive evaluation. BP 95/60, RR 34, T 97.9F, HR 87, 90% on BiPAP FiO2 of 100%. CBC, Coag panel, CMP significant for WBC 19.4, MCV 101.9, Plt 149, PT 12.7, INR 1.2, bicarb 21, BUN 34, Cr 1.29, glu 192, T. Bili 1.4, AST 272, ALT 116. BNP 52306. Trop 0.395. Lactic acid 3.9. Mag 2.1. ABG pH 7.32, pCO2 46, pO2 72 on FiO2 100%. UA moderate LE and large blood. COVID, RSV, Flu neg. CXR cardiomegaly with pacemaker, chronic interstitial changes with no acute process. CT brain no acute process. CTA chest no PE, bilateral opacities, small L pleural effusion, cholelithiasis. CT AP large stool burden, post surgical lumbar spine changes. EKG atrial and ventricular paced rhythm. Patient is admitted to ICU secondary to sepsis due to PNA and need for continuous BiPAP. Started on Vancomycin and Cefepime along with heparin. Cardiology consulted. Patient started on losartan 50 daily, Lasix 20 daily oral, added metoprolol 25 daily D5 normal saline for glucose of 66. TTE pending. she was noted to have hematuria, hemoglobin dropped to 9.6. Eliquis currently on hold until hemoglobin stabilized, anemia workup requested, urine is clear on 11/08 per mendez. Psychiatry consulted for capacity evaluation, patient endorsed suicidal ideations. Patient does not have decision-making capacity at this time, recommended Zoloft 25 daily, melatonin 3 mg nightly, Risperdal 0.5 mg once followed by 0.25 twice daily for psychosis, one-to-one sitter, patient cannot leave AMA. Per cardiology, patient will need outpatient ischemic evaluation and close outpatient follow-up regarding her aortic valve disease. MRSA swab negative, vancomycin stopped, cefepime continued, final cultures pen ding 11/09 hemoglobin did not drop further, Eliquis resumed. Attempted to contact patient's family at [phone] and [phone], no response Subjective: She was seen and examined at bedside, she feels tired, denied shortness of breath today, no chest pain no abdominal pain Pertinent positives and negatives as discussed above, a complete review of systems was performed and all other systems are negative. Vitals Signs Reviewed. General: [nontoxic], [no distress], [appears at stated age] Derm: [warm], [dry] Head: [atraumatic], [normocephalic], [symmetric] Eyes: [EOMI], [no lid lag], [anicteric sclera] Mouth: [no lip lesion], [mucus membranes moist] Cardiovascular: [S1S2 reg], [no murmur] Lungs: bibasilar rhonchi , [no accessory muscle use] Abdominal: [soft], [ nontender to palpation], [no guarding], [no appreciable organomegaly], Mendez in place Ext: [no gross muscle atrophy], [no edema], [no contractures] Neuro: [ CN II-XI grossly intact], [no focal neuro deficits] Psych: [Flat affect Data Reviewed Today: Pertinent Labs: WBC 11.24, hemoglobin 9.6, platelet count normal, sodium and potassium normal, bicarb, creatinine normal, glucose 115 Assessment and Plan: Acute hypoxic respiratory failure secondary to HCAP -Pulmonology consulted -Procalcitonin positive -Urine Legionella negative -Continue cefepime, vancomycin stopped on 11/09 MRSA swab negative, follow-up blood cultures preliminary negative, urine cultures negative; Suicidal ideations Psychosis -Psychiatry consulted for capacity evaluation, patient endorsed suicidal ideations. Patient does not have decision-making capacity at this time, recommended Zoloft 25 daily, melatonin 3 mg nightly, Risperdal 0.5 mg once fo llowed by 0.25 twice daily for psychosis, one-to-one sitter, patient cannot leave AMA. NSTEMI: Likely Type II Cardiology consulted, started on metoprolol succinate 25 daily Lipitor as below. Resumed Lasix 20 daily, losartan 50 daily Acute macrocitic anemia Hematuria Thrombocytopenia -hold eliquis for now, if Hb stable-can resume -urine in clear per Mendez -anemia work up orederd: Iron, folate, B12 TAYLOR on CKD with metabolic acidosis: Likely prerenal from hypotension and sepsis, resolved -Resumed Lasix 20 daily, losartan 50 daily Transaminitis: Likely due to hypotension and sepsis. CT AP no biliary duct dilatation. Monitor. History of CVA: Lipitor. Severe : As per previous Echo. Cardiology consulted. Diastolic CHF, not in exacerbation Hypertension -Repeat Echo limited showed segmental wall motion abnormality consistent with CAD -Per cardiology, outpatient ischemic workup and close follow-up for her aortic valve disease -Resumed Lasix 20 daily, losartan 50 daily, metoprolol succinate 25 daily Dyslipidemia: Lipitor 40 mg PO QHS. Atrial flutter: Eliquis 5 mg PO BID on hold, if Hb stable-resume. Hypoglycemia, continue D5 normal saline, Accu-Cheks Code status: full code Anticipated discharge place: tbd Anticipated discharge time: tbd Objective - Vital Signs Vital signs: Vital Signs Temp 98.5 F 11/09/24 13:45 Pulse 70 11/09/24 13:45 Resp 26 H 11/09/24 13:45 BP 137/72 11/09/24 13:45 Pulse Ox 97 11/09/24 13:53 FiO2 21 11/08/24 09:48 Intake & Output 11/08/24 11/09/24 11/09/24 18:59 06:59 18:59 Weight 70 kg 70 kg Other: Voiding Method Indwelling Catheter Indwelling Catheter - Labs CBC & Chem 7: 11/09/24 04:35 11/09/24 04:35 Labs: Abnormal Lab Results - Last 24 Hours (Table) 11/08/24 11/08/24 11/09/24 Range/Units 07:24 16:44 04:35 WBC 11.24 H (4.50-10.00) X 10*3/uL RBC 2.98 L (4.10-5.20) X 10*6/uL Hgb 9.6 L (12.0-15.0) g/dL Hct 30.2 L (37.2-46.3) % MCV 101.3 H (80.0-97.0) FL MCH 32.2 H (27.0-32.0) pg MCHC 31.8 L (32.0-37.0) g/dL Immature Gran # 0.19 H (0.00-0.04) X 10*3/uL Neutrophils # 8.38 H (1.80-7.70) X 10*3/uL Eosinophils # 0.53 H (0.04-0.35) X 10*3/uL Chloride (96-109) mmol/L Est GFR (CKD-EPI) (>=60) Glucose (70-110) mg/dL POC Glucose (mg/dL) 139 H (70-110) mg/dL Calcium (8.7-10.3) mg/dL Iron 25 L (50-170) UG/DL TIBC 179 L (228-460) UG/DL Transferrin 128.0 L (204.0-354.0) mg/dL 11/09/24 11/09/24 Range/Units 04:35 11:28 WBC (4.50-10.00) X 10*3/uL RBC (4.10-5.20) X 10*6/uL Hgb (12.0-15.0) g/dL Hct (37.2-46.3) % MCV (80.0-97.0) FL MCH (27.0-32.0) pg MCHC (32.0-37.0) g/dL Immature Gran # (0.00-0.04) X 10*3/uL Neutrophils # (1.80-7.70) X 10*3/uL Eosinophils # (0.04-0.35) X 10*3/uL Chloride 110 H (96-109) mmol/L Est GFR (CKD-EPI) 58 L (>=60) Glucose 115 H (70-110) mg/dL POC Glucose (mg/dL) 157 H (70-110) mg/dL Calcium 8.0 L (8.7-10.3) mg/dL Iron (50-170) UG/DL TIBC (228-460) UG/DL Transferrin (204.0-354.0) mg/dL Microbiology - Last 24 Hours (Table) 11/05/24 10:28 Blood Culture - Preliminary Blood 11/07/24 14:00 Nasal Screen MRSA/MSSA - Final Nasal Swab
[2024-11-09 16:51] LABS: Glucose,Whole Blood 138 mg/dL (70-110)
[2024-11-09 20:51] LABS: Glucose,Whole Blood 114 mg/dL (70-110)
[2024-11-09] MEDS: risperiDONE 0.25 MG TAB PO SCH (22:23)
[2024-11-09] MEDS: MELATONIN 3 MG TABLET PO SCH (22:24)
[2024-11-09] MEDS: APIXABAN 5 MG TAB PO SCH (22:24)
--- NOTE | 2024-11-09 22:44 | P.PN ---
Subjective Progress Note Date: 11/09/24 Patient is 79 female with past medical history significant for hypertension, hyperlipidemia, CAD, heart failure, permanent pacemaker, atrial flutter anticoagulated on Eliquis, and CVA/TIA. Of note, recently hospitalized 10/18/24- 10/23/24 for CVA/TIA and new onset A.flutter. She was discharged on Eliquis to [facility]. Patient was sent in from her ECF, yesterday morning with a chief concern of increasing work of breathing, hypoxia, and altered mental status. Originally, placed on CPAP by EMS, this was transitioned to BiPAP in the ED. Of note, patient reported to be treating for UTI at outside facility. Workup in the emergency department including a brain CT which did not show any acute intracranial bleed or mass effect. Stable remote lacunar infarcts. Chest CTA did not show any evidence of filling defects consistent with pulmonary embolism. Bilateral consolidative opacities, predominantly in the lower lobes, suspicious for bilateral pneumonia. Small left pleural effusion. CT abd omen/pelvis did not show any evidence of acute intra-abdominal process. Large stool burden within the rectum and sigmoid colon. Postsurgical changes and degenerative changes in the lower lumbar spine. CBC: WBC count 13.5, hemoglobin 10.7, platelets 105. CMP: Sodium 138, potassium 3.9, chloride 102, serum bicarb 21, BUN 34, creatinine 1.29, glucose 192. Lactic peaked at 4.2 and is down to 2.6. LFTs mildly elevated. Serial troponins elevated 0.4, 0.41, and 0.38 respectively. NT proBNP significantly elevated at 29,200. EKG: Paced rhythm, 69 bpm. Echocardiogram from 10/18/2024 estimating left ventricular ejection fraction of 55 to 60%. Moderate to severe aortic stenosis. UA appears con taminated. Viral screen negative for influenza A/B, RSV, COVID. Patient started on empiric antibiotics in the form of cefepime and vancomycin in the ED. LR infusing at 130 mL/h. Also, previously systemically anticoagulated on heparin. Patient currently being evaluated in the ED. She appears comfortable on BiPAP with settings 12/5 and FiO2 80%. SpO2 is reading 99% on bedside monitor. ABG done previously with a PaO2 of 72, pCO2 of 46, pH of 7.32. Lethargic, however, awakens to verbal questioning then falls back asleep. Communication is limited by BiPAP. Has been afebrile. Blood pressure normotensive. On 11/07/2024, the patient is being seen for a follow-up. The patient is improved considerably since yesterday. The patient was taken off the BiPAP and the patient is currently on 2 L of oxygen by nasal cannula with a pulse ox of 94%. Repeat chest x-ray was done earlier this morning and it shows airspace opacities in lung bases bilaterally and the patient remains on broad-spectrum antibiotics and the patient is currently on a combination of cefepime and vancomycin. Remains on DuoNeb updrafts. The white cell count is at 8.3 with a hemoglobin of 10.1 and a platelet count of 122. BUN 37 with a creatinine of 1 and a sodium levels at 138 with a potassium level of 4. No other significant events overnight. Based on this significant clinical improvement, the patient is going to be downgraded and sent to a medical floor. She is awake and communicating. She is afebrile and hemodynamically stable. On 11/08/2024, patient is being seen for a follow-up. The patient presented with significant hypoxic respiratory failure with bilateral lower lobe pneumonia, possibly hospital-acquired and the patient was started on a combination of cefepime and vancomycin. The chest x-ray also showed cardiomegaly, and a component of pulmonary vascular congestion was noted. Accordingly, the patient was started on DuoNeb nebulized treatments [id number], cefepime and vancomycin and the patient was also maintained on Lasix 20 mg p.o. daily. Clinically, she is awake and alert and communicating. She is currently on 2 L of oxygen by nasal cannula. She is obviously off the BiPAP. Her blood work shows a WBC count of 7.5, hemoglobin of 10.6 and platelet count of 142. BUN is 22 with a creatinine of 1.0 and a sodium level is at 143 with a potassium level of 3.6, bicarb level is at 23. The viral screen at time of admission was negative. Legionella urine antigen was also negative. On 11/09/2024, the patient is calm and comfortable on room air oxygen with a pulse ox of 93%. No new complaints. She does mention that she wanted to hurt herself and based on that his psychiatric evaluation was done. Meanwhile, the patient underwent an echocardiogram and the echo showed left ventricle ejection fraction of 40 to 45%. Anteroseptal and apical hypokinesis and severe increase in left ventricular wall thickness. The patient's white cell count is 11, hemoglobin 9.6 and a platelet count of 145. BUN is 18 with a creatinine of 1 and sodium levels at 144 and a potassium level is at 3.7. The patient remains on IV cefepime. The patient is on oral Lasix 20 mg p.o. daily. Rest of medication remains unchanged. She remains on anticoagulation with Eliquis. Objective - Vital Signs Vital signs: Vital Signs Temp 97.9 F 11/09/24 07:05 Pulse 80 11/09/24 09:43 Resp 23 11/09/24 08:56 BP 176/86 11/09/24 07:05 Pulse Ox 97 11/09/24 07:05 FiO2 21 11/08/24 09:48 Intake & Output 11/08/24 11/09/24 11/09/24 18:59 06:59 18:59 Weight 70 kg 70 kg Other: Voiding Method Indwelling Catheter Indwelling Catheter - Exam GENERAL EXAM: Lethargic, 79-year-old female awake and alert and currently on room air oxygen HEAD: Normocephalic and atraumatic EYES: Normal reaction of pupils, equal size. NOSE: Clear with pink turbinates. THROAT: No erythema or exudates. NECK: No masses, no JVD. CHEST: No chest wall deformity. LUNGS: Equal air entry with diminished bibasilar lung sounds. CVS: S1 and S2 normal with no audible murmur, regular rhythm. No extra heart sounds ABDOMEN: No hepatosplenomegaly, active bowel sounds, no guarding or rigidity. SPINE: No scoliosis or deformity SKIN: No rashes CENTRAL NERVOUS SYSTEM: No focal deficits, tone is normal in all 4 extremities. EXTREMITIES: There is no peripheral edema, clubbing, or cyanosis. Peripheral pulses are intact. - Labs CBC & Chem 7: 11/09/24 04:35 11/09/24 04:35 Labs: Abnormal Lab Results - Last 24 Hours (Table) 11/08/24 11/08/24 11/08/24 Range/Units 07:24 14:02 16:44 WBC (4.50-10.00) X 10*3/uL RBC 3.34 L (3.80-5.40) m/uL Hgb 10.6 L (11.4-16.0) gm/dL Hct 33.8 L (34.0-46.0) % MCV 101.2 H (80.0-100.0) fL MCH (27.0-32.0) pg MCHC (32.0-37.0) g/dL Plt Count 142 L (150-450) k/uL Immature Gran # (0.00-0.04) X 10*3/uL Neutrophils # (1.80-7.70) X 10*3/uL Eosinophils # (0.04-0.35) X 10*3/uL Chloride (96-109) mmol/L Est GFR (CKD-EPI) (>=60) Glucose (70-110) mg/dL POC Glucose (mg/dL) 139 H (70-110) mg/dL Calcium (8.7-10.3) mg/dL Iron 25 L (50-170) UG/DL TIBC 179 L (228-460) UG/DL Transferrin 128.0 L (204.0-354.0) mg/dL 11/09/24 11/09/24 11/09/24 Range/Units 04:35 04:35 11:28 WBC 11.24 H (4.50-10.00) X 10*3/uL RBC 2.98 L (3.80-5.40) m/uL Hgb 9.6 L (11.4-16.0) gm/dL Hct 30.2 L (34.0-46.0) % MCV 101.3 H (80.0-100.0) fL MCH 32.2 H (27.0-32.0) pg MCHC 31.8 L (32.0-37.0) g/dL Plt Count (150-450) k/uL Immature Gran # 0.19 H (0.00-0.04) X 10*3/uL Neutrophils # 8.38 H (1.80-7.70) X 10*3/uL Eosinophils # 0.53 H (0.04-0.35) X 10*3/uL Chloride 110 H (96-109) mmol/L Est GFR (CKD-EPI) 58 L (>=60) Glucose 115 H (70-110) mg/dL POC Glucose (mg/dL) 157 H (70-110) mg/dL Calcium 8.0 L (8.7-10.3) mg/dL Iron (50-170) UG/DL TIBC (228-460) UG/DL Transferrin (204.0-354.0) mg/dL Microbiology - Last 24 Hours (Table) 11/05/24 10:28 Blood Culture - Preliminary Blood 11/07/24 14:00 Nasal Screen MRSA/MSSA - Final Nasal Swab Assessment and Plan Assessment: Acute hypoxemic and hypercapnic respiratory failure, consistent with pneumonia. Chest CTA did not show any evidence of filling defects consistent with pulmonary embolism. Bilateral consolidative opacities, predominantly in the lower lobes, suspicious for bilateral pneumonia. Small left pleural effusion. The patient is currently on IV cefepime. Procalcitonin level was elevated at 4.2. The p patient's oxygenation is improved and the patient is currently on room air oxygen Valvular heart disease with moderate to severe aortic stenosis and moderate aortic insufficiency Bilateral healthcare associated pneumonia Acute leukocytosis, secondary to above, improving Lactic acidosis, improving Elevated troponins, flat, likely secondary to type II NC Acute kidney injury, improving Recent treatment for UTI at outside facility Hypertension History of hyperlipidemia Permanent pacemaker, currently with paced rhythm History of atrial flutter, previously anticoagulated on Eliquis, currently off IV heparin History of CVA/TIA Plan: Patient currently on room air oxygen Continue cefepime Procalcitonin level elevated and this needs to be further monitored Blood cultures and urine cultures pending, negative thus far Viral screen negative for influenza A/B, RSV, COVID. Heparin subcu for DVT prophylaxis Lasix 20 mg p.o. daily Repeat chest x-ray within the next 24 hours Will continue to follow Time with Patient: Greater than 30
[2024-11-10 06:08] LABS: Glucose,Whole Blood 113 mg/dL (70-110)
[2024-11-10] MEDS ORDERED: VANCOMYCIN TROUGH DUE 1 EACH MISC MISCELLANE ONE (09:00)
--- NOTE | 2024-11-10 10:24 | XR ---
EXAMINATION TYPE: XR chest 1V portable DATE OF EXAM: 11/10/2024 10:10 AM COMPARISON: Chest radiographs from 11/07/2024 CLINICAL INDICATION: Female, 79 years old with history of follow up , hypoxia; TECHNIQUE: XR chest 1V portable Frontal view of the chest. FINDINGS: Lungs/Pleura: There is no evidence of pleural effusion, focal consolidation, or pneumothorax. Pulmonary vascularity: Unremarkable. Heart/mediastinum: Cardiomediastinal silhouette is unremarkable. Atherosclerotic calcifications are seen in the aorta. Two lead cardiac conduction device overlying the left hemithorax with lead tips pr ojecting over the right ventricle and right atrium. Musculoskeletal: No acute osseous pathology. Other findings: None IMPRESSION: Cardiomegaly and mild pulmonary vascular congestion. Correlate with BNP for congestive heart failure. [facility], , 11/10/2024 10:21 AM
[2024-11-10 11:01] LABS: BUN/Creat Ratio 15.56 Ratio (12.00-20.00); Carbon Dioxide 23.3 mmol/L (21.6-31.8); Chloride 113 mmol/L (96-109); Glucose 115 mg/dL (70-110); Magnesium 1.7 mg/dL (1.5-2.4); Potassium 3.4 mmol/L (3.5-5.5); Sodium 145 mmol/L (135-145)
[2024-11-10 11:56] LABS: Glucose,Whole Blood 159 mg/dL (70-110)
--- NOTE | 2024-11-10 12:19 | P.PN ---
Subjective HISTORY OF PRESENT ILLNESS: Patient examined this morning at the bedside. Patient currently denies shortness of breath. She does report having some occasional wheezing. She denies any cough or fever. She denies any chest pain or pressure. She continues to have indwelling urinary catheter. It appears that her hematuria has resolved this morning. However she remains anemic with a hemoglobin of 9.6, down from 13.5 on admission. Her anticoagulation remains on hold. Patient gives additional history that she has not been taking any of her medications on an outpatient basis. Echocardiogram performed last month revealed ejection fraction 55 to 60%, LVH, moderate to severe aortic stenosis with mean gradient 36 mmHg, moderate aortic insufficiency, mild TR 11/09/2024 Patient examined this morning the bedside. Patient currently denies chest pain or pressure. She denies shortness of breath. Denies dizziness or lightheadedness. Echocardiogram completed revealing ejection fraction 40 to 45%, anterior apical and apical septal severe hypokinesis, and no pericardial or pleural effusion. 11/10/2024 Patient examined this morning the bedside. Patient currently denies chest pain or pressure. She denies shortness of breath. She has been resumed on Eliquis. Hemoglobin stable at 9.6. Vital signs are stable. PHYSICAL EXAM: VITAL SIGNS: Reviewed. GENERAL: Well-developed in no acute distress. NECK: Supple. No JVD or thyromegaly LUNGS: Respirations even and unlabored. Lungs essentially clear to auscultation bilaterally. HEART: Regular rate and rhythm. S1 and S2 heard. Systolic murmur noted. EXTREMITIES: Normal range of motion. No clubbing or cyanosis. Peripheral pulses intact. No lower extremity edema ASSESSMENT: Bilateral pneumonia Acute hypoxic and hypercapnic respiratory failure Hematuria with acute blood loss anemia 13.5 on admission, 9.6 today History of typical atrial flutter with slow ventricular rate History of dual-chamber pacemaker implantation, 2022 Severe concentric LVH Hypertension Valvular heart disease including moderate to severe aortic stenosis and moderate AI History of medication noncompliance New onset cardiomyopathy, 40 to 45%, ischemic versus nonischemic PLAN: Continue current cardiac medications including atorvastatin, Lasix, metoprolol, and losartan Eliquis has been resumed. Continue to monitor hemoglobin. Recommend outpatient ischemic evaluation due to cardiomyopathy along with close outpatient follow up regarding aortic valve. No indication for inpatient workup at this time. Patient is currently stable from a cardiac standpoint with no further inpatient recommendations We will sign off. Please reconsult if needed. Nurse practitioner note has been reviewed by physician. Signing provider agrees with the documented findings, assessment, and plan of care documented by BLOWING ENGINEER as a scribe. Objective - Vital Signs Vital signs: Vital Signs Temp 97.5 F L 11/10/24 08:15 Pulse 72 11/10/24 10:08 Resp 18 11/10/24 08:15 BP 161/70 11/10/24 08:15 Pulse Ox 98 11/10/24 08:15 FiO2 21 11/08/24 09:48 Intake & Output 11/09/24 11/10/24 11/10/24 18:59 06:59 18:59 Output Total 1100 600 Balance -1100 -600 Weight 68.5 kg Output: Urine 1100 600 Other: Voiding Method Indwelling Catheter - Labs CBC & Chem 7: 11/09/24 04:35 11/10/24 06:18 Labs: Abnormal Lab Results - Last 24 Hours (Table) 11/09/24 11/09/24 11/10/24 Range/Units 16:49 20:49 06:06 Potassium (3.5-5.5) mmol/L Chloride (96-109) mmol/L Glucose (70-110) mg/dL POC Glucose (mg/dL) 138 H 114 H 113 H (70-110) mg/dL Calcium (8.7-10.3) mg/dL 11/10/24 11/10/24 Range/Units 06:18 11:54 Potassium 3.4 L (3.5-5.5) mmol/L Chloride 113 H (96-109) mmol/L Glucose 115 H (70-110) mg/dL POC Glucose (mg/dL) 159 H (70-110) mg/dL Calcium 8.0 L (8.7-10.3) mg/dL
--- NOTE | 2024-11-10 14:38 | P.PN ---
Subjective Progress Note Date: 11/10/24 Hospital Course: 78-year-old female with history of CAD, symptomatic bradycardia with multiple cardiac pauses resulted in permanent pacemaker placement 10/07/2022, valvular heart disease, diastolic heart failure, hypertension, hyperlipidemia, atrial flutter on Eliquis presents to the ED for lethargy and shortness of breath. Recently hospitalized for CVA and discharged to [facility] on 10/23. In the ED she underwent extensive evaluation. BP 95/60, RR 34, T 97.9F, HR 87, 90% on BiPAP FiO2 of 100%. CBC, Coag panel, CMP significant for WBC 19.4, MCV 101.9, Plt 149, PT 12.7, INR 1.2, bicarb 21, BUN 34, Cr 1.29, glu 192, T. Bili 1.4, AST 272, ALT 116. BNP 38162. Trop 0.395. Lactic acid 3.9. Mag 2.1. ABG pH 7.32, pCO2 46, pO2 72 on FiO2 100%. UA moderate LE and large blood. COVID, RSV, Flu neg. CXR cardiomegaly with pacemaker, chronic interstitial changes with no acute process. CT brain no acute process. CTA chest no PE, bilateral opacities, small L pleural effusion, cholelithiasis. CT AP large stool burden, post surgical lumbar spine changes. EKG atrial and ventricular paced rhythm. Patient is admitted to ICU secondary to sepsis due to PNA and need for continuous BiPAP. Started on Vancomycin and Cefepime along with heparin. Cardiology consulted. Patient started on losartan 50 daily, Lasix 20 daily oral, added metoprolol 25 daily D5 normal saline for glucose of 66. TTE pending. she was noted to have hematuria, hemoglobin dropped to 9.6. Eliquis was resumed as hemoglobin stabilized, anemia workup revealed low iron and normal folate and B12, defer iron deficiency anemia treatment until active infection is cleared. Psychiatry consulted for capacity evaluation, patient endorsed suicidal ideations. Patient does not have decision-making capacity at this time, recommended Zoloft 25 daily, melatonin 3 mg nightly, Risperdal 0.5 mg once followed by 0.25 twice daily for psychosis, one-to-one sitter, patient cannot leave AMA. Per cardiology, patient will need outpatient ischemic evaluation and close outpatient follow-up regarding her aortic valve disease. MRSA swab negative, vancomycin stopped, cefepime continued, final cultures pending 11/09 hemoglobin did not drop further, Eliquis resumed. Attempted to contact patient's family at [phone] and [phone], no response 11/10 chest x-ray showed cardiomegaly, no consolidation, no signs of pneumothorax, bilateral interstitial opacities interpreted independently. Patient is on nasal cannula 2 L today, no documented hypoxia. CBC pending Subjective: She was seen and examined at bedside, reports nonproductive cough, denies shortness of breath, chest pain, abdominal pain Pertinent positives and negatives as discussed above, a complete review of systems was performed and all other systems are negative. Vitals Signs Reviewed. General: [nontoxic], [no distress], [appears at stated age] Derm: [warm], [dry] Head: [atraumatic], [normocephalic], [symmetric] Eyes: [EOMI], [no lid lag], [anicteric sclera] Mouth: [no lip lesion], [mucus membranes moist] Cardiovascular: [S1S2 reg], [no murmur] Lungs: bibasilar rhonchi , [no accessory muscle use] Abdominal: [soft], [ nontender to palpation], [no guarding], [no appreciable organomegaly], Roe in place Ext: [no gross muscle atrophy], [no edema], [no contractures] Neuro: [ CN II-XI grossly intact], [no focal neuro deficits] Psych: [Flat affect Data Reviewed Today: Pertinent Labs: BMP with normal sodium, potassium 3.4, creatinine normal, blood glucose controlled Assessment and Plan: Acute hypoxic respiratory failure secondary to HCAP -Pulmonology consulted -Procalcitonin positive -Urine Legionella negative -Continue cefepime, vancomycin stopped on 11/09 MRSA swab negative, follow-up blood cultures preliminary negative, urine cultures negative; -CBC pending, on 3 L NC, no documented hypoxia Suicidal ideations Psychosis -Psychiatry consulted for capacity evaluation, patient endorsed suicidal ideations. Patient does not have decision-making capacity at this time, recommended Zoloft 25 daily, melatonin 3 mg nightly, Risperdal 0.5 mg once followed by 0.25 twice daily for psychosis, one-to-one sitter, patient cannot leave AMA. NSTEMI: Likely Type II Cardiology consulted, started on metoprolol succinate 25 daily Lipitor as below. Resumed Lasix 20 daily, losartan 50 daily Acute macrocitic anemia Hematuria Thrombocytopenia -Eliquis resumed -urine clear per Roe -anemia work up orederd: Iron, folate, B12: Iron low 25, defer treatment until a ctive infection is treated TAYLOR on CKD with metabolic acidosis: Likely prerenal from hypotension and sepsis, resolved -Resumed Lasix 20 daily, losartan 50 daily Transaminitis: Likely due to hypotension and sepsis. CT AP no biliary duct dilatation. Monitor. History of CVA: Lipitor. Severe : As per previous Echo. Cardiology consulted. Diastolic CHF, not in exacerbation Hypertension -Repeat Echo limited showed segmental wall motion abnormality consistent with CAD -Per cardiology, outpatient ischemic workup and close follow-up for her aortic valve disease -Resumed Lasix 20 daily, losartan 50 daily, metoprolol succinate 25 daily Dyslipidemia: Lipitor 40 mg PO QHS. Atrial flutter: Eliquis 5 mg PO BID on hold, if Hb stable-resume. Hypoglycemia, continue D5 normal saline, Accu-Cheks Code status: full code Anticipated discharge place: [facility] Anticipated discharge time: tbd Objective - Vital Signs Vital signs: Vital Signs Temp 97.5 F L 11/10/24 08:15 Pulse 72 11/10/24 10:08 Resp 18 11/10/24 08:15 BP 161/70 11/10/24 08:15 Pulse Ox 98 11/10/24 08:15 FiO2 21 11/08/24 09:48 Intake & Output 11/09/24 11/10/24 11/10/24 18:59 06:59 18:59 Intake Total 100 Output Total 1100 600 300 Balance -1100 -600 -200 Weight 68.5 kg Intake: Oral 100 Output: Urine 1100 600 300 Other: Voiding Method Indwelling Catheter - Labs CBC & Chem 7: 11/09/24 04:35 11/10/24 06:18 Labs: Abnormal Lab Results - Last 24 Hours (Table) 11/09/24 11/09/24 11/10/24 Range/Units 16:49 20:49 06:06 Potassium (3.5-5.5) mmol/L Chloride (96-109) mmol/L Glucose (70-110) mg/dL POC Glucose (mg/dL) 138 H 114 H 113 H (70-110) mg/dL Calcium (8.7-10.3) mg/dL 11/10/24 11/10/24 Range/Units 06:18 11:54 Potassium 3.4 L (3.5-5.5) mmol/L Chloride 113 H (96-109) mmol/L Glucose 115 H (70-110) mg/dL POC Glucose (mg/dL) 159 H (70-110) mg/dL Calcium 8.0 L (8.7-10.3) mg/dL
[2024-11-10 14:40] LABS: Basophils # (A) 0.08 X 10*3/uL (0.00-0.10); Basophils % (A) 1.1 %; Eosinophils # (A) 0.38 X 10*3/uL (0.04-0.35); Eosinophils % (A) 5.1 %; HCT 30.7 % (37.2-46.3); HGB 10.1 g/dL (12.0-15.0); Lymphocytes # (A) 1.27 X 10*3/uL (0.90-5.00); Lymphocytes % (A) 16.9 %; MCH 32.9 pg (27.0-32.0); MCHC 32.9 g/dL (32.0-37.0); Mean Platelet Volume 11.3 FL (9.5-12.2); Monocytes # (A) 0.68 X 10*3/uL (0.20-1.00); NRBC Per 100 WBC 0 X 10*3/uL (0.00-0.01); Neutrophils % (A) 63.8 %; Platelet Count 161 X 10*3/uL (140-440); RBC 3.07 X 10*6/uL (4.10-5.20); RBC Morphology Normal (Normal); RDW 14.2 % (11.5-14.5); WBC 7.52 X 10*3/uL (4.50-10.00)
--- NOTE | 2024-11-10 17:46 | P.PN ---
Subjective Progress Note Date: 11/10/24 Patient is 79 female with past medical history significant for hypertension, hyperlipidemia, CAD, heart failure, permanent pacemaker, atrial flutter anticoagulated on Eliquis, and CVA/TIA. Of note, recently hospitalized 10/18/24- 10/23/24 for CVA/TIA and new onset A.flutter. She was discharged on Eliquis to [facility]. Patient was sent in from her ECF, yesterday morning with a chief concern of increasing work of breathing, hypoxia, and altered mental status. Originally, placed on CPAP by EMS, this was transitioned to BiPAP in the ED. Of note, patient reported to be treating for UTI at outside facility. Workup in the emergency department including a brain CT which did not show any acute intracranial bleed or mass effect. Stable remote lacunar infarcts. Chest CTA did not show any evidence of filling defects consistent with pulmonary embolism. Bilateral consolidative opacities, predominantly in the lower lobes, suspicious for bilateral pneumonia. Small left pleural effusion. CT abd omen/pelvis did not show any evidence of acute intra-abdominal process. Large stool burden within the rectum and sigmoid colon. Postsurgical changes and degenerative changes in the lower lumbar spine. CBC: WBC count 13.5, hemoglobin 10.7, platelets 105. CMP: Sodium 138, potassium 3.9, chloride 102, serum bicarb 21, BUN 34, creatinine 1.29, glucose 192. Lactic peaked at 4.2 and is down to 2.6. LFTs mildly elevated. Serial troponins elevated 0.4, 0.41, and 0.38 respectively. NT proBNP significantly elevated at 29,200. EKG: Paced rhythm, 69 bpm. Echocardiogram from 10/18/2024 estimating left ventricular ejection fraction of 55 to 60%. Moderate to severe aortic stenosis. UA appears con taminated. Viral screen negative for influenza A/B, RSV, COVID. Patient started on empiric antibiotics in the form of cefepime and vancomycin in the ED. LR infusing at 130 mL/h. Also, previously systemically anticoagulated on heparin. Patient currently being evaluated in the ED. She appears comfortable on BiPAP with settings 12/5 and FiO2 80%. SpO2 is reading 99% on bedside monitor. ABG done previously with a PaO2 of 72, pCO2 of 46, pH of 7.32. Lethargic, however, awakens to verbal questioning then falls back asleep. Communication is limited by BiPAP. Has been afebrile. Blood pressure normotensive. On 11/07/2024, the patient is being seen for a follow-up. The patient is improved considerably since yesterday. The patient was taken off the BiPAP and the patient is currently on 2 L of oxygen by nasal cannula with a pulse ox of 94%. Repeat chest x-ray was done earlier this morning and it shows airspace opacities in lung bases bilaterally and the patient remains on broad-spectrum antibiotics and the patient is currently on a combination of cefepime and vancomycin. Remains on DuoNeb updrafts. The white cell count is at 8.3 with a hemoglobin of 10.1 and a platelet count of 122. BUN 37 with a creatinine of 1 and a sodium levels at 138 with a potassium level of 4. No other significant events overnight. Based on this significant clinical improvement, the patient is going to be downgraded and sent to a medical floor. She is awake and communicating. She is afebrile and hemodynamically stable. On 11/08/2024, patient is being seen for a follow-up. The patient presented with significant hypoxic respiratory failure with bilateral lower lobe pneumonia, possibly hospital-acquired and the patient was started on a combination of cefepime and vancomycin. The chest x-ray also showed cardiomegaly, and a component of pulmonary vascular congestion was noted. Accordingly, the patient was started on DuoNeb nebulized treatments [id number], cefepime and vancomycin and the patient was also maintained on Lasix 20 mg p.o. daily. Clinically, she is awake and alert and communicating. She is currently on 2 L of oxygen by nasal cannula. She is obviously off the BiPAP. Her blood work shows a WBC count of 7.5, hemoglobin of 10.6 and platelet count of 142. BUN is 22 with a creatinine of 1.0 and a sodium level is at 143 with a potassium level of 3.6, bicarb level is at 23. The viral screen at time of admission was negative. Legionella urine antigen was also negative. On 11/09/2024, the patient is calm and comfortable on room air oxygen with a pulse ox of 93%. No new complaints. She does mention that she wanted to hurt herself and based on that his psychiatric evaluation was done. Meanwhile, the patient underwent an echocardiogram and the echo showed left ventricle ejection fraction of 40 to 45%. Anteroseptal and apical hypokinesis and severe increase in left ventricular wall thickness. The patient's white cell count is 11, hemoglobin 9.6 and a platelet count of 145. BUN is 18 with a creatinine of 1 and sodium levels at 144 and a potassium level is at 3.7. The patient remains on IV cefepime. The patient is on oral Lasix 20 mg p.o. daily. Rest of medication remains unchanged. She remains on anticoagulation with Eliquis. On today's evaluation of 11/10/2024, the patient is feeling well. No specific complaints and she is resting comfortably in bed. She is not conversing a whole lot. Nevertheless, she seems to be comfortable at this point in time and she is on 3 Suboxone by nasal cannula with a pulse ox of 98%. Repeat chest x-ray was done today and it shows a cardiomegaly and left basilar consolidation and mild pulm vessel congestion. Remains on DuoNeb updrafts. Remains on IV cefepime. White cell count is at 7.5, hemoglobin is 10 and a platelet count of 161. Electrolytes are stable with a potassium level of 3.4. Objective - Vital Signs Vital signs: Vital Signs Temp 97.5 F L 11/10/24 08:15 Pulse 72 11/10/24 10:08 Resp 18 11/10/24 08:15 BP 161/70 11/10/24 08:15 Pulse Ox 98 11/10/24 08:15 FiO2 21 11/08/24 09:48 Intake & Output 11/09/24 11/10/24 11/10/24 18:59 06:59 18:59 Output Total 1100 600 300 Balance -1100 -600 -300 Weight 68.5 kg Output: Urine 1100 600 300 Other: Voiding Method Indwelling Catheter - Exam GENERAL EXAM: Lethargic, 79-year-old female awake and alert and currently on room air oxygen HEAD: Normocephalic and atraumatic EYES: Normal reaction of pupils, equal size. NOSE: Clear with pink turbinates. THROAT: No erythema or exudates. NECK: No masses, no JVD. CHEST: No chest wall deformity. LUNGS: Equal air entry with diminished bibasilar lung sounds. CVS: S1 and S2 normal with no audible murmur, regular rhythm. No extra heart s ounds ABDOMEN: No hepatosplenomegaly, active bowel sounds, no guarding or rigidity. SPINE: No scoliosis or deformity SKIN: No rashes CENTRAL NERVOUS SYSTEM: No focal deficits, tone is normal in all 4 extremities. EXTREMITIES: There is no peripheral edema, clubbing, or cyanosis. Peripheral pulses are intact. - Labs CBC & Chem 7: 11/10/24 06:18 11/10/24 06:18 Labs: Abnormal Lab Results - Last 24 Hours (Table) 11/09/24 11/09/24 11/10/24 Range/Units 16:49 20:49 06:06 Potassium (3.5-5.5) mmol/L Chloride (96-109) mmol/L Glucose (70-110) mg/dL POC Glucose (mg/dL) 138 H 114 H 113 H (70-110) mg/dL Calcium (8.7-10.3) mg/dL 11/10/24 11/10/24 Range/Units 06:18 11:54 Potassium 3.4 L (3.5-5.5) mmol/L Chloride 113 H (96-109) mmol/L Glucose 115 H (70-110) mg/dL POC Glucose (mg/dL) 159 H (70-110) mg/dL Calcium 8.0 L (8.7-10.3) mg/dL Assessment and Plan Assessment: Acute hypoxemic and hypercapnic respiratory failure, consistent with pneumonia. Chest CTA did not show any evidence of filling defects consistent with pulmonary embolism. Bilateral consolidative opacities, predominantly in the lower lobes, suspicious for bilateral pneumonia. Small left pleural effusion. The patient is currently on IV cefepime. Procalcitonin level was elevated at 4.2. The p patient's oxygenation is improved and the patient is currently on room air oxygen Valvular heart disease with moderate to severe aortic stenosis and moderate aortic insufficiency Bilateral healthcare associated pneumonia Acute leukocytosis, secondary to above, improving Lactic acidosis, improving Elevated troponins, flat, likely secondary to type II VT Acute kidney injury, improving Recent treatment for UTI at outside facility Hypertension History of hyperlipidemia Permanent pacemaker, currently with paced rhythm History of atrial flutter, previously anticoagulated on Eliquis, currently off IV heparin History of CVA/TIA Plan: Patient currently on 4 L of oxygen by nasal cannula Chest x-ray findings are stable Continue cefepime Procalcitonin level elevated and this needs to be further monitored, will obtain a follow-up level for tomorrow Blood cultures and urine cultures pending, negative thus far Viral screen negative for influenza A/B, RSV, COVID. Heparin subcu for DVT prophylaxis Lasix 20 mg p.o. daily Will continue to follow Time with Patient: Greater than 30
[2024-11-10 20:45] LABS: Glucose,Whole Blood 136 mg/dL (70-110)
[2024-11-11 06:03] LABS: Glucose,Whole Blood 102 mg/dL (70-110)
[2024-11-11 09:22] LABS: HCT 30.1 % (37.2-46.3); HGB 9.7 g/dL (12.0-15.0); MCHC 32.2 g/dL (32.0-37.0); MCV 99.3 FL (80.0-97.0); Mean Platelet Volume 10.9 FL (9.5-12.2); NRBC Per 100 WBC 0 X 10*3/uL (0.00-0.01); Platelet Count 203 X 10*3/uL (140-440); RBC 3.03 X 10*6/uL (4.10-5.20); RDW 13.9 % (11.5-14.5); WBC 7.05 X 10*3/uL (4.50-10.00)
[2024-11-11 09:38] LABS: Blood Urea Nitrogen 11.6 mg/dL (9.0-27.0); Carbon Dioxide 24.5 mmol/L (21.6-31.8); Chloride 112 mmol/L (96-109); Glucose 97 mg/dL (70-110); Sodium 146 mmol/L (135-145)
[2024-11-11 11:01] LABS: Basophils # (M) 0.14 X 10*3/uL (0.00-0.10); Eosinophils # (M) 0.28 X 10*3/uL (0.04-0.35); Lymphocytes # (M) 1.41 X 10*3/uL (0.90-5.00); Metamyelocytes % 2 % (0-0); Monocytes # (M) 0.28 X 10*3/uL (0.20-1.00); Neutrophils # (M) 4.65 X 10*3/uL (1.80-7.70); Neutrophils % (M) 66 %; Promyelocytes # (M) 0.14 k/uL (0); Promyelocytes % 2 %
[2024-11-11 11:40] LABS: Glucose,Whole Blood 145 mg/dL (70-110)
[2024-11-11] MEDS ORDERED: Potassium Replacement Protocol 1 EACH MISC MISCELLANE PRN (11:59)
[2024-11-11] MEDS: POTASSIUM CHLORIDE ER 20 MEQ TAB.ER PO SCH (13:24)
--- NOTE | 2024-11-11 14:35 | P.PN ---
Subjective Progress Note Date: 11/11/24 Patient is 79 female with past medical history significant for hypertension, hyperlipidemia, CAD, heart failure, permanent pacemaker, atrial flutter anticoagulated on Eliquis, and CVA/TIA. Of note, recently hospitalized 10/18/24- 10/23/24 for CVA/TIA and new onset A.flutter. She was discharged on Eliquis to [facility]. Patient was sent in from her ECF, yesterday morning with a chief concern of increasing work of breathing, hypoxia, and altered mental status. Originally, placed on CPAP by EMS, this was transitioned to BiPAP in the ED. Of note, patient reported to be treating for UTI at outside facility. Workup in the emergency department including a brain CT which did not show any acute intracranial bleed or mass effect. Stable remote lacunar infarcts. Chest CTA did not show any evidence of filling defects consistent with pulmonary embolism. Bilateral consolidative opacities, predominantly in the lower lobes, suspicious for bilateral pneumonia. Small left pleural effusion. CT abd omen/pelvis did not show any evidence of acute intra-abdominal process. Large stool burden within the rectum and sigmoid colon. Postsurgical changes and degenerative changes in the lower lumbar spine. CBC: WBC count 13.5, hemoglobin 10.7, platelets 105. CMP: Sodium 138, potassium 3.9, chloride 102, serum bicarb 21, BUN 34, creatinine 1.29, glucose 192. Lactic peaked at 4.2 and is down to 2.6. LFTs mildly elevated. Serial troponins elevated 0.4, 0.41, and 0.38 respectively. NT proBNP significantly elevated at 29,200. EKG: Paced rhythm, 69 bpm. Echocardiogram from 10/18/2024 estimating left ventricular ejection fraction of 55 to 60%. Moderate to severe aortic stenosis. UA appears con taminated. Viral screen negative for influenza A/B, RSV, COVID. Patient started on empiric antibiotics in the form of cefepime and vancomycin in the ED. LR infusing at 130 mL/h. Also, previously systemically anticoagulated on heparin. Patient currently being evaluated in the ED. She appears comfortable on BiPAP with settings 12/5 and FiO2 80%. SpO2 is reading 99% on bedside monitor. ABG done previously with a PaO2 of 72, pCO2 of 46, pH of 7.32. Lethargic, however, awakens to verbal questioning then falls back asleep. Communication is limited by BiPAP. Has been afebrile. Blood pressure normotensive. On 11/07/2024, the patient is being seen for a follow-up. The patient is improved considerably since yesterday. The patient was taken off the BiPAP and the patient is currently on 2 L of oxygen by nasal cannula with a pulse ox of 94%. Repeat chest x-ray was done earlier this morning and it shows airspace opacities in lung bases bilaterally and the patient remains on broad-spectrum antibiotics and the patient is currently on a combination of cefepime and vancomycin. Remains on DuoNeb updrafts. The white cell count is at 8.3 with a hemoglobin of 10.1 and a platelet count of 122. BUN 37 with a creatinine of 1 and a sodium levels at 138 with a potassium level of 4. No other significant events overnight. Based on this significant clinical improvement, the patient is going to be downgraded and sent to a medical floor. She is awake and communicating. She is afebrile and hemodynamically stable. On 11/08/2024, patient is being seen for a follow-up. The patient presented with significant hypoxic respiratory failure with bilateral lower lobe pneumonia, possibly hospital-acquired and the patient was started on a combination of cefepime and vancomycin. The chest x-ray also showed cardiomegaly, and a component of pulmonary vascular congestion was noted. Accordingly, the patient was started on DuoNeb nebulized treatments [id number], cefepime and vancomycin and the patient was also maintained on Lasix 20 mg p.o. daily. Clinically, she is awake and alert and communicating. She is currently on 2 L of oxygen by nasal cannula. She is obviously off the BiPAP. Her blood work shows a WBC count of 7.5, hemoglobin of 10.6 and platelet count of 142. BUN is 22 with a creatinine of 1.0 and a sodium level is at 143 with a potassium level of 3.6, bicarb level is at 23. The viral screen at time of admission was negative. Legionella urine antigen was also negative. On 11/09/2024, the patient is calm and comfortable on room air oxygen with a pulse ox of 93%. No new complaints. She does mention that she wanted to hurt herself and based on that his psychiatric evaluation was done. Meanwhile, the patient underwent an echocardiogram and the echo showed left ventricle ejection fraction of 40 to 45%. Anteroseptal and apical hypokinesis and severe increase in left ventricular wall thickness. The patient's white cell count is 11, hemoglobin 9.6 and a platelet count of 145. BUN is 18 with a creatinine of 1 and sodium levels at 144 and a potassium level is at 3.7. The patient remains on IV cefepime. The patient is on oral Lasix 20 mg p.o. daily. Rest of medication remains unchanged. She remains on anticoagulation with Eliquis. On today's evaluation of 11/10/2024, the patient is feeling well. No specific complaints and she is resting comfortably in bed. She is not conversing a whole lot. Nevertheless, she seems to be comfortable at this point in time and she is on 3 Suboxone by nasal cannula with a pulse ox of 98%. Repeat chest x-ray was done today and it shows a cardiomegaly and left basilar consolidation and mild pulm vessel congestion. Remains on DuoNeb updrafts. Remains on IV cefepime. White cell count is at 7.5, hemoglobin is 10 and a platelet count of 161. Electrolytes are stable with a potassium level of 3.4. On 11/11/2024, the patient is being seen for a follow-up. The patient is resting comfortably in bed. No new complaints. She is on 2 L of oxygen by nasal cannula with a pulse ox of 96%. Labs from today showed a white cell count of 7, hemoglobin 9 and platelet count of 203. Sodium is at 146, BUN is 11 with a creatinine of 0.6. Potassium level is at 3.0. She is on oral Lasix 20 mg p.o. daily. She is on DuoNeb updrafts and she is also on IV cefepime. Oral intake is quite diminished. The patient is extensively debilitated. Objective - Vital Signs Vital signs: Vital Signs Temp 97.5 F L 11/11/24 07:40 Pulse 58 L 11/11/24 09:48 Resp 16 11/11/24 09:48 BP 164/70 11/11/24 07:40 Pulse Ox 97 11/11/24 09:43 FiO2 21 11/08/24 09:48 Intake & Output 11/10/24 11/11/24 11/11/24 18:59 06:59 18:59 Intake Total 350 Output Total 300 600 Balance 50 -600 Intake: Oral 350 Output: Urine 300 600 Uretheral (Roe) 600 Other: Voiding Method Indwelling Catheter - Exam GENERAL EXAM: Lethargic, 79-year-old female awake and alert and currently on room air oxygen HEAD: Normocephalic and atraumatic EYES: Normal reaction of pupils, equal size. NOSE: Clear with pink turbinates. THROAT: No erythema or exudates. NECK: No masses, no JVD. CHEST: No chest wall deformity. LUNGS: Equal air entry with diminished bibasilar lung sounds. CVS: S1 and S2 normal with no audible murmur, regular rhythm. No extra heart sounds ABDOMEN: No hepatosplenomegaly, active bowel sounds, no guarding or rigidity. SPINE: No scoliosis or deformity SKIN: No rashes CENTRAL NERVOUS SYSTEM: No focal deficits, tone is normal in all 4 extremities. EXTREMITIES: There is no peripheral edema, clubbing, or cyanosis. Peripheral pulses are intact. - Labs CBC & Chem 7: 11/11/24 03:36 11/11/24 03:36 Labs: Abnormal Lab Results - Last 24 Hours (Table) 11/10/24 11/10/24 11/10/24 Range/Units 06:18 11:54 20:43 RBC 3.07 L (4.10-5.20) X 10*6/uL Hgb 10.1 L (12.0-15.0) g/dL Hct 30.7 L (37.2-46.3) % MCV 100.0 H (80.0-97.0) FL MCH 32.9 H (27.0-32.0) pg Immature Gran # 0.31 H (0.00-0.04) X 10*3/uL Eosinophils # 0.38 H (0.04-0.35) X 10*3/uL Basophils # (Manual) (0.00-0.10) X 10*3/uL Sodium (135-145) mmol/L Potassium (3.5-5.5) mmol/L Chloride (96-109) mmol/L POC Glucose (mg/dL) 159 H 136 H (70-110) mg/dL Calcium (8.7-10.3) mg/dL Procalcitonin (0.02-0.50) ng/mL 11/11/24 11/11/24 11/11/24 Range/Units 03:36 03:36 03:36 RBC 3.03 L (4.10-5.20) X 10*6/uL Hgb 9.7 L (12.0-15.0) g/dL Hct 30.1 L (37.2-46.3) % MCV 99.3 H (80.0-97.0) FL MCH (27.0-32.0) pg Immature Gran # (0.00-0.04) X 10*3/uL Eosinophils # (0.04-0.35) X 10*3/uL Basophils # (Manual) 0.14 H (0.00-0.10) X 10*3/uL Sodium 146 H (135-145) mmol/L Potassium 3.0 L (3.5-5.5) mmol/L Chloride 112 H (96-109) mmol/L POC Glucose (mg/dL) (70-110) mg/dL Calcium 8.0 L (8.7-10.3) mg/dL Procalcitonin 0.76 H (0.02-0.50) ng/mL Microbiology - Last 24 Hours (Table) 11/05/24 10:28 Blood Culture - Final Blood Assessment and Plan Assessment: Acute hypoxemic and hypercapnic respiratory failure, consistent with pneumonia. Chest CTA did not show any evidence of filling defects consistent with pulmonary embolism. Bilateral consolidative opacities, predominantly in the lower lobes, suspicious for bilateral pneumonia. Small left pleural effusion. The patient is currently on IV cefepime. Procalcitonin level was elevated at 4.2. The p patient's oxygenation is improved and the patient is currently on on 2 L of oxygen by nasal cannula. Repeat procalcitonin level has been downtrending and the level is currently down to 0.76. Valvular heart disease with moderate to severe aortic stenosis and moderate aortic insufficiency Bilateral healthcare associated pneumonia Acute leukocytosis, secondary to above, improving Lactic acidosis, improving Elevated troponins, flat, likely secondary to type II VT Acute kidney injury, improving Recent treatment for UTI at outside facility Hypertension History of hyperlipidemia Permanent pacemaker, currently with paced rhythm History of atrial flutter, previously anticoagulated on Eliquis, currently off IV heparin History of CVA/TIA Plan: Patient currently on 2 L of O2 nasal cannula Chest x-ray findings are stable Continue cefepime Procalcitonin downtrending Blood cultures and urine cultures pending, negative thus far Viral screen negative for influenza A/B, RSV, COVID. Heparin subcu for DVT prophylaxis Lasix 20 mg p.o. daily Discharge planning as per medicine. Pulmonary will sign off
[2024-11-11] MEDS ORDERED: SODIUM CHLORIDE 0.45% 1,000 ML IV SCH (14:45)
--- NOTE | 2024-11-11 15:00 | P.PN ---
Subjective Progress Note Date: 11/11/24 Hospital Course: 78-year-old female with history of CAD, symptomatic bradycardia with multiple cardiac pauses resulted in permanent pacemaker placement 10/07/2022, valvular heart disease, diastolic heart failure, hypertension, hyperlipidemia, atrial flutter on Eliquis presents to the ED for lethargy and shortness of breath. Recently hospitalized for CVA and discharged to [facility] on 10/23. In the ED she underwent extensive evaluation. BP 95/60, RR 34, T 97.9F, HR 87, 90% on BiPAP FiO2 of 100%. CBC, Coag panel, CMP significant for WBC 19.4, MCV 101.9, Plt 149, PT 12.7, INR 1.2, bicarb 21, BUN 34, Cr 1.29, glu 192, T. Bili 1.4, AST 272, ALT 116. BNP 60076. Trop 0.395. Lactic acid 3.9. Mag 2.1. ABG pH 7.32, pCO2 46, pO2 72 on FiO2 100%. UA moderate LE and large blood. COVID, RSV, Flu neg. CXR cardiomegaly with pacemaker, chronic interstitial changes with no acute process. CT brain no acute process. CTA chest no PE, bilateral opacities, small L pleural effusion, cholelithiasis. CT AP large stool burden, post surgical lumbar spine changes. EKG atrial and ventricular paced rhythm. Patient is admitted to ICU secondary to sepsis due to PNA and need for continuous BiPAP. Started on Vancomycin and Cefepime along with heparin. Cardiology consulted. Patient started on losartan 50 daily, Lasix 20 daily oral, added metoprolol 25 daily D5 normal saline for glucose of 66. TTE pending. she was noted to have hematuria, hemoglobin dropped to 9.6. Eliquis was resumed as hemoglobin stabilized, anemia workup revealed low iron and normal folate and B12, defer iron deficiency anemia treatment until active infection is cleared. Psychiatry consulted for capacity evaluation, patient endorsed suicidal ideations. Patient does not have decision-making capacity at this time, recommended Zoloft 25 daily, melatonin 3 mg nightly, Risperdal 0.5 mg once followed by 0.25 twice daily for psychosis, one-to-one sitter, patient cannot leave AMA. Per cardiology, patient will need outpatient ischemic evaluation and close outpatient follow-up regarding her aortic valve disease. MRSA swab negative, vancomycin stopped, cefepime continued, final cultures pending 11/09 hemoglobin did not drop further, Eliquis resumed. Attempted to contact patient's family at [phone] and [phone], no response 11/10 chest x-ray showed cardiomegaly, no consolidation, no signs of pneumothorax, bilateral interstitial opacities interpreted independently. Patient is on nasal cannula 2 L today, no documented hypoxia. 11/11: Patient is on room air, final blood cultures negative, procalcitonin trending down, discussed with pulmonology, patient is medically stable for discharge, should complete her antibiotics with 7 more days of cefdinir to complete 14 total days for HCAP treatment. Patient is still on suicidal precautions, psychiatry was asked to reevaluate the patient, recommended to continue inpatient treatment for now. Subjective: She was seen and examined at bedside, reports nonproductive cough, denies shortness of breath, chest pain, abdominal pain Pertinent positives and negatives as discussed above, a complete review of systems was performed and all other systems are negative. Vitals Signs Reviewed. General: [nontoxic], [no distress], [appears at stated age] Derm: [warm], [dry] Head: [atraumatic], [normocephalic], [symmetric] Eyes: [EOMI], [no lid lag], [anicteric sclera] Mouth: [no lip lesion], [mucus membranes moist] Cardiovascular: [S1S2 reg], [no murmur] Lungs: bibasilar rhonchi , [no accessory muscle use] Abdominal: [soft], [ nontender to palpation], [no guarding], [no appreciable organomegaly], Roe in place Ext: [no gross muscle atrophy], [no edema], [no contractures] Neuro: [ CN II-XI grossly intact], [no focal neuro deficits] Psych: [Flat affect Data Reviewed Today: Pertinent Labs: No leukocytosis, hemoglobin 9.2, platelet count normal, sodium 146, potassium 3.0, creatinine normal, glucose controlled Assessment and Plan: Acute hypoxic respiratory failure secondary to HCAP, resolved -Pulmonology consulted -Procalcitonin positive, trending down -Urine Legionella negative -completed 7 days of cefepime, procalcitonin trended down, afebrile, no leukocy tosis, vancomycin stopped on 11/09 MRSA swab negative, follow-up blood cultures preliminary negative, urine cultures negative; -Started on cefdinir for 7 more days, total antibiotic therapy 14 days -Medically stable for discharge 11/11 Hypokalemia: Provided with 60 mEq of potassium chloride Suicidal ideations Psychosis -Psychiatry consulted for capacity evaluation, patient endorsed suicidal ideations. Patient does not have decision-making capacity at this time, recommended Zoloft 25 daily, melatonin 3 mg nightly, Risperdal 0.5 mg once followed by 0.25 twice daily for psychosis, one-to-one sitter, patient cannot leave AMA. -11/11 psychiatry reevaluated the patient, not ready for discharge from psychiatry standpoint, medication adjustment pending NSTEMI: Likely Type II Cardiology consulted, started on metoprolol succinate 25 daily Lipitor as below. Resumed Lasix 20 daily, losartan 50 daily Acute macrocitic anemia Hematuria Thrombocytopenia -Eliquis resumed -anemia work up orederd: Iron, folate, B12: Iron low 25, defer treatment until active infection is treated TAYLOR on CKD with metabolic acidosis: Likely prerenal from hypotension and sepsis, resolved -Resumed Lasix 20 daily, losartan 50 daily Transaminitis: Likely due to hypotension and sepsis. CT AP no biliary duct dilatation. Monitor. History of CVA: Lipitor. Severe : As per previous Echo. Cardiology consulted. Diastolic CHF, not in exacerbation Hypertension -Repeat Echo limited showed segmental wall motion abnormality consistent with CAD -Per cardiology, outpatient ischemic workup and close follow-up for her aortic valve disease -Resumed Lasix 20 daily, losartan 50 daily, metoprolol succinate 25 daily Dyslipidemia: Lipitor 40 mg PO QHS. Atrial flutter: Eliquis 5 mg PO BID Hypoglycemia, continue D5 normal saline, Accu-Cheks Objective - Vital Signs Vital signs: Vital Signs Temp 97.5 F L 11/11/24 07:40 Pulse 72 11/11/24 12:26 Resp 17 11/11/24 12:26 BP 164/70 11/11/24 07:40 Pulse Ox 96 11/11/24 12:26 FiO2 21 11/08/24 09:48 Intake & Output 11/10/24 11/11/24 11/11/24 18:59 06:59 18:59 Intake Total 350 Output Total 300 600 Balance 50 -600 Intake: Oral 350 Output: Urine 300 600 Uretheral (Roe) 600 Other: Voiding Method Indwelling Catheter Indwelling Catheter - Labs CBC & Chem 7: 11/11/24 03:36 11/11/24 03:36 Labs: Abnormal Lab Results - Last 24 Hours (Table) 11/10/24 11/10/24 11/11/24 Range/Units 06:18 20:43 03:36 RBC 3.07 L (4.10-5.20) X 10*6/uL Hgb 10.1 L (12.0-15.0) g/dL Hct 30.7 L (37.2-46.3) % MCV 100.0 H (80.0-97.0) FL MCH 32.9 H (27.0-32.0) pg Immature Gran # 0.31 H (0.00-0.04) X 10*3/uL Eosinophils # 0.38 H (0.04-0.35) X 10*3/uL Basophils # (Manual) (0.00-0.10) X 10*3/uL Sodium (135-145) mmol/L Potassium (3.5-5.5) mmol/L Chloride (96-109) mmol/L POC Glucose (mg/dL) 136 H (70-110) mg/dL Calcium (8.7-10.3) mg/dL Procalcitonin 0.76 H (0.02-0.50) ng/mL 11/11/24 11/11/24 11/11/24 Range/Units 03:36 03:36 11:36 RBC 3.03 L (4.10-5.20) X 10*6/uL Hgb 9.7 L (12.0-15.0) g/dL Hct 30.1 L (37.2-46.3) % MCV 99.3 H (80.0-97.0) FL MCH (27.0-32.0) pg Immature Gran # (0.00-0.04) X 10*3/uL Eosinophils # (0.04-0.35) X 10*3/uL Basophils # (Manual) 0.14 H (0.00-0.10) X 10*3/uL Sodium 146 H (135-145) mmol/L Potassium 3.0 L (3.5-5.5) mmol/L Chloride 112 H (96-109) mmol/L POC Glucose (mg/dL) 145 H (70-110) mg/dL Calcium 8.0 L (8.7-10.3) mg/dL Procalcitonin (0.02-0.50) ng/mL Microbiology - Last 24 Hours (Table) 11/05/24 10:28 Blood Culture - Final Blood
--- NOTE | 2024-11-11 15:14 | P.CN ---
Psychiatric Consult - . Consult:: IDENTIFYING DATA: This patient is a 79 year old [facility] resident. REASON FOR REFERRAL: Psychiatry was consulted for capacity and medication non- adherence INTERIM HISTORY: Bita Pelayo is a 79 year old woman with a history of multiple chronic medical problems including hypertension, hyperlipidemia, CAD, heart failure, permanent pacemaker, atrial flutter anticoagulated on Eliquis, and CVA/TIA (per review of medical notes) and a reported history of major depressive disorder who presented from her [facility] on 11/05 with altered mental status and was found to have hypoxia, UTI, and bilateral pneumonia. Psychiatry was consulted for capacity evaluation and recommended medication adjustments to address mood symptoms and psychosis, secondary to delirium. Ms. Pelayo was seen at the bedside this afternoon to reevaluate her condition and determine whether she still needs a bedside sitter. Asked what brought her into the hospital she stated she had a "fall" and drove herself here from home. She reports that she lives in "an apartment" though when asked more details she stated "a place like this". She was unsure of where she currently is though when given multiple choice options was able to correctly identify that she is in the hospital. When asked about the date today she stated "I do not know" and then said that it is "the 70s". She was able to correctly state that the month is October. She incorrectly stated the current season as fall. She did state her date of incorrectly; she shared the correct month and date but not the correct year. Regarding other symptoms she describes her mood as "good" though she shared that she did wake up feeling depressed but her mood quickly shifted. She endorses experiencing suicidal ideation "every day". She last had these thoughts last evening but multiple times throughout the day will consider "ways to do it so people will not think she is a weirdo". She has had these thoughts today. When asked directly about some of the identified methods she has considered she would not share. She does recall having attempted suicide "a couple of years ago" but she "does not keep up with that because it is not anyone's business". She denies experiencing any side effects from her medication. She has continued to have difficulty with sleep. She denies homicidal ideation, intent, or plan. She also denies experiencing auditory or visual hallucinations. She did share that sewing and crocheting are 2 hobbies that she enjoys and provide her "an escape" from suicidal thoughts only occur. However she does not have those supplies here in the hospital and has not been able to participate in those activities as much as she would like recently. PAST PSYCHIATRIC HISTORY: Patient reportedly has a longstanding history of depression. Today she endorses having a history of prior suicide attempts. She has been treated with medication in the past though the specifics of this are not presently clear. Unable to obtain additional history secondary to patient's mental status. MENTAL STATUS EXAM: General Appearance: Patient appears to be stated age is alert, pleasant, and cooperative. Patient appears to have fair hygiene and grooming wearing hospital gown with fair eye contact. Behavior: Patient is calmly lying in bed without any agitated behavior. Speech: Patient's speech is fluent and nonpressured. Mood/Affect: Patient reports their mood is "good", affect is constricted, minimally expressive Suicidality/Homicidality: Patient denies having suicidal ideation at this moment; however, she reports having suicidal ideation chronically "everyday" and has considered identified method for self-directed violence today. She has these thoughts often. She denies homicidal ideation, intent, or plan. Perceptions: Patient denies any visual hallucinations and denies any auditory hallucinations Though content/process: There is no evidence of any overtly delusional thought content. However, thought process is tangential. Memory and concentration: Oriented to person. Oriented to place with prompts (able to identify hospital after given choices of [facility]school/hospital). Oriented to Month but not date, day of the week, or year. Attention is impaired. Able to recall 2/3 words after one minute. Unable to recall the purpose of this hospitalization. Judgment and insight: impaired IMPRESSIONS: Delirium likely etiology multifactorial including infection and toxic metabolic, improving Unspecified depressive disorder (consider major depressive disorder) Suicidal ideation Ms. Pelayo continues to experience both delirium and suicidal ideation, though her overall mental status is improving, as compared to assessment from 11/09/24. Of ongoing concern is the suicidal ideation with identified method she experiences. She did not disclose the methods she has considered, but she has put considerable thought into how to end her life without it being easily detectable by others. While she denies suicidal ideation i the moment, the chronicity of the suicidal thoughts in the context of impaired judgment se condary to delirium is of concern. It would be difficult to reliably safety plan with her given her current clinical condition. In light of this, recommend ongoing presence of a bedside sitter to maintain safety. We will continue to evaluate her clinical status and are monitoring her ability to engage in conversation regarding her symptoms and participate in safety planning. PLAN: -At this time patient DOES NOT meet criteria for inpatient psychiatric admission due to patient's multiple medical comorbidities, she will need to be treated psychiatrically while on the medical floors. -Patient DOES NOT have decision making capacity at this time and is unable to reason through and communicate/appreciate the risks, benefits and alternatives to treatment. -Delirium precautions recommended with patient including - avoiding use of narcotics and REFRIGERATING MACHINE OPERATOR sedatives, limit anticholinergic medications when possible, frequent re-orientation, minimize use of restraints, open window shades during the day and close them at night -Would recommend the following medication changes/additions: - Increase Zoloft to 50 mg daily for mood/anxiety - Continue melatonin 3 mg nightly for sleep - Continue Risperdal 0.25 mg twice daily for psychosis secondary to delirium -Continue 1:1 sitter for safety and suicide precautions -Cannot leave AMA at this time. Patient will need a petition and certification if attempting to leave AMA. -location worker to provide patient with outpatient mental health/psychiatry resources for appropriate follow up upon discharge -Communicated plan to patient's nurse -Will continue to follow along as needed -Please contact with any questions.
[2024-11-11 16:34] LABS: Glucose,Whole Blood 124 mg/dL (70-110)
[2024-11-11 20:20] LABS: Glucose,Whole Blood 116 mg/dL (70-110)
[2024-11-12 06:15] LABS: Glucose,Whole Blood 107 mg/dL (70-110)
[2024-11-12 07:21] LABS: Basophils # (A) 0.1 k/uL (0-0.2); Basophils % (A) 1 %; Eosinophils # (A) 0.4 k/uL (0-0.7); Eosinophils % (A) 5 %; HCT 32.3 % (34.0-46.0); HGB 10.4 gm/dL (11.4-16.0); Lymphocytes # (A) 1.8 k/uL (1.0-4.8); Lymphocytes % (A) 22 %; MCH 31.8 pg (25.0-35.0); MCHC 32.2 g/dL (31.0-37.0); MCV 98.7 fL (80.0-100.0); Mean Platelet Volume 8.4; Monocytes # (A) 0.7 k/uL (0-1.0); Monocytes % (A) 8 %; Neutrophils % (A) 61 %; Platelet Count 263 k/uL (150-450); RBC 3.27 m/uL (3.80-5.40); RDW 14.4 % (11.5-15.5); WBC 8.2 k/uL (3.8-10.6)
[2024-11-12 07:38] LABS: African American GFR (CKD) 72 (>60 ml/min/1.73 sqM); Anion Gap 3 mmol/L; Blood Urea Nitrogen 12 mg/dL (7-17); Calcium 8.4 mg/dL (8.4-10.2); Carbon Dioxide 28 mmol/L (22-30); Chloride 109 mmol/L (98-107); Glucose 98 mg/dL (74-99); Non-African American GFR(CKD) 63 (>60 ml/min/1.73 sqM); Potassium 3.7 mmol/L (3.5-5.1); Sodium 140 mmol/L (137-145)
[2024-11-12] MEDS: SERTRALINE 50 MG TAB PO SCH (08:48)
[2024-11-12] MEDS: CEFDINIR 300 MG CAP PO SCH (08:48)
--- NOTE | 2024-11-12 11:39 | P.PN ---
Subjective Progress Note Date: 11/12/24 Hospital Course: 78-year-old female with history of CAD, symptomatic bradycardia with multiple cardiac pauses resulted in permanent pacemaker placement 10/07/2022, valvular heart disease, diastolic heart failure, hypertension, hyperlipidemia, atrial flutter on Eliquis presents to the ED for lethargy and shortness of breath. Recently hospitalized for CVA and discharged to [facility] on 10/23. In the ED she underwent extensive evaluation. BP 95/60, RR 34, T 97.9F, HR 87, 90% on BiPAP FiO2 of 100%. CBC, Coag panel, CMP significant for WBC 19.4, MCV 101.9, Plt 149, PT 12.7, INR 1.2, bicarb 21, BUN 34, Cr 1.29, glu 192, T. Bili 1.4, AST 272, ALT 116. BNP 69550. Trop 0.395. Lactic acid 3.9. Mag 2.1. ABG pH 7.32, pCO2 46, pO2 72 on FiO2 100%. UA moderate LE and large blood. COVID, RSV, Flu neg. CXR cardiomegaly with pacemaker, chronic interstitial changes with no acute process. CT brain no acute process. CTA chest no PE, bilateral opacities, small L pleural effusion, cholelithiasis. CT AP large stool burden, post surgical lumbar spine changes. EKG atrial and ventricular paced rhythm. Patient is admitted to ICU secondary to sepsis due to PNA and need for continuous BiPAP. Started on Vancomycin and Cefepime along with heparin. Cardiology consulted. Patient started on losartan 50 daily, Lasix 20 daily oral, added metoprolol 25 daily D5 normal saline for glucose of 66. TTE pending. she was noted to have hematuria, hemoglobin dropped to 9.6. Eliquis was resumed as hemoglobin stabilized, anemia workup revealed low iron and normal folate and B12, defer iron deficiency anemia treatment until active infection is cleared. Psychiatry consulted for capacity evaluation, patient endorsed suicidal ideations. Patient does not have decision-making capacity at this time, recommended Zoloft 25 daily, melatonin 3 mg nightly, Risperdal 0.5 mg once followed by 0.25 twice daily for psychosis, one-to-one sitter, patient cannot leave AMA. Per cardiology, patient will need outpatient ischemic evaluation and close outpatient follow-up regarding her aortic valve disease. MRSA swab negative, vancomycin stopped, cefepime continued, final cultures pending Patient is on room air, final blood cultures negative, procalcitonin trending down, discussed with pulmonology, should complete her antibiotics with 7 more days of cefdinir to complete 14 total days for HCAP treatment. Patient is still on suicidal precautions, psychiatry was asked to reevaluate the patient, recommended to continue inpatient treatment for now., Zoloft dose increased to 50 mg 11/12, hematuria per Roe again noted, Eliquis on hold, urology consult Subjective: She was seen and examined at bedside, reports nonproductive cough, denies shortness of breath, chest pain, abdominal pain Pertinent positives and negatives as discussed above, a complete review of systems was performed and all other systems are negative. Vitals Signs Reviewed. General: [nontoxic], [no distress], [appears at stated age] Derm: [warm], [dry] Head: [atraumatic], [normocephalic], [symmetric] Eyes: [EOMI], [no lid lag], [anicteric sclera] Mouth: [no lip lesion], [mucus membranes moist] Cardiovascular: [S1S2 reg], [no murmur] Lungs: bibasilar rhonchi , [no accessory muscle use] Abdominal: [soft], [ nontender to palpation], [no guarding], [no appreciable organomegaly], Roe in place Ext: [no gross muscle atrophy], [no edema], [no contractures] Neuro: [ CN II-XI grossly intact], [no focal neuro deficits] Psych: [Flat affect Data Reviewed Today: Pertinent Labs: No leukocytosis, hemoglobin 10.4, platelet count normal, sodium 140, potassium 3.7, creatinine normal Assessment and Plan: Acute hypoxic respiratory failure secondary to HCAP, resolved -Pulmonology consulted -Procalcitonin positive, trending down -Urine Legionella negative -completed 7 days of cefepime, procalcitonin trended down, afebrile, no leukocytosis, vancomycin stopped on 11/09 MRSA swab negative, follow-up blood cultures preliminary negative, urine cultures negative; -Started on cefdinir for 7 more days, total antibiotic therapy 14 days -added mucinex Suicidal ideations Psychosis -Psychiatry consulted for capacity evaluation, patient endorsed suicidal ideations. Patient does not have decision-making capacity at this time, recommended Zoloft 25 daily, melatonin 3 mg nightly, Risperdal 0.5 mg once followed by 0.25 twice daily for psychosis, one-to-one sitter, patient cannot leave AMA. -11/11 psychiatry reevaluated the patient, not ready for discharge from psychiatry standpoint, medication adjustment :: Zoloft increased to 50 mg daily, sitter to be continued for safety and suicide precautions NSTEMI: Likely Type II Cardiology consulted, started on metoprolol succinate 25 daily Lipitor as below. Resumed Lasix 20 daily, losartan 50 daily Acute macrocitic anemia Hematuria Thrombocytopenia -11/12 again noted to have blood per Angela Roe on hold, urology consulted -anemia work up orederd: Iron, folate, B12: Iron low 25, defer treatment until active infection is treated TAYLOR on CKD with metabolic acidosis: Likely prerenal from hypotension and sepsis, resolved -Resumed Lasix 20 daily, losartan 50 daily Transaminitis: Likely due to hypotension and sepsis. CT AP no biliary duct dilatation. Monitor. History of CVA: Lipitor. Severe : As per previous Echo. Cardiology consulted. Diastolic CHF, not in exacerbation Hypertension -Repeat Echo limited showed segmental wall motion abnormality consistent with CAD -Per cardiology, outpatient ischemic workup and close follow-up for her aortic valve disease -Resumed Lasix 20 daily, losartan 50 daily, metoprolol succinate 25 daily Dyslipidemia: Lipitor 40 mg PO QHS. Atrial flutter: Eliquis 5 mg PO BID Hypoglycemia, stopped dextrose normal saline, monitor for for hypoglycemia closely Objective - Vital Signs Vital signs: Vital Signs Temp 98.7 F 11/12/24 07:19 Pulse 72 11/12/24 10:06 Resp 17 11/12/24 07:19 BP 157/74 11/12/24 07:19 Pulse Ox 95 11/12/24 09:57 FiO2 21 11/08/24 09:48 Intake & Output 11/11/24 11/12/24 11/12/24 18:59 06:59 18:59 Intake Total 120 Output Total 1500 1025 Balance -1500 -905 Weight 66.5 kg Intake: Oral 120 Output: Urine 1500 1025 Uretheral (Roe) 275 Other: Voiding Method Indwelling Catheter Indwelling Catheter - Labs CBC & Chem 7: 11/12/24 06:44 11/12/24 06:44 Labs: Abnormal Lab Results - Last 24 Hours (Table) 11/11/24 11/11/24 11/11/24 Range/Units 11:36 14:41 16:27 RBC (3.80-5.40) m/uL Hgb (11.4-16.0) gm/dL Hct (34.0-46.0) % Potassium 3.2 L (3.5-5.1) mmol/L Chloride (98-107) mmol/L POC Glucose (mg/dL) 145 H 124 H (70-110) mg/dL 11/11/24 11/12/24 11/12/24 Range/Units 20:18 06:44 06:44 RBC 3.27 L (3.80-5.40) m/uL Hgb 10.4 L (11.4-16.0) gm/dL Hct 32.3 L (34.0-46.0) % Potassium (3.5-5.1) mmol/L Chloride 109 H (98-107) mmol/L POC Glucose (mg/dL) 116 H (70-110) mg/dL
[2024-11-12 11:49] LABS: Glucose,Whole Blood 156 mg/dL (70-110)
[2024-11-12 16:42] LABS: Glucose,Whole Blood 175 mg/dL (70-110)
[2024-11-12] MEDS: guaiFENesin 600 MG TABLET.ER PO SCH (16:47)
[2024-11-12 20:57] LABS: Glucose,Whole Blood 153 mg/dL (70-110)
[2024-11-13 06:09] LABS: Glucose,Whole Blood 113 mg/dL (70-110)
[2024-11-13 11:41] LABS: Glucose,Whole Blood 161 mg/dL (70-110)
[2024-11-13 11:58] VITALS: BMI 27.1
--- NOTE | 2024-11-13 13:53 | P.PN ---
Progress Note - Text Progress Note Date: 11/13/24 Interval history: Patient was seen today for psychiatric follow-up. Patient was laying in her c hair watching television. She appeared to be fairly pleasant and somewhat concrete. Claims that she is doing well overall denies any issues at this time. States that she slept fairly last night. She continues to have a one-to-one sitter at her side. Claims that she has been taking all her medications not reporting any side effects. Denies any depression or anxiety at this time. Denies any auditory or visual hallucinations denies any suicidal homicidal ideations intent or plan. Has been eating her meals. MENTAL STATUS EXAM: General Appearance: Patient appears to be stated age is alert, pleasant, and cooperative. Patient appears to have fair hygiene and grooming wearing hospital gown with fair eye contact. Behavior: Patient is calmly lying in bed without any agitated behavior. More cooperative Speech: Patient's speech is fluent and nonpressured. Really concrete Mood/Affect: Patient reports their mood is "ok", affect is constricted, improving Suicidality/Homicidality: Patient denies having suicidal ideation. She denies homicidal ideation, intent, or plan. Perceptions: Patient denies any visual hallucinations and denies any auditory hallucinations Though content/process: There is no evidence of any overtly delusional thought content. Fairly concrete Memory and concentration: Oriented to person. Oriented to place. Oriented to Month but not date, day of the week, or year. Attention is being. Judgment and insight: Chronically limited, improving IMPRESSIONS: Delirium likely etiology multifactorial including infection and toxic metabolic, resolved Unspecified depressive disorder (consider major depressive disorder) PLAN: -At this time patient DOES NOT meet criteria for inpatient psychiatric admission -Delirium precautions recommended with patient including - avoiding use of narcotics and LIFT MANAGER sedatives, limit anticholinergic medications when possible, frequent re-orientation, minimize use of restraints, open window shades during the day and close them at night -Would recommend the following medication changes/additions: - Zoloft 50 mg daily for mood/anxiety - Continue melatonin 3 mg nightly for sleep - Continue Risperdal 0.25 mg twice daily for psychosis secondary to delirium -This time can discontinue 1:1 sitter for safety and suicide precautions -Please give patient outpatient follow-up resources and information. -Communicated plan to patient's nurse -at this time psychiatry will sign off. -Please contact with any questions.
--- NOTE | 2024-11-13 14:41 | P.PN ---
Subjective Progress Note Date: 11/13/24 Patient is 79 female with past medical history significant for hypertension, hyperlipidemia, CAD, heart failure, permanent pacemaker, atrial flutter anticoagulated on Eliquis, and CVA/TIA. Of note, recently hospitalized 10/18/24- 10/23/24 for CVA/TIA and new onset A.flutter. She was discharged on Eliquis to [facility]. Patient was sent in from her ECF, yesterday morning with a chief concern of increasing work of breathing, hypoxia, and altered mental status. Originally, placed on CPAP by EMS, this was transitioned to BiPAP in the ED. Of note, patient reported to be treating for UTI at outside facility. Workup in the emergency department including a brain CT which did not show any acute intracranial bleed or mass effect. Stable remote lacunar infarcts. Chest CTA did not show any evidence of filling defects consistent with pulmonary embolism. Bilateral consolidative opacities, predominantly in the lower lobes, suspicious for bilateral pneumonia. Small left pleural effusion. CT abdo men/pelvis did not show any evidence of acute intra-abdominal process. Large stool burden within the rectum and sigmoid colon. Postsurgical changes and degenerative changes in the lower lumbar spine. CBC: WBC count 13.5, hemoglobin 10.7, platelets 105. CMP: Sodium 138, potassium 3.9, chloride 102, serum bicarb 21, BUN 34, creatinine 1.29, glucose 192. Lactic peaked at 4.2 and is down to 2.6. LFTs mildly elevated. Serial troponins elevated 0.4, 0.41, and 0.38 respectively. NT proBNP significantly elevated at 29,200. EKG: Paced rhythm, 69 bpm. Echocardiogram from 10/18/2024 estimating left ventricular ejection fraction of 55 to 60%. Moderate to severe aortic stenosis. UA appears cont aminated. Viral screen negative for influenza A/B, RSV, COVID. Patient started on empiric antibiotics in the form of cefepime and vancomycin in the ED. LR infusing at 130 mL/h. Also, previously systemically anticoagulated on heparin. Patient currently being evaluated in the ED. She appears comfortable on BiPAP with settings 12/5 and FiO2 80%. SpO2 is reading 99% on bedside monitor. ABG done previously with a PaO2 of 72, pCO2 of 46, pH of 7.32. Lethargic, however, awakens to verbal questioning then falls back asleep. Communication is limited by BiPAP. Has been afebrile. Blood pressure normotensive. On 11/07/2024, the patient is being seen for a follow-up. The patient is improved considerably since yesterday. The patient was taken off the BiPAP and the patient is currently on 2 L of oxygen by nasal cannula with a pulse ox of 94%. Repeat chest x-ray was done earlier this morning and it shows airspace opacities in lung bases bilaterally and the patient remains on broad-spectrum antibiotics and the patient is currently on a combination of cefepime and vancomycin. Remains on DuoNeb updrafts. The white cell count is at 8.3 with a hemoglobin of 10.1 and a platelet count of 122. BUN 37 with a creatinine of 1 and a sodium levels at 138 with a potassium level of 4. No other significant events overnight. Based on this significant clinical improvement, the patient is going to be downgraded and sent to a medical floor. She is awake and communicating. She is afebrile and hemodynamically stable. On 11/08/2024, patient is being seen for a follow-up. The patient presented with significant hypoxic respiratory failure with bilateral lower lobe pneumonia, possibly hospital-acquired and the patient was started on a combination of cefepime and vancomycin. The chest x-ray also showed cardiomegaly, and a component of pulmonary vascular congestion was noted. Accordingly, the patient was started on DuoNeb nebulized treatments [id number], cefepime and vancomycin and the patient was also maintained on Lasix 20 mg p.o. daily. Clinically, she is awake and alert and communicating. She is currently on 2 L of oxygen by nasal cannula. She is obviously off the BiPAP. Her blood work shows a WBC count of 7.5, hemoglobin of 10.6 and platelet count of 142. BUN is 22 with a creatinine of 1.0 and a sodium level is at 143 with a potassium level of 3.6, bicarb level is at 23. The viral screen at time of admission was negative. Legionella urine antigen was also negative. On 11/09/2024, the patient is calm and comfortable on room air oxygen with a pulse ox of 93%. No new complaints. She does mention that she wanted to hurt herself and based on that his psychiatric evaluation was done. Meanwhile, the patient underwent an echocardiogram and the echo showed left ventricle ejection fraction of 40 to 45%. Anteroseptal and apical hypokinesis and severe increase in left ventricular wall thickness. The patient's white cell count is 11, hemoglobin 9.6 and a platelet count of 145. BUN is 18 with a creatinine of 1 and sodium levels at 144 and a potassium level is at 3.7. The patient remains on IV cefepime. The patient is on oral Lasix 20 mg p.o. daily. Rest of medication remains unchanged. She remains on anticoagulation with Eliquis. On today's evaluation of 11/10/2024, the patient is feeling well. No specific complaints and she is resting comfortably in bed. She is not conversing a whole lot. Nevertheless, she seems to be comfortable at this point in time and she is on 3 Suboxone by nasal cannula with a pulse ox of 98%. Repeat chest x-ray was done today and it shows a cardiomegaly and left basilar consolidation and mild pulm vessel congestion. Remains on DuoNeb updrafts. Remains on IV cefepime. White cell count is at 7.5, hemoglobin is 10 and a platelet count of 161. Electrolytes are stable with a potassium level of 3.4. On 11/11/2024, the patient is being seen for a follow-up. The patient is resting comfortably in bed. No new complaints. She is on 2 L of oxygen by nasal cannula with a pulse ox of 96%. Labs from today showed a white cell count of 7, hemoglobin 9 and platelet count of 203. Sodium is at 146, BUN is 11 with a creatinine of 0.6. Potassium level is at 3.0. She is on oral Lasix 20 mg p.o. daily. She is on DuoNeb updrafts and she is also on IV cefepime. Oral intake is quite diminished. The patient is extensively debilitated. The patient is seen today November 13, 2024 in follow-up on the regular medical floor. She is awake and alert in no acute distress. Maintaining good O2 saturations in the 90s on room air. Most recent chest x-ray revealed cardiomegaly and mild pulmonary vascular congestion. No pleural effusion, focal consolidation or pneumothorax. Blood culture revealed no growth. Urine culture revealed no growth. Glucose 161. She remains on DuoNeb inhalations and Mucinex. Remains on oral diuretics. Remains on Omnicef. Objective - Vital Signs Vital signs: Vital Signs Temp 99.0 F 11/13/24 07:58 Pulse 80 11/13/24 14:02 Resp 18 11/13/24 07:58 BP 133/70 11/13/24 07:58 Pulse Ox 94 L 11/13/24 07:58 FiO2 21 11/08/24 09:48 Intake & Output 11/12/24 11/13/24 11/13/24 18:59 06:59 18:59 Output Total 1300 275 Balance -1300 -275 Weight 69.5 kg 69.5 kg Output: Urine 1300 275 Uretheral (Roe) 225 Other: Voiding Method Indwelling Catheter - Exam GENERAL EXAM: Alert, pleasant 79-year-old female, on room air, comfortable in no apparent distress. HEAD: Normocephalic. EYES: Normal reaction of pupils, equal size. NOSE: Clear with pink turbinates. THROAT: No erythema or exudates. NECK: No masses, no JVD. CHEST: No chest wall deformity. LUNGS: Equal air entry with no crackles, wheeze, rhonchi or dullness. CVS: S1 and S2 normal with no audible murmur, regular rhythm. ABDOMEN: No hepatosplenomegaly, normal bowel sounds, no guarding or rigidity. SPINE: No scoliosis or deformity SKIN: No rashes CENTRAL NERVOUS SYSTEM: No focal deficits, tone is normal in all 4 extremities. EXTREMITIES: There is no peripheral edema. No clubbing, no cyanosis. Peripheral pulses are intact. - Labs CBC & Chem 7: 11/12/24 06:44 11/12/24 06:44 Labs: Abnormal Lab Results - Last 24 Hours (Table) 11/12/24 11/12/24 11/13/24 Range/Units 16:38 20:56 06:06 POC Glucose (mg/dL) 175 H 153 H 113 H (70-110) mg/dL 11/13/24 Range/Units 11:38 POC Glucose (mg/dL) 161 H (70-110) mg/dL Assessment and Plan Assessment: Acute hypoxemic and hypercapnic respiratory failure, consistent with pneumonia. Chest CTA did not show any evidence of filling defects consistent with pulmonary embolism. Bilateral consolidative opacities, predominantly in the lower lobes, suspicious for bilateral pneumonia. Small left pleural effusion. The patient is currently on Omnicef. Procalcitonin level was elevated at 4.2. Oxygenation is improved and the patient is currently on room air oxygen. Repeat procalci tonin level has been downtrending and the level is currently down to 0.76. Valvular heart disease with moderate to severe aortic stenosis and moderate aortic insufficiency Bilateral healthcare associated pneumonia Acute leukocytosis, secondary to above, improving Lactic acidosis, improving Elevated troponins, flat, likely secondary to type II NE Acute kidney injury, improving Recent treatment for UTI at outside facility Hypertension History of hyperlipidemia Permanent pacemaker, currently with paced rhythm History of atrial flutter, previously anticoagulated on Eliquis, currently off IV heparin History of CVA/TIA Plan: The patient was seen and evaluated Recent chest x-ray, labs and medications reviewed Swallow evaluation performed today No concerns regarding aspiration Currently stable and on room air Plan is to return to [facility], possibly today I have personally seen and examined the patient, performed the documentation and the assessment and plan as written. Number of minutes spent on the visit: 10 Dictation was produced using [employer] dictation software. Please excuse any grammatical, word or spelling errors.
[2024-11-13 16:27] LABS: Glucose,Whole Blood 128 mg/dL (70-110)
--- NOTE | 2024-11-13 17:19 | P.PN ---
Subjective Progress Note Date: 11/13/24 Patient was seen and examined. She reports feeling depressed. Reports SI but not willing to elaborate on a plan. General: non toxic, no distress, appears at stated age Derm: warm, dry Head: atraumatic, normocephalic, symmetric Mouth: no lip lesion, mucus membranes moist Cardiovascular: S1S2 reg, no murmur Lungs: Decreased BS BL, no rales , no accessory muscle use Ext: no gross muscle atrophy, no edema, no contractures Neuro: no focal neuro deficits Psych: Flat affect Based on my assessment of this patient, this patient meets a high complexity level of care. Depression and suicidal ideation: Zoloft 50 mg PO QD. 1:1 sitter. Suicidal precautions. Psychiatry on board. NSTEMI: Likely Type II. Lipitor 40 mg PO QD. Metoprolol 25 mg PO QD. Echo EF 40- 45% with anteroapical hypokinesis. Outpatient stress test. Cardiology signed off. Acute anemia with hematuria: Restart Eliquis 5 mg PO BID. Hg is stable. Transaminitis: Likely due to hypotension and sepsis. CT AP no biliary duct dilatation. Monitor. Diastolic CHF: Losartan 50 mg PO QD. Metoprolol as above. Lasix 20 mg PO QD. History of CVA: Eliquis and Lipitor as above. Hypertension: Losartan, Metoprolol and Lasix. Dyslipidemia: Lipitor as above. Atrial flutter: Eliquis 5 mg PO BID. Resolved: Acute hypoxic respiratory failure and sepsis secondary to PNA, TAYLOR, metabolic acidosis Hopeful discharge once cleared by Psychiatry. CODE STATUS: FULL CODE DVT Prophylaxis: Eliquis. GI Prophylaxis: Protonix IV Designated medical POA if patient is not able to make medical decisions for themselves: I have reviewed the following ent consultant notes: Pulmonary note I have reviewed the results of the following tests: I have ordered the following tests: I have discussed the care of this patient with the following independent historian: I have independently interpreted the following test below: I have discussed the management of this patient with the following physician: Objective - Vital Signs Vital signs: Vital Signs Temp 98.5 F 11/13/24 15:19 Pulse 76 11/13/24 17:08 Resp 18 11/13/24 15:19 BP 131/66 11/13/24 15:19 Pulse Ox 96 11/13/24 15:19 FiO2 21 11/08/24 09:48 Intake & Output 11/12/24 11/13/24 11/13/24 18:59 06:59 18:59 Output Total 1300 275 Balance -1300 -275 Weight 69.5 kg 69.5 kg Output: Urine 1300 275 Uretheral (Roe) 225 Other: Voiding Method Indwelling Catheter - Labs CBC & Chem 7: 11/12/24 06:44 11/12/24 06:44 Labs: Abnormal Lab Results - Last 24 Hours (Table) 11/12/24 11/13/24 11/13/24 Range/Units 20:56 06:06 11:38 POC Glucose (mg/dL) 153 H 113 H 161 H (70-110) mg/dL 11/13/24 Range/Units 16:25 POC Glucose (mg/dL) 128 H (70-110) mg/dL
[2024-11-13 21:11] LABS: Glucose,Whole Blood 116 mg/dL (70-110)
[2024-11-13] MEDS: APIXABAN 5 MG TAB PO SCH (22:07)
[2024-11-14 06:26] LABS: Glucose,Whole Blood 110 mg/dL (70-110)
[2024-11-14 07:45] VITALS: BP 129/70; RESP 16; TEMP 98.2
[2024-11-14 10:04] VITALS: PULSE 76
[2024-11-14 11:27] LABS: Glucose,Whole Blood 147 mg/dL (70-110)
--- NOTE | 2024-11-14 12:29 | P.DS ---
Providers Date of admission: 11/05/24 13:51 Expected date of discharge: 11/14/24 Attending physician: Karie Rucker MD Consults: 11/05/24 14:13 Consult Physician Stat Consulting Provider: Ha Win Consult Reason/Comments: ICU care, hypoxic resp failure Do you want consulting provider notified?: Yes 11/08/24 15:15 Consult Physician Routine Consulting Provider: Psychiatry - [facility] Psychiatry Consult Reason/Comments: capacity assessement, meds and follow up noncompliance Do you want consulting provider notified?: Already Contacted 11/12/24 11:34 Consult Physician Routine Consulting Provider: Red Lino Consult Reason/Comments: hematuria Do you want consulting provider notified?: Yes Primary care physician: Stated None Hospital Course: 78-year-old female with history of CAD, symptomatic bradycardia with multiple cardiac pauses resulted in permanent pacemaker placement 10/07/2022, valvular heart disease, diastolic heart failure, hypertension, hyperlipidemia, atrial flutter on Eliquis presents to the ED for lethargy and shortness of breath. Recently hospitalized for CVA and discharged to [facility] on 10/23. In the ED she underwent extensive evaluation. BP 95/60, RR 34, T 97.9F, HR 87, 90% on BiPAP FiO2 of 100%. CBC, Coag panel, CMP significant for WBC 19.4, MCV 101.9, Plt 149, PT 12.7, INR 1.2, bicarb 21, BUN 34, Cr 1.29, glu 192, T. Bili 1.4, AST 272, ALT 116. BNP 84940. Trop 0.395. Lactic acid 3.9. Mag 2.1. ABG pH 7.32, pCO2 46, pO2 72 on FiO2 100%. UA moderate LE and large blood. COVID, RSV, Flu neg. CXR cardiomegaly with pacemaker, chronic interstitial changes with no acute process. CT brain no acute process. CTA chest no PE, bilateral opacities, small L pleural effusion, cholelithiasis. CT AP large stool burden, post surgical lumbar spine changes. EKG atrial and ventricular paced rhythm. Patient is admitted to ICU secondary to sepsis due to PNA and need for continuous BiPAP. Started on bronchodilators, Vancomycin and Cefepime, Pulmonary consulted. MRSA swab neg, Vancomycin discontinued. Respiratory status improved during her hospitalization and she was eventually weaned off supplemental oxygen. Started on Heparin infusion for elevated troponins of 0.395, 0.414, 0,384 and Cardiology consulted. Echo showed EF 40-45% with anteroapical hypokinesis. Heparin drip switched to Eliquis after 48H, Cardiology recommending outpatient stress test. There was some concerns for depressed mood and suicidal ideations for which Psyciatry was consulted. Medication adjustments were made and she was cleared for discharge from their perspective. 11/14 Patient was seen and examined. She reports no complaints. Plans for discharge to SNF today. Discharge Plan: Cefdinir x 1 day to complete a total of 10 days antibiotics for severe PNA. Psychiatry has recommended Risperdal 0.25 mg PO BID and Zoloft 50 mg PO QD. Cardiology recommends adding Metoprolol 25 mg PO QD and decreasing Losartan to 50 mg PO QD. Follow up with PCP within 1-2 days of discharge. Follow up with Dr. Zaragoza on 11/27 for evaluation for stress test. Follow up with Dr. Prajapati with regard to hematuria. General: non toxic, no distress, appears at stated age Derm: warm, dry Head: atraumatic, normocephalic, symmetric Mouth: no lip lesion, mucus membranes moist Cardiovascular: S1S2 reg, no murmur Lungs: Decreased BS BL, no rales , no accessory muscle use Ext: no gross muscle atrophy, no edema, no contractures Neuro: no focal neuro deficits Psych: Flat affect Discharge Diagnosis: Depression and suicidal ideation NSTEMI Acute anemia with hematuria Transaminitis Diastolic CHF History of CVA Hypertension Dyslipidemia Atrial flutter Resolved: Acute hypoxic respiratory failure and sepsis secondary to PNA, TAYLOR, metabolic acidosis This complex discharge took 35 minutes to complete. Patient Condition at Discharge: Stable Plan - Discharge Summary Discharge Rx Participant: No New Discharge Prescriptions: New Ipratropium-Albuterol Nebulize [Duoneb 0.5 mg-3 mg/3 ml Soln] 3 ml INHALATION RT-Q4H PRN each PRN Reason: shortness of breath risperiDONE [RisperDAL] 0.25 mg PO BID tab Metoprolol Succinate (ER) [Toprol XL] 25 mg PO DAILY tab Sertraline [Zoloft] 50 mg PO DAILY tab Cefdinir [Omnicef] 600 mg PO DAILY 1 Days cap Losartan [Cozaar] 50 mg PO DAILY tab guaiFENesin [Mucinex] 600 mg PO Q12HR PRN tab PRN Reason: Cough Continue Furosemide [Lasix] 20 mg PO DAILY tab Apixaban [Eliquis] 5 mg PO BID@0700,1900 Atorvastatin [Lipitor] 40 mg PO HS@1999 Melatonin 5 mg PO HS@1999 Nitrofurantoin Monohyd/M-Cryst [Macrobid] 100 mg PO BID@0700,1600 Potassium Chloride ER [K-Dur 20] 20 meq PO DAILY Acetaminophen Tab [Tylenol] 650 mg PO Q6HR PRN PRN Reason: Pain Discontinued Losartan [Cozaar] 100 mg PO DAILY tab Discharge Medication List Furosemide [Lasix] 20 mg PO DAILY tab 10/23/24 [Rx] Acetaminophen Tab [Tylenol] 650 mg PO Q6HR PRN 11/05/24 [History] Apixaban [Eliquis] 5 mg PO BID@0700,1900 11/05/24 [History] Atorvastatin [Lipitor] 40 mg PO HS@199911/05/24 [History] Melatonin 5 mg PO HS@199911/05/24 [History] Nitrofurantoin Monohyd/M-Cryst [Macrobid] 100 mg PO BID@0700,1600 11/05/24 [History] Potassium Chloride ER [K-Dur 20] 20 meq PO DAILY 11/05/24 [History] Cefdinir [Omnicef] 600 mg PO DAILY 1 Days cap 11/14/24 [Rx] Ipratropium-Albuterol Nebulize [Duoneb 0.5 mg-3 mg/3 ml Soln] 3 ml INHALATION RT-Q4H PRN each 11/14/24 [Rx] Losartan [Cozaar] 50 mg PO DAILY tab 11/14/24 [Rx] Metoprolol Succinate (ER) [Toprol XL] 25 mg PO DAILY tab 11/14/24 [Rx] Sertraline [Zoloft] 50 mg PO DAILY tab 11/14/24 [Rx] guaiFENesin [Mucinex] 600 mg PO Q12HR PRN tab 11/14/24 [Rx] risperiDONE [RisperDAL] 0.25 mg PO BID tab 11/14/24 [Rx] Follow up Appointment(s)/Referral(s): Lane Zaragoza MD [Medical Doctor] - 11/27/24 10:15 am None,Stated [Primary Care Provider] - 1-2 days Discharge Disposition: TRANSFER TO SNF/ECF
--- NOTE | 2024-11-14 14:47 | P.PN ---
Subjective Progress Note Date: 11/14/24 Patient is 79 female with past medical history significant for hypertension, hyperlipidemia, CAD, heart failure, permanent pacemaker, atrial flutter anticoagulated on Eliquis, and CVA/TIA. Of note, recently hospitalized 10/18/24- 10/23/24 for CVA/TIA and new onset A.flutter. She was discharged on Eliquis to [facility]. Patient was sent in from her [facility], yesterday morning with a chief concern of increasing work of breathing, hypoxia, and altered mental status. Originally, placed on CPAP by EMS, this was transitioned to BiPAP in the ED. Of note, patient reported to be treating for UTI at outside facility. Workup in the emergency department including a brain CT which did not show any acute intracranial bleed or mass effect. Stable remote lacunar infarcts. Chest CTA did not show any evidence of filling defects consistent with pulmonary embolism. Bilateral consolidative opacities, predominantly in the lower lobes, suspicious for bilateral pneumonia. Small left pleural effusion. CT abdo men/pelvis did not show any evidence of acute intra-abdominal process. Large stool burden within the rectum and sigmoid colon. Postsurgical changes and degenerative changes in the lower lumbar spine. CBC: WBC count 13.5, hemoglobin 10.7, platelets 105. CMP: Sodium 138, potassium 3.9, chloride 102, serum bicarb 21, BUN 34, creatinine 1.29, glucose 192. Lactic peaked at 4.2 and is down to 2.6. LFTs mildly elevated. Serial troponins elevated 0.4, 0.41, and 0.38 respectively. NT proBNP significantly elevated at 29,200. EKG: Paced rhythm, 69 bpm. Echocardiogram from 10/18/2024 estimating left ventricular ejection fraction of 55 to 60%. Moderate to severe aortic stenosis. UA appears cont aminated. Viral screen negative for influenza A/B, RSV, COVID. Patient started on empiric antibiotics in the form of cefepime and vancomycin in the ED. LR infusing at 130 mL/h. Also, previously systemically anticoagulated on heparin. Patient currently being evaluated in the ED. She appears comfortable on BiPAP with settings 12/5 and FiO2 80%. SpO2 is reading 99% on bedside monitor. ABG done previously with a PaO2 of 72, pCO2 of 46, pH of 7.32. Lethargic, however, awakens to verbal questioning then falls back asleep. Communication is limited by BiPAP. Has been afebrile. Blood pressure normotensive. On 11/07/2024, the patient is being seen for a follow-up. The patient is improved considerably since yesterday. The patient was taken off the BiPAP and the patient is currently on 2 L of oxygen by nasal cannula with a pulse ox of 94%. Repeat chest x-ray was done earlier this morning and it shows airspace opacities in lung bases bilaterally and the patient remains on broad-spectrum antibiotics and the patient is currently on a combination of cefepime and vancomycin. Remains on DuoNeb updrafts. The white cell count is at 8.3 with a hemoglobin of 10.1 and a platelet count of 122. BUN 37 with a creatinine of 1 and a sodium levels at 138 with a potassium level of 4. No other significant events overnight. Based on this significant clinical improvement, the patient is going to be downgraded and sent to a medical floor. She is awake and communicating. She is afebrile and hemodynamically stable. On 11/08/2024, patient is being seen for a follow-up. The patient presented with significant hypoxic respiratory failure with bilateral lower lobe pneumonia, possibly hospital-acquired and the patient was started on a combination of cefepime and vancomycin. The chest x-ray also showed cardiomegaly, and a component of pulmonary vascular congestion was noted. Accordingly, the patient was started on DuoNeb nebulized treatments [id number], cefepime and vancomycin and the patient was also maintained on Lasix 20 mg p.o. daily. Clinically, she is awake and alert and communicating. She is currently on 2 L of oxygen by nasal cannula. She is obviously off the BiPAP. Her blood work shows a WBC count of 7.5, hemoglobin of 10.6 and platelet count of 142. BUN is 22 with a creatinine of 1.0 and a sodium level is at 143 with a potassium level of 3.6, bicarb level is at 23. The viral screen at time of admission was negative. Legionella urine antigen was also negative. On 11/09/2024, the patient is calm and comfortable on room air oxygen with a pulse ox of 93%. No new complaints. She does mention that she wanted to hurt herself and based on that his psychiatric evaluation was done. Meanwhile, the patient underwent an echocardiogram and the echo showed left ventricle ejection fraction of 40 to 45%. Anteroseptal and apical hypokinesis and severe increase in left ventricular wall thickness. The patient's white cell count is 11, hemoglobin 9.6 and a platelet count of 145. BUN is 18 with a creatinine of 1 and sodium levels at 144 and a potassium level is at 3.7. The patient remains on IV cefepime. The patient is on oral Lasix 20 mg p.o. daily. Rest of medication remains unchanged. She remains on anticoagulation with Eliquis. On today's evaluation of 11/10/2024, the patient is feeling well. No specific complaints and she is resting comfortably in bed. She is not conversing a whole lot. Nevertheless, she seems to be comfortable at this point in time and she is on 3 Suboxone by nasal cannula with a pulse ox of 98%. Repeat chest x-ray was done today and it shows a cardiomegaly and left basilar consolidation and mild pulm vessel congestion. Remains on DuoNeb updrafts. Remains on IV cefepime. White cell count is at 7.5, hemoglobin is 10 and a platelet count of 161. Electrolytes are stable with a potassium level of 3.4. On 11/11/2024, the patient is being seen for a follow-up. The patient is resting comfortably in bed. No new complaints. She is on 2 L of oxygen by nasal cannula with a pulse ox of 96%. Labs from today showed a white cell count of 7, hemoglobin 9 and platelet count of 203. Sodium is at 146, BUN is 11 with a creatinine of 0.6. Potassium level is at 3.0. She is on oral Lasix 20 mg p.o. daily. She is on DuoNeb updrafts and she is also on IV cefepime. Oral intake is quite diminished. The patient is extensively debilitated. The patient is seen today November 13, 2024 in follow-up on the regular medical floor. She is awake and alert in no acute distress. Maintaining good O2 saturations in the 90s on room air. Most recent chest x-ray revealed cardiomegaly and mild pulmonary vascular congestion. No pleural effusion, focal consolidation or pneumothorax. Blood culture revealed no growth. Urine culture revealed no growth. Glucose 161. She remains on DuoNeb inhalations and Mucinex. Remains on oral diuretics. Remains on Omnicef. The patient is seen today November 14, 2024 in follow-up on the regular medical floor. She is currently sitting up in a chair. Awake and alert in no acute distress. Denies any worsening shortness of breath, cough or congestion. She is continued on DuoNeb and elations and Mucinex. Remains on oral diuretics. Remains on Omnicef. Glucose 187. Objective - Vital Signs Vital signs: Vital Signs Temp 98.2 F 11/14/24 07:12 Pulse 76 11/14/24 13:06 Resp 16 11/14/24 07:12 BP 129/70 11/14/24 07:12 Pulse Ox 92 L 11/14/24 07:12 FiO2 21 11/08/24 09:48 Intake & Output 11/13/24 11/14/24 11/14/24 18:59 06:59 18:59 Output Total 950 Balance -950 Weight 69.5 kg Output: Urine 950 Other: # Voids 1 - Exam GENERAL EXAM: Alert, pleasant 79-year-old female, up in a chair, on room air oxygen, in no apparent distress. HEAD: Normocephalic. EYES: Normal reaction of pupils, equal size. NOSE: Clear with pink turbinates. THROAT: No erythema or exudates. NECK: No masses, no JVD. CHEST: No chest wall deformity. LUNGS: Equal air entry with no crackles, wheeze, rhonchi or dullness. CVS: S1 and S2 normal with no audible murmur, regular rhythm. ABDOMEN: No hepatosplenomegaly, normal bowel sounds, no guarding or rigidity. SPINE: No scoliosis or deformity SKIN: No rashes CENTRAL NERVOUS SYSTEM: No focal deficits, tone is normal in all 4 extremities. EXTREMITIES: There is no peripheral edema. No clubbing, no cyanosis. Peripheral pulses are intact. - Labs CBC & Chem 7: 11/12/24 06:44 11/12/24 06:44 Labs: Abnormal Lab Results - Last 24 Hours (Table) 11/13/24 11/13/24 11/14/24 Range/Units 16:25 21:10 11:18 POC Glucose (mg/dL) 128 H 116 H 147 H (70-110) mg/dL Assessment and Plan Assessment: Acute hypoxemic and hypercapnic respiratory failure, consistent with pneumonia. Chest CTA did not show any evidence of filling defects consistent with pulmonary embolism. Bilateral consolidative opacities, predominantly in the lower lobes, suspicious for bilateral pneumonia. Small left pleural effusion. The patient is currently on Omnicef. Procalcitonin level was elevated at 4.2. Oxygenation is improved and the patient is currently on room air oxygen. Repeat procalcito alex level has been downtrending and the level is currently down to 0.76. Valvular heart disease with moderate to severe aortic stenosis and moderate aortic insufficiency Bilateral healthcare associated pneumonia Acute leukocytosis, secondary to above, improving Lactic acidosis, improving Elevated troponins, flat, likely secondary to type II NV Acute kidney injury, improving Recent treatment for UTI at outside facility Hypertension History of hyperlipidemia Permanent pacemaker, currently with paced rhythm History of atrial flutter, previously anticoagulated on Eliquis, currently off IV heparin History of CVA/TIA Plan: The patient was seen and evaluated Medications reviewed Swallow evaluation performed No concerns regarding aspiration Currently stable and on room air Plan is to return to [facility] today I have personally seen and examined the patient, performed the documentation and the assessment and plan as written. Number of minutes spent on the visit: 10 Dictation was produced using [employer] dictation software. Please excuse any grammatical, word or spelling errors.
== END 2024-11-14 14:27 | DRG 871 ==
LOC: EC 10:17 → 2SICU 13:51 → 4SSUR 11-07 10:34
PROVIDERS: ADMIT Family Medicine; ATTEND Family Medicine
PROC: 5A09457 Assistance with Respiratory Ventilation, 24-96 Consecutive Hours, Continuous Positive Airway Pressure (ICD-10-PCS; principal; 2024-11-05)
DX: A41.9 Sepsis, unspecified organism (principal); G93.41 Metabolic encephalopathy; J96.01 Acute respiratory failure with hypoxia; J96.02 Acute respiratory failure with hypercapnia; I50.33 Acute on chronic diastolic (congestive) heart failure; I21.A1 Myocardial infarction type 2; J18.9 Pneumonia, unspecified organism; E87.20 Acidosis, unspecified; I42.9 Cardiomyopathy, unspecified; I13.0 Hypertensive heart and chronic kidney disease with heart failure and stage 1 through stage 4 chronic kidney disease, or unspecified chronic kidney disease; I48.3 Typical atrial flutter; D62 Acute posthemorrhagic anemia; R45.851 Suicidal ideations; N17.9 Acute kidney failure, unspecified; N39.0 Urinary tract infection, site not specified; F32.9 Major depressive disorder, single episode, unspecified; D69.6 Thrombocytopenia, unspecified; I35.2 Nonrheumatic aortic (valve) stenosis with insufficiency; N18.9 Chronic kidney disease, unspecified; F29 Unspecified psychosis not due to a substance or known physiological condition; I48.91 Unspecified atrial fibrillation; Y95 Nosocomial condition; E16.2 Hypoglycemia, unspecified; I95.9 Hypotension, unspecified; R74.01 Elevation of levels of liver transaminase levels; E87.6 Hypokalemia; I25.10 Atherosclerotic heart disease of native coronary artery without angina pectoris; E78.5 Hyperlipidemia, unspecified; M47.816 Spondylosis without myelopathy or radiculopathy, lumbar region; R31.9 Hematuria, unspecified; T45.515A Adverse effect of anticoagulants, initial encounter; Z91.148 Patient's other noncompliance with medication regimen for other reason; Z91.199 Patient's noncompliance with other medical treatment and regimen due to unspecified reason; Z79.01 Long term (current) use of anticoagulants; Z79.899 Other long term (current) drug therapy; Z87.891 Personal history of nicotine dependence; Z86.73 Personal history of transient ischemic attack (TIA), and cerebral infarction without residual deficits; Z96.641 Presence of right artificial hip joint; Z95.0 Presence of cardiac pacemaker; Z91.51 Personal history of suicidal behavior; Z98.1 Arthrodesis status; Z88.5 Allergy status to narcotic agent; Z88.0 Allergy status to penicillin
CPT/HCPCS: 36415; 36600; 51702; 70450; 71045; 71275; 74177; 80048; 80053; 80202; 81001; 82272; 82607; 82747; 82805; 83036; 83540; 83550; 83605; 83735; 83880; 84132; 84145; 84484; 85025; 85027; 85610; 85730; 87040; 87070; 87086; 87449; 87636; 93005; 93308; 94640; 94660; 94760; 96361; 96365; 96366; 96367; 96368; 96372; 96375; 96376; 99291